=== PATIENT | female | born 1955 | race Caucasian/White ===

== ENCOUNTER 2023-07-08 09:12 | Emergency (ER) | payer OTHER, SELFPAY ==
[2023-07-08] VITALS (9 sets, daily range): BP systolic 134–143; BP diastolic 63–78; PULSE 75–129; RESP 12–21; TEMP 36.8; O2SAT 99; BMI 19.9
[2023-07-08 09:48] LABS: Absolute Lymphocyte Count 0.23 X10^3/uL (0.83-4.51); Absolute Neutrophil Count 2.4 X10^3/uL (2.0-7.7); Basophil# 0.02 X10^3/uL; Basophil% 0.6 % (0-1); Eosinophil# 0.06 X10^3/uL; Eosinophils% 1.9 % (0-5); Hematocrit 37.5 % (37-47); Hemoglobin 12.4 g/dL (12.0-15.0); Lymphocyte # 0.23 X10^3/ul (0.83-4.51); Lymphocyte % 7.3 % (19-41); Mean Corp Hgb Conc 33.1 g/dL (32-36); Mean Corpuscular Hgb 27.3 pg (27.0-32.0); Mean Corpuscular Volume 82.6 fL (81-99); Mean Platelet Vol. 9.2 fl (6.2-12.0); Monocyte# 0.49 X10^3/uL; Monocyte% 15.5 % (0-10); NRBC Flagged by Analyzer 0 % (0-5); Neutrophil # 2.35 X10^3/uL (2.7-7.7); Neutrophil % 74.4 % (47-70); POSITIVE DIFFERENTIAL YES; Platelet Count 306 K/mm3 (150-450); RBC Distribution Width SD 47.7 fl (35.1-43.9); Red Blood Count 4.54 M/mm3 (4.2-5.4); White Blood Count 3.2 K/mm3 (4.4-11.0)
[2023-07-08] MEDS: 0.9% Normal Saline (1000mL) 1,000 ML 1000 ML IV (09:48)
[2023-07-08 09:54] LABS: Differential Indicated SCAN CRITERIA MET
--- NOTE | 2023-07-08 09:54 | ED.VIS.GI ---
HPI HPI - GI History of Present Illness Chief Complaint: Diarrhea Informant: patient and spouse/S.O. Narrative Narrative: Increasing watery diarrhea since yesterday at least 12 episodes. Patient diagnosed reported rectal adenocarcinoma this past March followed by Dr. Orellana. She is on oral chemotherapy. She is getting radiation treatment due to tumor size, last treatment was yesterday. She has had a total of 17 treatments. Occasional blood in the stools. No anticoagulants. Occasional abdominal cramping. Denies fever states she felt little cold overnight. Reported felt weak. Blood pressure this morning at home systolic 87. They talked with oncology who referred him to the ED. Denies urinary symptoms or any cough. Prior similar symptoms: No PFSH [facility] Medical History CINV (chemotherapy-induced nausea and vomiting) Hx of sigmoidoscopy Rectal cancer Home Medications capecitabine 500 mg tablet 1,000 mg (2 x 500 mg) PO BID #100 tabs 06/02/23 [Rx Last Taken Unknown] calcium carbonate 600 mg calcium (1,500 mg) tablet (Calcium) 600 mg PO DAILY PRN 06/05/23 [History Last Taken Unknown] diclofenac sodium 1 % topical gel 2 g topical BID #100 grams 06/05/23 [Rx Last Taken Unknown] flaxseed oil 1,000 mg capsule 1,000 mg PO DAILY 06/05/23 [History Last Taken Unknown] denia (Zingiber officinalis) 250 mg capsule 250 mg PO DAILY PRN 06/05/23 [History Last Taken Unknown] magnesium 200 mg tablet 200 mg PO DAILY PRN 06/05/23 [History Last Taken Unknown] ondansetron 8 mg disintegrating tablet 8 mg PO Q8H PRN nausea and vomiting #30 tabs 06/05/23 [Rx Last Taken Unknown] potassium gluconate 595 mg (99 mg) tablet 595 mg PO DAILY PRN 06/05/23 [History Last Taken Unknown] loperamide 2 mg capsule (Imodium A-D) 2 mg PO Q6H PRN 06/25/23 [History Last Taken Unknown] sodium chloride 1,000 mg soluble tablet 1,000 mg PO QD-QID PRN electrolyte replenishment 30 days #60 tabs 07/02/23 [Rx Last Taken Unknown] diphenoxylate-atropine 2.5 mg-0.025 mg tablet (Lomotil) 1 tab PO BID PRN diarrhea #20 tabs 07/08/23 [Rx Last Taken Unknown] metoclopramide HCl 5 mg tablet (Reglan) 5 mg PO Q6H PRN nausea and vomiting #14 tabs 07/08/23 [Rx Last Taken Unknown] potassium chloride 20 mEq tablet,extended release 20 meq PO DAILY #7 tabs 07/08/23 [Rx Last Taken Unknown] Allergy/AdvReac Type Severity Reaction Status Date / Time No Known Allergies Allergy Verified 07/08/23 09:13 Surgical History History of mandibular surgery Hx of cataract removal with insertion of prosthetic lens Social History Smoking Status: Never smoker alcohol intake: never ROS ROS ED Constitutional Constitutional ED: Denies chills, fever(s) or sweats Eyes Eyes: Denies change in vision ENT ENT ED: Denies dysphagia or sore throat Cardiovascular Cardiovascular: Denies chest pain, leg edema, palpitations or racing heartbeat Respiratory/Chest Respiratory/Chest: Denies cough, dyspnea or dyspnea on exertion Gastrointestinal Gastrointestinal: Reports diarrhea; Denies abdominal pain, nausea or vomiting Genitourinary Genitourinary ED: Denies dysuria, hematuria or urinary frequency Musculoskeletal Musculoskeletal: Denies back pain, extremity pain or neck pain Integumentary Denies rash or wounds Neurologic Neurologic: Denies headache(s), paresthesias or weakness EXAM Physical Exam Const Vital Signs: 07/08/23 09:13 07/08/23 09:39 07/08/23 13:22 Temperature 98.3 F 98.3 F Temperature Source Temporal Temporal Pulse Rate 75 75 91 Respiratory Rate 14 14 12 Blood Pressure 140/78 H 140/78 H Blood Pressure Mean 98 98 Pulse Ox 99 99 Oxygen Delivery Method Room Air Room Air 07/08/23 14:06 07/08/23 14:10 07/08/23 14:15 Temperature Temperature Source Pulse Rate 97 95 88 Respiratory Rate 16 20 H 19 H Blood Pressure 136/66 H 134/63 H Blood Pressure Mean 83 83 Pulse Ox Oxygen Delivery Method 07/08/23 14:20 07/08/23 14:30 07/08/23 14:40 Temperature Temperature Source Pulse Rate 94 100 129 H Respiratory Rate 20 H 21 H 16 Blood Pressure 143/63 H Blood Pressure Mean 84 Pulse Ox Oxygen Delivery Method Positive well nourished and well developed General Appearance ED: well developed and NAD HEENT HEENT Narrative: Mild dry oral mucosal membranes. normocephalic and atraumatic Eyes PERRL, EOMs intact bilaterally and conjunctivae normal General Eye ED: Yes normal appearance of both eyes Neck no lymphadenopathy and supple General: Negative for tenderness Chest Wall Chest: Negative for tenderness Resp normal respiratory effort and normal air movement Effort and Inspection: symmetric chest movement; Negative for respiratory distress Cardio regular rate, regular rhythm and no murmurs Peripheral Pulses: pulses 2+ throughout GI normal to inspection, nondistended, normoactive bowel sounds and non-tender GI Narrative: No guarding or rebound. Palpation: Negative for guarding or rebound tenderness present Back/Spine no CVA tenderness and no thoracic nor lumbar tenderness Extremity normal to inspection General Extremety ED: Negative for edema or tenderness General Extremity: Negative for edema Neuro oriented x3 and no sensory deficits noted Sensorium / Orientation: awake and alert Skin no rashes or lesions noted and no wounds MDM MDM MDM Narrative Medical decision making narrative: Interventions / MDM: Differential diagnosis: Diarrhea, electrolyte abnormalities, dehydration Diagnosis considered but do not suspect: C. difficile/bacterial infection however stool studies negative. No clinical diverticulitis. No fevers for concerns for neutropenic fever. My EKG interpretation: N/A Imaging independently reviewed and interpreted by myself: N/A External documents reviewed: N/A Test considered but not ordered:N/A ED course: Patient afebrile denies fevers. Mild dry mucosal membranes with diarrhea. Will check labs, IV fluids will be given. 1215: Labs white count 3.2 hemoglobin 12.4. C. difficile negative. Stool studies pending. Creatinine 0.66. Potassium 2.6. Magnesium added. Clinically feeling better however still slight nausea. Was ordered for IV Reglan. Will plan for oral replacement of potassium. She was also hungry therefore diet will be ordered. Will wait stool studies results. C. difficile and stool panel negative. Tolerating oral intake on reevaluation. Abdomen soft she has multiple ambulation to restroom due to her loose stools. She is not weak with the potassium. She is given additional oral potassium 40 mill equivalents for total PD in the ED. I did discuss with her oncologist Dr. Orellana, she had oral lesions that she was concerned that small, states due to having symptoms with her chemotherapy that she can hold her chemotherapy medications. This discussed with the patient. She will follow-up outpatient for recheck labs. She was started on Lomotil with negative bacterial findings. Short prescription additional for Reglan sent to her pharmacy. Prior to discharge she was content by her radiology oncology team and seen in the ED, she is discharged for her radiation treatment from the ED. Re-evaluation: stable Disposition discussed with patient/family/significant other: Patient Case discussed with consulting clinician: Oncology This note was generated with [employer] dictation software. It may contain incorrect words, spelling, and punctuation that were not noted in checking the note before signing. Lab Data Attestation: I reviewed the patient's lab results. Labs: Laboratory Results - last 24 hr 07/08/23 09:35 WBC 3.2 L RBC 4.54 Hgb 12.4 Hct 37.5 MCV 82.6 MCH 27.3 MCHC 33.1 RDW Std Deviation 47.7 H RDW Coeff of John 19.0 H Plt Count 306 MPV 9.2 Immature Gran % (Auto) 0.300 Neut % (Auto) 74.4 H Lymph % (Auto) 7.3 L Walker % (Auto) 15.5 H Eos % (Auto) 1.9 Baso % (Auto) 0.6 Absolute Neuts (auto) 2.4 Absolute Lymphs (auto) 0.23 L Nucleated RBC % 0 Differential Comment SCANNED Diff Path Review May foll Sodium 130 L Potassium 2.6 L* Chloride 96 L Carbon Dioxide 29.0 Anion Gap 5 BUN 7 Creatinine 0.66 Estim Creat Clear Calc 36.94 Est GFR (MDRD) Af Amer 113 Est GFR (MDRD) Non-Af 94 BUN/Creatinine Ratio 10.6 Glucose 133 H Calcium 8.8 Magnesium 1.8 Total Bilirubin 0.40 AST 14 L ALT 14 Alkaline Phosphatase 77 Total Protein 7.1 Albumin 2.8 L Globulin 4.3 H Albumin/Globulin Ratio 0.7 L Discharge Plan Triage Chief Complaint: Diarrhea ED Provider: Jadon Vazquez Dx/Rx/DC Orders Clinical Impression: Diarrhea, Rectal cancer, Hypokalemia Instructions: Hypokalemia Dc, ED Diarrhea, Viral (Adult) Prescriptions: New diphenoxylate-atropine [Lomotil] 2.5-0.025 mg tablet 1 tab PO BID PRN (Reason: diarrhea) Qty: 20 0RF potassium chloride 20 mEq tablet extended release 20 meq PO DAILY Qty: 7 0RF metoclopramide HCl [Reglan] 5 mg tablet 5 mg PO Q6H PRN (Reason: nausea and vomiting) Qty: 14 0RF No Action capecitabine 500 mg tablet 1,000 mg PO BID Qty: 100 0RF Rx Instructions: Friday to Friday during Radiation. calcium carbonate [Calcium 600] 600 mg calcium (1,500 mg) tablet 600 mg PO DAILY PRN flaxseed oil 1,000 mg capsule 1,000 mg PO DAILY Rx Instructions: administer with a meal denia (Zingiber officinalis) 250 mg capsule 250 mg PO DAILY PRN magnesium 200 mg tablet 200 mg PO DAILY PRN potassium gluconate 595 mg (99 mg) tablet 595 mg PO DAILY PRN ondansetron 8 mg tablet,disintegrating 8 mg PO Q8H PRN (Reason: nausea and vomiting) Qty: 30 2RF diclofenac sodium 1 % gel 2 g topical BID Qty: 100 2RF Rx Instructions: apply to palms and soles of feet twice daily sodium chloride 1,000 mg tablet,soluble 1,000 mg PO QD-QID PRN (Reason: electrolyte replenishment) 30 Days Qty: 60 1RF loperamide [Imodium A-D] 2 mg capsule 2 mg PO Q6H PRN Primary Care Provider: Mike Salvador Referrals: Nate Orellana MD [Med Staff - Active Staff] - 3-5 Days Mike Salvador MD [Primary Care Provider] - Activity Restrictions/Additional Instructions: Stool studies with C. difficile and stool panel all negative. Creatinine normal 0.66. You were given a total of 80 mEq of potassium in the ED over couple hours. Continue potassium replacement as prescribed daily. Continue oral fluids for hydration. Per Dr. Orellana, you may hold your chemotherapy oral medications until follow-up with him. Continue with your radiation therapy. Disposition Disposition: Home, Self Care Discharge Date/Time: 07/08/23 15:22
[2023-07-08] MEDS: Ondansetron 4 MG/2 ML Vial IV (09:55)
[2023-07-08 10:06] LABS: Differential Comment SCANNED
[2023-07-08 10:50] LABS: ALB/GLOB Ratio 0.7 RATIO (0.9-2.4); AST(SGOT) 14 U/L (15-37); Alanine Aminotransfer ALT/SGPT 14 U/L (13-56); Albumin, Serum 2.8 g/dL (3.2-5.0); Alkaline Phosphatase 77 U/L (45-117); Anion Gap 5 (5-15); BUN 7 mg/dL (7-18); BUN/Creat Ratio 10.6 RATIO (10-20); Calcium,Total 8.8 mg/dL (8.5-10.1); Chloride 96 mmol/L (98-107); Creatinine, Serum 0.66 mg/dL (0.55-1.02); EST Glomerular Filtration Rate 94 mL/min (>60); Est Glom Filt Rate - Afr Amer 113 mL/min (>60); Estimated Creatinine Clearance 36.94 ml/min; Globulin 4.3 g/dL (2.2-4.2); Glucose 133 mg/dL (74-106); Potassium 2.6 mmol/L (3.5-5.1); Protein, Total 7.1 g/dL (6.4-8.2); Sodium Level 130 mmol/L (136-145)
--- OUTSIDE RECORDS SUMMARY | 2023-07-08 11:35 | XMS RPT_ITS | CCD ---
Author Name Unknown Address [address] [place] [address] Organization [facility] Care Team Providers Care Mink Farmer Name Role Phone Unavailable Primary Care Provider Unavailabl e [facility], Other Primary Care Provider BLOSSOM HARRIS Consulting Unavailable RIOS, MARIA D Admitting Unavailable RIOS, MARIA D Primary Care Unavailable RIOS, MARIA D Attending Unavailable PROVIDER, UNKNOWN Consulting Unavailable PROVIDER, UNKNOWN Consulting Unavailable PROVIDER, UNKNOWN Consulting Unavailable AARON HARRISRY T Consulting Unavailable RIOS, MARIA D Admitting Unavailable RIOS, MARIA D Primary Care Unavailable RIOS, MARIA D Attending Unavailable PROVIDER, UNKNOWN Consulting Unavailable PROVIDER, UNKNOWN Consulting Unavailable PROVIDER, UNKNOWN Consulting Unavailable STEVEN BLOSSOM T Consulting Unavailable RIOS, MARIA D Admitting Unavailable RIOS, MARIA D Primary Care Unavailable RIOS, MARIA D Attending Unavailable PROVIDER, UNKNOWN Consulting Unavailable PROVIDER, UNKNOWN Consulting Unavailable PROVIDER, UNKNOWN Consulting Unavailable STEVEN BLOSSOM T Consulting Unavailable RIOS, MARIA D Admitting Unavailable RIOS, MARIA D Primary Care Unavailable RIOS, MARIA D Attending Unavailable PROVIDER, UNKNOWN Consulting Unavailable PROVIDER, UNKNOWN Consulting Unavailable PROVIDER, UNKNOWN Consulting Unavailable DAPHNEY SHANNAN E Referring Unavailable ASHOK MINOR Attending Unavailabl e ASHOK MINOR Admitting Unavailabl ASHOK Ortega Attending Unavailabl e [employer] [facility], OTHER Primary Care Unavailable HICKEY, SHANNAN E Referring Unavailable [employer] [facility], OTHER Primary Care Unavailable [facility] OFF[facility]CP, [facility] Referring Unavailable EPIFANIO MARIN Attending Unavailable [employer] [facility], OTHER Primary Care Unavailable HICKEY, SHANNAN E Attending Unavailable HICKEY, SHANNAN E Referring Unavailable [employer] [facility], OTHER Primary Care Unavailable ASHOK MINOR Attending Unavailabl e ASHOK MINOR Referring Unavailabl e ASHOK MINOR Attending Unavailabl e BLANCA, MARIA D Referring Unavailable KAYLEY ALVARADO-CTRACY Unavailable [phone] KARINEASIF TRIBE Unavailable Unavailable MARIA D RIOS MD Unavailable BLOSSOM HARRIS MD Unavailable [phone] Luis AntonioYolanda malave Unavailable Unavailable Andrey MARTINEZ MD Unavailable Haley Glass Unavailable Unavailable Alexa Rios Unavailable Unavailable Rafat RIOS MD Unavailable [place] MARYNestorn Unavailable Unavailable RAYMUNDO TABOR Unavailable Unavailable KIMBERLY CHRISTINE MD Unavailable Lora Colon Unavailable Unavailable Unavailable Unavailable Medications Completed/Discontinued Medications Medication Drug Class(es) Dates Sig (Normalized) Sig (Original) ALPRAZolam 0.5 mg oral tablet (1 source) Benzodiazepine Start: 10-12-2014 End: 07-28-2017 take 1 tablet by mouth once daily as needed Xanax 0.5 MG Oral Tablet ; 1 (one) Tablet one time daily as needed for 30 days Quantity: 30 {Tablet} Refills: 2 Ordered: 28-Jul-2017 Start: 12-Oct-2014 End: 28-Jul-2017 Status: Inactive Comments: Medication taken as needed. Problems Active Problems Problem Classification Problem Date Documented Da te Episodic/Chronic Administrative/social admission (1 source) Repeated prescription; Translations: [Encounter for issue of repeat prescription] 03-15-2013 Episodic Cancer of rectum and anus (5 sources) Malignant tumor of rectum; Translations: [Malignant neoplasm of rectum] Onset: 05-07-2023 05-07-2023 Chronic Past or Other Problems Problem Classification Problem Date Documented Da te Episodic/Chronic Cataract (1 source) Cataract 06-29-2021 Mood disorders (2 sources) Mood disorders 05-12-2012 Unclassified (1 source) Flatulence - Symptoms include belching, bloating (just feels gassy) and excessive rectal gas. Onset was 3 month(s) ago. Associated symptoms include diarrhea, cramping (some) and change in bowel habits, while associated symptoms do not include constipation, blood in stool, fever, nausea or vomiting. Note for Flatulence : Patinet feels good but just feels gassy. After eating this happens. Patient has tried probiotics at times. and enzymes 03-24-2023 Unclassified (1 source) ![facility] The test(s) that you had done were/was blood work. The results of your testing were normal . You should call our office if you have any questions. 01-08-2018 Unclassified (1 source) !Patient notification of lab results - [facility]. The test(s) that you had done were/was blood work (You had labs in June 2017 that indicated a high globulin (blood protein). This is actually a test which combines the amount of a number of individual protein levels to give the total level which we tested. Sometimes the total is elevated because several individual proteins are in the high normal range. In other cases, it is because a single protein is elevated and thus driving up the total. There is an additional blood test called a serum protein electrophoresis that must be run at this time which helps identify these individual protein levels.You have not had this additional test performed yet and it is important that you do so. Pleaes call our office to schedule the lab test.). You should call our office if you have any questions. 12-18-2017 Unclassified (1 source) !Patient notification of lab results - [facility]. The test(s) that you had done were/was blood work (The protein level on your blood test was elevated. This is actually a test which combines the amount of a number of individual protein levels to give the total level which we tested. Sometimes the total is elevated because several individual proteins are in the high normal range. In other cases, it is because a single protein is elevated and thus driving up the total. There is an additional blood test called a serum protein electrophoresis that must be run at this time which helps identify these individual protein levels.). You should call our office to schedule an appointment for additional testing and if you have any questions. 11-12-2017 Unclassified (1 source) !Patient notification of lab results - [facility]. The test(s) that you had done were/was blood work (The neutrophil count was slightly low. These are cells that help fight bacterial infections. They were not so low that I am concerned that you will have a problem with infection, but the count should be repeated in 6 months to be certain that the count is stable). You should call our office to schedule an appointment for additional testing and if you have any questions. 10-08-2017 Unclassified (1 source) !Patient notification of lab results - [facility]. The test(s) that you had done were/was blood work (The white blood cell count was slightly low. These are cells that help fight infections. The count should be repeated in 1 week to be certain that it is returning to normal. Sometimes it is low during an infection. Your iron count was slightly low (34 with normal being 37 or above). Please start a multivitamin with iron daily and have the lab repeated in 3 months.Several of your liver function tests were slightly elevated. This can result from any number of causes such as fatty deposits in the liver or irritation due to a medication. I don't feel that these are elevated to the point of being a critical concern, but I would recommend that we repeat them in 3 months to verify that they are stable). You should call our office if you have any questions. Please follow up as scheduled. 07-31-2017 Unclassified (1 source) cough - Note for cough : Productive cough. C/O fatigue. Passed out last night - felt dizzy. Chills since Friday. Here for exam.* Late entry due to [employer] virus outage. 07-30-2017 Unclassified (1 source) Anxiety - Note for Anxiety : Pt is feeling well on the sertraline. She does keep some pills on hand for emergencies. 10-12-2014 Unclassified (1 source) [ADDITIONAL REASON] Insomnia - Note for Insomnia : Pt is sleeping well. 10-12-2014 Unclassified (1 source) Depression - Note for Depression : Patient is here for depression/anxiety. She has difficulty sleeping and occasional anxiety. She did have 3 different medications on hand to take when she felt she needed and she would like to refill those prescriptions again to have them on hand when she needs them. She did have a concern about her stomach while taking these prescriptions. 03-09-2014 Unclassified (1 source) Insomnia - Note for Insomnia : wants ambien refilled. 03-16-2013 Unclassified (1 source) Routine Check - Patient is here to review the medical problem(s) of other: ____ (anxiety/depression). Note for Routine Check : States is feeling better. Has to work through things. 02-11-2012 Unclassified (1 source) Routine Check - Patient is here to review the medical problem(s) of other: ____ (anxiety/depression). Note for Routine Check : States is feeling better. Quit taking the sertraline for a while but is taking again after family strongly encouraged to keep taking . Sometimes is taking the ambien 12.5 instead of the restoril 15mg which she is supposed to be taking (chaned to this at last visit.) 01-07-2012 Unclassified (1 source) !Patient notification of lab results 1 - Dr. Christine. The test(s) that you had done were/was a serum protein electrophoresis to look for abnormal proteins. The results of your testing were normal . Please continue your current medication/therapy and follow up as scheduled. 12-11-2011 Unclassified (1 source) !Patient notification of lab results 1 - Dr. Christine. The test(s) that you had done were/was a CBC (checks for anemia and infection), a CMP (kidneys, liver, nutrition, sugar), a lipid panel (cholesterol and triglycerides) and a TSH (thyroid). The results of your testing were normal for age (except a slightly high globulin level which we will recheck at your next visit to verify) . Please note that we have included copies of your results, continue your current medication/therapy and follow up as scheduled. 11-20-2011 Unclassified (1 source) Insomnia - Symptoms include difficulty staying asleep. The symptoms occur nightly. Note for Insomnia : Saw Dr Rios a few weeks ago and given RX medication but is still not sleeping. Says she thinks she has anxiety and depression and mind won't let me sleep . 11-19-2011 Unclassified (1 source) Sleep Disorders - Onset was 6 week(s) ago. Note for Sleep Disorders : Increase in stress recently; sleeps approx 2-3 hours per night. 10-30-2011 Results Test Name Value Interpretation Reference Range Facil ity Vital Signs Date Time Vital Sign Value Performing Clinician Buffy workman 05-14-2023 13:30-0500 Diastolic blood pressure 74 mm[Hg] Ashok Minor MD Work Phone: [facility] 05-14-2023 13:30-0500 Heart rate 71 /min Ashok Minor MD Work Phone: [facility] 05-14-2023 13:30-0500 Respiratory rate 16 /min Ashok Minor MD Work Phone: [facility] 05-14-2023 13:30-0500 SaO2% (BldA) [Mass fraction] 100 % Ashok Minor MD Work Phone: [phone] [address] 05-14-2023 13:30-0500 Systolic blood pressure 142 mm[Hg] Ashok Minor MD Work Phone: [phone] [address] 05-14-2023 13:10-0500 Body temperature 98.01 [degF] Ashok Minor MD Work Phone: 4([phone] [address] 05-14-2023 12:28-0500 Body height 147.3 cm Ashok Minor MD Work Phone: [phone])[phone] [address] 05-14-2023 12:28-0500 Body mass index (BMI) [Ratio] 21.28 kg/m2 Ashok Minor MD Work Phone: [phone])[phone] [address] 05-14-2023 12:28-0500 Body weight 46.18 kg Ashok Minor MD Work Phone: [facility] 05-07-2023 12:22-0500 Diastolic blood pressure 83 mm[Hg] Ashok Minor MD Work Phone: [facility] 05-07-2023 12:22-0500 Heart rate 123 /min Ashok Minor MD Work Phone: [facility] 05-07-2023 12:22-0500 Systolic blood pressure 170 mm[Hg] Ashok Minor MD Work Phone: [phone] [address] 05-06-2023 09:53-0500 Body height 147.3 cm Ashok Minor MD Work Phone: [facility] 05-06-2023 09:53-0500 Body mass index (BMI) [Ratio] 22.36 kg/m2 Ashok Minor MD Work Phone: [facility] 05-06-2023 09:53-0500 Body weight 48.53 kg Ashok Minor MD Work Phone: [facility] 05-06-2023 09:53-0500 Diastolic blood pressure 90 mm[Hg] Ashok Minor MD Work Phone: [facility] 05-06-2023 09:53-0500 Heart rate 102 /min Ashok Minor MD Work Phone: [facility] 05-06-2023 09:53-0500 Systolic blood pressure 167 mm[Hg] Ashok Minor MD Work Phone: [facility] 03-24-2023 13:02-0400 Body height 147.32 cm Brianna Overholt [facility], [facility]. 03-24-2023 13:02-0400 Body mass index (BMI) [Ratio] 24.03 kg/m2 Brianna Overholt [facility], [facility]. 03-24-2023 13:02-0400 Body surface area Derived from formula 1.44 m2 Brianna Overholt [facility], [facility]. 03-24-2023 13:02-0400 Body weight 52.16 kg Brianna Overholt [facility], [facility]. 03-24-2023 13:02-0400 Diastolic blood pressure 85 mm[Hg] Brianna Overholt [facility] Encounters Encounter Date Encounter Type Care Provider Facility Start: 06-06-2023 End: 06-06-2023 Historical Summary TRACY ALVARADO-Imani [facility]: [facility] Start: 06-05-2023 End: 06-05-2023 Subsequent hospital visit by physician Shannan Nascimento [employer] Work Phone: [facility] [place] Procedures Date Procedure Procedure Detail Performing Clinician Start: 05-14-2023 Glucose measurement, blood Ashok Minor MD Work Phone: Start: 05-07-2023 Mri pelvis w/o & w/contrast material Ashok Minor MD Work Phone: Start: 03-24-2023 End: 03-24-2023 Dischrg meds reconciled w/current med list TRACY MARSHALLP-C Work Phone: Start: 06-29-2021 End: 06-29-2021 Dischrg meds reconciled w/current med list BLOSSOM HARRIS MD Work Phone: Start: 05-12-2012 End: 05-12-2012 Microscopic examination of cervical Papanicolaou smear Brianna Christopherolrose marie [facility] Plan of Treatment Date Care Activity Detail Author Start: 06-05-2023 End: 06-05-2023 Patient encounter procedure 06/05/2023 9:30 AM EST Appointment [facility] [place] [address] Shannan Nascimento, SUPER[employer]OR [employer] [address] [facility] [address] [place] [address] [facility] [place] Start: 06-05-2023 Subsequent hospital visit by physician 06/05/2023 9:30 AM EST Hospital Encounter [facility] [place] [address] Shannan Nascimento, SUPERVISOR [employer] [address] [place] [address] [facility] [place] Start: 06-03-2023 End: 06-03-2023 Patient encounter procedure 06/03/2023 3:15 PM EST Office Visit [facility] [address] [place] [phone] Ashok Minor MD [address] [place] [address] [facility] Start: 05-14-2023 End: 05-14-2023 Admission to same day surgery center 05/14/2023 12:30 PM EST - 05/14/2023 1:50 PM EST Surgery [facility] [address] [place] [phone] Ashok Minor MD [address] [place] [address] EXAM UNDER ANESTHESIA ANORECTAL PERIOP Immunizations Immunization Date Immunization Notes Care Provider [facility] 05-12-2012 influenza virus vaccine, unspecified formulation TRACY BILL Work Phone: [facility], [employer], [facility] Payers Date Payer Category Payer Unknown [id number] 1955 Unknown [id number] [id number] 1955 Unknown [id number] 2.16.8 [id number] 1955 Unknown [id number] 2.16.8 [id number] 1955 Unknown [id number] 2.16.8 [id number] 1955 Unknown [id number] [id number]. [id number] 1955 Unknown [id number] [id number]. [id number] Unknown 194 Unknown Social History Date Type Detail Facility Start: 05-06-2023 Tobacco smoking stat [facility] Never smoked tobacco [facility] Start: 05-06-2023 Tobacco use and exposure Smokeless tobacco non-user [facility] Start: 05-06-2023 End: 05-19-2023 Alcohol intake Lifetime non-drinker (finding) [facility] Start: 05-06-2023 End: 05-19-2023 History of Social function [facility] Start: 05-06-2023 End: 05-19-2023 Tobacco use panel [facility] Start: 1955 Sex Assigned At Not on file [facility] Alcohol Use: Alcohol Use: ; N ever used alcohol. [facility]; [facility] Highest Education [employer] Attained: Highest Education Level Attained: ; Less than high school. [facility] [employer] [facility] Center[facility].; [facility] Marital status: Marital status: ; . [facility].; [facility] Tobacco use: Tobacco use: ; N ever smoker. [facility].; [facility] Female [facility].; [facility] Work Phone: Less than high school [facility] [employer] [facility] Center[facility].; [facility] Work Phone: [facility].; [facility] Work Phone: Clinical Notes 05-06-2023 to 05-14-2023 Op Note - Ashok Minor MD - 05/14/2023 2:01 PM ESTBrief Op Note - Ashok Minor MD - 05/14/2023 2:01 PM ESTBrief Op Note - Tracy Phillips MD - 05/14/2023 1:06 PM ESTAttachments Note Date & Type Note Facility 05-14-2023 Miscellaneous Notes OPERATIVE NOTE DATE OF PROCEDURE: 05/14/2023 PREOPERATIVE DIAGNOSIS: rectal tumor POSTOPERATIVE DIAGNOSIS: same PROCEDURE: 1) flexible sigmoidoscopy SURGEON: Ashok Minor MD CONCRETE PLANT LABORER(S): Dr. Phillips ANESTHESIA: MAC COMPLICATIONS: none SPECIMEN(S): none EBL: 0 mL DRAIN(S): none INDICATIONS: 68-year-old female referred for rectal tumor. At the time of office consultation as well as today's procedure, we do not have a colonoscopy report. His best as I can ascertain from her pathology report, she has a partially obstructing rectal tumor. She has a CEA of 50. A CT of her chest abdomen and pelvis suggests a luminal sigmoid mass partial obstruction. MRI of her pelvis is consistent with a T4 N0 rectal tumor straddling the peritoneal reflexion. She presents for flexible sigmoidoscopy. FINDINGS: 1. Fungating tumor at 12 cm from the anal verge, in close approximation to the 3rd rectal valve. The distal extent of the lesion was palpable by digital examination suggesting the lesions is at the peritoneal reflection. PROCEDURE IN DETAIL: Prior to induction, the patient's identity was confirmed and sequential compression devices were placed by OR nursing. Anesthesia was administered via MAC without difficulty. The patient was positioned for the operative procedure in the lateral decubitus position with all pressure points padded. The patient was then prepped and draped in the standard sterile fashion. Digital examination revealed good sphincter tone. A firm lesion was palpable at 8 cm anteriorly. I inserted a flexible colonoscope transanally advanced it to proximally 12 cm. I could identify a fungating tumor unable to be traversed by adult colonoscope. The colonoscope was withdrawn. The patient tolerated the procedure well with no immediate surgical complications. All instrument and sponge counts were correct at the conclusion of the case. The patient was taken from the operating room to the recovery room in stable condition. I was present and scrubbed for the entire procedure. Julián Minor MD Clinical color paste mixing supervisor Division of Colon and Rectal Surgery Ximena Chow ([id number]) PRE OPERATIVE DIAGNOSIS Adenocarcinoma [C80.1] POST OPERATIVE DIAGNOSIS Post-Op Diagnosis Codes: * Adenocarcinoma [C80.1] PROCEDURE PERFORMED Procedure(s) (LRB): SIGMOIDOSCOPY DIAGNOSTIC (N/A) PRIMARY CLOSURE Yes INTRAOPERATIVE FINDINGS Fungating tumor at 12cm from anal verge (at 3rd rectal valve) SURGEON Surgeon(s) and Role: * Ashok Minor MD - Primary ANESTHESIOLOGIST Anesthesiologist: Rosalie Posey MD Criminal Profiler: CÉSAR Henderson SURGICAL STAFF Broacher: Lora Bartlett RN Relief Broacher: Ivis Tarango RN Relief Scrub: Priscila Phan Scrub Person: Raquel Hernandez RN; Adeola Giraldo Resident Assisting: Tracy Phillips MD COMPLICATIONS None ESTIMATED BLOOD LOSS None SPECIMENS No specimen sent * No specimens in log * Ashok iMnor MD May 14, 2023 2:18 PM Ximena Chow ([id number]) PRE OPERATIVE DIAGNOSIS Adenocarcinoma [C80.1] POST OPERATIVE DIAGNOSIS Post-Op Diagnosis Codes: * Adenocarcinoma [C80.1] PROCEDURE PERFORMED Procedure(s) (LRB): EXAM UNDER ANESTHESIA ANORECTAL (N/A) PRIMARY CLOSURE N/A INTRAOPERATIVE FINDINGS Fungating mass appreciated at about 10-12 cm from anal verge on flex sig. No additional lesions appreciated. SURGEON Surgeon(s) and Role: * Ashok Minor MD - Primary ANESTHESIOLOGIST Anesthesiologist: Rosalie Posey MD Criminal Profiler: CÉSAR Henderson SURGICAL STAFF Broacher: Lora Bartlett RN Relief Broacher: Ivis Tarango RN Relief Scrub: Priscila Phan Scrub Person: Raquel Hernandez RN; Adeola Giraldo Resident Assisting: Tracy Phillips MD COMPLICATIONS None ESTIMATED BLOOD LOSS Minimal SPECIMENS No specimen sent * No specimens in log * Tracy Phillips MD PhD Department of Surgery PGY3 #[id number] May 14, 2023 1:06 PM documented in this encounter [facility] 05-14-2023 Surgery Postoperative evaluation and management note OPERATIVE NOTE DATE OF PROCEDURE: 05/14/2023 PREOPERATIVE DIAGNOSIS: rectal tumor POSTOPERATIVE DIAGNOSIS: same PROCEDURE: 1) flexible sigmoidoscopy SURGEON: Ashok Minor MD [employer]CR[employer] LABORER(S): Dr. Phillips ANESTHESIA: MAC COMPLICATIONS: none SPECIMEN(S): none EBL: 0 mL DRAIN(S): none INDICATIONS: 68-year-old female referred for rectal tumor. At the time of office consultation as well as today's procedure, we do not have a colonoscopy report. His best as I can ascertain from her pathology report, she has a partially obstructing rectal tumor. She has a CEA of 50. A CT of her chest abdomen and pelvis suggests a luminal sigmoid mass partial obstruction. MRI of her pelvis is consistent with a T4 N0 rectal tumor straddling the peritoneal reflexion. She presents for flexible sigmoidoscopy. FINDINGS: 1. Fungating tumor at 12 cm from the anal verge, in close approximation to the 3rd rectal valve. The distal extent of the lesion was palpable by digital examination suggesting the lesions is at the peritoneal reflection. PROCEDURE IN DETAIL: Prior to induction, the patient's identity was confirmed and sequential compression devices were placed by OR nursing. Anesthesia was administered via MAC without difficulty. The patient was positioned for the operative procedure in the lateral decubitus position with all pressure points padded. The patient was then prepped and draped in the standard sterile fashion. Digital examination revealed good sphincter tone. A firm lesion was palpable at 8 cm anteriorly. I inserted a flexible colonoscope transanally advanced it to proximally 12 cm. I could identify a fungating tumor unable to be traversed by adult colonoscope. The colonoscope was withdrawn. The patient tolerated the procedure well with no immediate surgical complications. All instrument and sponge counts were correct at the conclusion of the case. The patient was taken from the operating room to the recovery room in stable condition. I was present and scrubbed for the entire procedure. Julián Minor MD Clinical color paste mixing supervisor Division of Colon and Rectal Surgery [facility] 05-14-2023 Surgery Postoperative evaluation and management note Ximena Chow ([id number]) PRE OPERATIVE DIAGNOSIS Adenocarcinoma [C80.1] POST OPERATIVE DIAGNOSIS Post-Op Diagnosis Codes: * Adenocarcinoma [C80.1] PROCEDURE PERFORMED Procedure(s) (LRB): SIGMOIDOSCOPY DIAGNOSTIC (N/A) PRIMARY CLOSURE Yes INTRAOPERATIVE FINDINGS Fungating tumor at 12cm from anal verge (at 3rd rectal valve) SURGEON Surgeon(s) and Role: * Ashok Minor MD - Primary ANESTHESIOLOGIST Anesthesiologist: Rosalie Posey MD Criminal Profiler: CÉSAR Henderson SURGICAL STAFF Broacher: Lora Bartlett RN Relief Broacher: Ivis Tarango RN Relief Scrub: Priscila Phan Scrub Person: Raquel Hernandez RN; Adeola Giraldo Resident Assisting: Tracy Phillips MD COMPLICATIONS None ESTIMATED BLOOD LOSS None SPECIMENS No specimen sent * No specimens in log * Ashok Minor MD May 14, 2023 2:18 PM [facility] 05-14-2023 Nurse Surgical operation note Discharge instructions given to pt. Pt verbalized understanding. 1358 pt taken to lobby in wheelchair [facility] 05-14-2023 Nurse Note Discharge instructions given to pt. Pt verbalized understanding. 1358 pt taken to lobby in wheelchair Called PACU report. documented in this encounter [facility] 05-14-2023 Hospital Discharg e instructions Tracy Phillips MD - 05/14/2023 1:25 PM EST Clinic Office Main Number: [phone] For Concerns During Weekend or Evening Hours: -If you have questions or concerns call and ask the owner operator tanker truck driver to have the general surgery chief resident paged. Reminder: [employer] messaging goes unmonitored during evenings and weekends. Any concerns or questions during this time, please call using instructions above. NOTIFY PHYSICIAN: SYMPTOMS WOUND INFECTION - Increase in pain in or around wound - Change in the amount of drainage - Change in the color of drainage - Change in the odor of drainage - Warmth in the tissues around the wound - Red streaks on the skin near the wound - Fever (temperature greater than 101 degrees F) - Incision separates or opens up UNRELIEVED PAIN + - Increased or unrelieved pain NAUSEA/VOMITING + - Nausea and vomiting that continues for more than 24 hours - Not able to keep medicine down - Not able to keep fluids down SYMPTOMS OF DVT + DVT = Deep Vein Thrombus, or Blood Clot -Any Tender, Swollen, or Reddened Areas from Your Groin to Your Heels -Numbness or Tingling In Groin or Calf -The Skin on Your Leg Looks Pale or Blue or It Feels Cold To Touch -Numbness or Tingling In Groin or Calf -Any Shortness of Breath -Chest Pain -Fever or Chills SYMPTOMS OF GI BLEED + Call your doctor or nurse if you have signs of slow blood loss such as: -Black tarry bowel movements -Cold hands and feet -Weakness -Dizzyness Call 911 if you suddenly have signs of blood loss such as: -Vomiting blood -Fast heart rate -Feeling faint or blacking out -Passing bright red blood from your rectum The following attachments cannot be sent through Care Everywhere.Colonoscopy: Post-op ([place]orese)documented in this encounter [facility] 05-14-2023 Surgery Postoperative evaluation and management note Ximena Chow ([id number]) PRE OPERATIVE DIAGNOSIS Adenocarcinoma [C80.1] POST OPERATIVE DIAGNOSIS Post-Op Diagnosis Codes: * Adenocarcinoma [C80.1] PROCEDURE PERFORMED Procedure(s) (LRB): EXAM UNDER ANESTHESIA ANORECTAL (N/A) PRIMARY CLOSURE N/A INTRAOPERATIVE FINDINGS Fungating mass appreciated at about 10-12 cm from anal verge on flex sig. No additional lesions appreciated. SURGEON Surgeon(s) and Role: * Ashok Minor MD - Primary ANESTHESIOLOGIST Anesthesiologist: Rosalie Posey MD Criminal Profiler: CÉSAR Henderson SURGICAL STAFF Broacher: Lora Bartlett RN Relief Broacher: Ivis Tarango RN Relief Scrub: Priscila Phan Scrub Person: Raquel Hernandez RN; Adeola Giraldo Resident Assisting: Tracy Phillips MD COMPLICATIONS None ESTIMATED BLOOD LOSS Minimal SPECIMENS No specimen sent * No specimens in log * Tracy Phillips MD PhD Department of Surgery PGY3 #[id number] May 14, 2023 1:06 PM [facility] 05-14-2023 Nurse Surgical operation note Called PACU report. [facility] 05-14-2023 History and physical note Images from the original note were not included. Colorectal Surgery History and Physical Day of Surgery REASON FOR ADMISSION: Flex Sig with Ashok Minor MD for evaluation of upper rectal mass. HISTORY OF PRESENT ILLNESS: Ximena Chow is a 68 y.o. female with hx of irregular heartbeat here for evaluation w/ eua/flex sig for rectal tumor. No changes to medications. No anti-coagulation/anti-platelet at home. No new allergies. No recent hospitalizations or ED visits. No new medical diagnoses. No hx abdominal surgeries. Last meal was yesterday evening. Enema prep at home. Questions regarding procedure answered to satisfaction. Accompanied today by her son. Histories below confirmed to be updated. ALOC entered, Surgical consents complete, any pre-op labs evaluated and satisfactory. PROBLEM LIST: There is no problem list on file for this patient. MEDICAL HISTORY: No past medical history on file. SURGICAL HISTORY: Past Surgical History: Procedure Laterality Date OTHER SURGICAL 2021 Jaw surgery REMOVAL CATARACT (PEM) FAMILY MEDICAL HISTORY: her family history is not on file. SOCIAL HISTORY: she reports that she has never smoked. She has never used smokeless tobacco. She reports that she does not drink alcohol and does not use drugs. ALLERGIES: Not on File HOME MEDS: No medications prior to admission. REVIEW OF SYSTEMS: See hpi OBJECTIVE FINDINGS: Blood pressure (!) 190/91, pulse 105, temperature 98.3 F (36.8 C), temperature source Infrared, resp. rate 18, height 1.473 m (4' 10 ), weight 46.2 kg (101 lb 12.8 oz), SpO2 100 %. Physical Exam: GEN: alert, in no acute distress. HEENT: PERRL NEURO: alert, follows commands CV: regular rate and rhythm, pulses intact PULM: breath sounds clear to anterior auscultation, respirations easy and regular ABD: soft, nontender, nondistended MSK: no gross abnormalities, moves all extremities appropriately SKIN: no rashes EXT: warm and well perfused PSYCH: appropriate for situation Labs: Bun/Creat/Cl/CO2/Glucose: --/--/--/--/108 (05/14 1225) Imaging: MRI reviewed. Tracy Phillips MD PhD Department of Surgery PGY3 #[id number] [facility] Work Phone: 05-14-2023 History and physical note Images from the original note were not included. Colorectal Surgery History and Physical Day of Surgery REASON FOR ADMISSION: Flex Sig with Ashok Minor MD for evaluation of upper rectal mass. HISTORY OF PRESENT ILLNESS: Ximena Chow is a 68 y.o. female with hx of irregular heartbeat here for evaluation w/ eua/flex sig for rectal tumor. No changes to medications. No anti-coagulation/anti-platelet at home. No new allergies. No recent hospitalizations or ED visits. No new medical diagnoses. No hx abdominal surgeries. Last meal was yesterday evening. Enema prep at home. Questions regarding procedure answered to satisfaction. Accompanied today by her son. Histories below confirmed to be updated. ALOC entered, Surgical consents complete, any pre-op labs evaluated and satisfactory. PROBLEM LIST: There is no problem list on file for this patient. MEDICAL HISTORY: No past medical history on file. SURGICAL HISTORY: Past Surgical History: Procedure Laterality Date OTHER SURGICAL 2021 Jaw surgery REMOVAL CATARACT (PEM) FAMILY MEDICAL HISTORY: her family history is not on file. SOCIAL HISTORY: she reports that she has never smoked. She has never used smokeless tobacco. She reports that she does not drink alcohol and does not use drugs. ALLERGIES: Not on File HOME MEDS: No medications prior to admission. REVIEW OF SYSTEMS: See hpi OBJECTIVE FINDINGS: Blood pressure (!) 190/91, pulse 105, temperature 98.3 F (36.8 C), temperature source Infrared, resp. rate 18, height 1.473 m (4' 10 ), weight 46.2 kg (101 lb 12.8 oz), SpO2 100 %. Physical Exam: GEN: alert, in no acute distress. HEENT: PERRL NEURO: alert, follows commands CV: regular rate and rhythm, pulses intact PULM: breath sounds clear to anterior auscultation, respirations easy and regular ABD: soft, nontender, nondistended MSK: no gross abnormalities, moves all extremities appropriately SKIN: no rashes EXT: warm and well perfused PSYCH: appropriate for situation Labs: Bun/Creat/Cl/CO2/Glucose: --/--/--/--/108 (05/14 1225) Imaging: MRI reviewed. Tracy Phillips MD PhD Department of Surgery PGY3 #[id number] documented in this encounter [facility] 05-06-2023 History of Presen t illness Narrative Images from the original note were not included. Colorectal Surgery H&P HPI: Ms. Chow is a 68 y.o. year old female with a pmh of irregular heartbeat, referred by Dr. Maria D Rios for adenocarcinoma. Presents today with and 2 children. She experienced a change in bowel habits, increased gas, abdominal cramping and rectal bleeding, went to her provider who recommended colonoscopy for evaluation. Patient was told that she had an obstructing mass and was unable to evaluate the entire colon. Imaging was completed with findings of an additional mass, and a referral to [facility] was made. Bowel habits are inconsistent, having 1-2 bowel movements or 4-6 BMs a day, having small caliber stools with rectal urgency. No straining, some bleeding on toilet paper and in the bowl. Sometimes feels she has to have a BM and evacuates mucus and blood. At times she doesn't feel empty and takes an herbal supplement (turkey rhubarb) 1-2 times a week. Having intermittent FI that occurs 1-2 times a month. Has lost 8 lbs since onset of symptoms, although she has changed her diet. Eating breads, chicken, fish, and vegetables, avoiding sweets, potatoes and red meats. Reports good appetite and good PO intake. Denies changes in activity or fatigue, continues to keep up with house work, cleaning, and cooking. No past medical history on file. Past Surgical History: Procedure Laterality Date OTHER SURGICAL 2021 Jaw surgery REMOVAL CATARACT (PEM) No outpatient medications prior to visit. No facility-administered medications prior to visit. Taking OTC Vitamins: flaxseed oil, omega q, denia pill Not on File Social History Socioeconomic History Marital status: Spouse name: Not on file Number of children: Not on file Years of education: Not on file Highest education level: Not on file Occupational History Not on file Tobacco Use Smoking status: Never Smokeless tobacco: Never Vaping Use Vaping Use: Never used Substance and Sexual Activity Alcohol use: Never Drug use: Never Sexual activity: Not on file Other Topics Concern Not on file Social History Narrative Not on file Social Determinants of Health Financial Resource Strain: Not on file Food Insecurity: Not on file Transportation Needs: Not on file Physical Activity: Not on file Stress: Not on file Social Connections: Not on file Intimate Partner Violence: Not on file Housing Stability: Not on file History reviewed. No pertinent family history. Review of Systems: Constitutional: No fevers, chills, or night sweats. +8lb weight loss since first at doctor Eyes: No changes in vision. ENT: No changes in hearing. Cardiac: No chest pain, chest pressure, palpitations, or dyspnea on exertion. +irregular heartbeat--worsens with anxiety Pulmonary: No cough or shortness of breath. Gastrointestinal: +lower abdominal pain and cramping. +intermittent . No nausea/vomiting. No melena +hematochezia. No hematemesis. No heartburn or reflux. +rectal urgency +fecal incontinence 2 x month Genitourinary: No urinary hesitancy, urgency, or frequency. No urinary incontinence. Skin: No rashes or sores. Musculoskeletal: No muscle weakness. +joint pain to bilateral knees Neurologic: No weakness, numbness, or paresthesias. No recent falls. No memory loss. Psychiatric: No changes in mood. No depression or anxiety. Hematologic: No easy bruising or bleeding. Endocrine: No heat or cold intolerance. Physical Exam: Vitals: 05/06/23 0953 BP: 167/90 Pulse: 102 Weight: 48.5 kg (107 lb) Height: 1.473 m (4' 10 ) Body mass index is 22.36 kg/m . General: No acute distress. Alert and oriented x 3. Cardiac: Regular rate and rhythm. Pulmonary: Equal chest rise, unlabored breathing. Abdomen: Soft, nontender, nondistended. Anorectal: Perianal skin tag. Digital rectal exam reveals no masses or tenderness, and no gross blood. Extremities: No edema. Warm and well-perfused. Normal gait. Neurologic: No focal deficits. This exam was performed in the presence of a medical master deputy sheriff court security Mary Joe RN Results/Imaging Reviewed: CEA: 50.9 04/13/23 CT A/P report: sigmoid mass with narrow lumen *Colonoscopy documentation requested Pathology results from colonoscopy: A/P: Ms. Ximena Chow is s/p screening colonoscopy with findings of rectal mass, CT A/P findings of sigmoid mass, elevated CEA. -MRI pelvis tomorrow 05/07 -EUA/Flex sig with 2 fleet enemas prior 05/14 -Tumor Board 05/14 -CT Colonography 06/05 -Will continue to obtain colonoscopy records from Dr. Maria D Rios at [facility] in [place]. Shannan Nascimento APRN-[facility] Department of Surgery Division of Colorectal Surgery ATTENDING ATTESTATION I saw and examined the patient. I agree with the history, examination, and medical decision making as previously outlined in the electronic medical record with the following modifications: Ximena Chow 68F - colon CA - 04/09 path: @15cm mod. diff. adenoCA, @ 5cm TVA w/ HGD - 04/16 CT CAP: mass @ sigmoid colon w/ luminal narrowing - CEA 50.9 68F present with limited records at time of consultation despite multiple requests from referring provider. Per patient history, she says she had a incomplete colonoscopy and although only described as 1 mass at hte time, she was later told about 2 masses. I attempted to perform a rigid sig in the office but patient was not prepped and stool burden was significant. The procedure was non diagnostic. I will schedule patient for a flex sig with enema prep to delineate if rectal or colonic tumor. I would like to have her images reviewed by Radiology as her CEA was 50 and she was told after her CT scan about another mass . MRI rectum ordered for tomorrow as patient has a biopsy result from 5cm but without endoscopy report, I need to ensure this is not a rectal tumor. Lastly, I have ordered a CT colonography to evaluate proximal colon as she reportedly had an incomplete colonoscopy. Once I have more information, I can assess whether she would be a candidate for upfront surgery or neoadjuvant therapy but I cannot make a proper conclusion today with the information I currently have available. Julián Minor MD, FACS, FASCRS color paste mixing supervisor Division of Colon & Rectal Surgery Outpatient NEW level 5 - 60-74 mins I spent a total of 70 minutes on the day of the encounter which included review of the medical record prior to seeing patient, obtaining and/or reviewing history, performing a medically appropriate examination and/or evaluation, independently interpreting results, counseling and educating the patient/family/caregiver, ordering medications, tests, or procedures, referring and communicating with other health manager managed care, and documenting clinical information in the electronic or other health record. Halima Joe RN acted as medical master deputy sheriff court security for the procedure/exam/test. documented in this encounter [facility] 05-06-2023 Instructions Shani Duggan - 05/06/2023 10:00 AM EST Please call [facility]Billing at [phone] to discuss financial concerns BEFORE SURGERY: PRE-PROCEDURE PREPARATION (COMPAC) Date: 05/07/23 Call Time: 2:00pm Patients who are scheduled for a surgical or other procedure at [facility] may be required to complete a pre-operative phone/video call. A nurse will collect information about your health, fitness, previous operations, allergies and more. This helps prepare the surgeon, the anesthesiologist and you by identifying any potential anesthetic, surgical or post-operative complications. If applicable, you may be referred to undergo an electrocardiogram (ECG), blood or urine tests or other tests. You will also receive pre- and post-surgery instructions to help ensure you are completely informed about what to expect. DAY OF SURGERY: IMPORTANT: If you develop cold/flu like symptoms prior to surgery, please contact our office at [phone] Please note that this schedule is subject to change, you may be contacted up to 24 hours in advance of surgery for any necessary adjustments. This may include an arrival time as early as 5:00 AM. Please plan accordingly. [x] SURGERY SCHEDULE YOUR SURGERY DATE: 05/14/23 ARRIVAL TIME: 10:30am LOCATION: [place] [address] [facility] in [address], Patient Admissions (1st room on the right) Office #: [phone] Fax #: [phone] CURRENT COVID VISITOR POLICY: These visitor policy changes for hospital inpatients only are effective 08/23: Hospital inpatients, including COVID-19 positive and suspected patients, can have two named visitors of the patient s choice per day as identified in the patient s electronic medical record. Visitors are required to wear a wristband or visitor badge with the date and visitor s name. Visitation is permitted between 8 a.m. to 7 p.m., seven days a week. Visitors must have no COVID-19 symptoms or recently known exposures. Visitors must have no COVID-19 symptoms or recent known exposures and adhere to these protocols: Show a government-issued photo ID upon arrival. Wear a hospital-provided mask over nose AND mouth at all times in all health care settings, including the patient's room, regardless of vaccination status. Practice good hand hygiene. Existing visitor exceptions remain in place for: Emergency departments Surgery/Procedures End of life/Goals of care Outpatient obstetrics Maternity NOTHING TO EAT OR DRINK AFTER MIDNIGHT. PLEASE HAVE YOUR TRANSPORTATION AVAILABLE AT ANY TIME. Arrange to have an adult to drive you to the hospital and be there to take you home after the surgery. If you are taking a cab, bus or medical transportation service home, an adult, other than the trailer tank truck driver, needs to ride with you for your safety. This person will also be responsible for communicating post-operative instructions to you. If you would like to sign up for text messages for [facility] appointment reminders text [facility] TO [phone]. You will receive a response within a few minutes after sending to verify. Please call our office at if you have any questions, problems or if you develop any illnesses such as a cold, sore throat, cough, or fever prior to your surgery. If you are a patient who will require disability paperwork to be completed, please bring your paperwork with you to an office visit. Please allow 7-10 business days for these to be completed. The clinic staff will be completing these forms and you can call the office if you have questions. Medicines to prevent blood clots If you are taking aspirin to prevent blood clots because you have a stent, or you have had a heart attack or stroke, continue to take your aspirin up to, and even on the day of a surgery . If you have a stent, read the Protect Your Stent handout to learn more. The medicines listed below thin the blood to prevent blood clots. Taking them decreases the chance of heart attack, stroke and blood clots. However, taking them before a surgery can also increase the chance of bleeding. Apixiban (Eliquis) Clopidogrel (Plavix) Dabigatran (Pradaxa) Dalteparin (Fragmin) Enoxaparin (Lovenox) Fondaparinux (Arixtra) Prasugrel (Effient) Rivaroxaban (Xarelto) Ticagrelor (Brilinta) Ticlopidine (Ticlid) Warfarin (Coumadin) As soon as you know about a planned surgery: Tell your surgeon about the medicine you take to prevent blood clots. Also, talk with the doctor who prescribes your medicine to prevent clots. He or she can tell you how to adjust your medicine around the time of your surgery. If your surgery date is changed and you stopped taking your medicine to prevent clots, call your doctor. You may need to restart the medicine while you are waiting for your surgery to be rescheduled. What to do about your medicines before surgery Please call your doctor s office if you have any questions about your regular medicines. Some medicines need to be stopped for a time before your surgery to prevent problems. Use this list as a guide. If you are not sure which medicines you should stop before your surgery, ask your doctor to be sure. Follow the directions of your doctor. All herbal medicines should be stopped 14 days before surgery. Monamine oxidase inhibitors should be stopped 7 to 14 days before surgery. These include drugs such as Nardil (Phenelzine Sulfate), Parnate (Tranylcypromine Sulfate), Eldepryl (Seleqiline Hydrochloride). Glucophage (Metformin) should be stopped 48 hours before surgery. Do not take these kinds of medicines the morning of surgery: Metformin should be stopped 48 hours prior to surgery Insulin or oral diabetes medicines - Please check your blood sugar the morning of surgery if you have diabetes. Diuretics (water pills) JUANA Inhibitors for blood pressure Digoxin unless used for irregular heartbeat, such as atrial fibrillation Take these medicines the morning of surgery with a sip of water: All heart medicines All blood pressure medicine, except diuretics (water pills) and JUANA inhibitors All breathing medicines, including inhalers All anti-seizure medicine All heartburn or gastric reflux medicine, except antacids such as Maalox or Mylanta Pain medicine, prescribed to you by a doctor, if in severe pain Steroid medicine Antidepressant medicines, except monamine oxidase inhibitors such as Nardil (Phenelzine Sulfate), Parnate (Tranylcypromine Sulfate), and Eldepryl (Seleqiline Hydrochloride) Preparing for Surgery Do not eat or drink anything (including water, coffee, candy, gum or mints) after midnight before your surgery. Only take the medicine your surgeon or anesthesiologist told you to take by mouth the morning of your surgery. You may brush your teeth, but do not swallow the water. It is important to have an empty stomach before your surgery. Do not smoke/use any sort of tobacco after 6 p.m. the night before your surgery. Wear casual, loose-fitting clothing to the hospital. Do not wear makeup, nail lithuanian or hair pins to the hospital. Please remove any body piercing's. Please leave jewelry and other valuables at home. Bring a storage case for contact lenses or glasses. They cannot be worn during surgery. If you take medicines on a routine basis, please bring an updated list of medications with you. Limit the number of people bringing you to the hospital. Adult patients should be escorted by one adult. Arrive at the hospital two hours before your surgery, or as directed by your surgeon s office, to allow time to get you ready for surgery. If you have a living will or durable power of on air director, please bring a copy of the documents with you. IF YOU USE CPAP BRING YOUR MACHINE WITH YOU TO THE HOSPITAL ALONG WITH THE PRESCRIPTION FOR CPAP PRESSURE LEVELS Getting Your Skin Ready for Surgery You are scheduled to have a surgery that involves cutting through the skin. Because germs live on everyone's skin, there is a greater chance of getting an infection. To lessen your chance of getting an infection, you need to take special care of your skin before the surgery. Follow These Instructions: You may be given or you will need to buy a special soap called 4% chlorhexidine gluconate or CHG. Common brand names for this soap are Hex-A-Clens or Hibiclens. You will need 2 of the 4-ounce bottles or Hibiclens Foam wash. There may be a store brand that is less costly. Ask your pharmacist where to find it in the drug store. It is often with first aid supplies. You may want to call ahead to check that they have the CHG soap in the store. Do not shave near the site where your doctor will be making the cut for your surgery for at least 48 hours before surgery. You need to shower with the CHG soap two times before your surgery within 48 hours Cleaning Your Skin with CHG * 1. Start by washing your hair as usual with your normal shampoo and wash your body with regular soap. Rinse your hair and body very well to remove any shampoo or soap that might be on your skin. 2. Wet a clean washcloth and turn off the shower. 3. Put the CHG soap on the wet clean washcloth. 4. Apply the CHG soap to your whole body from the neck down only. Do not use CHG soap on your face and be careful not to get the CHG in your eyes or ears. CHG soap does not lather well. Put more CHG on the cloth as you cover more of your body. You should use about 4 ounces or 1/2 cup of CHG with each shower. Note: If you are using the Hibiclens (chlorhexidine) Foam wash, then apply 3 pumps of wash directly onto your skin and lather your body from the neck down. 5. Wash your body gently for 5 minutes, paying special attention to the part on your body where the surgery will be done. Be sure to wash the back of your neck, under your arms, your belly button, private parts and your legs down to your toes. Do not scrub too hard. 6. Turn the shower back on and rinse well to get the CHG soap off your body. 7. Pat yourself dry with a clean, dry towel. 8. Do not use any lotions, moisturizer, make-up or other products on the skin near the part of your body that will be cut for surgery. 9. Put on clean clothes. *Special Notes If you do not have a shower or you are not able to get into the shower, do a sponge bath each time. Do not wash your hair unless you are to have a cut into your scalp. First, bathe with a washcloth and regular soap. Rinse with clean water. Then get a clean washcloth and use the CHG to wash your body. Rinse with another clean washcloth and plain water. Dry with a clean towel. If you have any questions about cleaning your skin, call your doctor s office. Driving Directions to [facility] From the North ([place], [place] and [place]) Take any major [address] to the [place] exit Turn left onto [address] (Emergency [address] turns into [address]) Take [address] to [employer] [address] Turn left onto [employer] Turn left onto [address] Turn right onto [facility] [address] See Parking Directions - Continued From the South ([facility] and [place]) Take any major highway to [address] to [address] exit Turn right onto [address] Turn right onto [address] Turn left to stay on [address] Turn left onto [address] Turn left onto [address] Turn right onto [address] See Parking Directions - Continued From the East ([place], [place] and [place]) Take any major highway to [address] to the [address] exit Turn right onto [address] Turn right onto [address] Turn left to stay on [address] Turn left onto [address] Turn left onto [address] Turn right onto [address] See Parking Directions - Continued From the West ([place], [place] and [place]) Take any major highway to [address] to [address] to the the [address] exit Turn right onto [address] Turn right onto [address] Turn left to stay on [address] Turn left onto [address] Turn left onto [address] Turn right onto [address] See Parking Directions - Continued Parking Directions - Continued 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 Continue straight to the front of [facility] ([facility]). Pull into Patient Senior Product Development Engineer on your right. [employer] [facility] [address] [facility] [place] [address] Continued: From [address], turn left onto [facility]. The [employer] is located on the left and is connected to the medical center by a walkway bridge on the second fl oor. [address] [place] [address] Continued: Take [address] to [address]. Turn right onto [address]. Turn left onto [address]. Turn left onto [address]. The [address] is located on the right and is connected to the medical center by a walkway bridge on the third floor. NOTE: Discounted Garage Parking is available. Please bring your garage ticket to any information desk in the [facility] to receive your discount ticket. Financial Obligation: Your insurance many require an authorization prior to the procedure. Our pre-cert office will be contacting your insurance to see if authorization is required. If you have questions about how much your insurance will pay, please contact your insurance directly. Please be prepared to pay your co-pay, co-insurance, or deductible on the day of your surgery. We request patients with insurance that is less than 100% coverage to pay a deposit prior to the procedure being performed. A field sales representative from the [facility] will contact you to pre-register you for your services. If you have not received a call by two days prior to your procedure date, please call our Pre-Registration Department at [phone] or [phone]. By calling us in advance, your wait time will be reduced. Our trained representatives can assist you in discussing both your physician and hospital obligations. Are you a [employer] user? If yes, you can log on and complete a pre-registration questionnaire. Central Supply Clerk: You are not eligible for Financial Assistance if you are entering the [facility] solely to seek medical treatment. We want to make sure all patients have access to quality healthcare services at [facility], and we are committed to working with you and your family to obtain appropriate financial assistance. We are here to help. Please let us know if you do not have health insurance or cannot pay your bill in full. We encourage you to contact our Office of Financial Counseling, where staff members are trained to assist you in determining whether you might qualify for an assistance program. Our financial counselors can help you complete applications for government-sponsored programs, describe other financial assistance programs that can help offset costs, or structure workable payment plans for your required medical treatment if you meet certain financial criteria. They can also assist you in explaining your options related to the Affordable Care Act. These options include helping you apply for: [place] Medicaid (if your income meets guidelines) The Affordable Care Act Insurance Exchange Program. Other federal/state assistance programs Or establish a payment plan Other Assistance: [facility] offers an additional sliding scale financial assistance based on Federal Poverty Guidelines. To help determine the appropriate assistance programs for you, you will need to provide details about your job, income, resources, insurance coverage, family size and other information. We realize some of these details may be of a sensitive nature, but it is necessary that you provide them to enable us to help you. We are committed to respecting you and your privacy during this process. If you are uninsured but do not qualify for Medicaid or other assistance programs, our Financial Counselors will be happy to discuss the Affordable Care Act Insurance Exchange programs. If you are interested in learning more about these programs, please contact the Financial Counseling Department at [phone] between 8 a.m. and 5 p.m. weekdays. A financial counselor can assist you with the application process. You will be screened for all potential programs. If you appear to be eligible for Medicaid, you will be assisted through the application process. As a Medicaid recipient, your physician fees and facility fees could be covered. Services not covered by [facility] financial assistance program: Physician Fees Transportation fees Dental Services Medically unnecessary services Prescriptions Durable Medical Equipment We Are 100% Tobacco-Free At [facility], we care about the health of our patients, visitors and staff. That s why all of our locations - inside and outside - are 100% tobacco-free. We understand that nicotine is addictive, and we regret the inconvenience to tobacco users. However, as an academic medical snow shoe with leading cancer and heart hospitals, creating a healthy environment for everyone who attends, works and visits our [facility] is important. Computerized Tomography (CT) Scan Date: 06/05/23 Arrival Time: 900am Location: [facility] [place] - [address], [address], [place] [address]. If you have questions or need to reschedule, please call us at [phone] Outpatient Visitor Policies Visitors to all hospital locations must have a hospital-provided visitor sticker visible at all times while in the building Wear a hospital-provided mask over nose AND mouth at all times, if you're experiencing any upper respiratory symptoms (ex. cough, sore throat, fever, etc.) Practice good hand hygiene Visitors are allowed for patients with suspected or confirmed COVID-19 Questions or concerns about visitation policies If you have questions or concerns, you can contact our Patient Experience team at: [facility], [facility], [facility]: [phone] [facility]: [phone] [facility]: [phone] [facility]: [phone] An abdomen (or Pelvis) CT (computed tomography) scan is an x-ray scan using a special x-ray machine and computer. This scan creates pictures of thin slices or segments of the abdomen. Sometimes this is done together with pictures of your pelvis. Your doctor has ordered this scan to help diagnose a problem that you may be having. For most abdomen CT scans you will need to drink a contrast medicine over 60 minutes to coat your stomach and intestines before your scan. In some cases a different medicine called contrast, will be injected through a small needle or an intravenous (IV) line. This medicine allows certain structures to show up on the CT scan, such as veins and arteries. Questions about radiation? At [facility] we work hard to make sure you receive the lowest dose of radiation possible for your exam. All of our radiation doses for our exams are lower than the national averages and some of the lowest in the area. Your technologist can give you more information about your radiation dose on the day of your exam. Preparing for an Abdomen CT 1. If you are not on any fluid restrictions from your doctor, you will need to increase the amount of water you drink the evening before your test. You should drink at least 5 (8 ounce) glasses of water or until your urine looks clear. This will help flush the contrast medicine from your body when the exam is finished. 2. You should continue to drink water the day of your scan also so that your urine continues to appear clear. 3. You may take your normal medicines with water before the scan. 4. If you are diabetic, ask your physician about any medicines you take and your CT scan. The Day of Your Appointment Arrive 1 hour early. Please bring a list of your medicines to your appointment. Include prescriptions, over the counter, herbal and vitamin supplements. Be sure to bring your photo ID and insurance card with you. After you arrive at the CT area, you will be asked to complete a health history questionnaire. A registered technologist will then review this information with you. We may check your kidney function and your status before your scan. Tell the doctor or nanotechnologist if you are or think you may be . Tell the doctor or nanotechnologist if you have an allergy to contrast medicines. About the Scan You may be given a liquid contrast medicine to drink 1 hour before having your scan. It is very important to drink all of this solution. It will help show your stomach and intestines on the CT scan. A technologist will help you onto the CT table and position you as comfortable as possible for the scan. The actual scan itself only takes about 10 minutes. The majority of your time with us will be spent drinking the contrast before you get on the CT table. You will be asked to hold your breath while pictures are taken. In most cases a medicine called contrast will be injected through a small needle or an intravenous (IV) line. You may get a warm feeling when the contrast material is injected. This is normal. Please tell the technologist if you have any other unusual sensations or feelings. If you have a subcutaneous port that is power injectable, be sure to bring documentation with you that states your port is power injectable and tell your technologist. Be prepared to be in the Radiology Department for a total of 1 hour and 30 minutes. After the Test If you have no other tests scheduled, you will be able to resume your normal diet and activities. If you had contrast medicine, drink 8 (8 ounce) cups of liquid such as, water, apple juice, or Sprite to flush the contrast medicine out of your body. Limit the amount of caffeine you drink. The radiologist, a doctor who specializes in radiology, will study your images and send a final report to your doctor. If you have any problems or questions after your scan, call your doctor. documented in this encounter [facility] documented in this encounter [facility]* Diagnosis Rectal cancer Malignant neoplasm of rectum Adenocarcinoma Other malignant neoplasm without specification of site documented [facility] (narrative)* Consultation (Routine) - Pending Review Specialty Diagnoses / Procedures Referred By Sahara trotter Referred To Contact Multispecialty Diagnoses Adenocarcinoma Shannan Nascimento, JOURDAN [address] [facility] [address] [place] [address] Referral ID Status Reason Start Date Expiration Date V isits Requested Visits Authorized [id number] Pending Review 05/06/2023 05/30/2024 1 1 * MRI/CAT Scan (Emergency) - Pending Review Specialty Diagnoses / Procedures Referred By Contac t Referred To Contact Diagnoses Adenocarcinoma Procedures CT COLONOGRAPHY WITH CONTRAST CHG CT COLONOGRAPHY INC IMAGE PROCESS, DIAGNOSTIC, W/ CONTRAST Shannan Nascimento APRN-CNP [address] [place] [address] Referral ID Status Reason Start Date Expiration Date V isits Requested Visits Authorized [id number] Pending Review 05/06/2023 05/30/2024 1 1 [facility] Reason for Referral Specialty Diagnoses / Procedures Referred By Contac t Referred To Contact Diagnoses Rectal cancer Procedures MRI PELVIS WITH AND WITHOUT CONTRAST SD MRI, PELVIS, Ashok Thurston MD [address] [place] [address] Referral ID Status Reason Start Date Expiration Date V isits Requested Visits Authorized [id number] Pending Review 05/05/2023 05/29/2024 1 1 Summary Purpose Family History Brother (s) Status:Active Comments:2. In g ood health. Daughter (s) Status:Active Comments:4. In g ood health. Father Status:Active Comments: d. age 89 prostrate cancer Mother Status:Active Comments: d. age 84 [place] Sister (s) Status:Active Comments:In good health. 3 Son (s) Status:Active Comments:1. Advance Directives No Advanced Directives Records FoundNo Advanced Directives Records Found Additional Source Comments Reason for Visit (unrecogniz ed section and content) Specialty Diagnoses / Procedures Referred By Contac t Referred To Contact [facility] [address] [place] [address] Referral ID Status Reason Start Date Expiration Date Visits Re quested Visits Authorized [id number] 1 1 Specialty Diagnoses / Procedures Referred By Contac t Referred To Contact Diagnoses Rectal cancer Procedures MRI PELVIS WITH AND WITHOUT CONTRAST SD MRI, PELVIS, Ashok Thurston MD [address] [place] [address] Referral ID Status Reason Start Date Expiration Date V isits Requested Visits Authorized [id number] Pending Review 05/05/2023 05/29/2024 1 1 Specialty Diagnoses / Procedures Referred By Contac t Referred To Contact Diagnoses Adenocarcinoma Adenocarcinoma [C80.1] Procedures SD SURG DIAGNOSTIC EXAM, ANORECTAL EXAM UNDER ANESTHESIA ANORECTAL Ashok Minor MD [address] [place] [address] [facility] [address] [place] [address] Referral ID Status Reason Start Date Expiration Date Visits Re quested Visits Authorized [id number] 1 1 Specialty Diagnoses / Procedures Referred By Contac t Referred To Contact Diagnoses Adenocarcinoma Procedures CT COLONOGRAPHY WITH CONTRAST CHG CT COLONOGRAPHY INC IMAGE PROCESS, DIAGNOSTIC, W/ CONTRAST Shannan Nascimento, SUPERVISOR [employer] CASE MAKER [address] [facility] [address] [facility] [address] [place] [address] Referral ID Status Reason Start Date Expiration Date V isits Requested Visits Authorized [id number] Pending Review 05/06/2023 05/30/2024 1 1 Care Teams (unrecognized sec tion and content) Mink Farmer Relationship Specialty Start Date End Date [facility], Other [address] [place] [address] PCP - [facility] 05/07/23 Mink Farmer Relationship Specialty Start Date End Date [facility], Other [address] [place] [address] PCP - [facility] 05/07/23 PRN Active and Recently Administ ered Medications (unrecognized section and content) INFORMATION SOURCE (unrecogn ized section and content) DATE CREATED AUTHOR AUTHOR'S ADENIKEIZ ATION 06/14/2023 [facility] FOR RECORDS PERTAINING TO PATIENTS WHO ARE OR HAVE BEEN ENROLLED IN A CHEMICAL DEPENDENCY/SUBSTANCEABUSE PROGRAM, SOME INFORMATION MAY BE OMITTED. This clinical summary was aggregated from multiple sources. Caution should be exercised in using it in the provision of clinical care. This summary normalizes information from multiple sources, and as a consequence, information in this document may materially change the coding, format and clinical context of patient data. In addition, data may be omitted in some cases. CLINICAL DECISIONS SHOULD BE BASED ON THE PRIMARY CLINICAL RECORDS. [employer] [facility]. provides no warranty or guarantee of the accuracy or completeness of information in this document.
[2023-07-08] MEDS: Potassium Chloride Oral Tablet 20 MEQ 40 MEQ PO ×2 (12:17→14:37)
[2023-07-08 12:27] LABS: Magnesium 1.8 mg/dL (1.6-2.6)
[2023-07-08] MEDS: Metoclopramide 10 MG/2 ML Vial 5 MG IV (12:28)
[2023-07-08] MEDS: Diphenoxylate/Atrop 1 Tablet PO (14:37)
[2023-07-09 14:24] LABS: Pathologist Review Reviewed
== END 2023-07-08 15:22 | disposition home or self-care (01) ==
PROVIDERS: Emergency Provider Emergency Medicine; PCP Family Medicine; Visit Provider Emergency Medicine
DX: R19.7 Diarrhea, unspecified (principal); C20 Malignant neoplasm of rectum; E87.6 Hypokalemia
CPT/HCPCS: 80053; 83735; 85025; 87493; 87506; 96361; 96374; 96375; 99284; J7030; A4216; J2405

== ENCOUNTER 2023-07-11 10:06 | Inpatient (IN) | payer OTHER, SELFPAY ==
[2023-07-11 10:07] VITALS: BP 126/83; PULSE 86; RESP 14; TEMP 36.2; O2SAT 98; BMI 19.2
--- NOTE | 2023-07-11 11:04 | EKG12_ITS ---
Test Reason : Blood Pressure : / mmHG Vent. Rate : 087 BPM Atrial Rate : 087 BPM P-R Int : 132 ms QRS Dur : 112 ms QT Int : 360 ms P-R-T Axes : 053 034 069 degrees QTc Int : 433 ms Sinus rhythm with Premature supraventricular complexes and with frequent Premature ventricular comple xes Minimal voltage criteria for LVH, may be normal variant ( Sokolow-Reyes ) Nonspecific ST and T wave abnormality Abnormal ECG Confirmed by EMMANUEL ROWE, JENNIFER ([id number]), video tape editor AWILDA GRIFFIN ([id number]) on 07/14/2023 6:38:35 AM Referred By: Confirmed By:JENNIFER BENITEZ MD
--- OUTSIDE RECORDS SUMMARY | 2023-07-11 11:17 | XMS RPT_ITS | CCD ---
Author Name Unknown Address [address] [place] [address] Organization [facility] Care Team Providers Care Air Control/Anti Air Warfare Officer Name Role Phone Unavailable Primary Care Provider Unavailabl e Stance [facility], Other Primary Care Provider BLOSSOM HARRIS Consulting Unavailable RIOS, MARIA D Admitting Unavailable RIOS, MARIA D Primary Care Unavailable RIOS, MARIA D Attending Unavailable PROVIDER, UNKNOWN Consulting Unavailable PROVIDER, UNKNOWN Consulting Unavailable PROVIDER, UNKNOWN Consulting Unavailable AARON HARRISRY T Consulting Unavailable RIOS, MAIRA D Admitting Unavailable RIOS, MARIA D Primary [...] Admitting Unavailabl ASHOK Ortega Attending Unavailabl e Work For Pie [facility], OTHER Primary Care Unavailable HICKEY, SHANNAN E Referring Unavailable Work For Pie [facility], OTHER Primary Care Unavailable [facility] OFFICE PCP, [facility] Referring Unavailable EPIFANIO MARIN Attending Unavailable Work For Pie [facility], OTHER Primary Care Unavailable HICKEY, SHANNAN E Attending Unavailable HICKEY, SHANNAN E Referring Unavailable Work For Pie [facility], OTHER Primary Care Unavailable ASHOK MINOR Attending Unavailabl e ASHOK MINOR Referring Unavailabl e ASHOK MINOR Attending Unavailabl e BLANCA, MARIA D Referring Unavailable KAYLEY ALVARADO-CTRACY Unavailable KARINEASIF LEVELOCK Unavailable Unavailable MARIA D RIOS MD Unavailable BLOSSOM HARRIS MD Unavailable [phone] Luis AntonioYolanda malave Unavailable Unavailable Andrey MARTINEZ MD Unavailable Haley Glass Unavailable Unavailable Alexa Rios Unavailable Unavailable Rafat RIOS MD Unavailable [place] MARYBrianna Unavailable Unavailable RAYMUNDO TABOR Unavailable Unavailable KIMBERLY CHRISTINE MD Unavailable [phone] Lora Colon Unavailable Unavailable Unavailable Unavailable Medications Completed/Discontinued Medications Medication Drug Class(es) Dates Sig (Normalized) Sig (Original) ALPRAZolam 0.5 mg oral tablet (3 sources) Benzodiazepine Start: 10-12-2014 End: 07-28-2017 take 1 tablet by mouth once daily as needed Xanax 0.5 MG Oral Tablet ; 1 (one) Tablet one time daily as needed for 30 days Quantity: 30 {Tablet} Refills: 2 Ordered: 28-Jul-2017 Start: 12-Oct-2014 End: 28-Jul-2017 Status: Inactive Comments: Medication taken as needed. Problems Active Problems Problem Classification Problem Date Documented Da te Episodic/Chronic Administrative/social admission (3 sources) Repeated prescription; Translations: [Encounter for issue of repeat prescription] 03-15-2013 Episodic Cancer of rectum and anus (9 sources) Malignant tumor of rectum; Translations: [Malignant neoplasm of rectum] Onset: 05-07-2023 05-07-2023 Chronic Past or Other Problems Problem Classification Problem Date Documented Da te Episodic/Chronic Cataract (3 sources) Cataract 06-29-2021 Mood disorders (6 sources) Mood disorders 05-12-2012 Unclassified (3 sources) Flatulence - Symptoms include belching, bloating (just [...] probiotics at times. and enzymes 03-24-2023 Unclassified (3 sources) !Patient notification of lab results - [facility]. The test(s) that you had done were/was blood work. The results of your testing were normal . You should call our office if you have any questions. 01-08-2018 Unclassified (3 sources) !Patient notification of lab results - [facility]. [...] if you have any questions. 12-18-2017 Unclassified (3 sources) !Patient notification of lab results - [facility]. [...] if you have any questions. 11-12-2017 Unclassified (3 sources) !Patient notification of lab results - [facility]. [...] if you have any questions. 10-08-2017 Unclassified (3 sources) !Patient notification of lab results - [place]. [...] Please follow up as scheduled. 07-31-2017 Unclassified (3 sources) cough - Note for cough : Productive cough. C/O fatigue. Passed out last night - felt dizzy. Chills since Friday. Here for exam.* Late entry due to [employer] virus outage. 07-30-2017 Unclassified (3 sources) Anxiety - Note for Anxiety : Pt is feeling well on the sertraline. She does keep some pills on hand for emergencies. 10-12-2014 Unclassified (3 sources) [ADDITIONAL REASON] Insomnia - Note for Insomnia : Pt is sleeping well. 10-12-2014 Unclassified (3 sources) Depression - Note for Depression : Patient [...] stomach while taking these prescriptions. 03-09-2014 Unclassified (3 sources) Insomnia - Note for Insomnia : wants ambien refilled. 03-16-2013 Unclassified (3 sources) Routine Check - Patient is here to review the medical problem(s) of other: ____ (anxiety/depression). Note for Routine Check : States is feeling better. Has to work through things. 02-11-2012 Unclassified (3 sources) Routine Check - Patient is here to [...] to this at last visit.) 01-07-2012 Unclassified (3 sources) !Patient notification of lab results 1 - Dr. Christine. The test(s) that you had done were/was a serum protein electrophoresis to look for abnormal proteins. The results of your testing were normal . Please continue your current medication/therapy and follow up as scheduled. 12-11-2011 Unclassified (3 sources) !Patient notification of lab results 1 - [...] and follow up as scheduled. 11-20-2011 Unclassified (3 sources) Insomnia - Symptoms include difficulty staying asleep. The symptoms occur nightly. Note for Insomnia : Saw Dr Rios a few weeks ago and given RX medication but is still not sleeping. Says she thinks she has anxiety and depression and mind won't let me sleep . 11-19-2011 Unclassified (3 sources) Sleep Disorders - Onset was 6 week(s) ago. Note for Sleep Disorders : Increase in stress recently; sleeps approx 2-3 hours per night. 10-30-2011 Results Test Name Value Interpretation Reference Range Facil ity Vital Signs Date Time Vital Sign Value Performing Clinician Buffy workman 05-14-2023 13:30-0500 Diastolic blood pressure 74 mm[Hg] Ashok Minor MD Work Phone: [facility] 05-14-2023 13:30-0500 Heart rate 71 /min Ashok Minor MD Work Phone: [facility] 05-14-2023 13:30-0500 Respiratory rate 16 /min Ashok Minor MD Work Phone: [facility] 05-14-2023 13:30-0500 SaO2% (BldA) [Mass fraction] 100 % Ashok Minor MD Work Phone: [phone] [address] 05-14-2023 13:30-0500 Systolic blood pressure 142 mm[Hg] Ashok Minor MD Work Phone: [phone] [address] 05-14-2023 13:10-0500 Body temperature 98.01 [degF] Ashok Minor MD Work Phone: 8([phone] [address] 05-14-2023 12:28-0500 Body height 147.3 cm Ashok Minor MD Work Phone: [phone] [address] 05-14-2023 12:28-0500 Body mass index (BMI) [Ratio] 21.28 kg/m2 Ashok Minor MD Work Phone: [phone](108)[phone] [address] 05-14-2023 12:28-0500 Body weight 46.18 kg Ashok Minor MD Work Phone: [facility] 05-07-2023 12:22-0500 Diastolic blood pressure 83 mm[Hg] Ashok Minor MD Work Phone: [facility] 05-07-2023 12:22-0500 Heart rate 123 /min Ashok Minor MD Work Phone: [facility] 05-07-2023 12:22-0500 Systolic blood pressure 170 mm[Hg] Ashok Minor MD Work Phone: [phone] [address] 05-06-2023 09:53-0500 Body height 147.3 cm Ashok Minor MD Work Phone: [facility] 05-06-2023 09:53-0500 Body mass index (BMI) [Ratio] 22.36 kg/m2 Ashok Minor MD Work Phone: [facility] 05-06-2023 09:53-0500 Body weight 48.53 kg Ashok Minor MD Work Phone: [facility] 05-06-2023 09:53-0500 Diastolic blood pressure 90 mm[Hg] Ashok Minor MD Work Phone: [facility] 05-06-2023 09:53-0500 Heart rate 102 /min Ashok Minor MD Work Phone: [facility] 05-06-2023 09:53-0500 Systolic blood pressure 167 mm[Hg] Ashok Minor MD Work Phone: [facility] 03-24-2023 13:02-0400 Body height 147.32 cm Brianna Overholt [facility], [facility]. 03-24-2023 13:02-0400 Body mass index (BMI) [Ratio] 24.03 kg/m2 Brianna Overholt [facility], [facility]. 03-24-2023 13:02-0400 Body surface area Derived from formula 1.44 m2 Brianna Overholt [facility], [facility]. 03-24-2023 13:02-0400 Body weight 52.16 kg Brianna Overholt [facility], [facility]. 03-24-2023 13:02-0400 Diastolic blood pressure 85 mm[Hg] Brianna Overholt [facility] Encounters Encounter Date Encounter Type Care Provider Facility Start: 06-06-2023 End: 06-06-2023 Historical Summary TRACY ALVARADO-Imani [facility] Start: 06-05-2023 End: 06-05-2023 Subsequent hospital visit by physician Shannan Nascimento HOT BLAST WORKER-MACHINE PACKAGER Work Phone: [facility] [place] Procedures Date Procedure Procedure Detail Performing Clinician [...] of cervical Papanicolaou smear Brianna Christopherolrose marie [facility] Plan of Treatment Date Care Activity Detail Author Start: 06-05-2023 End: 06-05-2023 Patient encounter procedure 06/05/2023 9:30 AM EST Appointment [facility] [place] [address] Shannan Nascimento, HOT BLAST WORKER-MACHINE PACKAGER [address] [facility] [address] [place] [address] [facility] [place] Start: 06-05-2023 Subsequent hospital visit by physician 06/05/2023 9:30 AM EST Hospital Encounter [facility] [place] [address] Shannan Nascimento, HOT BLAST WORKER-MACHINE PACKAGER [address] [place] [address] [facility] [place] Start: 06-03-2023 End: 06-03-2023 Patient encounter procedure 06/03/2023 3:15 PM EST Office Visit [facility] [place] [address] [place] [id number] Ashok Minor MD [address] [place] [address] [facility] [place] Start: 05-14-2023 End: 05-14-2023 Admission to same day surgery center 05/14/2023 12:30 PM EST - 05/14/2023 1:50 PM EST Surgery [facility] [address] [place] [phone] Ashok Minor MD [address] [place] [address] EXAM UNDER ANESTHESIA ANORECTAL PERIOP Immunizations Immunization Date Immunization Notes Care Provider Fa [facility] 05-12-2012 influenza virus vaccine, unspecified formulation TRACY BILL Work Phone: [facility], [employer] [facility], [facility] Payers Date Payer Category Payer Unknown [id number] 1955 Unknown [id number] [id number] [id number] 1955 Unknown [id number] 2.16.8 [id number] 1955 Unknown [id number] 2.16.8 [id number] 1955 Unknown [id number] 2.16.8 [id number] 1955 Unknown [id number] 2.16. [id number] 1955 Unknown [id number] 2.16. [id number] Unknown 194 Unknown Social History Date Type Detail Facility Start: 05-06-2023 Tobacco smoking stat [facility] Never smoked tobacco [facility] Start: 05-06-2023 Tobacco use and exposure Smokeless tobacco non-user [facility] Start: 05-06-2023 End: 05-19-2023 Alcohol intake Lifetime non-drinker (finding) [facility] Start: 05-06-2023 End: 05-19-2023 History of Social function [facility] Start: 05-06-2023 End: 05-19-2023 Tobacco use panel [facility] Start: 1955 Sex Assigned At Not on file [facility] Alcohol Use: Alcohol Use: ; N ever used alcohol. [facility]; [facility] Highest Education Le manuel Attained: Highest Education Level Attained: ; Less than high school. [facility] Marital status: Marital status: ; . [facility] Tobacco use: Tobacco use: ; N ever smoker. [facility] Female [facility] Work Phone: Less than high school [facility] Work Phone: [facility] Work Phone: Clinical Notes 05-06-2023 to 05-14-2023 [...] 1) flexible sigmoidoscopy SURGEON: Ashok Minor MD PHYSICIAN(S): Dr. Phillips ANESTHESIA: MAC COMPLICATIONS: none SPECIMEN(S): [...] the entire procedure. Julián Minor MD Clinical entry level staff accountant Division of Colon and Rectal Surgery Ximena Chow ([id number]) PRE OPERATIVE DIAGNOSIS Adenocarcinoma [C80.1] POST OPERATIVE DIAGNOSIS Post-Op Diagnosis Codes: * Adenocarcinoma [C80.1] PROCEDURE PERFORMED Procedure(s) (LRB): SIGMOIDOSCOPY DIAGNOSTIC (N/A) PRIMARY CLOSURE Yes INTRAOPERATIVE FINDINGS Fungating tumor at 12cm from anal verge (at 3rd rectal valve) SURGEON Surgeon(s) and Role: * Ashok Minor MD - Primary ANESTHESIOLOGIST Anesthesiologist: Rosalie Posey MD Property Handler: CÉSAR Henderson SURGICAL STAFF Division Leader: Lora Bartlett RN Relief Division Leader: Ivis Tarango RN Relief Scrub: Priscila Phan Scrub Person: Raquel Hernandez RN; Adeola Giraldo Resident Assisting: Tracy Phillips MD COMPLICATIONS None ESTIMATED BLOOD LOSS None SPECIMENS No specimen sent * No specimens in log * Ashok Minor MD May 14, 2023 2:18 PM Ximena Chow ([id number]) PRE OPERATIVE DIAGNOSIS Adenocarcinoma [C80.1] POST OPERATIVE DIAGNOSIS Post-Op Diagnosis Codes: * Adenocarcinoma [C80.1] PROCEDURE PERFORMED Procedure(s) (LRB): EXAM UNDER ANESTHESIA ANORECTAL (N/A) PRIMARY CLOSURE N/A INTRAOPERATIVE FINDINGS Fungating mass appreciated at about 10-12 cm from anal verge on flex sig. No additional lesions appreciated. SURGEON Surgeon(s) and Role: * Ashok Minor MD - Primary ANESTHESIOLOGIST Anesthesiologist: Roaslie Posey MD Property Handler: CÉSAR Henderson SURGICAL STAFF Division Leader: Lora Bartlett RN Relief Division Leader: Ivis Tarango RN Relief Scrub: Priscila Phan Scrub Person: Raquel Hernandez RN; Adeola Giraldo Resident Assisting: Tracy Phillips MD COMPLICATIONS None ESTIMATED BLOOD LOSS Minimal SPECIMENS No specimen sent * No specimens in log * Tracy Phillips MD PhD Department of Surgery PGY3 #[id number] May 14, 2023 1:06 PM documented in this encounter [facility] 05-14-2023 Surgery Postoperative evaluation and management note OPERATIVE NOTE DATE OF PROCEDURE: 05/14/2023 PREOPERATIVE DIAGNOSIS: rectal tumor POSTOPERATIVE DIAGNOSIS: same PROCEDURE: 1) flexible sigmoidoscopy SURGEON: Ashok Minor MD PHYSICIAN(S): Dr. Phillips ANESTHESIA: MAC COMPLICATIONS: none SPECIMEN(S): [...] the entire procedure. Julián Minor MD Clinical entry level staff accountant Division of Colon and Rectal Surgery [facility] 05-14-2023 Surgery Postoperative evaluation and management note Ximena Chow ([id number]) PRE OPERATIVE DIAGNOSIS Adenocarcinoma [C80.1] POST OPERATIVE DIAGNOSIS Post-Op Diagnosis Codes: * Adenocarcinoma [C80.1] PROCEDURE PERFORMED Procedure(s) (LRB): SIGMOIDOSCOPY DIAGNOSTIC (N/A) PRIMARY CLOSURE Yes INTRAOPERATIVE FINDINGS Fungating tumor at 12cm from anal verge (at 3rd rectal valve) SURGEON Surgeon(s) and Role: * Ashko Minor MD - Primary ANESTHESIOLOGIST Anesthesiologist: Rosalie Posey MD Property Handler: CÉSAR Henderson SURGICAL STAFF Division Leader: Lora Bartlett RN Relief Division Leader: Ivis Tarango RN Relief Scrub: Priscila Phan Scrub Person: Raquel Hernandez RN; Adeola Giraldo Resident Assisting: Tracy Phillips MD COMPLICATIONS None ESTIMATED BLOOD LOSS None SPECIMENS No specimen sent * No specimens in log * Ashok Minor MD May 14, 2023 2:18 PM [facility] 05-14-2023 Nurse Surgical operation note Discharge instructions given to pt. Pt verbalized understanding. 1358 pt taken to lobby in wheelchair [facility] 05-14-2023 Nurse Note Discharge instructions given to pt. Pt verbalized understanding. 1358 pt taken to lobby in wheelchair Called PACU report. documented in this encounter [facility] 05-14-2023 Hospital Discharg e instructions Tracy Phillips MD - 05/14/2023 1:25 PM EST Clinic Office Main Number: [phone] For Concerns During Weekend or Evening Hours: -If you have questions or concerns call and ask the band sawing machine operator to have the general surgery chief resident paged. Reminder: [employer] messaging goes unmonitored during evenings and weekends. [...] cannot be sent through Care Everywhere.Colonoscopy: Post-op (Yi)documented in this encounter [facility] 05-14-2023 Surgery Postoperative evaluation and management note Ximena Chow ([id number]) PRE OPERATIVE DIAGNOSIS Adenocarcinoma [C80.1] POST OPERATIVE DIAGNOSIS Post-Op Diagnosis Codes: * Adenocarcinoma [C80.1] PROCEDURE PERFORMED Procedure(s) (LRB): EXAM UNDER ANESTHESIA ANORECTAL (N/A) PRIMARY CLOSURE N/A INTRAOPERATIVE FINDINGS Fungating mass appreciated at about 10-12 cm from anal verge on flex sig. No additional lesions appreciated. SURGEON Surgeon(s) and Role: * Ashok Minor MD - Primary ANESTHESIOLOGIST Anesthesiologist: Rosalie Posey MD Property Handler: CÉSAR Henderson SURGICAL STAFF Division Leader: Lora Bartlett RN Relief Division Leader: Ivis Tarango RN Relief Scrub: Priscila Phan Scrub Person: Raquel Hernandez RN; Adeola Giraldo Resident Assisting: Tracy Phillips MD COMPLICATIONS None ESTIMATED BLOOD LOSS Minimal SPECIMENS No specimen sent * No specimens in log * Tracy Phillips MD PhD Department of Surgery PGY3 #[id number] May 14, 2023 1:06 PM [facility] 05-14-2023 Nurse Surgical operation note Called PACU report. [facility] 05-14-2023 History and physical note Images from [...] Phillips MD PhD Department of Surgery PGY3 #[id number] [facility] Work Phone: 05-14-2023 History and physical note [...] Phillips MD PhD Department of Surgery PGY3 #[id number] documented in this encounter [facility] 05-06-2023 History of Presen t illness Narrative [...] performed in the presence of a medical general partner Mary Joe RN Results/Imaging Reviewed: CEA: 50.9 [...] records from Dr. Maria D Rios at [facility] in [place]. Shannan Nascimento APRN-[facility] Department of Surgery Division of Colorectal [...] have available. Julián Minor MD, FACS, FASCRS entry level staff accountant Division of Colon & Rectal Surgery Outpatient [...] procedures, referring and communicating with other health clinical care leader, and documenting clinical information in the electronic or other health record. Halima Joe RN acted as medical general partner for the procedure/exam/test. documented in this encounter [facility] 05-06-2023 Instructions Shani Duggan - 05/06/2023 10:00 AM EST Please call [facility]Billing at [phone] to discuss financial concerns BEFORE SURGERY: PRE-PROCEDURE PREPARATION (COMPAC) Date: 05/07/23 Call Time: 2:00pm Patients who are scheduled for a surgical or other procedure at [facility] may be required to complete a [...] to surgery, please contact our office at [phone] Please note that this schedule is subject to change, you may be contacted up to 24 hours in advance of surgery for any necessary adjustments. This may include an arrival time as early as 5:00 AM. Please plan accordingly. [x] SURGERY SCHEDULE YOUR SURGERY DATE: 05/14/23 ARRIVAL TIME: 10:30am LOCATION: [place] [address] [place] in [address], Patient Admissions (1st room on the right) Office #: [phone] Fax #: [phone] CURRENT COVID VISITOR POLICY: These visitor policy [...] service home, an adult, other than the canal driver, needs to ride with you for your safety. This person will also be responsible for communicating post-operative instructions to you. If you would like to sign up for text messages for [facility] appointment reminders text [facility] TO [phone]. You will receive a response within a [...] the hospital. Do not wear makeup, nail maltese or hair pins to the hospital. Please [...] a living will or durable power of prosecuting attorney, please bring a copy of the documents [...] your doctor s office. Driving Directions to [facility] From the North ([place], [place] and [place]) Take [address] major [address] to the [place]/[address] exit Turn left onto [address] ([email or web address] turns into [address]) Take [address] to [address] Turn left onto [address] Turn left onto [address] Turn right onto [facility] Drive See Parking Directions - Continued From the South ([facility] and [place]) Take any major highway to [address] to [address] exit Turn right onto [address] Turn right onto [address] [place] Turn left to stay on [address] Turn left onto [address] Turn left onto [address] Turn right onto [address] See Parking Directions - Continued From the East ([place], [place] and [place]) Take any major highway to [address] to the [address] exit Turn right onto [address] Turn right onto [address] Turn left to stay on [address] Turn left onto [address] Turn left onto [address] Turn right onto [address] See Parking Directions - Continued From the West ([place], [place] and [place]) Take any major highway to [address] to [address] to the the [address] exit Turn right onto [address] Turn right onto [address] [place] Turn left to stay on [address] Turn left onto [address] Turn left onto [address] Turn right onto [address] See Parking Directions - Continued Parking Directions - Continued Patient Financial Representative Continued: Take [address] past the intersection of [address] and [address]. Continue straight to the front of [facility] ([facility]). Pull into Patient Financial Representative on your right. [employer] [address] [facility] [place] [address] Continued: From [address], turn left onto [facility]. The [employer] is located on the left and is connected to the medical center by a walkway bridge on the second fl oor. [address] [place] [address] Continued: Take [address] to [address] [...] ticket to any information desk in the [facility] to receive your discount ticket. Financial Obligation: [...] prior to the procedure being performed. A accounting representative from the [facility] will contact you to pre-register you for your services. If you have not received a call by two days prior to your procedure date, please call our Pre-Registration Department at [phone] or [phone]. By calling us in advance, your wait time will be reduced. Our trained representatives can assist you in discussing both your physician and hospital obligations. Are you a [employer] user? If yes, you can log on and complete a pre-registration questionnaire. Wire Rope Sales Representative: You are not eligible for Financial Assistance if you are entering the [facility] solely to seek medical treatment. We want to make sure all patients have access to quality healthcare services at [facility], and we are committed to working [...] These options include helping you apply for: [place] Medicaid (if your income meets guidelines) The Affordable Care Act Insurance Exchange Program. Other federal/state assistance programs Or establish a payment plan Other Assistance: [facility] offers an additional sliding scale financial [...] please contact the Financial Counseling Department at [phone] between 8 a.m. and 5 p.m. weekdays. A financial counselor can assist you with the application process. You will be screened for all potential programs. If you appear to be eligible for Medicaid, you will be assisted through the application process. As a Medicaid recipient, your physician fees and facility fees could be covered. Services not covered by [facility] financial assistance program: Physician Fees Transportation fees Dental Services Medically unnecessary services Prescriptions Durable Medical Equipment We Are 100% Tobacco-Free At The [facility], we care about the health of our patients, visitors and staff. That s why all of our locations - inside and outside - are 100% tobacco-free. We understand that nicotine is addictive, and we regret the inconvenience to tobacco users. However, as an academic medical [place] [facility] leading [facility] and [facility], creating a healthy environment for everyone who attends, works and visits our [facility] is important. Computerized Tomography (CT) Scan Date: 06/05/23 Arrival Time: 900am Location: [facility] [place] - [address], [address], [place] [address]. If you have questions or need to reschedule, please call us at [phone] Outpatient Visitor Policies Visitors to all hospital [...] can contact our Patient Experience team at: [facility], [facility], [facility]: [phone] [facility]: [phone] [facility]: [phone] [facility]: [phone] An abdomen (or Pelvis) CT (computed tomography) [...] veins and arteries. Questions about radiation? At [facility] we work hard to make sure [...] before your scan. Tell the doctor or nuclear medicine technologist if you are or think you may be . Tell the doctor or nuclear medicine technologist if you have an allergy to contrast [...] call your doctor. documented in this encounter [facility] documented in this encounter [facility]* Diagnosis Rectal cancer Malignant neoplasm of rectum Adenocarcinoma Other malignant neoplasm without specification of site [facility] this [facility] (narrative)* Consultation (Routine) - Pending Review Specialty Diagnoses / Procedures Referred By Sahara trotter Referred To Contact Multispecialty Diagnoses Adenocarcinoma Shannan Nascimento, JOURDAN [address] [address] [place] [address] Referral ID Status Reason Start Date Expiration Date V isits Requested Visits Authorized [id number] Pending Review 05/06/2023 05/30/2024 1 1 * MRI/CAT Scan (Emergency) - Pending Review Specialty Diagnoses / Procedures Referred By Sahara trotter Referred To Contact Diagnoses Adenocarcinoma Procedures CT COLONOGRAPHY WITH CONTRAST CHG CT COLONOGRAPHY INC IMAGE PROCESS, DIAGNOSTIC, W/ CONTRAST Shannan Nascimento APRN-CNP [address] [place] [address] Referral ID Status Reason Start Date Expiration Date V isits Requested Visits Authorized [id number] Pending Review 05/06/2023 05/30/2024 1 1 [facility] Reason for Referral Specialty Diagnoses / Procedures Referred By Sahara trotter Referred To Contact Diagnoses Rectal cancer Procedures MRI PELVIS WITH AND WITHOUT CONTRAST MI MRI, PELVIS, Ashok Thurston MD [address] [place] [address] Referral ID Status Reason Start Date Expiration Date V isits Requested Visits Authorized [id number] Pending Review 05/05/2023 05/29/2024 1 1 Summary Purpose Family History Brother (s) Status:Active Comments:2. In g ood health. Daughter (s) Status:Active Comments:4. In g ood health. Father Status:Active Comments: d. age 89 prostrate cancer Mother Status:Active Comments: d. age 84 [place] Sister (s) Status:Active Comments:In good health. 3 Son (s) Status:Active Comments:1. Brother (s) Status:Active Comments:2. In g ood health. Daughter (s) Status:Active Comments:4. In g ood health. Father Status:Active Comments: d. age 89 prostrate cancer Mother Status:Active Comments: d. age 84 [place] Sister (s) Status:Active Comments:In good health. 3 Son (s) Status:Active Comments:1. Brother (s) Status:Active Comments:2. In g ood health. Daughter (s) Status:Active Comments:4. In g ood health. Father Status:Active Comments: d. age 89 prostrate cancer Mother Status:Active Comments: d. age 84 [place] Sister (s) Status:Active Comments:In good health. 3 Son (s) Status:Active Comments:1. Advance Directives No Advanced Directives Records FoundNo Advanced Directives Records Found Additional Source Comments Reason for Visit (unrecogniz ed section and content) Specialty Diagnoses / Procedures Referred By Contac t Referred To Contact [facility] [address] [place] [address] Referral ID Status Reason Start Date Expiration Date Visits Re quested Visits Authorized [id number] 1 1 Specialty Diagnoses / Procedures Referred By Contac t Referred To Contact Diagnoses Rectal cancer Procedures MRI PELVIS WITH AND WITHOUT CONTRAST MI MRI, PELVIS, COMBO Ashok Minor MD [address] [place] [id number] Referral ID Status Reason Start Date Expiration Date V isits Requested Visits Authorized [id number] Pending Review 05/05/2023 05/29/2024 1 1 Specialty Diagnoses / Procedures Referred By Contac t Referred To Contact Diagnoses Adenocarcinoma Adenocarcinoma [C80.1] Procedures MI SURG DIAGNOSTIC EXAM, ANORECTAL EXAM UNDER ANESTHESIA ANORECTAL Ashok Minor MD [address] [place] [id number] [facility] [address] [place] [address] Referral ID Status Reason Start Date Expiration Date Visits Re quested Visits Authorized [id number] 1 1 Specialty Diagnoses / Procedures Referred By Contac t Referred To Contact Diagnoses Adenocarcinoma Procedures CT COLONOGRAPHY WITH CONTRAST CHG CT COLONOGRAPHY INC IMAGE PROCESS, DIAGNOSTIC, W/ CONTRAST Shannan Nascimento, HOT BLAST WORKER-CARLTON [address] [place] [address] Referral ID Status Reason Start Date Expiration Date V isits Requested Visits Authorized [id number] Pending Review 05/06/2023 05/30/2024 1 1 Care Teams (unrecognized sec tion and content) Air Control/Anti Air Warfare Officer Relationship Specialty Start Date End Date [facility], Other [address] [place] [address] PCP - General [facility] 05/07/23 Air Control/Anti Air Warfare Officer Relationship Specialty Start Date End Date Anatoliy Godwin [facility], Other [address] [place] [address] PCP - General Independent Clinic 05/07/23 PRN Active and Recently Administ ered Medications (unrecognized section and content) INFORMATION SOURCE (unrecogn ized section and content) DATE CREATED AUTHOR AUTHOR'S ORGANIZ ATION 06/14/2023 [facility] FOR RECORDS PERTAINING TO PATIENTS WHO ARE [...] BE BASED ON THE PRIMARY CLINICAL RECORDS. [employer] provides no warranty or guarantee of the accuracy or completeness of information in this document.
--- NOTE | 2023-07-11 11:21 | ED.RN ---
pharmacy clarified potassium and this RN verified with Dr Moreau
[2023-07-11] MEDS: Loperamide 2 MG Capsule 4 MG PO (11:27)
--- NOTE | 2023-07-11 11:32 | EX.ED.DYSGE1 ---
HPI History of Present Illness Chief Complaint: Abn Labs Narrative Narrative: 68-year-old woman who was found to have a napkin ring lesion: That revealed moderately differentiated adenocarcinoma. She began chemotherapy and radiation therapy June 11. She presents because of low potassium. She has had diarrhea since Friday. She is having 10+ loose watery bowel movements per day. Patient denies fever, chills night sweats. She does endorse thirst, dry mouth and lightheadedness. She denies blood or mucus in her stool. She denies black or maroon-colored stool. She denies headache, visual, ocular auditory symptoms. She denies chest pain, orthopnea or PND. She denies dyspnea or dyspnea on exertion. She complains of feeling bloated and mild abdominal discomfort. She denies any urologic symptoms. Patient had blood work on the which revealed a white count of 3.2 thousand. H&H is 10.9 and 32.7. Electrolyte panel performed today prior to presentation revealed a sodium of 129 and a potassium of 2.2. Magnesium was not obtained. Last chemo dose was 1 week ago. She is still undergoing radiation. Her last radiation dose was Friday. Prior similar symptoms: Yes Recent Illness/Hospitalization: No PFSH PFS Medical History CINV (chemotherapy-induced nausea and vomiting) Hx of sigmoidoscopy Rectal cancer Home Medications capecitabine 500 mg tablet 1,000 mg (2 x 500 mg) PO BID #100 tabs 06/02/23 [Rx Last Taken Unknown] diclofenac sodium 1 % topical gel 2 g topical BID #100 grams 06/05/23 [Rx Last Taken Unknown] ondansetron 8 mg disintegrating tablet 8 mg PO Q8H PRN nausea and vomiting #30 tabs 06/05/23 [Rx Last Taken Unknown] loperamide 2 mg capsule (Imodium A-D) 2 mg PO Q6H PRN loose stool 06/25/23 [History Last Taken Unknown] sodium chloride 1,000 mg soluble tablet 1,000 mg PO QD-QID PRN electrolyte replenishment 30 days #60 tabs 07/02/23 [Rx Last Taken Unknown] diphenoxylate-atropine 2.5 mg-0.025 mg tablet (Lomotil) 1 tab PO BID PRN diarrhea #20 tabs 07/08/23 [Rx Last Taken Unknown] metoclopramide HCl 5 mg tablet (Reglan) 5 mg PO Q6H PRN nausea and vomiting #14 tabs 07/08/23 [Rx Last Taken Unknown] potassium chloride 20 mEq tablet,extended release 20 meq PO BID 07/11/23 [History Last Taken Unknown] Allergy/AdvReac Type Severity Reaction Status Date / Time No Known Allergies Allergy Verified 07/11/23 10:09 Surgical History History of mandibular surgery Hx of cataract removal with insertion of prosthetic lens Social History Smoking Status: Never smoker alcohol intake: never ROS ROS ED Constitutional Constitutional ED: Reports sweats and weight loss; Denies chills, fever(s) or subjective Eyes Eyes: Denies blurry vision, change in vision or diplopia ENT ENT ED: Denies ear pain, rhinorrhea or sore throat Cardiovascular Cardiovascular: Denies chest pain, orthopnea, palpitations or racing heartbeat Respiratory/Chest Respiratory/Chest: Denies cough, dyspnea, dyspnea on exertion or orthopnea Gastrointestinal Gastrointestinal: Reports abdominal pain and diarrhea; Denies constipation, melena, nausea or vomiting Genitourinary Genitourinary ED: Reports other Details: Patient endorses decreased urine output. ; Denies dysuria, hematuria or urinary frequency Musculoskeletal Musculoskeletal: Denies arthralgias or myalgias Integumentary Denies rash Neurologic Neurologic: Reports weakness; Denies headache(s) or paresthesias Psychiatric Psychiatric: Denies anxiety or depression Endocrine Endocrinology: Denies cold intolerance or heat intolerance EXAM Physical Exam Const Vital Signs: 07/11/23 10:07 07/11/23 10:26 07/11/23 13:30 Temperature 97.1 F L Temperature Source Temporal Pulse Rate 86 100 Respiratory Rate 14 20 H Respiratory Pattern Normal Blood Pressure 126/83 H Blood Pressure Mean 97 Pulse Ox 98 95 Oxygen Delivery Method Room Air Room Air 07/11/23 13:44 Temperature 100.3 F H Temperature Source Oral Pulse Rate 103 H Respiratory Rate 20 H Respiratory Pattern Blood Pressure 152/84 H Blood Pressure Mean 106 Pulse Ox 95 Oxygen Delivery Method Room Air Positive well developed Constitutional Narrative: Patient appears thin. She appears ill. She is not hemodynamically unstable. General Appearance ED: well developed and pallor HEENT Reports dry mucous membranes HEENT Narrative: Is atraumatic and normocephalic. Ears are normal. Nares are patent. Posterior is normal. Mouth ED: Yes dry mucous membranes Mouth: dry mucous membranes Eyes PERRL and EOMs intact bilaterally General Eye ED: Yes pale conjunctiva; Negative for scleral icterus Neck no lymphadenopathy, supple and no JVD Chest Wall inspection of chest normal and palpation of chest normal Resp normal respiratory effort and clear to auscultation bilaterally Cardio regular rate, regular rhythm, S1 normal heart sound, S2 normal heart sound and no murmurs GI normal to inspection, nondistended, normoactive bowel sounds, non-tender, non-distended and no masses; Negative for hepatosplenomegaly Back/Spine no CVA tenderness Extremity normal to inspection General Extremety ED: Negative for edema or tenderness General Extremity: Negative for edema Neuro oriented x3, CN's II-XII intact bilaterally and no sensory deficits noted Sensorium / Orientation: alert Psych mental status grossly normal Skin no rashes or lesions noted, no wounds and No skin turgor normal General Skin Exam: pallor; Negative for jaundice MDM MDM MDM Narrative Medical decision making narrative: Had blood work several hours ago this was not repeated. Since the magnesium was not obtained we will obtain magnesium since her potassium is low at 2.2. This and all likely is due to the fact that she is having 10 loose watery stools per day since Friday. Since she is not vomiting she was ordered 40 mEq of potassium chloride solution to our for a total of 4 doses. This will probably rise her potassium to 2 9. If patient has hypomagnesemia we will treat with IV magnesium. Also received a 500 cc bolus which is greater than 10 cc/kg since clinically she appears dehydrated. Of note her BUN and creatinine were normal with a BUN to creatinine ratio of approximately 16-1. History & Record Review Discussion w/independent historian: Patient and Family Additional record(s) reviewed:: Prior outpatient record and Prior labs Lab Data Attestation: I reviewed the patient's lab results. Lab results narrative: It is neutropenic with an absolute neutrophil count of approximately 800. This is lower than baseline. Urine is not suggestive of infection It was sent we will treat using oral for fever with neutropenia. The source of her infection is unknown. Labs: Laboratory Results - last 24 hr 07/11/23 07/11/23 07/11/23 08:47 15:10 15:24 WBC 1.4 L* RBC 4.12 L Hgb 11.4 L Hct 34.2 L MCV 83.0 MCH 27.7 MCHC 33.3 RDW Std Deviation 55.3 H RDW Coeff of John 19.5 H Plt Count Immature Gran % (Auto) 0.700 Neut % (Auto) 63.8 Lymph % (Auto) 8.7 L [place] % (Auto) 26.8 H Eos % (Auto) 0.0 Baso % (Auto) 0.0 Absolute Neuts (auto) 0.9 L Absolute Lymphs (auto) 0.12 L Nucleated RBC % 0 Differential Comment SCANNED Diff Path Review May foll Platelet Estimate MOD DEC Lactic Acid Cancelled Magnesium 1.7 Urine Color Yellow Urine Clarity Clear Urine pH 5.0 Ur Specific [place] 1.015 Urine Protein 15 H Urine Glucose (UA) 50 H Urine Ketones Negative Urine Occult Blood 25 H Urine Nitrite Negative Urine Bilirubin Negative Urine Urobilinogen Normal Ur Leukocyte Esterase Negative Urine RBC 0 SEEN Urine WBC 0-5 SEEN Ur Squamous Epith Cells 0 SEEN Urine Bacteria 0 SEEN Urine Mucus 0 SEEN Radiography Chest X-Ray - ED: 2 View and Read by ED Physician (Dependently reviewed interpreted by me as negative for any acute process. There is mild hyperaeration. Cardiac silhouette size normal. Perihilar normal. There is minimal chronic changes of the lung parenchyma. Osseous structures are unremarkable. This was independent reviewed interpreted by me) Diagnostic Testing: Clinical Impression(s) from Imaging Studies Chest X-Ray 07/11/23 14:50 IMPRESSION: Hyperinflation. The lungs are clear. Electronically Signed: Norm David MD at 15:13 EST , Discharge Plan Dx/Rx/DC Orders Clinical Impression: Neutropenia with fever, Diarrhea, Rectal cancer, Acute hypokalemia, Acute dehydration, Sinus tachycardia seen on python architect Disposition Disposition: [facility]
--- NOTE | 2023-07-11 11:48 | ED.RN ---
NO OLD EKG
[2023-07-11] MEDS: 0.9% Normal Saline (500mL Bag) 500 ML 1000 ML IV (11:51)
[2023-07-11] MEDS: Potassium Chloride Oral Soln 20 MEQ/15 ML UDC 40 MEQ PO ×5 (11:51→22:09)
[2023-07-11 12:03] LABS: Magnesium 1.7 mg/dL (1.6-2.6)
[2023-07-11 13:30] VITALS: PULSE 100; RESP 20; O2SAT 95
[2023-07-11 13:44] VITALS: BP 152/84; PULSE 103; RESP 20; TEMP 37.9; O2SAT 95
--- NOTE | 2023-07-11 14:50 | RAD_ITS ---
STUDY: X-RAY CHEST REASON FOR EXAM: Female, 68 years old. Fever TECHNIQUE: PA and lateral views of the chest. COMPARISON: None. FINDINGS: EKG electrodes are seen. Hyperinflation. Lungs are clear. There is no demonstrated pleural abnormality. Normal size heart. Calcified bilateral hilar. Normal visualized pulmonary arteries. There is atherosclerotic calcification of the aortic arch with tortuosity. There is demineralization of the osseous structures. Increased kyphosis. Normal visualized ribs, clavicles, and shoulders. There is no demonstrated abnormality of the visualized soft tissue structures of the upper abdomen. RAD/Chest PA and Lateral IMPRESSION: Hyperinflation. The lungs are clear. Electronically Signed: Norm David MD at 15:13 EST ,
[2023-07-11 15:31] LABS: Bacteria 0 SEEN /hpf (None Seen); Mucous, Urine 0 SEEN /hpf (<or=2+); Red Blood Cells-Urine 0 SEEN /hpf (0-5); Squamous Epithelial Cells - UA 0 SEEN /hpf (5-10)
[2023-07-11 15:31] LABS: Absolute Lymphocyte Count 0.12 X10^3/uL (0.83-4.51); Absolute Neutrophil Count 0.9 X10^3/uL (2.0-7.7); Hematocrit 34.2 % (37-47); Hemoglobin 11.4 g/dL (12.0-15.0); Lymphocyte # 0.12 X10^3/ul (0.83-4.51); Lymphocyte % 8.7 % (19-41); Mean Corp Hgb Conc 33.3 g/dL (32-36); Mean Corpuscular Hgb 27.7 pg (27.0-32.0); Monocyte# 0.37 X10^3/uL; Monocyte% 26.8 % (0-10); NRBC Flagged by Analyzer 0 % (0-5); Neutrophil # 0.88 X10^3/uL (2.7-7.7); Neutrophil % 63.8 % (47-70); POSITIVE COUNT YES; POSITIVE DIFFERENTIAL YES; POSITIVE MORPHOLOGY YES; RBC Distribution Width CV 19.5 % (11.6-14.6); RBC Distribution Width SD 55.3 fl (35.1-43.9); Red Blood Count 4.12 M/mm3 (4.2-5.4)
[2023-07-11 15:41] LABS: Color, Urine Yellow (Yellow); Glucose, Dipstick 50 mg/dl (Normal); Ketone-Dipstick Negative (Negative); Leukocyte Esterase-Dipstick Negative /ul (Negative); Nitrite-Dipstick Negative (Negative); Occult Blood-Urine 25 /ul (Negative); Protein-Dipstick 15 mg/dl (Negative); Specific Gravity, Urine 1.015 (1.002-1.030); Urine Bilirubin Dipstick Negative (Negative); Urine Clarity Clear (Clear); Urine Urobilinogen Normal (Normal)
[2023-07-11 15:47] LABS: Differential Indicated SCAN CRITERIA MET; White Blood Count 1.4 K/mm3 (4.4-11.0)
[2023-07-11 15:48] LABS: Differential Comment SCANNED; Platelet Estimate MOD DEC (ADEQ)
[2023-07-11 15:57] LABS: White Blood Cells 0-5 SEEN /hpf (0-5)
--- NOTE | 2023-07-11 16:08 | EDS_ITS ---
HPI History of Present Illness Chief Complaint: Abn Labs [facility] Medical History CINV (chemotherapy-induced nausea and vomiting) Hx of sigmoidoscopy Rectal cancer Home Medications capecitabine 500 mg tablet 1,000 mg (2 x 500 mg) PO BID #100 tabs 06/02/23 [Rx Last Taken Unknown] diclofenac sodium 1 % topical gel 2 g topical BID #100 grams 06/05/23 [Rx Last Taken Unknown] ondansetron 8 mg disintegrating tablet 8 mg PO Q8H PRN nausea and vomiting #30 tabs 06/05/23 [Rx Last Taken Unknown] loperamide 2 mg capsule (Imodium A-D) 2 mg PO Q6H PRN loose stool 06/25/23 [History Last Taken Unknown] sodium chloride 1,000 mg soluble tablet 1,000 mg PO QD-QID PRN electrolyte replenishment 30 days #60 tabs 07/02/23 [Rx Last Taken Unknown] diphenoxylate-atropine 2.5 mg-0.025 mg tablet (Lomotil) 1 tab PO BID PRN diarrhea #20 tabs 07/08/23 [Rx Last Taken Unknown] metoclopramide HCl 5 mg tablet (Reglan) 5 mg PO Q6H PRN nausea and vomiting #14 tabs 07/08/23 [Rx Last Taken Unknown] potassium chloride 20 mEq tablet,extended release 20 meq PO BID 07/11/23 [History Last Taken Unknown] Allergy/AdvReac Type Severity Reaction Status Date / Time No Known Allergies Allergy Verified 07/11/23 10:09 Surgical History History of mandibular surgery Hx of cataract removal with insertion of prosthetic lens Social History Smoking Status: Never smoker alcohol intake: never EXAM Physical Exam Const Vital Signs: 07/11/23 10:07 07/11/23 10:26 07/11/23 13:30 Temperature 97.1 F L Temperature Source Temporal Pulse Rate 86 100 Respiratory Rate 14 20 H Respiratory Pattern Normal Blood Pressure 126/83 H Blood Pressure Mean 97 Pulse Ox 98 95 Oxygen Delivery Method Room Air Room Air 07/11/23 13:44 Temperature 100.3 F H Temperature Source Oral Pulse Rate 103 H Respiratory Rate 20 H Respiratory Pattern Blood Pressure 152/84 H Blood Pressure Mean 106 Pulse Ox 95 Oxygen Delivery Method Room Air [facility] Lab Data Labs: Laboratory Results - last 24 hr 07/11/23 07/11/23 07/11/23 08:47 15:10 15:24 WBC 1.4 L* RBC 4.12 L Hgb 11.4 L Hct 34.2 L MCV 83.0 MCH 27.7 MCHC 33.3 RDW Std Deviation 55.3 H RDW Coeff of John 19.5 H Plt Count Immature Gran % (Auto) 0.700 Neut % (Auto) 63.8 Lymph % (Auto) 8.7 L [place] % (Auto) 26.8 H Eos % (Auto) 0.0 Baso % (Auto) 0.0 Absolute Neuts (auto) 0.9 L Absolute Lymphs (auto) 0.12 L Nucleated RBC % 0 Differential Comment SCANNED Diff Path Review May foll Platelet Estimate MOD DEC Lactic Acid Cancelled Magnesium 1.7 Urine Color Yellow Urine Clarity Clear Urine pH 5.0 Ur Specific [place] 1.015 Urine Protein 15 H Urine Glucose (UA) 50 H Urine Ketones Negative Urine Occult Blood 25 H Urine Nitrite Negative Urine Bilirubin Negative Urine Urobilinogen Normal Ur Leukocyte Esterase Negative Urine RBC 0 SEEN Urine WBC 0-5 SEEN Ur Squamous Epith Cells 0 SEEN Urine Bacteria 0 SEEN Urine Mucus 0 SEEN Radiography Diagnostic Testing: Clinical Impression(s) from Imaging Studies Chest X-Ray 07/11/23 14:50 IMPRESSION: Hyperinflation. The lungs are clear. Electronically Signed: Norm David MD at 15:13 EST , EKG Initial EKG: Attestation: I personally reviewed and interpreted this EKG as follows: Interpretation: Sinus Rhythm (Sepsis rhythm rate of 87 with premature ventricular complexes with ventricular complexes as well. There is evidence of LVH. MO interval is 132 ms. Cures duration 112 ms. QT duration 360 ms. [place] is normal.) Discharge Plan Dx/Rx/DC Orders Clinical Impression: Neutropenia with fever, Diarrhea, Rectal cancer, Acute hypokalemia, Acute dehydration, Sinus tachycardia seen on monitoring analyst Disposition Disposition: Acute Care Hospital [facility]
--- NOTE | 2023-07-11 16:22 | PCM.HP.STD ---
HPI - General General Date of Admission: 07/11/23 Date of Service: 07/11/23 Chief Complaint: Diarrhea, fever, fatigue and malaise, recent chemotherapy and radiation. HPI Narrative The patients is a 68 y/o [place] F w/ PMHx: Moderately differentiated adenocarcinoma, rectal cancer following with Dr. Orellana undergoing both chemotherapy and radiation with last dose of chemotherapy approximately 1 week prior and her last radiation Friday on week of presentation with no other marked history medically who presents to the [facility] ED on 07/11/23 with history of persistent ongoing diarrhea with at least 10-12 loose stools per day with increasing fatigue and malaise with mild abdominal bloating and discomfort with abnormal labs outpatient prompting referral to the ED for evaluation given significant neutropenia and now onset of fever as well. She denies any recent upper respiratory symptoms including cough, congestion or dyspnea however in the ED upon evaluation she does have mild hypoxia with good waveform at 88%. She denies any recent issues with urination. Workup in the ED included T1 100.3, heart rate 103, BP 152/84, respiratory rate 20, 95% on room air, CBC with WBC 1.4, hemoglobin 0.4, MCV 83, platelet not reported secondary to clumping with ANC 0.9 and lymphopenia, magnesium 1.7, urinalysis with no overt evidence of UTI, blood culture x 2 pending upon requested evaluation of patient, urine culture pending, chest x-ray with hyperinflation with no acute cardiopulmonary findings, EKG was sinus rhythm with no acute evidence of ischemia. In the ED patient administered Loperamide 4 mg p.o. x 1 and Maxipime 2 g IV x 1. CMP not obtained likely secondary recent outpatient labs however to be cautious repeat CMP requested per hospital physician. [facility] Medical History (Updated 07/11/23 @ 17:[address] Georgette Blandon MD) CINV (chemotherapy-induced nausea and vomiting) Pancytopenia Rectal cancer Home Medications capecitabine 500 mg tablet 1,000 mg (2 x 500 mg) PO BID #100 tabs 06/02/23 [Rx Last Taken Unknown] diclofenac sodium 1 % topical gel 2 g topical BID #100 grams 06/05/23 [Rx Last Taken Unknown] ondansetron 8 mg disintegrating tablet 8 mg PO Q8H PRN nausea and vomiting #30 tabs 06/05/23 [Rx Last Taken Unknown] loperamide 2 mg capsule (Imodium A-D) 2 mg PO Q6H PRN loose stool 06/25/23 [History Last Taken Unknown] sodium chloride 1,000 mg soluble tablet 1,000 mg PO QD-QID PRN electrolyte replenishment 30 days #60 tabs 07/02/23 [Rx Last Taken Unknown] diphenoxylate-atropine 2.5 mg-0.025 mg tablet (Lomotil) 1 tab PO BID PRN diarrhea #20 tabs 07/08/23 [Rx Last Taken Unknown] metoclopramide HCl 5 mg tablet (Reglan) 5 mg PO Q6H PRN nausea and vomiting #14 tabs 07/08/23 [Rx Last Taken Unknown] potassium chloride 20 mEq tablet,extended release 20 meq PO BID 07/11/23 [History Last Taken Unknown] Allergy/AdvReac Type Severity Reaction Status Date / Time No Known Allergies Allergy Verified 07/11/23 10:09 Family History (Updated 07/11/23 @ 17:[address] Georgette Blandon MD) Mother CAD (coronary artery disease) Myocardial infarction Hypertension Heart disease Father Family hx of prostate cancer Surgical History (Updated 07/11/23 @ 17:[address] Georgette Blandon MD) History of mandibular surgery Hx of cataract removal with insertion of prosthetic lens Social History (Updated 07/11/23 @ 17:[address] Georgette Blandon MD) household members: spouse Smoking Status: Never smoker alcohol intake: never substance use type: does not use ROS ROS Narrative Admission Review of Systems: CONSTITUTIONAL: No weight loss, + fever, chills, weakness or fatigue. HEENT: Eyes: No visual loss, blurred vision, double vision or yellow sclerae. Ears, Nose, Throat: No hearing loss, sneezing, congestion, runny nose or sore throat. SKIN: No rash or itching, lesions, wounds. CARDIOVASCULAR: No chest pain, chest pressure or chest discomfort, palpitations, edema, orthopnea, syncopal events. RESPIRATORY: No shortness of breath, cough or sputum, wheezing, hemoptysis. GASTROINTESTINAL: + anorexia, abdominal cramping diffusely, diarrhea. No vomiting, melena, BRBPR. GENITOURINARY: No dysuria, frequency, urgency or retention. NEUROLOGICAL: No headache, dizziness, syncope, paralysis, ataxia, numbness or tingling in the extremities, focal weakness, change in bowel or bladder control, seizure. MUSCULOSKELETAL: + muscle, back pain, joint pain or stiffness. HEMATOLOGIC: + Anemia, easy bleeding/bruising. LYMPHATICS: No enlarged nodes. No history of splenectomy. PSYCHIATRIC: No history of depression or anxiety. ENDOCRINOLOGIC: + reports of sweating, cold or heat intolerance. No polyuria or polydipsia. ALLERGIES: No history of asthma, hives, eczema or rhinitis. Vital Signs Vital Signs Vital Signs: 07/11/23 10:07 07/11/23 10:26 07/11/23 13:30 Temperature 97.1 F L Temperature Source Temporal Pulse Rate 86 100 Respiratory Rate 14 20 H Respiratory Pattern Normal Blood Pressure 126/83 H Blood Pressure Mean 97 Pulse Ox 98 95 Oxygen Delivery Method Room Air Room Air 07/11/23 13:44 Temperature 100.3 F H Temperature Source Oral Pulse Rate 103 H Respiratory Rate 20 H Respiratory Pattern Blood Pressure 152/84 H Blood Pressure Mean 106 Pulse Ox 95 Oxygen Delivery Method Room Air Weight Weight: 95 lb 5 oz Body Mass Index (BMI) 19.2 Physical Exam Narrative Physical Examination: General: Awake, alert, oriented x 3 and cooperative, seated upright in the ED bed, fatigued, ill-appearing. Skin: Normal color, normal turgor, no icterus, no cyanosis except for occasional staged ecchymoses. HEENT: AT/NC, EOMI, PERRLA, dry MM, no carotid bruits or JVD noted. Lungs: Diminished, greater bases, mild increased respiratory rate but no distress, decent waveform on monitor with 88% oxygenation noted which was reported to staff to start supplementation, no appreciated rales, ronchi or wheezing. Heart: Tachycardic with regular rhythm; no gallop, rub audible. Abdomen: Soft, NTTP despite history of abdominal generalized discomfort, mildly distended, tympanitic, hyperactive BS, no appreciated HSM. Extremities: No cyanosis, clubbing, or edema. Neurological: Patient awake, alert, oriented as noted, cognitive function intact; pupils equally reactive to light and accommodation, cranial nerves II-XII grossly normal, moving all 4 extremities, no focal deficits, strength moderately to severely global decrease secondary to acute presentation. Psychiatric: Affect appears fatigued, ill-appearing, no acute evidence of depressive or anxiety feelings. Results Lab / Micro Data 07/11/23 15:10 07/11/23 17:00 Labs: Laboratory Results - last 24 hr 07/11/23 08:47: Magnesium 1.7 07/11/23 15:10: WBC 1.4 L*, RBC 4.12 L, Hgb 11.4 L, Hct 34.2 L, MCV 83.0, MCH 27.7, MCHC 33.3, RDW Std Deviation 55.3 H, RDW Coeff of John 19.5 H, Plt Count , Immature Gran % (Auto) 0.700, Neut % (Auto) 63.8, Lymph % (Auto) 8.7 L, Arthur % (Auto) 26.8 H, Eos % (Auto) 0.0, Baso % (Auto) 0.0, Absolute Neuts (auto) 0.9 L, Absolute Lymphs (auto) 0.12 L, Nucleated RBC % 0, Differential Comment SCANNED, Diff Path Review October, Platelet Estimate MOD DEC, Lactic Acid Cancelled 07/11/23 15:24: Urine Color Yellow, Urine Clarity Clear, Urine pH 5.0, Ur Specific [place] 1.015, Urine Protein 15 H, Urine Glucose (UA) 50 H, Urine Ketones Negative, Urine Occult Blood 25 H, Urine Nitrite Negative, Urine Bilirubin Negative, Urine Urobilinogen Normal, Ur Leukocyte Esterase Negative, Urine RBC 0 SEEN, Urine WBC 0-5 SEEN, Ur Squamous Epith Cells 0 SEEN, Urine Bacteria 0 SEEN, Urine Mucus 0 SEEN Imagaing Radiology Impression Chest X-Ray 07/11/23 14:50 IMPRESSION: Hyperinflation. The lungs are clear. Electronically Signed: Norm David MD at 15:13 EST , Assessment & Plan Assessment/Plan (1) Neutropenia with fever: PLAN: Plan The patients is a 68 y/o [place] F w/ PMHx: Moderately differentiated adenocarcinoma, rectal cancer following with Dr. Orellana undergoing both chemotherapy and radiation with last dose of chemotherapy approximately 1 week prior and her last radiation Friday on week of presentation with no other marked history medically who presents to the [facility] ED on 1/12/24 with history of persistent ongoing diarrhea with at least 10-12 loose stools per day with increasing fatigue and malaise with mild abdominal bloating and discomfort with abnormal labs outpatient prompting referral to the ED for evaluation given significant neutropenia and now onset of fever as well. #1. Neutropenic fever, unclear etiology with persistent diarrhea, mild hypoxia of unclear etiology: Suspect persistent diarrhea primarily secondary to ongoing chemotherapy since this has been a chronic issue however to be cautious plan to certainly continue to evaluate, will admit to [facility], maintain on Neutropenic precautions, magnesium as noted 1.7 and phos level requested given recent chemotherapy treatments, maintain I&Os, treat with IV cefepime pending cultures. Full respiratory viral panel as well as rapid SARS COVID/influenza/RSV PCR requested. C. difficile, enteric as well as ova and parasite given [place] lifestyle with potentially heightened exposure requested. Will hydrate and plan also repeat chest x-ray in the a.m. to assure no developing pneumonia as etiology. Procalcitonin also requested PRN tylenol, anti-emetics, pain regimen. #2. Moderately differentiated adenocarcinoma, rectal cancer with pancytopenia (neutropenia, normocytic anemia, thrombocytopenia) with neutropenic fever presentation as noted #1: Patient with 04/09/2023 evaluation with noted napkin ring lesion 12 to 15 cm from the anal verge with biopsy demonstrating moderately differentiated adenocarcinoma at 15 cm, CT scan chest/abdomen/pelvis 04/16/2023 with a mass at the sigmoid colon with luminal narrowing, CEA 50.9 with treatment then at [facility]. MRI of the pelvis 05/07/2023 with a rectal mass 12 cm from the anal verge with no pelvic lymphadenopathy DM T4a N0. Patient started neoadjuvant therapy with combined chemotherapy-Xeloda and radiation therapy on 06/11/2023. Patient following with Dr. Orellana with last visit 07/09/23 now week 5 with report of ongoing issues with diarrhea and need for IV fluids and electrolyte supplementations. ED magnesium 1.7, phosphorus level will be requested. CBC upon presentation with WBC 1.4, hemoglobin 11.4, MCV 83, platelet unfortunately unable to be obtained secondary to clumping, repeat CBC in AM. May certainly involve oncology if necessary. #3. Hypokalemia: Admission K+ 3.2, magnesium level as noted 1.7, supplementation given, repeat level in AM. #4. Hyponatremia, suspected hypovolemic given GI losses: Admission CMP obtained per hospitalist with noted sodium 131, chloride 104, will continue hydration and repeat CMP in AM. #5. Hyperglycemia without diabetic history: Admission glucose 159, likely stress response however to be cautious we will obtain hemoglobin A1c. #6. DVT prophylaxis: Heparin. #7. CODE status: Patient RICHARD is her spouse who is present. They do not believe living will is in place but are uncertain. Discussed CODE status at length including difference between FULL code, DNR-CCA and DNR-CC status. Following discussions about the differences in these status, requested Full Code status. Advanced Care Planning Face to Face Time: 16 minutes. Charges/Coding Visit Charges Inpatient E&M: 14568 Init Hosp L3 Procedures Hospitalists Procedures: 12461 Advncd Care Plan 30 Min
--- NOTE | 2023-07-11 16:26 | ED.RN ---
called lab inquire about drawing lactic acid
[2023-07-11] MEDS: Cefepime HCl 2 GM in 0.9% Normal Saline (100mL MB+) 100 ML IV (17:28)
[2023-07-11 17:32] LABS: ALB/GLOB Ratio 0.5 RATIO (0.9-2.4); AST(SGOT) 15 U/L (15-37); Alanine Aminotransfer ALT/SGPT 18 U/L (13-56); Alkaline Phosphatase 63 U/L (45-117); Anion Gap 9 (5-15); BUN 4 mg/dL (7-18); BUN/Creat Ratio 6.9 RATIO (10-20); Calcium,Total 7.9 mg/dL (8.5-10.1); Chloride 104 mmol/L (98-107); Creatinine, Serum 0.58 mg/dL (0.55-1.02); EST Glomerular Filtration Rate 109 mL/min (>60); Est Glom Filt Rate - Afr Amer 132 mL/min (>60); Estimated Creatinine Clearance 44.66 ml/min; Globulin 3.7 g/dL (2.2-4.2); Glucose 159 mg/dL (74-106); Phosphorus 1.3 mg/dL (2.5-4.9); Potassium 3.2 mmol/L (3.5-5.1); Protein, Total 5.7 g/dL (6.4-8.2); Sodium Level 131 mmol/L (136-145)
[2023-07-11 17:45] LABS: Lactic Acid 1.3 mmol/L (0.4-1.9)
[2023-07-11 17:46] VITALS: BP 149/82; PULSE 124; RESP 14; O2SAT 98
--- OUTSIDE RECORDS SUMMARY | 2023-07-11 17:58 | XMS RPT_ITS | CCD ---
Author Name Unknown Address [address] [place] [address] Organization [facility] Care Team Providers Care Controls Engineer Name Role Phone Unavailable Primary Care Provider Unavailabl e [facility], Other Primary Care Provider BLOSSOM [...] Admitting Unavailabl ASHOK Ortega Attending Unavailabl e [employer] [facility], OTHER Primary Care Unavailable HICKEY, SHANNAN E Referring Unavailable [employer] [facility], OTHER Primary Care Unavailable [facility] OFFICE PCP, [facility] Referring Unavailable EPIFANIO MARIN Attending Unavailable [employer] [facility], OTHER Primary Care Unavailable HICKEY, SHANNAN E Attending Unavailable HICKEY, SHANNAN E Referring Unavailable [employer] [facility], OTHER Primary Care Unavailable ASHOK MINOR Attending Unavailabl e ASHOK MINOR Referring Unavailabl e ASHOK MINOR Attending Unavailabl e BLANCA, MARIA D Referring Unavailable KAYLEY ALVARADO-CTRACY Unavailable KARINEASIF ALEISHA Unavailable Unavailable MARIA D RIOS MD Unavailable BLOSSOM HARRIS MD Unavailable Luis AntonioYolanda malave Unavailable Unavailable Andrey MARTINEZ MD Unavailable Haley Glass Unavailable Unavailable Alexa Rios Unavailable Unavailable Rafat RIOS MD Unavailable [place] MARYBrianna Unavailable Unavailable RAYMUNDO TABOR Unavailable Unavailable KIMBERLY CHRISTINE MD Unavailable Lora Colon Unavailable Unavailable Unavailable Unavailable Medications Completed/Discontinued Medications Medication Drug Class(es) Dates Sig (Normalized) Sig (Original) ALPRAZolam 0.5 mg oral tablet (4 sources) Benzodiazepine Start: 10-12-2014 End: 07-28-2017 take 1 tablet by mouth once daily as needed Xanax 0.5 MG Oral Tablet ; 1 (one) Tablet one time daily as needed for 30 days Quantity: 30 {Tablet} Refills: 2 Ordered: 28-Jul-2017 Start: 12-Oct-2014 End: 28-Jul-2017 Status: Inactive Comments: Medication taken as needed. Problems Active Problems Problem Classification Problem Date Documented Da te Episodic/Chronic Administrative/social admission (4 sources) Repeated prescription; Translations: [Encounter for issue of repeat prescription] 03-15-2013 Episodic Cancer of rectum and anus (11 sources) Malignant tumor of rectum; Translations: [Malignant neoplasm of rectum] Onset: 05-07-2023 05-07-2023 Chronic Past or Other Problems Problem Classification Problem Date Documented Da te Episodic/Chronic Cataract (4 sources) Cataract 06-29-2021 Mood disorders (8 sources) Mood disorders 05-12-2012 Unclassified (4 sources) Flatulence - Symptoms include belching, bloating [...] probiotics at times. and enzymes 03-24-2023 Unclassified (4 sources) !Patient notification of lab results - [facility]. The test(s) that you had done were/was blood work. The results of your testing were normal . You should call our office if you have any questions. 01-08-2018 Unclassified (4 sources) !Patient notification of lab results - [...] if you have any questions. 12-18-2017 Unclassified (4 sources) !Patient notification of lab results - [...] if you have any questions. 11-12-2017 Unclassified (4 sources) !Patient notification of lab results - [...] if you have any questions. 10-08-2017 Unclassified (4 sources) !Patient notification of lab results - [...] Please follow up as scheduled. 07-31-2017 Unclassified (4 sources) cough - Note for cough : [...] : Pt is sleeping well. 10-12-2014 Unclassified (4 sources) Depression - Note for Depression : [...] stomach while taking these prescriptions. 03-09-2014 Unclassified (4 sources) Insomnia - Note for Insomnia : wants ambien refilled. 03-16-2013 Unclassified (4 sources) Routine Check - Patient is here to review the medical problem(s) of other: ____ (anxiety/depression). Note for Routine Check : States is feeling better. Has to work through things. 02-11-2012 Unclassified (4 sources) Routine Check - Patient is here [...] to this at last visit.) 01-07-2012 Unclassified (4 sources) !Patient notification of lab results 1 - Dr. Christine. The test(s) that you had done were/was a serum protein electrophoresis to look for abnormal proteins. The results of your testing were normal . Please continue your current medication/therapy and follow up as scheduled. 12-11-2011 Unclassified (4 sources) !Patient notification of lab results 1 [...] and follow up as scheduled. 11-20-2011 Unclassified (4 sources) Insomnia - Symptoms include difficulty staying asleep. The symptoms occur nightly. Note for Insomnia : Saw Dr Rios a few weeks ago and given RX medication but is still not sleeping. Says she thinks she has anxiety and depression and mind won't let me sleep . 11-19-2011 Unclassified (4 sources) Sleep Disorders - Onset was 6 week(s) ago. Note for Sleep Disorders : Increase in stress recently; sleeps approx 2-3 hours per night. 10-30-2011 Unclassified (1 source) Insomnia - Note for Insomnia : Pt is sleeping well. 10-12-2014 Unclassified (1 source) [ADDITIONAL REASON] Anxiety - Note for Anxiety : Pt is feeling well on the sertraline. She does keep some pills on hand for emergencies. 10-12-2014 Results Test Name Value Interpretation Reference Range Facil ity Vital Signs Date Time Vital Sign Value Performing Clinician Faci lity 05-14-2023 13:30-0500 Diastolic blood pressure 74 mm[Hg] Ashok Minor MD Work Phone: [facility] 05-14-2023 13:30-0500 Heart rate 71 /min Ashok Minor MD Work Phone: [facility] 05-14-2023 13:30-0500 Respiratory rate 16 /min Ashok Minor MD Work Phone: [facility] 05-14-2023 13:30-0500 SaO2% (BldA) [Mass fraction] 100 % Ashok Minor MD Work Phone: [facility] 05-14-2023 13:30-0500 Systolic blood pressure 142 mm[Hg] Ashok Minor MD Work Phone: [facility] 05-14-2023 13:10-0500 Body temperature 98.01 [degF] Ashok Minor MD Work Phone: [facility] 05-14-2023 12:28-0500 Body height 147.3 cm Ashok Minor MD Work Phone: [facility] 05-14-2023 12:28-0500 Body mass index (BMI) [Ratio] 21.28 kg/m2 Ashok Minor MD Work Phone: [facility] 05-14-2023 12:28-0500 Body weight 46.18 kg Ashok Minor MD Work Phone: [facility] 05-07-2023 12:22-0500 Diastolic blood pressure 83 mm[Hg] Ashok Minor MD Work Phone: [facility] 05-07-2023 12:22-0500 Heart rate 123 /min Ashok Minor MD Work Phone: [facility] 05-07-2023 12:22-0500 Systolic blood pressure 170 mm[Hg] Ashok Minor MD Work Phone: [facility] 05-06-2023 09:53-0500 Body height 147.3 cm Ashok Minor MD Work Phone: [facility] 05-06-2023 09:53-0500 Body mass index (BMI) [Ratio] 22.36 kg/m2 Ashok Minor MD Work Phone: [facility] 05-06-2023 09:53-0500 Body weight 48.53 kg Ashok Minor MD Work Phone: [facility] 05-06-2023 09:53-0500 Diastolic blood pressure 90 mm[Hg] Ashok Minor MD Work Phone: [facility] 05-06-2023 09:53-0500 Heart rate 102 /min Ashok Minor MD Work Phone: [facility] 05-06-2023 09:53-0500 Systolic blood pressure 167 mm[Hg] Ashok Minor MD Work Phone: [facility] 03-24-2023 13:02-0400 Body height 147.32 cm Brianna Overholt [facility], [facility].; [facility]. 03-24-2023 13:02-0400 Body mass index (BMI) [Ratio] 24.03 kg/m2 [facility]anna [facility]olt [facility].; [facility], [facility]. 03-24-2023 13:02-0400 Body surface area Derived from formula 1.44 m2 Brianna Overholt [facility], [facility].; [facility]. 03-24-2023 13:02-0400 Body weight 52.16 kg Brianna Overholt [facility].; [facility]. 03-24-2023 13:02-0400 Diastolic blood pressure 85 mm[Hg] Brianna Denney [facility].; [facility]. Encounters Encounter Date Encounter Type Care Provider Facility Start: 06-06-2023 End: 06-06-2023 Historical Summary TRACY MARSHALLP-C Work Phone: [facility], [facility]. Start: 06-05-2023 End: 06-05-2023 Subsequent hospital visit by physician Shannan Nascimento RN LPN LVN-THEATRE MANAGER Work Phone: [facility] [place] Procedures Date Procedure Procedure Detail Performing Clinician Start: 05-14-2023 Glucose measurement, blood Ashok Minor MD Work Phone: Start: 05-07-2023 Mri pelvis w/o & w/contrast material Ashok Minor MD Work Phone: Start: 03-24-2023 End: 03-24-2023 Dischrg meds reconciled w/current med list TRACY ZALDIVAR ROTARY DRIER FEEDER-C Work Phone: Start: 06-29-2021 End: 06-29-2021 Dischrg meds reconciled w/current med list BLOSSOM HARRIS MD Work Phone: Start: 05-12-2012 End: 05-12-2012 Microscopic examination of cervical Papanicolaou smear Brianna Denney [facility] Plan of Treatment Date Care Activity Detail Author Start: 06-05-2023 End: 06-05-2023 Patient encounter procedure 06/05/2023 9:30 AM EST Appointment [facility] [place] [address] [place] [address] Shannan Nascimento, RN LPN LVN-THEATRE MANAGER [address] [place] [address] [facility] [place] Start: 06-05-2023 Subsequent hospital visit by physician 06/05/2023 9:30 AM EST Hospital Encounter [facility] [place] [address] [place] [address] Shannan Nascimento, RN LPN LVN-THEATRE MANAGER [address] [place] [phone] [facility] [place] Start: 06-03-2023 End: 06-03-2023 Patient encounter procedure 06/03/2023 3:15 PM EST Office Visit [facility] [place] [address] [place] [phone] Ashok Minor MD [address] [place] [address] [facility] [place] Start: 05-14-2023 End: 05-14-2023 Admission to same day surgery center 05/14/2023 12:30 PM EST - 05/14/2023 1:50 PM EST Surgery [facility] [address] [place] [phone] Ashok Minor MD [address] [place] [address] EXAM UNDER ANESTHESIA ANORECTAL [facility] Immunizations Immunization Date Immunization Notes Care Provider Fa cili 05-12-2012 influenza virus vaccine, unspecified formulation TRACY BILL Work Phone: [facility], [employer] [facility], [facility] Payers Date Payer Category Payer Unknown [id number] 1955 Unknown [id number] [id number] 1955 Unknown [id number] [id number] 1955 Unknown [id number] [id number] [id number] 1955 Unknown [id number] 2.16.8 [id number] 1955 Unknown [id number] [id number]. [id number] 1955 Unknown [id number] [id number]. [id number] Unknown 194 Unknown Social History Date Type Detail Facility Start: 05-06-2023 Tobacco smoking stat [facility] Never smoked tobacco [facility] Start: 05-06-2023 Tobacco use and exposure Smokeless tobacco non-user [facility] Start: 05-06-2023 End: 05-19-2023 Alcohol intake Lifetime non-drinker (finding) [facility] Start: 05-06-2023 End: 05-19-2023 History of Social function [facility] Start: 05-06-2023 End: 05-19-2023 Tobacco use panel [facility] Start: 1955 Sex Assigned At Not on file [facility] Alcohol Use: Alcohol Use: ; N ever used alcohol. [facility]; [facility] Highest Education Le manuel Attained: Highest Education Level Attained: ; Less than high school. [facility].; [facility] Marital status: Marital status: ; . [facility]; [facility] Tobacco use: Tobacco use: ; N ever smoker. [facility] [employer] [facility].; [facility] Work Phone: Less than [facility], [facility] Work Phone: [facility] YELENA MORAES - [facility], [facility] Work Phone: Clinical Notes 05-06-2023 to [...] 1) flexible sigmoidoscopy SURGEON: Ashok Minor MD RAIL TRACTOR OPERATOR(S): Dr. Phillips ANESTHESIA: MAC COMPLICATIONS: none SPECIMEN(S): [...] the entire procedure. Julián Minor MD Clinical fringe knotter Division of Colon and Rectal Surgery Ximena Chow ([id number]) PRE OPERATIVE DIAGNOSIS Adenocarcinoma [C80.1] POST OPERATIVE DIAGNOSIS Post-Op Diagnosis Codes: * Adenocarcinoma [C80.1] PROCEDURE PERFORMED Procedure(s) (LRB): SIGMOIDOSCOPY DIAGNOSTIC (N/A) PRIMARY CLOSURE Yes INTRAOPERATIVE FINDINGS Fungating tumor at 12cm from anal verge (at 3rd rectal valve) SURGEON Surgeon(s) and Role: * Ashok Minor MD - Primary ANESTHESIOLOGIST Anesthesiologist: Rosalie Posey MD Cylindrical Mixer: CÉSAR Henderson SURGICAL STAFF Geoduck Diver: Lora Bartlett RN Relief Geoduck Diver: Ivis Tarango RN Relief Scrub: Priscila Phan Scrub Person: Raquel Hernandze RN; Adeola Giraldo Resident Assisting: Tracy Phillips MD COMPLICATIONS None ESTIMATED BLOOD LOSS None SPECIMENS No specimen sent * No specimens in log * Ashok Minor MD May 14, 2023 2:18 PM Ximena Chow ([id number]) PRE OPERATIVE DIAGNOSIS Adenocarcinoma [C80.1] POST OPERATIVE DIAGNOSIS Post-Op Diagnosis Codes: * Adenocarcinoma [C80.1] PROCEDURE PERFORMED Procedure(s) (LRB): EXAM UNDER ANESTHESIA ANORECTAL (N/A) PRIMARY CLOSURE N/A INTRAOPERATIVE FINDINGS Fungating mass appreciated at about 10-12 cm from anal verge on flex sig. No additional lesions appreciated. SURGEON Surgeon(s) and Role: * Ashok Minor MD - Primary ANESTHESIOLOGIST Anesthesiologist: Rosalie Posey MD Cylindrical Mixer: CÉSAR Henderson SURGICAL STAFF Geoduck Diver: Lora Bartlett RN Relief [place]oduck Diver: Ivis Tarango RN Relief Scrub: Priscila Phan Scrub Person: Raquel Hernandez RN; Adeola Giraldo Resident Assisting: Tracy Phillips MD COMPLICATIONS None ESTIMATED BLOOD LOSS Minimal SPECIMENS No specimen sent * No specimens in log * Tracy Phillips MD PhD Department of Surgery PGY3 #[id number] May 14, 2023 1:06 PM documented in this encounter [facility] 05-14-2023 Surgery Postoperative evaluation and management note OPERATIVE NOTE DATE OF PROCEDURE: 05/14/2023 PREOPERATIVE DIAGNOSIS: rectal tumor POSTOPERATIVE DIAGNOSIS: same PROCEDURE: 1) flexible sigmoidoscopy SURGEON: Ashok Minor MD RAIL TRACTOR OPERATOR(S): Dr. Phillips ANESTHESIA: MAC COMPLICATIONS: none SPECIMEN(S): [...] the entire procedure. Julián Minor MD Clinical fringe knotter Division of Colon and Rectal Surgery [facility] 05-14-2023 Surgery Postoperative evaluation and management note Ximena Chow ([id number]) PRE OPERATIVE DIAGNOSIS Adenocarcinoma [C80.1] POST OPERATIVE DIAGNOSIS Post-Op Diagnosis Codes: * Adenocarcinoma [C80.1] PROCEDURE PERFORMED Procedure(s) (LRB): SIGMOIDOSCOPY DIAGNOSTIC (N/A) PRIMARY CLOSURE Yes INTRAOPERATIVE FINDINGS Fungating tumor at 12cm from anal verge (at 3rd rectal valve) SURGEON Surgeon(s) and Role: * Ashok Minor MD - Primary ANESTHESIOLOGIST Anesthesiologist: Rosalie Posey MD Cylindrical Mixer: CÉSAR Henderson SURGICAL STAFF Geoduck Diver: Lora Bartlett RN Relief [place]uck Diver: Ivis Tarango RN Relief Scrub: Priscila Phan Scrub Person: Raquel Hernandez RN; Adeola Giraldo Resident Assisting: Tracy Phillips MD COMPLICATIONS None ESTIMATED BLOOD LOSS None SPECIMENS No specimen sent * No specimens in log * Ashok Minor MD May 14, 2023 2:18 PM [facility] 05-14-2023 Nurse Surgical operation note Discharge instructions given to pt. Pt verbalized understanding. 1358 pt taken to lobby in wheelchair [facility] 05-14-2023 Nurse Note Discharge instructions given to pt. Pt verbalized understanding. 1358 pt taken to lobby in wheelchair Called PACU report. documented in this encounter [facility] 05-14-2023 Hospital Discharg e instructions Tracy Phillips MD - 05/14/2023 1:25 PM EST Clinic Office Main Number: [phone] For Concerns During Weekend or Evening Hours: -If you have questions or concerns call and ask the twister operator to have the general surgery chief resident paged. Reminder: [employer] messaging goes unmonitored during evenings and [...] cannot be sent through Care Everywhere.Colonoscopy: Post-op (Albanian)documented in this encounter [facility] 05-14-2023 Surgery Postoperative evaluation and management note Ximena Chow ([id number]) PRE OPERATIVE DIAGNOSIS Adenocarcinoma [C80.1] POST OPERATIVE DIAGNOSIS Post-Op Diagnosis Codes: * Adenocarcinoma [C80.1] PROCEDURE PERFORMED Procedure(s) (LRB): EXAM UNDER ANESTHESIA ANORECTAL (N/A) PRIMARY CLOSURE N/A INTRAOPERATIVE FINDINGS Fungating mass appreciated at about 10-12 cm from anal verge on flex sig. No additional lesions appreciated. SURGEON Surgeon(s) and Role: * Ashok Minor MD - Primary ANESTHESIOLOGIST Anesthesiologist: Rosalie Posey MD Cylindrical Mixer: CÉSAR Henderson SURGICAL STAFF Geoduck Diver: Lora Bartlett RN Relief [place]oduck Diver: Ivis Tarango RN Relief Scrub: Priscila Phan Scrub Person: Raquel Hernandez RN; Adeola Giraldo Resident Assisting: Tracy Phillips MD COMPLICATIONS None ESTIMATED BLOOD LOSS Minimal SPECIMENS No specimen sent * No specimens in log * Tracy Phillips MD PhD Department of Surgery PGY3 #[id number] May 14, 2023 1:06 PM [facility] 05-14-2023 Nurse Surgical operation note Called PACU report. [facility] 05-14-2023 History and physical note Images [...] Phillips MD PhD Department of Surgery PGY3 #[id number] [facility] Work Phone: 05-14-2023 History and physical [...] Phillips MD PhD Department of Surgery PGY3 #[id number] documented in this encounter [facility] 05-06-2023 History of Presen t illness Narrative [...] performed in the presence of a medical senior systems engineer Mary Joe RN Results/Imaging Reviewed: CEA: 50.9 [...] records from Dr. Maria D Rios at [facility] in [place]. Shannan Nascimento APRN-[facility] Department of Surgery Division of Colorectal Surgery [...] have available. Julián Minor MD, FACS, FASCRS fringe knotter Division of Colon & Rectal Surgery Outpatient [...] procedures, referring and communicating with other health day care assistant, and documenting clinical information in the electronic or other health record. Halima Joe RN acted as medical senior systems engineer for the procedure/exam/test. documented in this encounter [facility] 05-06-2023 Instructions Shani Duggan - 05/06/2023 10:00 AM EST Please call [facility] Financial[facility]Billing at [phone] to discuss financial concerns BEFORE SURGERY: PRE-PROCEDURE PREPARATION (COMPAC) Date: 05/07/23 Call Time: 2:00pm Patients who are scheduled for a surgical or other procedure at [facility] may be required to complete a pre-operative [...] to surgery, please contact our office at [phone] Please note that this schedule is subject to change, you may be contacted up to 24 hours in advance of surgery for any necessary adjustments. This may include an arrival time as early as 5:00 AM. Please plan accordingly. [x] SURGERY SCHEDULE YOUR SURGERY DATE: 05/14/23 ARRIVAL TIME: 10:30am LOCATION: [place] [address] [place] in [address] Patient Admissions (1st room on the right) Office #: [phone] Fax #: [phone] CURRENT COVID VISITOR POLICY: These visitor policy [...] service home, an adult, other than the team cdl driver, needs to ride with you for your safety. This person will also be responsible for communicating post-operative instructions to you. If you would like to sign up for text messages for [facility] appointment reminders text [facility] TO [phone]. You will receive a response within a [...] the hospital. Do not wear makeup, nail kiswahili or hair pins to the hospital. Please [...] a living will or durable power of employment attorney, please bring a copy of the [...] your doctor s office. Driving Directions to [facility] From the North ([place], [place] and [place]) Take any major [address] to [address] Take [facility] route [address] south to the [place] exit Turn left onto [address] ([place] turns into [place]) Take [place] [place] to [address] Turn left onto [address] Turn left onto [address] Turn right onto [address] See Parking Directions - Continued From the South ([place], [place] and [place]) Take any major highway to [address] to [address] to the [address] exit Turn right onto [address] Turn right onto [address] Turn left to stay on [address] Turn left onto [address] Turn left onto [address] Turn right onto [address] See Parking Directions - Continued From the East ([place], [place] and [place]) Take any major highway to [address] to [address] to the [address] exit Turn right onto [address] Turn right onto [address] Turn left to stay on [address] Turn left onto [address] Turn left onto [address] Turn right onto [address] See Parking Directions - Continued From the West ([place], [place] and [place]) Take any major highway to [address] to [address] to the the [address] exit Turn right onto [address] Turn right onto [address] Turn left to stay on [address] Turn left onto [address] Turn left onto [address] Turn right onto [address] See Parking Directions - Continued Parking Directions - Continued [facility] Continued: Take [address] past the intersection of [address]. Continue straight to the front of [facility] ([facility]). Pull into [facility] on your right. [employer] [address] [facility] [place] [address] Continued: From [address], turn left onto [facility]. The [employer] is located on the left and is connected to the medical center by a walkway bridge on the second fl oor. [address] [place] [address] Continued: Take [address] to [address] [...] ticket to any information desk in the Medical Center to receive your discount ticket. Financial Obligation: [...] prior to the procedure being performed. A human resources representative from the [facility] will contact you to pre-register you for your services. If you have not received a call by two days prior to your procedure date, please call our Pre-Registration Department at [phone] or [phone]. By calling us in advance, your wait time will be reduced. Our trained representatives can assist you in discussing both your physician and hospital obligations. Are you a [employer] user? If yes, you can log on and complete a pre-registration questionnaire. Bulk Mail Technician: You are not eligible for Financial Assistance if you are entering the [facility] solely to seek medical treatment. We want to make sure all patients have access to quality healthcare services at [facility], and we are committed to working with [...] These options include helping you apply for: [place] Medicaid (if your income meets guidelines) The Affordable Care Act Insurance Exchange Program. Other federal/state assistance programs Or establish a payment plan Other Assistance: [facility] offers an additional sliding scale financial assistance [...] please contact the Financial Counseling Department at [phone] between 8 a.m. and 5 p.m. . A financial counselor can assist you with the application process. You will be screened for all potential programs. If you appear to be eligible for Medicaid, you will be assisted through the application process. As a Medicaid recipient, your physician fees and facility fees could be covered. Services not covered by [facility] financial assistance program: Physician Fees Transportation fees Dental Services Medically unnecessary services Prescriptions Durable Medical Equipment We Are 100% Tobacco-Free At [facility], we care about the health of our patients, visitors and staff. That s why all of our locations - inside and outside - are 100% tobacco-free. We understand that nicotine is addictive, and we regret the inconvenience to tobacco users. However, as an academic [facility] [place] [facility] leading [facility] and [facility], creating a healthy environment for everyone who attends, works and visits our Medical Center is important. Computerized Tomography (CT) Scan Date: 06/05/23 Arrival Time: 900am Location: Outpatient [facility] [place] - [address], [address], [place] [address]. If you have questions or need to reschedule, please call us at [phone] Outpatient Visitor Policies Visitors to all hospital [...] can contact our Patient Experience team at: [facility], [facility], General Acute Hospital: [phone] [facility]: [phone] [facility]: [phone] [facility]: [phone] An abdomen (or Pelvis) CT (computed tomography) [...] veins and arteries. Questions about radiation? At [facility] we work hard to make sure you [...] before your scan. Tell the doctor or ambulatory technologist if you are or think you may be . Tell the doctor or ambulatory technologist if you have an allergy to [...] call your doctor. documented in this encounter [facility] Diagnosis Rectal cancer Malignant neoplasm of rectum Adenocarcinoma Other malignant neoplasm without specification of site [facility] this [facility] Consultation (Routine) - Pending Review Specialty Diagnoses / Procedures Referred By Sahara trotter Referred To Contact Multispecialty Diagnoses Adenocarcinoma Shannan Nascimento, RN LPN LVN-THEATRE MANAGER [address] [place] [address] Referral ID Status Reason Start Date Expiration Date V isits Requested Visits Authorized [id number] Pending Review 05/06/2023 05/30/2024 1 1 * MRI/CAT Scan (Emergency) - Pending Review Specialty Diagnoses / Procedures Referred By Contac t Referred To Contact Diagnoses Adenocarcinoma Procedures CT COLONOGRAPHY WITH CONTRAST CHG CT COLONOGRAPHY INC IMAGE PROCESS, DIAGNOSTIC, W/ CONTRAST Shannan Nascimento APRN-CNP [address] [place] [address] Referral ID Status Reason Start Date Expiration Date V isits Requested Visits Authorized [id number] Pending Review 05/06/2023 05/30/2024 1 1 [facility] Reason for Referral Specialty Diagnoses / Procedures Referred By Contac t Referred To Contact Diagnoses Rectal cancer Procedures MRI PELVIS WITH AND WITHOUT CONTRAST NM MRI, PELVIS, COMBO Ashok Minor MD [address] [place] [address] Referral ID Status Reason Start Date Expiration Date V isits Requested Visits Authorized [id number] Pending Review 05/05/2023 05/29/2024 1 1 Summary Purpose Family History Brother (s) Status:Active Comments:2. In g ood health. Daughter (s) Status:Active Comments:4. In g ood health. Father Status:Active Comments: d. age 89 prostrate cancer Mother Status:Active Comments: d. age 84 [place] Sister (s) Status:Active Comments:In good health. 3 Son (s) Status:Active Comments:1. Brother (s) Status:Active Comments:2. In g ood health. Daughter (s) Status:Active Comments:4. In g ood health. Father Status:Active Comments: d. age 89 prostrate cancer Mother Status:Active Comments: d. age 84 [place] Sister (s) Status:Active Comments:In good health. 3 Son (s) Status:Active Comments:1. Brother (s) Status:Active Comments:2. In g ood health. Daughter (s) Status:Active Comments:4. In g ood health. Father Status:Active Comments: d. age 89 prostrate cancer Mother Status:Active Comments: d. age 84 [place] Sister (s) Status:Active Comments:In good health. 3 Son (s) Status:Active Comments:1. Brother (s) Status:Active Comments:2. In g ood health. Daughter (s) Status:Active Comments:4. In g ood health. Father Status:Active Comments: d. age 89 prostrate cancer Mother Status:Active Comments: d. age 84 [place] Sister (s) Status:Active Comments:In good health. 3 Son (s) Status:Active Comments:1. Advance Directives No Advanced Directives Records FoundNo Advanced Directives Records Found Additional Source Comments Reason for Visit (unrecogniz ed section and content) Specialty Diagnoses / Procedures Referred By Contac t Referred To Contact [facility] [address] [place] [address] Referral ID Status Reason Start Date Expiration Date Visits Re quested Visits Authorized [id number] 1 1 Specialty Diagnoses / Procedures Referred By Contac t Referred To Contact Diagnoses Rectal cancer Procedures MRI PELVIS WITH AND WITHOUT CONTRAST NM MRI, PELVIS, COMBO Ashok Minor MD [address] [place] [address] Referral ID Status Reason Start Date Expiration Date V isits Requested Visits Authorized [id number] Pending Review 05/05/2023 05/29/2024 1 1 Specialty Diagnoses / Procedures Referred By Contac t Referred To Contact Diagnoses Adenocarcinoma Adenocarcinoma [C80.1] Procedures NM SURG DIAGNOSTIC EXAM, ANORECTAL EXAM UNDER ANESTHESIA ANORECTAL Ashok Minor MD [address] [place] [address] [facility] [address] [place] [address] Referral ID Status Reason Start Date Expiration Date Visits Re quested Visits Authorized [id number] 1 1 Specialty Diagnoses / Procedures Referred By Contac t Referred To Contact Diagnoses Adenocarcinoma Procedures CT COLONOGRAPHY WITH CONTRAST CHG CT COLONOGRAPHY INC IMAGE PROCESS, DIAGNOSTIC, W/ CONTRAST Shannan Nascimento, RN LPN LVN-THEATRE MANAGER [address] [place] [address] Referral ID Status Reason Start Date Expiration Date V isits Requested Visits Authorized [id number] Pending Review 05/06/2023 05/30/2024 1 1 Care Teams (unrecognized sec tion and content) Controls Engineer Relationship Specialty Start Date End Date [facility], Other [address] [place] [address] PCP - [facility] 05/07/23 Controls Engineer Relationship Specialty Start Date End Date [facility] [employer] [facility], Other [address] [place] [address] PCP - General [facility] 05/07/23 PRN Active and Recently Administ ered Medications (unrecognized section and content) INFORMATION SOURCE (unrecogn ized section and content) DATE CREATED AUTHOR AUTHOR'S ORGANIZ ATION 06/14/2023 [facility] FOR RECORDS PERTAINING TO PATIENTS WHO [...] BE BASED ON THE PRIMARY CLINICAL RECORDS. [employer] provides no warranty or guarantee of the accuracy or completeness of information in this document.
[2023-07-11 19:05] LABS: Procalcitonin 0.42 ng/mL (0.00-0.09)
[2023-07-11 19:21] VITALS: BMI 18.3
[2023-07-11 19:50] VITALS: O2SAT 99
[2023-07-11] MEDS: 0.9% Saline Lock 10 ML Syringe IV ×2 (21:03→22:32)
[2023-07-11] MEDS: 0.9% Normal Saline (1000mL) 1,000 ML 100 ML IV (21:03)
[2023-07-11 21:07] VITALS: BP 121/79; PULSE 107; RESP 22; TEMP 38.2; O2SAT 99
[2023-07-11] MEDS: Potassium Phosphate 21 MM in 0.9% Normal Saline (250mL Bag) 250 ML 84 MM IV (21:40)
[2023-07-11] MEDS: Heparin Injection (Vial) 5,000 UNIT/ML VIAL 5000 UNIT SC (22:11)
[2023-07-11] MEDS: 0.9% Normal Saline (500mL Bag) 500 ML 999 ML IV (22:24)
[2023-07-12] VITALS (7 sets, daily range): BP systolic 98–122; BP diastolic 60–66; PULSE 73–105; RESP 18–26; TEMP 36.7–38.2; O2SAT 94–99; BMI 18.4
[2023-07-12] MEDS: Ondansetron 4 MG/2 ML Vial IV ×3 (01:03→20:27)
[2023-07-12] MEDS: MELATONIN 3 MG TABLET PO ×2 (01:05→21:52)
--- NOTE | 2023-07-12 05:55 | RAD_ITS ---
EXAM: XR CHEST, 1 VIEW CLINICAL INDICATION: Neutropenic fever TECHNIQUE: Frontal view of the chest. COMPARISON: XR Chest dated 07/11/2023 FINDINGS: LUNGS AND PLEURAL SPACES: Normal. No consolidation or edema. No pneumothorax. No effusion. HEART: Normal heart size. MEDIASTINUM: No mediastinal or hilar mass. BONES/JOINTS: No acute abnormality. UPPER ABDOMEN: Improving large bowel distention. RAD/Chest 1 View (Portable) IMPRESSION: No acute cardiopulmonary abnormality. Electronically Signed: Jefferson Quiroz MD at 9:28 EST ,
[2023-07-12] MEDS: Acetaminophen 325 MG Tablet 650 MG PO ×2 (06:01→20:27)
[2023-07-12] MEDS: 0.9% Saline Lock 10 ML Syringe IV ×2 (06:01→20:27)
[2023-07-12 06:57] LABS: Basophil# 0.01 X10^3/uL; Eosinophil# 0.01 X10^3/uL; Hematocrit 29.3 % (37-47); Mean Corp Hgb Conc 34.1 g/dL (32-36); Mean Corpuscular Hgb 27.8 pg (27.0-32.0); Mean Corpuscular Volume 81.4 fL (81-99); Monocyte# 0.46 X10^3/uL; NRBC Flagged by Analyzer 0 % (0-5); POSITIVE DIFFERENTIAL YES; POSITIVE MORPHOLOGY YES; Platelet Count 232 K/mm3 (150-450); RBC Distribution Width CV 19.8 % (11.6-14.6); RBC Distribution Width SD 53.9 fl (35.1-43.9); White Blood Count 2.1 K/mm3 (4.4-11.0)
[2023-07-12 07:08] LABS: Differential Indicated SCAN CRITERIA MET
[2023-07-12 08:14] LABS: Lymphocyte 20 % (19-41); Monocyte 4 % (0-10); Neutrophil-Band 14 % (0-5); Neutrophil-Segmented 62 % (47-70); Platelet Estimate ADEQUATE (ADEQ); Red Cell Morphology NORM C+C NORMAL (NORM C&C); Total Cells Counted 100 (MANUAL DIFF)
[2023-07-12 08:15] LABS: Scan Smear per Review Criteria MANUAL DIFF
[2023-07-12 08:16] LABS: Absolute Lymphocyte Count 0.42 X10^3/uL (0.83-4.51); Absolute Neutrophil Count 1.6 X10^3/uL (2.0-7.7); Lymphocyte # 0.42 X10^3/ul (0.83-4.51); Neutrophil # 1.61 X10^3/uL (2.7-7.7)
--- NOTE | 2023-07-12 08:16 | PN.HOSP_ITS ---
Reason for Visit Reason for Visit: Diagnoses Neutropenia, unspecified (07/11/23) Fever presenting with conditions classified elsewhere (07/11/23) Objective Data Objective Data Vital Signs: Vital Signs Temp Pulse Resp BP Pulse Ox O2 Del Method O2 Flow Rate 100.8 F H 94 24 H 103/60 94 Room Air 2 07/12/23 05:33 07/12/23 05:33 07/12/23 05:33 07/12/23 05:33 07/12/23 07:54 07/12/23 07:54 07/12/23 00:39 Oxygen Flow Rate (L/min) 2 Oxygen Delivery Method Room Air Weight: 93 lb 14.671 oz Body Mass Index (BMI) 18.4 Intake & Output: Intake and Output for Last 24 Hours 07/10/23 07/11/23 07/12/23 23:59 23:59 23:59 Intake Total 600 / 600 2158.67 / 2158.67 Output Total 200 / 200 Balance 600 / 400 1958.67 / 1958.67 Lab / Micro Data 07/12/23 06:25 07/12/23 06:25 Labs: Laboratory Results - last 24 hr 07/11/23 08:47: Magnesium 1.7 07/11/23 15:10: WBC 1.4 L*, RBC 4.12 L, Hgb 11.4 L, Hct 34.2 L, MCV 83.0, MCH 27.7, MCHC 33.3, RDW Std Deviation 55.3 H, RDW Coeff of John 19.5 H, Plt Count , Immature Gran % (Auto) 0.700, Neut % (Auto) 63.8, Lymph % (Auto) 8.7 L, [place] % (Auto) 26.8 H, Eos % (Auto) 0.0, Baso % (Auto) 0.0, Absolute Neuts (auto) 0.9 L, Absolute Lymphs (auto) 0.12 L, Nucleated RBC % 0, Differential Comment SCANNED, Diff Path Review October sanaz, Platelet Estimate MOD DEC, Lactic Acid Cancelled 07/11/23 15:24: Urine Color Yellow, Urine Clarity Clear, Urine pH 5.0, Ur Specific [place] 1.015, Urine Protein 15 H, Urine Glucose (UA) 50 H, Urine Ketones Negative, Urine Occult Blood 25 H, Urine Nitrite Negative, Urine Bilirubin Negative, Urine Urobilinogen Normal, Ur Leukocyte Esterase Negative, Urine RBC 0 SEEN, Urine WBC 0-5 SEEN, Ur Squamous Epith Cells 0 SEEN, Urine Bacteria 0 SEEN, Urine Mucus 0 SEEN 07/11/23 17:00: Sodium 131 L, Potassium 3.2 L, Chloride 104, Carbon Dioxide 18.0 L, Anion Gap 9, BUN 4 L, Creatinine 0.58, Estim Creat Clear Calc 44.66, Est GFR (MDRD) Af Amer 132, Est GFR (MDRD) Non-Af 109, BUN/Creatinine Ratio 6.9 L, Glucose 159 H, Lactic Acid 1.3, Calcium 7.9 L, Phosphorus 1.3 L, Total Bilirubin 0.40, AST 15, ALT 18, Alkaline Phosphatase 63, Total Protein 5.7 L, Albumin 2.0 L, Globulin 3.7, Albumin/Globulin Ratio 0.5 L, Procalcitonin 0.42 H 07/12/23 06:25: WBC 2.1 L, RBC 3.60 L, Hgb 10.0 L, Hct 29.3 L, MCV 81.4, MCH 27 .8, MCHC 34.1, RDW Std Deviation 53.9 H, RDW Coeff of John 19.8 H, Plt Count 232, MPV 9.0, Immature Gran % (Auto) 1.400 H, Neut % (Auto) 69.9, Lymph % (Auto) 6.1 L, [place] % (Auto) 21.6 H, Eos % (Auto) 0.5, Baso % (Auto) 0.5, Absolute Neuts (auto) 1.5 L, Absolute Lymphs (auto) 0.13 L, Total Counted 100, Neutrophils % (Manual) 62, Band Neutrophils % 14 H, Lymphocytes % (Manual) 20, Monocytes % (Manual) 4, Nucleated RBC % 0, Platelet Estimate ADEQUATE, RBC Morphology NORM C+C Micro: Microbiology 07/11/23 20:00 Stool Clostridioides difficile (PCR) - Final 07/11/23 19:50 Mucosa - Nasopharyngeal Respiratory Panel (PCR) - Final 07/11/23 17:00 Mucosa - Nose SARS-CoV-2, Influenza & RSV (PCR) - Final Radiography Diagnostic Testing: Radiology Impression Chest X-Ray 07/11/23 14:50 IMPRESSION: Hyperinflation. The lungs are clear. Electronically Signed: Norm David MD at 15:13 EST , Physical Exam Narrative Seen and examined. Patient admitted with neutropenic fever and diarrhea. Nice pleasant lady history of rectal cancer on chemoradiation. She was having like more than 10 liquid diarrhea. Feeling better. Physical exam General: Alert, Oriented x3, Cooperative, BMI 18.3 kg/m? thin looking. HEENT: Atraumatic, PERRLA, EOMI, Normocephalic Oral: Oral mucosa dry. No Gingival or Mucosal Lesions/ Ulcerations Neck: Supple, No JVD, Negative Carotid Bruits Lungs: Air entry equal in bilateral lung bases. No crepitation/rhonchi Cardiovascular: Regular rate, Regular Rhythm, Normal S1, Normal S2, murmur seems diastolic on right second ICS Abdomen: Bowel Sounds Present, Soft, Non-Distended. Mild tenderness over hyp ogastrium and RLQ. No palpable mass. : No renal angle tenderness. No suprapubic tenderness. Extremities: No edema, Capillary Refill Less than 3 Seconds Skin: No rashes, No breakdown Musculoskeletal: No Tenderness to Palpation of Joints or Extremities. Mild decrease in muscle bulk of lower extremities and upper extremities. Loss of skin is fat. Neurological: Cranial nerves II-XII grossly intact, DTR 2+/4. No acute focal neurological deficit. Psych/Mental Status: Flat affect. Assessment & Plan Assessment/Plan (1) Neutropenia with fever: PLAN: Plan The patients is a 68 y/o Mu-Ism F Was admitted through ER for persistent more than 10 loose watery bowel movement per day since past 07/06/2023 she denied black or maroon-colored stool but have thirsty dry mouth and lightheadedness. Mild abdominal discomfort and bloating. She started chemotherapy and radiation therapy on June 11 for moderately differentiated rectal adenocarcinoma. Last hemotherapy was 1 week ago. Last radiotherapy on Friday. #1. Neutropenic fever, unclear etiology with persistent diarrhea, mild hypoxia of unclear etiology: Patient is being admitted to [facility] floor. Tmax 100.8 Fahrenheit. Vigorous IV fluid rehydration. Stool for enteric bacteriology panel, C. difficile negative. Respiratory panel, SARS-CoV-2 influenza and RSV PCR negative. Seems chemotherapeutic adverse effect/possible mucositis. Procalcitonin 0.42. Clinical picture does not suggest sepsis. Sepsis ruled out. Chest x-ray new lesion does not show acute infiltrate. Blood cultures x 2 and urine culture pending. UA WBC negative RBC negative, LE and nitrite negative. Patient on IV cefepime 2 g every 12 hourly. I think with patient being immunosuppressed with possibility of mucositis there is high possibility of getting C. difficile therefore IV antibiotic discontinued. Probiotic started. Supportive management. #2. Moderately differentiated adenocarcinoma, rectal cancer with pancytopenia (neutropenia, normocytic anemia, thrombocytopenia) with neutropenic fever : Patient with 04/09/2023 evaluation with noted napkin ring lesion 12 to 15 cm from the anal verge with biopsy demonstrating moderately differentiated adenocarcinoma at 15 cm, CT scan chest/abdomen/pelvis 04/16/2023 with a mass at the sigmoid colon with luminal narrowing, CEA 50.9 with treatment then at [facility]. MRI of the pelvis 05/07/2023 with a rectal mass 12 cm from the anal verge with no pelvic lymphadenopathy DM T4a N0. Patient started neoadjuvant therapy with combined chemotherapy-Xeloda and radiation therapy on 06/11/2023. Patient following with Dr. Orellana with last visit 07/09/23 now week 5 with report of ongoing issues with diarrhea and need for IV fluids and electrolyte supplementations. ED magnesium 1.7, phosphorus level will be requested. CBC upon presentation with WBC 1.4, hemoglobin 11.4, MCV 83, platelet unfortunately unable to be obtained secondary to clumping, repeat CBC in AM. May certainly involve oncology if necessary. 07/12: Bands 14%. ANC 1.6 thousand. ALC 0.42 thousand. Total leukocyte improving. Platelet count normal. Hemoglobin around 10 g%. #3. Hypokalemia: Admission K+ 3.2, magnesium level as noted 1.7, supplementation given 07/12: Patient has hypophosphatemia and magnesium on lower side. IV potassium phosphate ordered and given. IV magnesium sulfate ordered. #4. Hyponatremia, suspected hypovolemic given GI losses: Admission CMP obtained per hospitalist with noted sodium 131, chloride 104, will continue hydration and repeat CMP in AM. #5. Hyperglycemia without diabetic history: Admission glucose 159, likely stress response however to be cautious we will obtain hemoglobin A1c. #6. DVT prophylaxis: Heparin. #7. CODE status: Patient RICHARD is her spouse who is present. They do not believe living will is in place but are uncertain. Discussed CODE status at length including difference between FULL code, DNR-CCA and DNR-CC status. Following discussions about the differences in these status, requested Full Code status. Advanced Care Planning Face to Face Time: 16 minutes. Clinical Impression(s) from Imaging Studies Chest X-Ray 07/11/23 14:50 IMPRESSION: Hyperinflation. The lungs are clear. Chest X-Ray 07/12/23 05:55 IMPRESSION: No acute cardiopulmonary abnormality. Microbiology Past 72 Hours 07/11/23 20:00 Stool Enteric Bacteriology - Final 07/11/23 20:00 Stool Clostridioides difficile (PCR) - Final 07/11/23 19:50 Mucosa - Nasopharyngeal Respiratory Panel (PCR) - Final 07/11/23 17:00 Mucosa - Nose SARS-CoV-2, Influenza & RSV (PCR) - Final Laboratory Results 07/11/23 15:10: Lactic Acid Cancelled 07/11/23 15:24: Urine RBC 0 SEEN, Urine WBC 0-5 SEEN, Ur Squamous Epith Cells 0 SEEN, Urine Bacteria 0 SEEN, Urine Mucus 0 SEEN 07/11/23 17:00: Sodium 131 L, Potassium 3.2 L, Chloride 104, Carbon Dioxide 18.0 L, Anion Gap 9, BUN 4 L, Creatinine 0.58, Estim Creat Clear Calc 44.66, Est GFR (MDRD) Af Amer 132, Est GFR (MDRD) Non-Af 109, BUN/Creatinine Ratio 6.9 L, Glucose 159 H, Lactic Acid 1.3, Calcium 7.9 L, Phosphorus 1.3 L, Total Bilirubin 0.40, AST 15, ALT 18, Alkaline Phosphatase 63, Total Protein 5.7 L, Albumin 2.0 L, Globulin 3.7, Albumin/Globulin Ratio 0.5 L, Procalcitonin 0.42 H 07/12/23 06:25: WBC 2.1 L, RBC 3.60 L, Hgb 10.0 L, Hct 29.3 L, MCV 81.4, MCH 27.8, MCHC 34.1, RDW Std Deviation 53.9 H, RDW Coeff of John 19.8 H, Plt Count 232, MPV 9.0, Immature Gran % (Auto) EMPLOYEE TRAINING SPECIALIST, Neut % (Auto) EMPLOYEE TRAINING SPECIALIST, Lymph % (Auto) EMPLOYEE TRAINING SPECIALIST, [place] % (Auto) EMPLOYEE TRAINING SPECIALIST, Eos % (Auto) EMPLOYEE TRAINING SPECIALIST, Baso % (Auto) EMPLOYEE TRAINING SPECIALIST, Absolute Neuts (auto) 1.6 L , Absolute Lymphs (auto) 0.42 L, Total Counted 100, Neutrophils % (Manual) 62, Band Neutrophils % 14 H, Lymphocytes % (Manual) 20, Monocytes % (Manual) 4, Nucleated RBC % 0, Platelet Estimate ADEQUATE, RBC Morphology NORM C+C, Sodium 131 L, Potassium 2.7 L*, Chloride 104, Carbon Dioxide 16.0 L, Anion Gap 11, BUN 5 L, Creatinine 0.45 L, Estim Creat Clear Calc 44.01, Est GFR (MDRD) Af Amer 175, Est GFR (MDRD) Non-Af 145, BUN/Creatinine Ratio 11.0, Glucose 112 H, Hemoglobin A1c 5.6, Calcium 7.3 L, Total Bilirubin 0.60, AST 15, ALT 15, Alkaline Phosphatase 51, Total Protein 4.8 L, Albumin 1.6 L, Globulin 3.2, Albumin/Globulin Ratio 0.5 L Charges/Coding Addendum Addendum: Total time of the visit including total time spent in counseling or coordination of care, (more than 50% of the total time, spent in obtaining medical information from nurses and other ancillary care providers,explaining to the patient about labs, imaging, diagnosis and management of active complex medical conditions), management of neutropenic fever, clinical course, natural history and diagnosis explanation to patient and her , review of labs and imaging is 40 minutes. Visit Charges Inpatient E&M: 14673 Subs Hosp L3
[2023-07-12 08:55] LABS: ALB/GLOB Ratio 0.5 RATIO (0.9-2.4); AST(SGOT) 15 U/L (15-37); Alanine Aminotransfer ALT/SGPT 15 U/L (13-56); Albumin, Serum 1.6 g/dL (3.2-5.0); Alkaline Phosphatase 51 U/L (45-117); Anion Gap 11 (5-15); BUN 5 mg/dL (7-18); Calcium,Total 7.3 mg/dL (8.5-10.1); Chloride 104 mmol/L (98-107); Creatinine, Serum 0.45 mg/dL (0.55-1.02); EST Glomerular Filtration Rate 145 mL/min (>60); Est Glom Filt Rate - Afr Amer 175 mL/min (>60); Estimated Creatinine Clearance 44.01 ml/min; Globulin 3.2 g/dL (2.2-4.2); Glucose 112 mg/dL (74-106); Potassium 2.7 mmol/L (3.5-5.1); Protein, Total 4.8 g/dL (6.4-8.2); Sodium Level 131 mmol/L (136-145)
[2023-07-12] MEDS: Cefepime HCl 2 GM in 0.9% Normal Saline (100mL MB+) 100 ML IV (10:15)
--- NOTE | 2023-07-12 10:20 | CASEMGMT ---
ANANYA HESS Assessment: Face to Face with pt for initial transition planning/care coordination assessment. RN JIMENA introduced self and role at [facility], pt voices understanding and consents to assessment. Pt is A&O x4 and answers all questions appropriately at this time. Pt sitting up in bed in no distress with nurse and at bedside. Care providers, pharmacy, and demographics verified/updated. Admitting Dx: neutropenic fever, diarrhea PCP:[place] Specialists:Reyna onc; denilson Flood onc Preferred Pharmacy: [facility] Insurance: [employer] Prescription Benefit: no LNOK: Сергей Chow, ; Sam Chow, son Living Arrangements: Pt lives in a single story home with 1-2 steps to enter. Pt reports she is I in ADL's and denies concerns at home. 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 DME:Denies HHC/SNF: Denies hx of Pt states no concerns with going home at time of dc. Pt states no further concerns/needs. CM to follow. Advised pt to ask CM if any further question/concerns/needs arise, voices understanding. Pt Goal: Home Plan: Home
[2023-07-12] MEDS: Potassium Chloride Oral Tablet 20 MEQ PO (10:22)
[2023-07-12] MEDS: Heparin Injection (Vial) 5,000 UNIT/ML VIAL 5000 UNIT SC ×2 (10:23→21:52)
[2023-07-12 11:03] LABS: Hemoglobin A1c 5.6 % (3.8-5.6)
[2023-07-12] MEDS: Metoclopramide 5 MG TABLET PO (14:26)
[2023-07-12] MEDS: Magnesium Sulfate 2 GM in Dextrose 5%-Water (100mL Bag) 100 ML IV (17:53)
[2023-07-12] MEDS: Lactated Ringers 1,000 ML 150 ML IV (17:53)
[2023-07-12] MEDS: TBO-FILGRASTIM 300 MCG/0.5 ML ML SC (17:54)
[2023-07-13 02:35] VITALS: BP 115/59; PULSE 74; RESP 18; TEMP 36.6; O2SAT 97
[2023-07-13] MEDS: Lactated Ringers 1,000 ML 150 ML IV (02:36)
[2023-07-13] MEDS: Metoclopramide 5 MG TABLET PO (02:40)
[2023-07-13 03:13] VITALS: BMI 18.4
[2023-07-13 07:03] LABS: Absolute Lymphocyte Count 0.17 X10^3/uL (0.83-4.51); Absolute Neutrophil Count 5.2 X10^3/uL (2.0-7.7); Eosinophil# 0.06 X10^3/uL; Eosinophils% 0.9 % (0-5); Hematocrit 29.7 % (37-47); Hemoglobin 10.5 g/dL (12.0-15.0); Lymphocyte # 0.17 X10^3/ul (0.83-4.51); Lymphocyte % 2.6 % (19-41); Mean Corp Hgb Conc 35.4 g/dL (32-36); Mean Corpuscular Hgb 28.3 pg (27.0-32.0); Mean Corpuscular Volume 80.1 fL (81-99); Monocyte# 0.97 X10^3/uL; NRBC Flagged by Analyzer 0 % (0-5); Neutrophil # 5.21 X10^3/uL (2.7-7.7); Neutrophil % 80.6 % (47-70); POSITIVE DIFFERENTIAL YES; POSITIVE MORPHOLOGY YES; Platelet Count 234 K/mm3 (150-450); RBC Distribution Width CV 19.5 % (11.6-14.6); RBC Distribution Width SD 52.6 fl (35.1-43.9); Red Blood Count 3.71 M/mm3 (4.2-5.4); White Blood Count 6.5 K/mm3 (4.4-11.0)
[2023-07-13 07:10] LABS: Differential Indicated SCAN CRITERIA MET
[2023-07-13 07:52] VITALS: O2SAT 96
[2023-07-13 07:55] VITALS: BP 115/54; PULSE 95; RESP 18; TEMP 38; O2SAT 95
[2023-07-13 07:59] LABS: Differential Comment S
[2023-07-13 08:35] VITALS: PULSE 81; RESP 18; TEMP 37.2; O2SAT 98
[2023-07-13] MEDS: Potassium Chloride Oral Tablet 20 MEQ PO (09:43)
[2023-07-13] MEDS: TBO-FILGRASTIM 300 MCG/0.5 ML ML SC (10:31)
[2023-07-13] MEDS: Heparin Injection (Vial) 5,000 UNIT/ML VIAL 5000 UNIT SC ×2 (10:32→21:47)
[2023-07-13 10:39] LABS: AST(SGOT) 13 U/L (15-37); Alanine Aminotransfer ALT/SGPT 12 U/L (13-56); Albumin, Serum 1.5 g/dL (3.2-5.0); Alkaline Phosphatase 56 U/L (45-117); Anion Gap 10 (5-15); BUN 4 mg/dL (7-18); BUN/Creat Ratio 10.3 RATIO (10-20); Bilirubin, Direct 0.17 mg/dL (0.00-0.30); Calcium,Total 7.5 mg/dL (8.5-10.1); Chloride 104 mmol/L (98-107); Creatinine, Serum 0.39 mg/dL (0.55-1.02); EST Glomerular Filtration Rate 173 mL/min (>60); Est Glom Filt Rate - Afr Amer 209 mL/min (>60); Estimated Creatinine Clearance 44.01 ml/min; Globulin 3.1 g/dL (2.2-4.2); Glucose 101 mg/dL (74-106); Magnesium 2.1 mg/dL (1.6-2.6); Phosphorus 2.1 mg/dL (2.5-4.9); Potassium 2.1 mmol/L (3.5-5.1); Protein, Total 4.6 g/dL (6.4-8.2); Sodium Level 134 mmol/L (136-145)
--- NOTE | 2023-07-13 11:39 | PN.HOSP_ITS ---
Reason for Visit Reason for Visit: Diagnoses Neutropenia, unspecified (07/11/23) Fever presenting with conditions classified elsewhere (07/11/23) Objective Data Objective Data Vital Signs: Vital Signs Temp Pulse Resp BP Pulse Ox O2 Del Method O2 Flow Rate 98.9 F 81 18 115/54 L 98 Room Air 2 07/13/23 08:35 07/13/23 08:35 07/13/23 08:35 07/13/23 07:55 07/13/23 08:35 07/13/23 08:35 07/12/23 00:39 Oxygen Flow Rate (L/min) 2 Oxygen Delivery Method Room Air Weight: 93 lb 14.671 oz Body Mass Index (BMI) 18.4 Intake & Output: Intake and Output for Last 24 Hours 07/11/23 07/12/23 07/13/23 23:59 23:59 23:59 Intake Total 600 / 600 3430.17 / 3430.17 2132.5 / 2132.5 Output Total 200 / 200 Balance 600 / 400 3230.17 / 3230.17 2132.5 / 2132.5 Medical Nutrition Assessment Dietitian: Malnutrition Criteria Met Start: 07/12/23 15:48 Freq: Status: Active Protocol: Document 07/12/23 15:48 RMA (Rec: 07/12/23 15:48 RMA [id number]) Nutrition Malnutrition Evidence of Malnutrition Exists Yes Malnutrition (severe): Chronic Evidenced By Suboptimal Energy Intake ( Severe),Weight Loss (Severe) Clinical Problem Chronic Disease or Condition Related Malnutrition Etiology Severe protein-calorie malnutrition in the context of chronic disease/cancer related to inadequate energy/ oral intake and altered GI function/diarrhea and nausea/ vomiting Signs/Symptoms as evidenced by ~7% unintentional weight loss x 1 month, BMI 18.3 and PO meeting less than 50% estimated nutrition needs x 1 month Status Active Problem Recommendation Dietitian Recommendations/Changes Will continue liberalized regular diet as tolerated. Will continue 120mL ensure plus HP 4 times per day w/ medpass as tolerated. Will add 240mL ensure clear TID w/ meals for tolerance. Lab / Micro Data 07/13/23 06:26 07/13/23 06:26 Labs: Laboratory Results - last 24 hr 07/12/23 06:25: Diff Path Review October07/13/23 06:26: WBC 6.5, RBC 3.71 L, Hgb 10.5 L, Hct 29.7 L, MCV 80.1 L, MCH 28.3, MCHC 35.4, RDW Std Deviation 52.6 H, RDW Coeff of John 19.5 H, Plt Count 234, MPV 9.0, Immature Gran % (Auto) 0.900, Neut % (Auto) 80.6 H, Lymph % (Auto) 2.6 L, [place] % (Auto) 15.0 H, Eos % (Auto) 0.9, Baso % (Auto) 0.0, Absolute Neuts (auto) 5.2, Absolute Lymphs (auto) 0.17 L, Nucleated RBC % 0, Differential Comment S, Sodium 134 L, Potassium 2.1 L*, Chloride 104, Carbon Dioxide 20.0 L, Anion Gap 10, BUN 4 L, Creatinine 0.39 L, Estim Creat Clear Calc 44.01, Est GFR (MDRD) Af Amer 209, Est GFR (MDRD) Non-Af 173, BUN/Creatinine Ratio 10.3, Glucose 101, Calcium 7.5 L, Phosphorus 2.1 L, Magnesium 2.1, Total Bilirubin 0.50, Direct Bilirubin 0.17, AST 13 L, ALT 12 L, Alkaline Phosphatase 56, Total Protein 4.6 L, Albumin 1.5 L, Globulin 3.1 Micro: Microbiology 07/11/23 15:24 Urine, Catheterized Urine Culture - Final Culture exhibits no growth. 07/11/23 20:00 Stool Enteric Bacteriology - Final 07/11/23 20:00 Stool Clostridioides difficile (PCR) - Final 07/11/23 19:50 Mucosa - Nasopharyngeal Respiratory Panel (PCR) - Final 07/11/23 17:00 Mucosa - Nose SARS-CoV-2, Influenza & RSV (PCR) - Final Physical Exam Narrative Seen and examined. Patient has low-grade temperature 100 Fahrenheit 100.4 Fahrenheit. No tachycardia. Blood pressure maintained. Low potassium and phosphorus. She had about 6 liquid bowel movement yesterday and 1 since morning. Patient admitted with neutropenic fever and diarrhea. Nice pleasant lady history of rectal cancer on chemoradiation. The patient was admitted with more than 10 liquid diarrhea. Physical exam General: Alert, Oriented x3, Cooperative, BMI 18.3 kg/m? thin looking. HEENT: Atraumatic, PERRLA, EOMI, Normocephalic Oral: Oral mucosa dry. No Gingival or Mucosal Lesions/ Ulcerations Neck: Supple, No JVD, Negative Carotid Bruits Lungs: Air entry equal in bilateral lung bases. No crepitation/rhonchi Cardiovascular: Regular rate, Regular Rhythm, Normal S1, Normal S2, murmur seems diastolic on right second ICS Abdomen: Bowel Sounds Present, Soft, Non-Distended. Mild tenderness over hypogastrium and RLQ. No palpable mass. : No renal angle tenderness. No suprapubic tenderness. Extremities: No edema, Capillary Refill Less than 3 Seconds Skin: No rashes, No breakdown Musculoskeletal: No Tenderness to Palpation of Joints or Extremities. Mild decrease in muscle bulk of lower extremities and upper extremities. Loss of skin is fat. Neurological: Cranial nerves II-XII grossly intact, DTR 2+/4. No acute focal neurological deficit. Psych/Mental Status: Flat affect. Assessment & Plan Assessment/Plan (1) Neutropenia with fever: PLAN: Plan The patients is a 68 y/o Religion F Was admitted through ER for persistent more than 10 loose watery bowel movement per day since past 07/06/2023 she denied black or maroon-colored stool but have thirsty dry mouth and lightheadedness. Mild abdominal discomfort and bloating. She started chemotherapy and radiation therapy on June 11 for moderately differentiated rectal adenocarcinoma. Last hemotherapy was 1 week ago. Last radiotherapy on Friday. #1. Neutropenic fever, unclear etiology with persistent diarrhea, mild hypoxia of unclear etiology: [facility] Tmax 100.8 F ahrenheit. Vigorous IV fluid rehydration. Stool for enteric bacteriology panel, C. difficile negative. Respiratory panel, SARS-CoV-2 influenza and RSV PCR negative. Seems chemotherapeutic adverse effect/possible mucositis. Procalcitonin 0.42. Clinical picture does not suggest sepsis. Sepsis ruled out. Chest x-ray new lesion does not show acute infiltrate. Blood cultures x 2 and urine culture pending. UA WBC negative RBC negative, LE and nitrite negative. Patient on IV cefepime 2 g every 12 hourly. I think with patient being immunosuppressed with possibility of mucositis there is high possibility of getting C. difficile therefore IV antibiotic discontinued. Probiotic started. Supportive management. 1/14: Patient having low-grade fever, Tmax 100.4 Fahrenheit, no tachycardia. WB C count is 6.5 thousand. ALC 0.17 thousand. ANC 5.2 thousand. 2 more day of Neupogen tomorrow AM. As patient is spiked fever even the low-grade and ANC 5.2 collagen but with mucositis the risk for bacterial translocation therefore discussed with the oncologist Dr. Orellana. Decided to restart 6 cefepime 1 g every 12 hourly for 2 more days. Blood cultures x 2 so far negative. #2. Moderately differentiated adenocarcinoma, rectal cancer with pancytopenia (neutropenia, normocytic anemia, thrombocytopenia) with neutropenic fever : Patient with 04/09/2023 evaluation with noted napkin ring lesion 12 to 15 cm from the anal verge with biopsy demonstrating moderately differentiated adenocarcinoma at 15 cm, CT scan chest/abdomen/pelvis 04/16/2023 with a mass at the sigmoid colon with luminal narrowing, CEA 50.9 with treatment then at [facility]. MRI of the pelvis 05/07/2023 with a rectal mass 12 cm from the anal verge with no pelvic lymphadenopathy DM T4a N0. Patient started neoadjuvant therapy with combined chemotherapy-Xeloda and radiation therapy on 06/11/2023. Patient following with Dr. Orellana with last visit 07/09/23 now week 5 with report of ongoing issues with diarrhea and need for IV fluids and electrolyte supplementations. ED magnesium 1.7, phosphorus level will be requested. CBC upon presentation with WBC 1.4, hemoglobin 11.4, MCV 83, platelet unfortunately unable to be obtained secondary to clumping, repeat CBC in AM. May certainly involve oncology if necessary. 07/12: Bands 14%. ANC 1.6 thousand. ALC 0.42 thousand. Total leukocyte improving. Platelet count normal. Hemoglobin around 10 g%. 07/13: As mentioned above. #3. Hypokalemia: Admission K+ 3.2, magnesium level as noted 1.7, supplementation given 07/12: Patient has hypophosphatemia and magnesium on lower side. IV potassium phosphate ordered and given. IV magnesium sulfate ordered. 07/13: Severe hypokalemia and hypophosphatemia. Electrolyte ordered. On IV fluid Ringer lactate. Encouraged oral supplementation. #4. Hyponatremia, suspected hypovolemic given GI losses: Admission CMP obtained per hospitalist with noted sodium 131, chloride 104, will continue hydration and repeat CMP in AM. 07/13 serum sodium 134 improving. #5. Hyperglycemia without diabetic history: Admission glucose 159, likely st ress response however to be cautious we will obtain hemoglobin A1c. #6. DVT prophylaxis: Heparin. #7. CODE status: Patient RICHARD is her spouse who is present. They do not believe living will is in place but are uncertain. Discussed CODE status at length including difference between FULL code, DNR-CCA and DNR-CC status. Following discussions about the differences in these status, requested Full Code status. Advanced Care Planning Face to Face Time: 16 minutes. Clinical Impression(s) from Imaging Studies Chest X-Ray 07/11/23 14:50 IMPRESSION: Hyperinflation. The lungs are clear. Chest X-Ray 07/12/23 05:55 IMPRESSION: No acute cardiopulmonary abnormality. Microbiology Past 72 Hours 07/11/23 15:24 Urine, Catheterized Urine Culture - Final Culture exhibits no growth. 07/11/23 20:00 Stool Enteric Bacteriology - Final 07/11/23 20:00 Stool Clostridioides difficile (PCR) - Final 07/11/23 19:50 Mucosa - Nasopharyngeal Respiratory Panel (PCR) - Final 07/11/23 17:00 Mucosa - Nose SARS-CoV-2, Influenza & RSV (PCR) - Final Laboratory Results 07/12/23 06:25: Diff Path Review October07/13/23 06:26: WBC 6.5, RBC 3.71 L, Hgb 10.5 L, Hct 29.7 L, MCV 80.1 L, MCH 28.3, MCHC 35.4, RDW Std Deviation 52.6 H, RDW Coeff of John 19.5 H, Plt Count 234, MPV 9.0, Immature Gran % (Auto) 0.900, Neut % (Auto) 80.6 H, Lymph % (Auto) 2.6 L, [place] % (Auto) 15.0 H, Eos % (Auto) 0.9, Baso % (Auto) 0.0, Absolute Neuts (auto) 5.2, Absolute Lymphs (auto) 0.17 L, Nucleated RBC % 0, Differential Comment S, Sodium 134 L, Potassium 2.1 L*, Chloride 104, Carbon Dioxide 20.0 L, Anion Gap 10, BUN 4 L, Creatinine 0.39 L, Estim Creat Clear Calc 44.01, Est GFR (MDRD) Af Amer 209, Est GFR (MDRD) Non-Af 173, BUN/Creatinine Ratio 10.3, Glucose 101, Calcium 7.5 L, Phosphorus 2.1 L, Magnesium 2.1, Total Bilirubin 0.50, Direct Bilirubin 0.17, AST 13 L, ALT 12 L, Alkaline Phosphatase 56, Total Protein 4.6 L, Albumin 1.5 L, Globulin 3.1 Charges/Coding Addendum Addendum: Total time of the visit including total time spent in counseling or coordination of care, (more than 50% of the total time, spent in obtaining medical information from nurses and other ancillary care providers,explaining to the patient about labs, imaging, diagnosis and management of active complex medical conditions), discussion with patient's oncologist Dr. Orellana, nursing staff overall management of neutropenic fever, review of labs and imaging is 40 minutes. Visit Charges Inpatient E&M: 79462 Subs Hosp L3
[2023-07-13] MEDS: Lactated Ringers 1,000 ML 100 ML IV (13:17)
[2023-07-13] MEDS: NORMAL SALINE 0.9% IV (13:18)
[2023-07-13] MEDS: Potassium Phosphate 21 MM in 0.9% Normal Saline (250mL Bag) 250 ML 84 MM IV (13:18)
[2023-07-13] MEDS: CEFEPIME HCL IV (13:18)
--- NOTE | 2023-07-13 14:32 | NURSING ---
med not here K+
[2023-07-13 15:00] VITALS: BP 132/70; PULSE 96; RESP 16; TEMP 36.9; O2SAT 96
[2023-07-13] MEDS: Potassium Chloride Oral Tablet 10 MEQ 20 MEQ PO ×2 (18:44→21:33)
[2023-07-13] MEDS: Loperamide 2 MG Capsule PO (20:22)
[2023-07-13] MEDS: Ondansetron 4 MG/2 ML Vial IV (21:09)
[2023-07-13] MEDS: 0.9% Saline Lock 10 ML Syringe IV (21:09)
[2023-07-13 21:27] VITALS: BP 117/75; PULSE 105; RESP 18; TEMP 36.8; O2SAT 99
[2023-07-13] MEDS: MELATONIN 3 MG TABLET PO (21:33)
[2023-07-13] MEDS: NYSTATIN 500,000 UNIT/5 ML UDC 500000 UNIT PO (21:36)
[2023-07-13] MEDS: Cefepime HCl 1 GM in 0.9% Normal Saline (50mL MB+) 50 ML IV (21:57)
[2023-07-14 02:03] VITALS: BP 121/66; PULSE 82; RESP 16; TEMP 37.2; O2SAT 98
[2023-07-14] MEDS: Metoclopramide 5 MG TABLET PO ×2 (02:07→12:36)
[2023-07-14] MEDS: Lactated Ringers 1,000 ML 100 ML IV (02:09)
[2023-07-14 06:42] LABS: Absolute Lymphocyte Count 0.22 X10^3/uL (0.83-4.51); Absolute Neutrophil Count 7.4 X10^3/uL (2.0-7.7); Eosinophil# 0.08 X10^3/uL; Eosinophils% 0.9 % (0-5); Hematocrit 30.6 % (37-47); Hemoglobin 10.4 g/dL (12.0-15.0); Lymphocyte # 0.22 X10^3/ul (0.83-4.51); Lymphocyte % 2.6 % (19-41); Mean Corpuscular Hgb 27.3 pg (27.0-32.0); Mean Corpuscular Volume 80.3 fL (81-99); Mean Platelet Vol. 9.1 fl (6.2-12.0); Monocyte# 0.77 X10^3/uL; Monocyte% 8.9 % (0-10); NRBC Flagged by Analyzer 0 % (0-5); Neutrophil # 7.44 X10^3/uL (2.7-7.7); Neutrophil % 86.3 % (47-70); POSITIVE DIFFERENTIAL YES; POSITIVE MORPHOLOGY YES; Platelet Count 221 K/mm3 (150-450); RBC Distribution Width CV 19.9 % (11.6-14.6); Red Blood Count 3.81 M/mm3 (4.2-5.4); White Blood Count 8.6 K/mm3 (4.4-11.0)
[2023-07-14 06:46] LABS: Differential Indicated SCAN CRITERIA MET
[2023-07-14 07:12] LABS: Phosphorus 2.1 mg/dL (2.5-4.9)
[2023-07-14 07:17] LABS: AST(SGOT) 10 U/L (15-37); Alanine Aminotransfer ALT/SGPT 12 U/L (13-56); Albumin, Serum 1.5 g/dL (3.2-5.0); Alkaline Phosphatase 64 U/L (45-117); Anion Gap 7 (5-15); BUN 4 mg/dL (7-18); BUN/Creat Ratio 8.9 RATIO (10-20); Bilirubin, Direct 0.14 mg/dL (0.00-0.30); Calcium,Total 7.7 mg/dL (8.5-10.1); Chloride 106 mmol/L (98-107); Creatinine, Serum 0.45 mg/dL (0.55-1.02); EST Glomerular Filtration Rate 146 mL/min (>60); Est Glom Filt Rate - Afr Amer 177 mL/min (>60); Estimated Creatinine Clearance 44.01 ml/min; Globulin 3.2 g/dL (2.2-4.2); Glucose 115 mg/dL (74-106); Magnesium 1.9 mg/dL (1.6-2.6); Potassium 2.2 mmol/L (3.5-5.1); Protein, Total 4.7 g/dL (6.4-8.2); Sodium Level 137 mmol/L (136-145)
[2023-07-14 07:21] LABS: Differential Comment SCANNED; Toxic Granulation 1+
[2023-07-14 10:11] LABS: Pathologist Review Reviewed
[2023-07-14] MEDS: Potassium Chloride Oral Tablet 20 MEQ 60 MEQ PO ×2 (10:19→17:13)
[2023-07-14] MEDS: Potassium Chloride Oral Tablet 10 MEQ 20 MEQ PO ×3 (10:19→17:14)
[2023-07-14] MEDS: NYSTATIN 500,000 UNIT/5 ML UDC 500000 UNIT PO ×4 (10:21→23:26)
[2023-07-14] MEDS: Cefepime HCl 1 GM in 0.9% Normal Saline (50mL MB+) 50 ML IV ×2 (10:30→23:22)
[2023-07-14] MEDS: Heparin Injection (Vial) 5,000 UNIT/ML VIAL 5000 UNIT SC ×2 (10:31→23:26)
[2023-07-14] MEDS: Loperamide 2 MG Capsule PO (10:31)
[2023-07-14] MEDS: TBO-FILGRASTIM 300 MCG/0.5 ML ML SC (10:31)
[2023-07-14] MEDS: Magnesium Sulfate 4gm/100mL 4 GM/100 ML IV.SOLN. IV (10:50)
[2023-07-14 10:58] VITALS: BP 131/84; PULSE 87; RESP 16; TEMP 36.8; O2SAT 100
[2023-07-14] MEDS: Potassium Phosphate 40 MM in 0.9% Normal Saline (500mL Bag) 500 ML 62.5 MM IV (11:20)
--- NOTE | 2023-07-14 14:31 | CON.PCM.GI_ITS ---
HPI Consult Data Date of Consult: 07/14/23 HPI Narrative Reason for Consultation: Diarrhea & colon cancer HPI Narrative: VAN REYNOSO, is a 68 F who presented to the [facility] ED on 07/11/23 with history of persistent ongoing diarrhea with at least 10-12 loose stools per day with increasing fatigue and malaise with mild abdominal bloating and discomfort with abnormal labs outpatient prompting referral to the ED for evaluation given signi ficant neutropenia and now onset of fever as well. She originally presented with abdominal discomfort, flatulence and rectal bleed. She had colonoscopy on 04/09/[address] Ramírez. She was found to have a napkin ring lesion 12 to 15 cm from the anal verge. The biopsy showed a moderately differentiated adenocarcinoma at [address] scan of chest, abdomen and pelvis on 04/16/2023 showed a mass at sigmoid colon with luminal narrowing. CEA was 50.9. She was referred to [facility]. MRI of the pelvis on 05/07/2023 showed rectal mass 12 cm from the anal verge, no pelvic lymphadenopathy T4a N0. She was referred for total neoadjuvant therapy. Started Combined chemotherapy- Xeloda and Radiation therapy on 06/11/2023. She started having diarrhea recently and was sent to the ER, given fluids and Potassium. Still had diarrhea at home, 4 episodes since last night, also has nausea. I was consulted because her diarrhea is not getting any better for further management of her diarrhea. [facility] Medical History CINV (chemotherapy-induced nausea and vomiting) Pancytopenia Rectal cancer Home Medications capecitabine 500 mg tablet 1,000 mg (2 x 500 mg) PO BID #100 tabs 06/02/23 [Rx Last Taken Unknown] diclofenac sodium 1 % topical gel 2 g topical BID #100 grams 06/05/23 [Rx Last Taken Unknown] ondansetron 8 mg disintegrating tablet 8 mg PO Q8H PRN nausea and vomiting #30 tabs 06/05/23 [Rx Last Taken Unknown] loperamide 2 mg capsule (Imodium A-D) 2 mg PO Q6H PRN loose stool 06/25/23 [History Last Taken Unknown] sodium chloride 1,000 mg soluble tablet 1,000 mg PO QD-QID PRN electrolyte replenishment 30 days #60 tabs 07/02/23 [Rx Last Taken Unknown] diphenoxylate-atropine 2.5 mg-0.025 mg tablet (Lomotil) 1 tab PO BID PRN diarrhea #20 tabs 07/08/23 [Rx Last Taken Unknown] metoclopramide HCl 5 mg tablet (Reglan) 5 mg PO Q6H PRN nausea and vomiting #14 tabs 07/08/23 [Rx Last Taken Unknown] potassium chloride 20 mEq tablet,extended release 20 meq PO BID supplement 07/11/23 [History Last Taken Unknown] Allergy/AdvReac Type Severity Reaction Status Date / Time No Known Allergies Allergy Verified 07/11/23 10:09 Family History (Updated 07/11/23 @ 17:[address] Georgette Blandon MD) Mother CAD (coronary artery disease) Myocardial infarction Hypertension Heart disease Father Family hx of prostate cancer Surgical History History of mandibular surgery Hx of cataract removal with insertion of prosthetic lens Social History (Updated 07/11/23 @ 17:[address] Georgette Blandon MD) household members: spouse Smoking Status: Never smoker alcohol intake: never substance use type: does not use ROS ROS Narrative Admission Review of Systems: CONSTITUTIONAL: No weight loss, + fever, chills, weakness or fatigue. HEENT: Eyes: No visual loss, blurred vision, double vision or yellow sclerae. Ears, Nose, Throat: No hearing loss, sneezing, congestion, runny nose or sore throat. SKIN: No rash or itching, lesions, wounds. CARDIOVASCULAR: No chest pain, chest pressure or chest discomfort, palpitations, edema, orthopnea, syncopal events. RESPIRATORY: No shortness of breath, cough or sputum, wheezing, hemoptysis. GASTROINTESTINAL: + anorexia, abdominal cramping diffusely, diarrhea. No vomiting, melena, BRBPR. GENITOURINARY: No dysuria, frequency, urgency or retention. NEUROLOGICAL: No headache, dizziness, syncope, paralysis, ataxia, numbness or tingling in the extremities, focal weakness, change in bowel or bladder control, seizure. MUSCULOSKELETAL: + muscle, back pain, joint pain or stiffness. HEMATOLOGIC: + Anemia, easy bleeding/bruising. LYMPHATICS: No enlarged nodes. No history of splenectomy. PSYCHIATRIC: No history of depression or anxiety. ENDOCRINOLOGIC: + reports of sweating, cold or heat intolerance. No polyuria or polydipsia. ALLERGIES: No history of asthma, hives, eczema or rhinitis. Physical Exam Narrative General: Alert, oriented, no apparent distress HEENT: Atraumatic, normocephalic Eyes: Anicteric, normal conjunctiva, extraocular movements grossly intact Neck: Supple Respiratory: Clear to auscultation bilaterally, normal respiratory effort Cardiovascular: Regular rate and rhythm GI: Soft, improved tenderness without rebound, guarding, rigidity, no distention Extremities: No edema Musculoskeletal: Moving all extremities Neuro: No overt focal neurological deficits Skin: No rashes appreciated Psych: Cooperative Medical Records Data Medical Nutrition Assessment Dietitian: Malnutrition Criteria Met Start: 07/12/23 15:48 Freq: Status: Active Protocol: Document 07/14/23 15:23 RMA (Rec: 07/14/23 15:23 RMA [id number]) Nutrition Malnutrition Evidence of Malnutrition Exists Yes Malnutrition (severe): Chronic Evidenced By Suboptimal Energy Intake ( Severe),Weight Loss (Severe) Clinical Problem Chronic Disease or Condition Related Malnutrition Etiology Severe protein-calorie malnutrition in the context of chronic disease/cancer related to inadequate energy/ oral intake and altered GI function/diarrhea and nausea/ vomiting Signs/Symptoms as evidenced by ~7% unintentional weight loss x 1 month, BMI 18.3 and PO meeting less than 50% estimated nutrition needs x 1 month Status Active Problem Recommendation Dietitian Recommendations/Changes Will continue liberalized regular diet as tolerated. Will continue 120mL ensure plus HP 4 times per day w/ medpass as tolerated. Will continue 240mL ensure clear TID w/ meals for tolerance. Current weight as able. Lab / Micro Data 07/15/23 07:45 07/15/23 07:45 Labs: Laboratory Results - last 24 hr 07/11/23 15:10: Diff Path Review Reviewed 07/14/23 02:47: Sodium Cancelled, Potassium Cancelled, Chloride Cancelled, Carbon Dioxide Cancelled, Anion Gap Cancelled, BUN Cancelled, Creatinine Cancelled, Estim Creat Clear Calc Cancelled, Est GFR (MDRD) Af Amer Cancelled, Est GFR (MDRD) Non-Af Cancelled, BUN/Creatinine Ratio Cancelled, Glucose Cancelled, Calcium Cancelled 07/14/23 14:08: Sodium 136, Potassium 2.2 L*, Chloride 104, Carbon Dioxide 23.0, Anion Gap 9, BUN 4 L, Creatinine 0.55, Estim Creat Clear Calc 44.01, Est GFR (MDRD) Af Amer 140, Est GFR (MDRD) Non-Af 116, BUN/Creatinine Ratio 7.3 L, Glucose 140 H, Calcium 7.8 L, Phosphorus 2.6 07/15/23 02:47: Sodium 136, Potassium 2.8 L, Chloride 106, Carbon Dioxide 19.0 L , Anion Gap 11, BUN 3 L, Creatinine 0.62, Estim Creat Clear Calc 44.01, Est GFR (MDRD) Af Amer 122, Est GFR (MDRD) Non-Af 101, BUN/Creatinine Ratio 4.9 L, Glucose 166 H, Calcium 8.2 L 07/15/23 07:45: WBC 10.7, RBC 4.16 L, Hgb 11.5 L, Hct 34.0 L, MCV 81.7, MCH 27.6, MCHC 33.8, RDW Std Deviation 57.7 H, RDW Coeff of John 21.1 H, Plt Count 216, MPV 9.5, Immature Gran % (Auto) 1.300 H, Neut % (Auto) 90.2 H, Lymph % (Auto) 2.4 L, [place] % (Auto) 5.8, Eos % (Auto) 0.3, Baso % (Auto) 0.0, Absolute Neuts (auto) 9.7 H, Absolute Lymphs (auto) 0.26 L, Nucleated RBC % 0, Differential Comment SCANNED, APTT 30.5, Sodium 136, Potassium 3.2 L, Chloride 109 H, Carbon Dioxide 21.0, Anion Gap 6, BUN 4 L, Creatinine 0.40 L, Estim Creat Clear Calc 44.63, Est GFR (MDRD) Af Amer 200, Est GFR (MDRD) Non-Af 165, BUN/Creatinine Ratio 9.9 L, Glucose 123 H, Calcium 8.3 L, Phosphorus 2.6, Magnesium 2.6, Total Bilirubin 0.40, AST 19, ALT 21, Alkaline Phosphatase 91, Total Protein 5.4 L, Albumin 1.8 L, Globulin 3.6, Albumin/Globulin Ratio 0.5 L Assessment & Plan Assessment/Plan (1) Neutropenia with fever: PLAN: Plan The patients is a 68 y/o Andrei F w/ PMHx: Moderately differentiated adenocarcinoma, rectal cancer T4N0 following with Dr. Orellana undergoing both chemotherapy and radiation with last dose of chemotherapy approximately 1 week prior and her last radiation Friday. She presents to the [facility] ED on 07/11/23 with history of persistent ongoing diarrhea with at least 10-12 loose stools per day with increasing fatigue and malaise with mild abdominal bloating and discomfort with abnormal labs outpatient prompting referral to the ED for evaluation given significant neutropenia and now onset of fever as well. Her neutropenic fever, is unclear etiology with persistent diarrhea, mild hypoxia of unclear etiology: SARS COVID/influenza/RSV PCR is negative. C. difficile, enteric as well as ova and parasite given are also negative. She will undergo upper and lower endoscopy to evaluate upper lower GI tract. She was explained alternatives, risk, benefits include not withstanding bleeding, infection, sepsis, perforation, need for emergent urgent . She have an ASA of 3. Moderately differentiated adenocarcinoma, rectal cancer with pancytopenia with neutropenic fever presentation as noted #1: Patient with 04/09/2023 evaluation with noted napkin ring lesion 12 to 15 cm from the anal verge with biopsy demonstrating moderately differentiated adenocarcinoma at [address] scan chest/abdomen/pelvis 04/16/2023 with a mass at the sigmoid colon with l uminal narrowing, CEA 50.9 with treatment then at [facility]. MRI of the pelvis 05/07/2023 with a rectal mass 12 cm from the anal verge with no pelvic lymphadenopathy DM T4a N0. Patient started neoadjuvant therapy with combined chemotherapy-Xeloda and radiation therapy on 06/11/2023. Patient following with Dr. Orellana with last visit 07/09/23 now week 5 with report of ongoing issues with diarrhea and need for IV fluids and electrolyte supplementations. ED magnesium 1.7, phosphorus level will be requested. CBC upon presentation with WBC 1.4, hemoglobin 11.4, MCV 83, platelet I will also order repeat CT scan of the abdomen pelvis with oral and IV contrast. Capacity Legal Prn Occupational Therapist Reflex Medical hold order details:: IF a medical hold is selected below, a suggested order for a MEDICAL HOLD will reflex upon signing the document. Next of kin: [place] law dictates a PRIORITY LIST for identifying legal decision-maker/legal next of kin in the following order (LNOK): 1st: The patient?s legal guardian, if any 2nd: The patient's spouse (if status is questionable, consult Risk Management) 3rd: The patient?s adult child(shelbi) (majority, if multiple children) 4th: The patient?s parents 5th: The patient?s adult siblings (majority, if multiple children siblings) Charges/Coding Visit Charges Inpatient E&M: 08448 Init Hosp L3
[2023-07-14 15:11] LABS: Anion Gap 9 (5-15); BUN 4 mg/dL (7-18); BUN/Creat Ratio 7.3 RATIO (10-20); Calcium,Total 7.8 mg/dL (8.5-10.1); Chloride 104 mmol/L (98-107); Creatinine, Serum 0.55 mg/dL (0.55-1.02); EST Glomerular Filtration Rate 116 mL/min (>60); Est Glom Filt Rate - Afr Amer 140 mL/min (>60); Estimated Creatinine Clearance 44.01 ml/min; Glucose 140 mg/dL (74-106); Phosphorus 2.6 mg/dL (2.5-4.9); Potassium 2.2 mmol/L (3.5-5.1); Sodium Level 136 mmol/L (136-145)
[2023-07-14 16:00] VITALS: BP 132/70; PULSE 88; RESP 16; TEMP 36.9; O2SAT 100
--- NOTE | 2023-07-14 16:49 | PCM.PN.HOSP ---
Reason for Visit Reason for Visit: Diagnoses Neutropenia, unspecified (07/11/23) Fever presenting with conditions classified elsewhere (07/11/23) Subjective Subjective Pt continues to have multiple loose bowel movements, had 5 overnight and 3 this a.m., Abdominal cramping has been slightly better, still feels sometimes sick to her stomach and has not been having very good p.o. intake, still feels weak albeit somewhat less than previous and was up walking around room. Objective Data Objective Data Vital Signs: Vital Signs Temp Pulse Resp BP Pulse Ox O2 Del Method O2 Flow Rate 98.2 F 87 16 131/84 H 100 Room Air 2 07/14/23 10:58 07/14/23 10:58 07/14/23 10:58 07/14/23 10:58 07/14/23 10:58 07/14/23 16:35 07/12/23 00:39 Oxygen Flow Rate (L/min) 2 Oxygen Delivery Method Room Air Weight: 42.6 kg Body Mass Index (BMI) 18.4 Intake & Output: Intake and Output for Last 24 Hours 07/12/23 07/13/23 07/14/23 23:59 23:59 23:59 Intake Total 3430.17 / 3430.17 4808.17 / 4808.17 1608.33 / 1608.33 Output Total 200 / 200 Balance 3230.17 / 3230.17 4808.17 / 4808.17 1608.33 / 1608.33 Medical Nutrition Assessment Dietitian: Malnutrition Criteria Met Start: 07/12/23 15:48 Freq: Status: Active Protocol: Document 07/14/23 15:23 RMA (Rec: 07/14/23 15:23 RMA [id number]) Nutrition Malnutrition Evidence of Malnutrition Exists Yes Malnutrition (severe): Chronic Evidenced By Suboptimal Energy Intake ( Severe),Weight Loss (Severe) Clinical Problem Chronic Disease or Condition Related Malnutrition Etiology Severe protein-calorie malnutrition in the context of chronic disease/cancer related to inadequate energy/ oral intake and altered GI function/diarrhea and nausea/ vomiting Signs/Symptoms as evidenced by ~7% unintentional weight loss x 1 month, BMI 18.3 and PO meeting less than 50% estimated nutrition needs x 1 month Status Active Problem Recommendation Dietitian Recommendations/Changes Will continue liberalized regular diet as tolerated. Will continue 120mL ensure plus HP 4 times per day w/ medpass as tolerated. Will continue 240mL ensure clear TID w/ meals for tolerance. Current weight as able. Lab / Micro Data 07/14/23 06:04 07/14/23 14:08 Labs: Laboratory Results - last 24 hr 07/12/23 06:25: Diff Path Review Reviewed 07/14/23 06:04: WBC 8.6, RBC 3.81 L, Hgb 10.4 L, Hct 30.6 L, MCV 80.3 L, MCH 27.3, MCHC 34.0, RDW Std Deviation 54.0 H, RDW Coeff of John 19.9 H, Plt Count 221, MPV 9.1, Immature Gran % (Auto) 1.300 H, Neut % (Auto) 86.3 H, Lymph % (Auto) 2.6 L, [place] % (Auto) 8.9, Eos % (Auto) 0.9, Baso % (Auto) 0.0, Absolute Neuts (auto) 7.4, Absolute Lymphs (auto) 0.22 L, Nucleated RBC % 0, Differential Comment SCANNED, Toxic Granulation 1+, Sodium 137, Potassium 2.2 L*, Chloride 106, Carbon Dioxide 24.0, Anion Gap 7, BUN 4 L, Creatinine 0.45 L, Estim Creat Clear Calc 44.01, Est GFR (MDRD) Af Amer 177, Est GFR (MDRD) Non-Af 146, BUN/Creatinine Ratio 8.9 L, Glucose 115 H, Calcium 7.7 L, Phosphorus 2.1 L, Magnesium 1.9, Total Bilirubin 0.40, Direct Bilirubin 0.14, AST 10 L, ALT 12 L, Alkaline Phosphatase 64, Total Protein 4.7 L, Albumin 1.5 L, Globulin 3.2 07/14/23 14:08: Sodium 136, Potassium 2.2 L*, Chloride 104, Carbon Dioxide 23.0, Anion Gap 9, BUN 4 L, Creatinine 0.55, Estim Creat Clear Calc 44.01, Est GFR (MDRD) Af Amer 140, Est GFR (MDRD) Non-Af 116, BUN/Creatinine Ratio 7.3 L, Glucose 140 H, Calcium 7.8 L, Phosphorus 2.6 Micro: Microbiology 07/11/23 15:00 Blood Culture (Wb) - Left Forearm Blood Culture - Preliminary No growth in 48 hours. 07/11/23 15:15 Blood Culture (Wb) - Left Forearm Blood Culture - Preliminary No growth in 48 hours. 07/11/23 15:24 Urine, Catheterized Urine Culture - Final Culture exhibits no growth. 07/11/23 20:00 Stool Enteric Bacteriology - Final 07/11/23 20:00 Stool Clostridioides difficile (PCR) - Final 07/11/23 19:50 Mucosa - Nasopharyngeal Respiratory Panel (PCR) - Final 07/11/23 17:00 Mucosa - Nose SARS-CoV-2, Influenza & RSV (PCR) - Final Physical Exam Narrative General: Alert, oriented, no apparent distress HEENT: Atraumatic, normocephalic Eyes: Anicteric, normal conjunctiva, extraocular movements grossly intact Neck: Supple Respiratory: Clear to auscultation bilaterally, normal respiratory effort Cardiovascular: Regular rate and rhythm GI: Soft, improved tenderness without rebound, guarding, rigidity, no distention Extremities: No edema Musculoskeletal: Moving all extremities Neuro: No overt focal neurological deficits Skin: No rashes appreciated Psych: Cooperative Assessment & Plan Assessment/Plan (1) Neutropenia with fever: PLAN: Plan The patients is a 68 y/o Andrei F Was admitted through ER for persistent more than 10 loose watery bowel movement per day since past 07/06/2023 she denied black or maroon-colored stool but have thirsty dry mouth and lightheadedness. Mild abdominal discomfort and bloating. She started chemotherapy and radiation therapy on June 11 for moderately differentiated rectal adenocarcinoma. Last chemotherapy was 1 week ago. Last radiotherapy on Friday. #Intractable diarrhea, Neutropenic fever, unclear etiology, mild hypoxia of unclear etiology: Patient is being admitted to [facility] floor. Tmax 100.8 Fahrenheit. Vigorous IV fluid rehydration. Stool for enteric bacteriology panel, C. difficile negative. Respiratory panel, SARS-CoV-2 influenza and RSV PCR negative. Seems chemotherapeutic adverse effect/possible mucositis. Procalcitonin 0.42. Clinical picture does not suggest sepsis. Sepsis ruled out. Chest x-ray new lesion does not show acute infiltrate. Blood cultures x 2 and urine culture pending. UA WBC negative RBC negative, LE and nitrite negative. Patient on IV cefepime 2 g every 12 hourly. I think with patient being immunosuppressed with possibility of mucositis there is high possibility of getting C. difficile therefore IV antibiotic discontinued. Probiotic started. Supportive management. 07/13: Patient having low-grade fever, Tmax 100.4 Fahrenheit, no tachycardia. WBC count is 6.5 thousand. ALC 0.17 thousand. ANC 5.2 thousand. 2 more day of Neupogen tomorrow AM. As patient is spiked fever even the low-grade and ANC 5.2 collagen but with mucositis the risk for bacterial translocation therefore discussed with the oncologist Dr. Orellana. Decided to restart 6 cefepime 1 g every 12 hourly for 2 more days. Blood cultures x 2 so far negative. -07/14: Patient still having 8-12 loose watery bowel movements a day with inability to maintain electrolytes, nutrition, hydration without external support. GI consulted for assistance with managing intractable diarrhea given patient admitted 3 days ago and not improving and multiple electrolyte derangements, will resume fluids with LR. Last elevated temperature was morning of 07/13 with a temp of 100.4. Patient is still on cefepime #Moderately differentiated adenocarcinoma, rectal cancer with pancytopenia (neutropenia, normocytic anemia, thrombocytopenia) with neutropenic fever : Patient with 04/09/2023 evaluation with noted napkin ring lesion 12 to 15 cm from the anal verge with biopsy demonstrating moderately differentiated adenocarcinoma at 15 cm, CT scan chest/abdomen/pelvis 04/16/2023 with a mass at the sigmoid colon with luminal narrowing, CEA 50.9 with treatment then at [facility]. MRI of the pelvis 05/07/2023 with a rectal mass 12 cm from the anal verge with no pelvic lymphadenopathy DM T4a N0. Patient started neoadjuvant therapy with combined chemotherapy-Xeloda and radiation therapy on 06/11/2023. Patient following with Dr. Orellana with last visit 07/09/23 now week 5 with report of ongoing issues with diarrhea and need for IV fluids and electrolyte supplementations. ED magnesium 1.7, phosphorus level will be requested. CBC upon presentation with WBC 1.4, hemoglobin 11.4, MCV 83, platelet unfortunately unable to be obtained secondary to clumping, repeat CBC in AM. May certainly involve oncology if necessary. 07/12: Bands 14%. ANC 1.6 thousand. ALC 0.42 thousand. Total leukocyte improving. Platelet count normal. Hemoglobin around 10 g%. 07/13: As mentioned above. -07/14: Hemoglobin remained stable at 10.4, no thrombocytopenia, white blood cell count improving #Hypokalemia: Admission K+ 3.2, magnesium level as noted 1.7, supplementation given 07/12: Patient has hypophosphatemia and magnesium on lower side. IV potassium phosphate ordered and given. IV magnesium sulfate ordered. 07/13: Severe hypokalemia and hypophosphatemia. Electrolyte ordered. On IV fluid Ringer lactate. Encouraged oral supplementation. -07/14: Continue to aggressively replace, will start LR and continue potassium 20 3 times daily in addition to additional oral and IV #Hyponatremia, suspected hypovolemic given GI losses: Admission CMP obtained per hospitalist with noted sodium 131, chloride 104, will continue hydration and repeat CMP in AM. 07/13 serum sodium 134 improving. -07/14: Resolved #Hyperglycemia without diabetic history: Admission glucose 159, likely stress response however to be cautious we will obtain hemoglobin A1c. -07/14: A1c 5.6 # DVT prophylaxis: Heparin. Time spent in the patient's overall evaluation,decision-making process, review of diagnostic data, adjustment of management, discussion with other providers, nursing nursing and ancillary staff involved in patient's care documentation, 35 minutes Capacity Legal [employer]oe Lay Out Planner Reflex Medical hold order details:: IF a medical hold is selected below, a suggested order for a MEDICAL HOLD will reflex upon signing the document. Next of kin: [place] law dictates a PRIORITY LIST for identifying legal decision-maker/legal next of kin in the following order (LNOK): 1st: The patient?s legal guardian, if any 2nd: The patient's spouse (if status is questionable, consult Risk Management) 3rd: The patient?s adult child(shelbi) (majority, if multiple children) 4th: The patient?s parents 5th: The patient?s adult siblings (majority, if multiple children siblings) Charges/Coding Visit Charges Inpatient E&M: 18448 Init Hosp L2
[2023-07-14] MEDS: Calcium Gluconate IV 2 GM in 0.9% Normal Saline (100mL Bag) 100 ML IV (18:17)
[2023-07-14] MEDS: Lactated Ringers 1,000 ML 75 ML IV (18:24)
[2023-07-14] MEDS: 0.9% Normal Saline (250mL Bag) 250 ML 15 ML IV (21:06)
[2023-07-14] MEDS: Potassium Chloride 10mEq/100mL 10 MEQ/100 ML IV.SOLN. 100 MEQ IV BOLUS ×3 (21:07→23:23)
[2023-07-14] MEDS: Bisacodyl 5 MG Tablet 20 MG PO (21:16)
[2023-07-14] MEDS: Polyethylene Glycol 3350 BOWEL PREP 1 BOTTLE PO (21:53)
[2023-07-14 23:05] VITALS: BP 127/76; PULSE 88; RESP 18; TEMP 36.9; O2SAT 99
[2023-07-14] MEDS: 0.9% Saline Lock 10 ML Syringe IV (23:20)
[2023-07-15] VITALS (9 sets, daily range): BP systolic 91–144; BP diastolic 49–87; PULSE 71–90; RESP 12–18; TEMP 36.4–37.3; O2SAT 97–100; BMI 18.6
[2023-07-15] MEDS: Potassium Chloride 10mEq/100mL 10 MEQ/100 ML IV.SOLN. 100 MEQ IV BOLUS ×5 (00:29→16:18)
[2023-07-15 03:26] LABS: BUN 3 mg/dL (7-18); Calcium,Total 8.2 mg/dL (8.5-10.1); Chloride 106 mmol/L (98-107); Creatinine, Serum 0.62 mg/dL (0.55-1.02); EST Glomerular Filtration Rate 101 mL/min (>60); Est Glom Filt Rate - Afr Amer 122 mL/min (>60); Estimated Creatinine Clearance 44.01 ml/min; Glucose 166 mg/dL (74-106); Potassium 2.8 mmol/L (3.5-5.1); Sodium Level 136 mmol/L (136-145)
[2023-07-15 03:27] LABS: BUN/Creat Ratio 4.9 RATIO (10-20)
[2023-07-15 03:28] LABS: Anion Gap 11 (5-15)
[2023-07-15] MEDS: Potassium Chloride Oral Tablet 20 MEQ 60 MEQ PO ×3 (03:54→09:17)
[2023-07-15] MEDS: Ondansetron 4 MG/2 ML Vial IV (05:52)
[2023-07-15] MEDS: 0.9% Saline Lock 10 ML Syringe IV ×3 (05:52→16:15)
[2023-07-15] MEDS: Lactated Ringers 1,000 ML 75 ML IV (06:29)
--- NOTE | 2023-07-15 07:59 | PN.HOSP_ITS ---
Reason for Visit Reason for Visit: Diagnoses Neutropenia, unspecified (07/11/23) Fever presenting with conditions classified elsewhere (07/11/23) Subjective Subjective Patient underwent bowel prep for colonoscopy last night, reports feeling slight ly better this morning with bowel prep being over, about to go down for colonoscopy. Objective Data Objective Data Vital Signs: Vital Signs Temp Pulse Resp BP Pulse Ox O2 Del Method O2 Flow Rate 98 F 90 18 119/74 100 Room Air 2 07/15/23 05:51 07/15/23 05:51 07/15/23 05:51 07/15/23 05:51 07/15/23 05:51 07/15/23 05:51 07/12/23 00:39 Oxygen Flow Rate (L/min) 2 Oxygen Delivery Method Room Air Weight: 43.2 kg Body Mass Index (BMI) 18.6 Intake & Output: Intake and Output for Last 24 Hours 07/13/23 07/14/23 07/15/23 23:59 23:59 23:59 Intake Total 4808.17 / 4808.17 3732.4133 / 3732.4133 1306.25 / 1306.25 Balance 4808.17 / 4808.17 3732.4133 / 3732.4133 1306.25 / 1306.25 Medical Nutrition Assessment Dietitian: Malnutrition Criteria Met Start: 07/12/23 15:48 Freq: Status: Active Protocol: Document 07/14/23 15:23 RMA (Rec: 07/14/23 15:23 RMA [id number]) Nutrition Malnutrition Evidence of Malnutrition Exists Yes Malnutrition (severe): Chronic Evidenced By Suboptimal Energy Intake ( Severe),Weight Loss (Severe) Clinical Problem Chronic Disease or Condition Related Malnutrition Etiology Severe protein-calorie malnutrition in the context of chronic disease/cancer related to inadequate energy/ oral intake and altered GI function/diarrhea and nausea/ vomiting Signs/Symptoms as evidenced by ~7% unintentional weight loss x 1 month, BMI 18.3 and PO meeting less than 50% estimated nutrition needs x 1 month Status Active Problem Recommendation Dietitian Recommendations/Changes Will continue liberalized regular diet as tolerated. Will continue 120mL ensure plus HP 4 times per day w/ medpass as tolerated. Will continue 240mL ensure clear TID w/ meals for tolerance. Current weight as able. Lab / Micro Data 07/15/23 07:45 07/15/23 07:45 Labs: Laboratory Results - last 24 hr 07/12/23 06:25: Diff Path Review Reviewed 07/14/23 02:47: Sodium Cancelled, Potassium Cancelled, Chloride Cancelled, Carbon Dioxide Cancelled, Anion Gap Cancelled, BUN Cancelled, Creatinine Cancelled, Estim Creat Clear Calc Cancelled, Est GFR (MDRD) Af Amer Cancelled, Est GFR (MDRD) Non-Af Cancelled, BUN/Creatinine Ratio Cancelled, Glucose Cancelled, Calcium Cancelled 07/14/23 14:08: Sodium 136, Potassium 2.2 L*, Chloride 104, Carbon Dioxide 23.0, Anion Gap 9, BUN 4 L, Creatinine 0.55, Estim Creat Clear Calc 44.01, Est GFR (MDRD) Af Amer 140, Est GFR (MDRD) Non-Af 116, BUN/Creatinine Ratio 7.3 L, Glucose 140 H, Calcium 7.8 L, Phosphorus 2.6 07/15/23 02:47: Sodium 136, Potassium 2.8 L, Chloride 106, Carbon Dioxide 19.0 L , Anion Gap 11, BUN 3 L, Creatinine 0.62, Estim Creat Clear Calc 44.01, Est GFR (MDRD) Af Amer 122, Est GFR (MDRD) Non-Af 101, BUN/Creatinine Ratio 4.9 L, Glucose 166 H, Calcium 8.2 L Micro: Microbiology 07/11/23 15:00 Blood Culture (Wb) - Left Forearm Blood Culture - Preliminary No growth in 48 hours. 07/11/23 15:15 Blood Culture (Wb) - Left Forearm Blood Culture - Preliminary No growth in 48 hours. 07/11/23 15:24 Urine, Catheterized Urine Culture - Final Culture exhibits no growth. 07/11/23 20:00 Stool Enteric Bacteriology - Final 07/11/23 20:00 Stool Clostridioides difficile (PCR) - Final 07/11/23 19:50 Mucosa - Nasopharyngeal Respiratory Panel (PCR) - Final 07/11/23 17:00 Mucosa - Nose SARS-CoV-2, Influenza & RSV (PCR) - Final Physical Exam Narrative General: Alert, oriented, no apparent distress HEENT: Atraumatic, normocephalic Eyes: Anicteric, normal conjunctiva, extraocular movements grossly intact Neck: Supple Respiratory: Clear to auscultation bilaterally, normal respiratory effort Cardiovascular: Regular rate and rhythm GI: Soft, improved tenderness without rebound, guarding, rigidity, no distention Extremities: No edema Musculoskeletal: Moving all extremities Neuro: No overt focal neurological deficits Skin: No rashes appreciated Psych: Cooperative Assessment & Plan Assessment/Plan (1) Neutropenia with fever: PLAN: Plan The patients is a 68 y/o [employer] F Was admitted through ER for persistent more than 10 loose watery bowel movement per day since past 07/06/2023 she denied black or maroon-colored stool but have thirsty dry mouth and lightheadedness. Mild abdominal discomfort and bloating. She started chemotherapy and radiation therapy on June 11 for moderately differentiated rectal adenocarcinoma. Last chemotherapy was 1 week ago. Last radiotherapy on Friday. #Intractable diarrhea, Neutropenic fever, unclear etiology, mild hypoxia of unclear etiology: Patient is being admitted to [facility] floor. Tmax 100.8 Fahrenheit. Vigorous IV fluid rehydration. Stool for enteric bacteriology panel, C. difficile negative. Respiratory panel, SARS-CoV-2 influenza and RSV PCR negative. Seems chemotherapeutic adverse effect/possible mucositis. Procalcitonin 0.42. Clinical picture does not suggest sepsis. Sepsis ruled out. Chest x-ray new lesion does not show acute infiltrate. Blood cultures x 2 and urine culture pending. UA WBC negative RBC negative, LE and nitrite negative. Patient on IV cefepime 2 g every 12 hourly. I think with patient being immunosuppressed with possibility of mucositis there is high possibility of getting C. difficile therefore IV antibiotic discontinued. Probiotic started. Supportive management. 07/13: Patient having low-grade fever, Tmax 100.4 Fahrenheit, no tachycardia. WBC count is 6.5 thousand. ALC 0.17 thousand. ANC 5.2 thousand. 2 more day of Neupogen tomorrow AM. As patient is spiked fever even the low-grade and ANC 5.2 collagen but with mucositis the risk for bacterial translocation therefore discussed with the oncologist Dr. Orellana. Decided to restart 6 cefepime 1 g every 12 hourly for 2 more days. Blood cultures x 2 so far negative. -07/14: Patient still having 8-12 loose watery bowel movements a day with inab ility to maintain electrolytes, nutrition, hydration without external support. GI consulted for assistance with managing intractable diarrhea given patient admitted 3 days ago and not improving and multiple electrolyte derangements, will resume fluids with LR. Last elevated temperature was morning of 07/13 with a temp of 100.4. Patient is still on cefepime -07/15: Patient to complete cefepime today, GI evaluated, patient for upper and lower endoscopy today and also repeat CT scan of abdomen. Octreotide 3 times daily recommended by oncology however patient now pending GI workup this will need to be determined pending studies. On LR #Moderately differentiated adenocarcinoma, rectal cancer with pancytopenia (neutropenia, normocytic anemia, thrombocytopenia) with neutropenic fever : Patient with 04/09/2023 evaluation with noted napkin ring lesion 12 to 15 cm from the anal verge with biopsy demonstrating moderately differentiated adenocarcinoma at 15 cm, CT scan chest/abdomen/pelvis 04/16/2023 with a mass at the sigmoid colon with luminal narrowing, CEA 50.9 with treatment then at [facility]. MRI of the pelvis 05/07/2023 with a rectal mass 12 cm from the anal verge with no pelvic lymphadenopathy DM T4a N0. Patient started neoadjuvant therapy with combined chemotherapy-Xeloda and radiation therapy on 06/11/2023. Patient following with Dr. Orellana with last visit 07/09/23 now week 5 with report of ongoing issues with diarrhea and need for IV fluids and electrolyte supplementations. ED magnesium 1.7, phosphorus level will be requested. CBC upon presentation with WBC 1.4, hemoglobin 11.4, MCV 83, platelet unfortunately unable to be obtained secondary to clumping, repeat CBC in AM. May certainly involve oncology if necessary. 07/12: Bands 14%. ANC 1.6 thousand. ALC 0.42 thousand. Total leukocyte improving. Platelet count normal. Hemoglobin around 10 g%. 07/13: As mentioned above. -07/14: Hemoglobin remained stable at 10.4, no thrombocytopenia, white blood cell count improving -07/15: Family indicated that patient's radiation oncologist evaluated this a.m., patient has also been discussed with her oncologist Dr. Orellana, additionally undergoing GI workup #Hypokalemia: Admission K+ 3.2, magnesium level as noted 1.7, supplementation given 07/12: Patient has hypophosphatemia and magnesium on lower side. IV potassium phosphate ordered and given. IV magnesium sulfate ordered. 07/13: Severe hypokalemia and hypophosphatemia. Electrolyte ordered. On IV fluid Ringer lactate. Encouraged oral supplementation. -07/14: Continue to aggressively replace, will start LR and continue potassium 20 3 times daily in addition to additional oral and IV -07/15: Slightly better today, continue aggressive replacement and managing underlying illness #Hyponatremia, suspected hypovolemic given GI losses: Admission CMP obtained per hospitalist with noted sodium 131, chloride 104, will continue hydration and repeat CMP in AM. 07/13 serum sodium 134 improving. -07/14: Resolved #Hyperglycemia without diabetic history: Admission glucose 159, likely stress response however to be cautious we will obtain hemoglobin A1c. -07/14: A1c 5.6 # DVT prophylaxis: Heparin. Time spent in the patient's overall evaluation,decision-making process, review of diagnostic data, adjustment of management, discussion with other providers, nursing nursing and ancillary staff involved in patient's care documentation, 51 minutes Capacity Legal Renewable Energy Consultant Reflex Medical hold order details:: IF a medical hold is selected below, a suggested order for a MEDICAL HOLD will reflex upon signing the document. Next of kin: [place] law dictates a PRIORITY LIST for identifying legal decision-maker/legal next of kin in the following order (LNOK): 1st: The patient?s legal guardian, if any 2nd: The patient's spouse (if status is questionable, consult Risk Management) 3rd: The patient?s adult child(shelbi) (majority, if multiple children) 4th: The patient?s parents 5th: The patient?s adult siblings (majority, if multiple children siblings) Charges/Coding Visit Charges Inpatient E&M: 43907 Subs Hosp L3
[2023-07-15 08:26] LABS: Absolute Lymphocyte Count 0.26 X10^3/uL (0.83-4.51); Absolute Neutrophil Count 9.7 X10^3/uL (2.0-7.7); Eosinophil# 0.03 X10^3/uL; Eosinophils% 0.3 % (0-5); Hemoglobin 11.5 g/dL (12.0-15.0); Lymphocyte # 0.26 X10^3/ul (0.83-4.51); Lymphocyte % 2.4 % (19-41); Mean Corp Hgb Conc 33.8 g/dL (32-36); Mean Corpuscular Hgb 27.6 pg (27.0-32.0); Mean Corpuscular Volume 81.7 fL (81-99); Mean Platelet Vol. 9.5 fl (6.2-12.0); Monocyte# 0.62 X10^3/uL; Monocyte% 5.8 % (0-10); NRBC Flagged by Analyzer 0 % (0-5); Neutrophil # 9.69 X10^3/uL (2.7-7.7); Neutrophil % 90.2 % (47-70); POSITIVE DIFFERENTIAL YES; POSITIVE MORPHOLOGY YES; Platelet Count 216 K/mm3 (150-450); RBC Distribution Width CV 21.1 % (11.6-14.6); RBC Distribution Width SD 57.7 fl (35.1-43.9); Red Blood Count 4.16 M/mm3 (4.2-5.4); White Blood Count 10.7 K/mm3 (4.4-11.0)
[2023-07-15 08:29] LABS: Differential Indicated SCAN CRITERIA MET
[2023-07-15 08:50] LABS: ALB/GLOB Ratio 0.5 RATIO (0.9-2.4); AST(SGOT) 19 U/L (15-37); Alanine Aminotransfer ALT/SGPT 21 U/L (13-56); Albumin, Serum 1.8 g/dL (3.2-5.0); Alkaline Phosphatase 91 U/L (45-117); Anion Gap 6 (5-15); BUN 4 mg/dL (7-18); BUN/Creat Ratio 9.9 RATIO (10-20); Calcium,Total 8.3 mg/dL (8.5-10.1); Chloride 109 mmol/L (98-107); EST Glomerular Filtration Rate 165 mL/min (>60); Est Glom Filt Rate - Afr Amer 200 mL/min (>60); Estimated Creatinine Clearance 44.63 ml/min; Globulin 3.6 g/dL (2.2-4.2); Glucose 123 mg/dL (74-106); Magnesium 2.6 mg/dL (1.6-2.6); Phosphorus 2.6 mg/dL (2.5-4.9); Potassium 3.2 mmol/L (3.5-5.1); Protein, Total 5.4 g/dL (6.4-8.2); Sodium Level 136 mmol/L (136-145)
[2023-07-15 08:51] LABS: Partial Thromboplast Time 30.5 Seconds (24.1-36.2)
[2023-07-15 09:03] LABS: Differential Comment SCANNED
--- NOTE | 2023-07-15 09:03 | CT_ITS ---
STUDY: CT ABDOMEN AND PELVIS WITH CONTRAST REASON FOR EXAM: Female, 68 years old. colorectal cancer RADIATION DOSAGE (If Supplied By Facility): CTDIvol = ( 11.02 ) mGy, DLP = ( 239.32 ) mGycm TECHNIQUE: Transaxial images were obtained from the dome of the diaphragm to the symphysis pubis without oral contrast. IV 75mL Isovue-370, GASTROGRAFIN was administered. Sagittal and coronal images were reconstructed. Individualized dose optimization techniques were used for this CT. COMPARISON: 04/16/2023. FINDINGS: Mild bilateral lower lobe atelectasis. Normal cardiac size. Low-attenuation structure at the inferior aspect of the right liver lobe measuring 2.9 x 2.9 cm with Hounsfield units consistent with a cyst and stable in the interval. Low attenuation structure at the anterior aspect of the left liver lobe measuring 4.5 mm, too small to a to characterize, stable in the interval and likely benign such as cyst. Remainder of the liver unremarkable. Normal gallbladder and extrahepatic biliary system. Normal spleen. Normal pancreas. Normal bilateral adrenal glands. Normal right kidney. Normal left kidney. Normal visualized stomach. Multiple loops of small bowel with thickening of the wall seen at the level of the pelvis consistent with enteritis. There is significant thickening of the wall through the distal sigmoid concerning for colitis, a mural lesion or inflammatory neoplasm given history of cancer not excluded. Remainder of the colon is unremarkable. There is non-visualization of the appendix. There is diffuse atherosclerotic calcification of the abdominal aorta, without a demonstrated aneurysm. Normal inferior vena cava. Normal retroperitoneum. Normal urinary bladder. There is mild diffuse fluid infiltration of the subcutaneous fat consistent with anasarca. There are diffuse degenerative changes of the visualized lumbar spine. CT/Abdomen/Pelvis WITH Contrast IMPRESSION: Findings consistent with enteritis more significant at the level of the pelvis. Distal sigmoid colitis and possible proctitis. Cannot exclude distal colonic inflammatory neoplasm given history of colorectal cancer, clinical correlation recommended. Mild anasarca. Stable cystic appearing lesions within the liver, if indicated, follow-up with right upper quadrant ultrasound recommended to confirm benign cyst. Remainder of abdominal viscera are unremarkable. Electronically Signed: Kamla Alex MD at 20:41 EST ,
[2023-07-15] MEDS: Cefepime HCl 1 GM in 0.9% Normal Saline (50mL MB+) 50 ML IV (09:14)
[2023-07-15] MEDS: Potassium Chloride Oral Tablet 10 MEQ 20 MEQ PO ×2 (09:17→16:16)
[2023-07-15] MEDS: TBO-FILGRASTIM 300 MCG/0.5 ML ML SC (09:21)
[2023-07-15] MEDS: NYSTATIN 500,000 UNIT/5 ML UDC 500000 UNIT PO ×3 (09:21→21:08)
[2023-07-15 09:33] LABS: Pathologist Review Reviewed
[2023-07-15] MEDS: Metoclopramide 5 MG TABLET PO (09:56)
[2023-07-15] MEDS: Lactated Ringers 1,000 ML 15 ML IV (13:30)
--- NOTE | 2023-07-15 14:00 | IMM_PTH ---
PATHOLOGY RESULTS PATIENT: VAN REYNOSO LOC: MS3 U#:[id number] AGE/SX: 68/F ROOM: [facility] RE07/11/[address]: Dr. Yumiko Frank MD : 1955 BED: 1 DIS: 07/20/2023 SPEC #: [id number] RECD: 07/16/23 14:06 STATUS: TOÑO REKatelynn #: [id number] PAOLA: 07/15/23 14:[address]: Oliver Gunderson DEPT: IMMUNOHISTOCHEMISTRY RECD BY: Sridevi Sandoval ENTERED: 07/16/23 14:06 SP TYPE: IMMUNO OTHR DR: MD Dr. Cholo Silva MD Dr. Paige Pierce, MD Dr. Zachary Boyd, MD Tissues: Stomach, NOS Colon, NOS Procedures: H Pylori (initial) SMA (add) MSH2 (add) MLH-1 (add) MSH6 (add) Anti-PMS2 (add) CK20 (add) CK7 (add) DESMIN (add) HER2 NAVIN (add) KI-67 (add) P53 (add) SMM (add) Pankeratin (initial) CDX2 (add) MOC-31 (add) PHYSICIAN & [place] [id number] SPECIMEN INFORMATION: Tissue Source: B - Gastric ulcer, D - Malignant stricture Clinical Info: Colon cancer, proctitis, malignant stricture, gastric/duodenal ulcers Specimen Number: [id number] B & D CPT code: 20468 x2, 16098 x14 METHODOLOGY: Deparaffinized sections of prefer/formalin-fixed tissue or PAP/DQ stained slides are incubated with monoclonal/polyclonal antibodies/oligonucleotide probes. Localization is made via biotin free immunoperoxidase method. Appropriate controls are performed and reacted as expected. Results on target cell population are indicated in the following table: RESULTS: ANTIBODY / CLONE RESULT Block B H Pylori (polyclonal) negative Block D Her-2neu (CB11) negative MOC-31 (4561) positive MLH-1 (M1) positive MSH2 (25D12) positive MSH6 (44) positive PMS2 (SYH4009) positive Ki-67 (30-9) positive, rare P53 (DO-7) positive, intermediate pattern Actin (1A4) positive, variable Myosin (simms1) positive, variable Desmin (CE-R-11) positive AE1-3 (AE1/AE3/PCK26) positive CK7 (OV-TL12/30) negative CK20 (KS20.8) positive CDX2 (LZN0494W) positive These tests were developed and their performance characteristics determined by [facility]. They may not have been cleared or approved by the U.S. Food and Drug Administration. The FDA has determined that such clearance or approval is not necessary. The above immunohistochemical/dualISH markers are ordered and reviewed by the Pathologist. INTERPRETATION: B. Gastric ulcer, biopsy: Negative for Helicobacter pylori organisms. D. Malignant stricture, biopsy: Invasive well differentiated adenocarcinoma. Result of Microsatellite Instability Study: Negative (no loss of mismatch protein; no microsatellite instability detected). AM:ayla 07/18/2023 Case has been reviewed in consultation with Dr. Elizondo who concurs with the above diagnosis. IDC:SJ
--- NOTE | 2023-07-15 14:00 | COLBX_PTH ---
PATHOLOGY RESULTS PATIENT: VAN REYNOSO LOC: MS3 U#:[id number] AGE/SX: 68/F ROOM: [facility] RE07/11/[address]: Dr. Yumiko Frank MD : 1955 BED: 1 DIS: 07/20/2023 SPEC #: [id number] RECD: 07/16/23 11:30 STATUS: TOÑO HAWKINS #: [id number] PAOLA: 07/15/23 14:[address]: Oliver Gunderson DEPT: SURGICAL PATHOLOGY RECD BY: Jami Sr ENTERED: 07/16/23 11:32 SP TYPE: COLON BX OTHR DR: MD Dr. Cholo Silva MD Dr. Paige Pierce, MD Dr. Rahsaan Friend, DO Dr. Zachary Boyd, MD Tissues: Duodenum, NOS Gastric mucous membrane Esophageal mucous membrane COLON BIOPSY Small intestine biopsy COLON BIOPSY Procedures: Special Stain Group I Surgery Specimen Level IV GMS Stain (control) Comments: @ Ordering doctor for SUIV edited from to @ by RGOOD at 07/16/23 1407 @ Submitting doctor edited from to @ by RGOOD at 07/16/23 1407 HEADER OPERATION: Colonoscopy with biopsies and dilatation and EGD with biopsy PRE-OP DIAGNOSIS: Colon cancer, proctitis, malignant stricture, gastric/duodenal ulcers TISSUE SUBMITTED: A - Duodenum ulcer biopsy, B - Gastric ulcer biopsy, C - Random esophagus biopsy, D - Malignant stricture biopsy, E - Small bowel biopsy, F - Random colon biopsy MICROSCOPIC DIAGNOSIS A. Duodenal ulcer, biopsy: Ulceration with associated acute and chronic inflammation and granulation. Fibrinopurulent material. Fungal organisms consistent with Norah. See comment. B. Gastric ulcer, biopsy: Chronic gastritis. See comment. C. Esophagus, random biopsy: Fragments of benign squamous mucosa. No evidence of inflammation. D. Malignant stricture, not otherwise specified, biopsy: Invasive well differentiated adenocarcinoma. See comment. E. Small bowel, biopsy: Ulceration with associated acute and chronic inflammation and granulation. F. Colon, random biopsy: Focal acute colitis. Mild melanosis coli. See comment. AM:ayla 07/17/2023 COMMENT A. GMS stain with matched control was used in the evaluation of this case. B. The results of immunohistochemistry for Helicobacter pylori will be reported separately ([id number]). D. Immunohistochemistry ([id number]) supports the above diagnosis. F. Rare cryptitis is identified. Case has been reviewed in consultation with Dr. Elizondo who concurs with the above diagnosis. IDC:KARRI MICROSCOPIC DESCRIPTION Slides are reviewed. GROSS DESCRIPTION A - Received in fixative is one container labeled with the patient's name and designated duodenal ulcer biopsy. The specimen consists of two irregular fragments of light keys soft tissue that in aggregate measure 0.6 x 0.3 x 0.1 cm. The specimen is totally submitted in one cassette. B - Received in fixative is one container labeled with the patient's name and designated gastric ulcer biopsy. The specimen consists of two irregular fragments of light keys soft tissue that in aggregate measure 0.8 x 0.3 x 0.1 cm. The specimen is totally submitted in one cassette. C - Received in fixative is one container labeled with the patient's name and designated random esophagus biopsy. The specimen consists of two irregular fragments of light keys soft tissue that in aggregate measure 1.0 x 0.5 x 0.1 cm. The specimen is totally submitted in one cassette. D - Received in fixative is one container labeled with the patient's name and designated malignant stricture biopsy. The specimen consists of multiple irregular fragments of light keys soft tissue that in aggregate measure 2.0 x 0.6 x 0.1 cm. The specimen is totally submitted in one cassette. E - Received in fixative is one container labeled with the patient's name and designated small bowel biopsy. The specimen consists of two irregular fragments of light keys soft tissue that in aggregate measure 0.6 x 0.3 x 0.1 cm. The specimen is totally submitted in one cassette. F - Received in fixative is one container labeled with the patient's name and designated random colon biopsy. The specimen consists of multiple irregular fragments of light keys soft tissue that in aggregate measure 2.0 x 0.5 x 0.1 cm. The specimen is totally submitted in one cassette. / KARRI:ayla 07/16/2023 TC:0 CPT: 94675 x6, 10657
--- NOTE | 2023-07-15 15:29 | OP.EGD_ITS ---
Patient Name: Ximena Chow Procedure Date: 07/15/2023 2:46 PM Date of : 1955 Age: 68 Procedure: Upper GI endoscopy Indications: Epigastric abdominal pain, Iron deficiency anemia, Functional Dyspepsia Providers: Oliver Gunderson DO Medicines: Monitored Anesthesia Care Patient Profile: This is a 68 year old female. Refer to note in patient chart for documentation of history and physical. Patient has symptoms of acute global abdominal pain and acute dyspepsia. Complications: No immediate complications. Procedure: Pre-Anesthesia Assessment: - Prior to the procedure, a History and Physical was performed, and patient medications and allergies were reviewed. The patient is competent. The risks and benefits of the procedure and the sedation options and risks were discussed with the patient. All questions were answered and informed consent was obtained. Patient identification and proposed procedure were verified by the physician in the pre-procedure area. Mental Status Examination: alert and oriented. Airway Examination: normal oropharyngeal airway and neck mobility. Respiratory Examination: clear to auscultation. CV Examination: normal. Prophylactic Antibiotics: The patient does not require prophylactic antibiotics. Prior Anticoagulants: The patient has taken no anticoagulant or antiplatelet agents. ASA Grade Assessment: III - A patient with severe systemic disease. After reviewing the risks and benefits, the patient was deemed in satisfactory condition to undergo the procedure. The anesthesia plan was to use monitored anesthesia care (MAC). Immediately prior to administration of medications, the patient was re-assessed for adequacy to receive sedatives. The heart rate, respiratory rate, oxygen saturations, blood pressure, adequacy of pulmonary ventilation, and response to care were monitored throughout the procedure. The physical status of the patient was re-assessed after the procedure. After obtaining informed consent, the endoscope was passed under direct vision. Throughout the procedure, the patient's blood pressure, pulse, and oxygen saturations were monitored continuously. The gastroscope was introduced through the mouth, and advanced to the second part of duodenum. The upper GI endoscopy was accomplished without difficulty. The patient tolerated the procedure well. Scope In: 2:47:43 PM Scope Out: 2:54:46 PM Total Procedure Duration Time 0 hours 7 minutes 3 seconds Findings: Diffuse glycogenic acanthosis was found in the entire esophagus. Biopsies were taken with a cold forceps for histology. Verification of patient identification for the specimen was done. Estimated blood loss was minimal. Many non-bleeding linear gastric ulcers with no stigmata of bleeding were found in the gastric body, on the anterior wall of the stomach, on the lesser curvature of the stomach and at the pylorus. The largest lesion was 3 mm in largest dimension. Biopsies were taken with a cold forceps for histology. Verification of patient identification for the specimen was done. Estimated blood loss was minimal. Biopsies were taken with a cold forceps for Helicobacter pylori testing. Verification of patient identification for the specimen was done. Estimated blood loss was minimal. Many oozing cratered duodenal ulcers with a visible vessel were found in the duodenal bulb, in the first portion of the duodenum and in the second portion of the duodenum. The largest lesion was 5 mm in largest dimension. Area was successfully injected with 5 mL of a 0.1 mg/mL solution of epinephrine for drug delivery. Coagulation for hemostasis using heater probe was successful. Estimated blood loss was minimal. Three non-bleeding cratered duodenal ulcers with no stigmata of bleeding were found in the duodenal bulb. The largest lesion was 8 mm in largest dimension. Biopsies were taken with a cold forceps for histology. Verification of patient identification for the specimen was done. Estimated blood loss was minimal. Impression: - Glycogenic acanthosis of the esophagus. Biopsied. - Non-bleeding gastric ulcers with no stigmata of bleeding. Biopsied. - Oozing duodenal ulcers with a visible vessel. Injected. Treated with a heater probe. - Non-bleeding duodenal ulcers with no stigmata of bleeding. Biopsied. Recommendation: - [facility]. - Advance diet as tolerated. - Give Protonix (pantoprazole): initiate therapy with 80 mg IV bolus, then 8 mg/hr IV by continuous infusion. - Continue present medications. Procedure Code(s): --- Professional --- 50896, 59, Esophagogastroduodenoscopy, flexible, transoral; with control of bleeding, any method 07866, Esophagogastroduodenoscopy, flexible, transoral; with biopsy, single or multiple 75060, 59, Esophagogastroduodenoscopy, flexible, transoral; with directed submucosal injection(s), any substance CPT copyright 2021 [employer]. All rights reserved. The codes documented in this report are preliminary and upon clerk television production review may be revised to meet current compliance requirements. Oliver Gunderson DO 07/15/2023 3:28:48 PM This report has been signed electronically. Number of Addenda: 0 Note Initiated On: 07/15/2023 2:46 PM
--- NOTE | 2023-07-15 15:29 | OP.CCLET_ITS ---
07/15/2023 Mike Salvador Md Re : Upper GI endoscopy procedure for Ximena Chow [place] This procedure was performed on Saturday, July 15, 2023. My impressions and recommendations are as follows: Impressions : - Glycogenic acanthosis of the esophagus. Biopsied. - Non-bleeding gastric ulcers with no stigmata of bleeding. Biopsied. - Oozing duodenal ulcers with a visible vessel. Injected. Treated with a heater probe. - Non-bleeding duodenal ulcers with no stigmata of bleeding. Biopsied. Recommendations : - [facility]. - Advance diet as tolerated. - Give Protonix (pantoprazole): initiate therapy with 80 mg IV bolus, then 8 mg/hr IV by continuous infusion. - Continue present medications. My findings are described in the full procedure note, which is enclosed. If I can be of further assistance, please feel free to contact me at . Sincerely, Oliver Gunderson, 07/15/2023 3:28:48 PM This report has been signed electronically.
--- NOTE | 2023-07-15 15:34 | OP.COLON_ITS ---
Patient Name: Ximena Chow Procedure Date: 07/15/2023 2:00 PM Date of : 1955 Age: 68 Procedure: Colonoscopy Indications: Colorectal cancer, Abnormal CT of the GI tract Providers: Oliver Gunderson DO Medicines: Monitored Anesthesia Care Patient Profile: This is a 68 year old female. Refer to note in patient chart for documentation of history and physical. Last Colonoscopy: within the past 3 months. Complications: No immediate complications. Procedure: Pre-Anesthesia Assessment: - Prior to the procedure, a History and Physical was performed, and patient medications and allergies were reviewed. The patient is competent. The risks and benefits of the procedure and the sedation options and risks were discussed with the patient. All questions were answered and informed consent was obtained. Patient identification and proposed procedure were verified by the physician in the pre-procedure area. Mental Status Examination: alert and oriented. Respiratory Examination: clear to auscultation. CV Examination: normal. Prophylactic Antibiotics: The patient does not require prophylactic antibiotics. Prior Anticoagulants: The patient has taken no anticoagulant or antiplatelet agents. ASA Grade Assessment: III - A patient with severe systemic disease. After reviewing the risks and benefits, the patient was deemed in satisfactory condition to undergo the procedure. The anesthesia plan was to use monitored anesthesia care (MAC). Immediately prior to administration of medications, the patient was re-assessed for adequacy to receive sedatives. The heart rate, respiratory rate, oxygen saturations, blood pressure, adequacy of pulmonary ventilation, and response to care were monitored throughout the procedure. The physical status of the patient was re-assessed after the procedure. After I obtained informed consent, the scope was passed under direct vision. Throughout the procedure, the patient's blood pressure, pulse, and oxygen saturations were monitored continuously. The adult colonoscope was introduced through the anus and advanced to the terminal ileum. The colonoscopy was performed without difficulty. The patient tolerated the procedure well. The quality of the bowel preparation was adequate. Scope In: 2:58:45 PM Scope Withdrawal Time 0 hours 5 minutes 11 seconds Scope Out: 3:19:41 PM Total Procedure Duration Time 0 hours 20 minutes 56 seconds Findings: Hemorrhoids were found on perianal exam. Non-bleeding external and internal hemorrhoids were found during retroflexion. The hemorrhoids were Grade II (internal hemorrhoids that prolapse but reduce spontaneously). A malignant-appearing, intrinsic severe stenosis measuring 6 cm (in length) x 2 mm (inner diameter) was found in the sigmoid colon and was traversed after dilation. Biopsies were taken with a cold forceps for histology. Verification of patient identification for the specimen was done. Estimated blood loss was minimal. A TTS dilator was passed through the scope. Dilation with a 15 mm colonic balloon dilator was performed. The dilation site was examined and showed moderate improvement in luminal narrowing. Estimated blood loss was minimal. An area of mildly congested mucosa was found in the sigmoid colon, in the descending colon and at the splenic flexure. Biopsies were taken with a cold forceps for histology. Verification of patient identification for the specimen was done. Estimated blood loss was minimal. Diffuse severe inflammation characterized by altered vascularity, erythema, friability, granularity and mucus was found in the distal ileum and in the terminal ileum. Biopsies were taken with a cold forceps for histology. Verification of patient identification for the specimen was done. Estimated blood loss was minimal. Impression: - Hemorrhoids found on perianal exam. - Non-bleeding external and internal hemorrhoids. - Stricture in the sigmoid colon. Biopsied. Dilated. - Congested mucosa in the sigmoid colon, in the descending colon and at the splenic flexure. Biopsied. - Severe inflammation was found in the ileum secondary to ileitis. Biopsied. Recommendation: - Return patient to [facility]. - Resume previous diet. - Continue present medications. - Await pathology results. - Repeat colonoscopy. Procedure Code(s): --- Professional --- 74339, Colonoscopy, flexible; with transendoscopic balloon dilation 34194, Colonoscopy, flexible; with biopsy, single or multiple CPT copyright 2021 [employer]. All rights reserved. The codes documented in this report are preliminary and upon brake specialist review may be revised to meet current compliance requirements. Oliver Gunderson DO 07/15/2023 3:33:34 PM This report has been signed electronically. Number of Addenda: 0 Note Initiated On: 07/15/2023 2:00 PM
--- NOTE | 2023-07-15 15:34 | OP.CCLET_ITS ---
07/15/2023 Mike Salvador Md Re : Colonoscopy procedure for Ximena Chow [place] This procedure was performed on Saturday, July 15, 2023. My impressions and recommendations are as follows: Impressions : - Hemorrhoids found on perianal exam. - Non-bleeding external and internal hemorrhoids. - Stricture in the sigmoid colon. Biopsied. Dilated. - Congested mucosa in the sigmoid colon, in the descending colon and at the splenic flexure. Biopsied. - Severe inflammation was found in the ileum secondary to ileitis. Biopsied. Recommendations : - [facility]. - Resume previous diet. - Continue present medications. - Await pathology results. - Repeat colonoscopy. My findings are described in the full procedure note, which is enclosed. If I can be of further assistance, please feel free to contact me at . Sincerely, Oliver Gunderson, 07/15/2023 3:33:34 PM This report has been signed electronically.
--- NOTE | 2023-07-15 17:18 | NURSING ---
1700-pt started ct contrast
--- NOTE | 2023-07-15 19:22 | NURSING ---
1855-off unit via bed for ct scan
[2023-07-15] MEDS: Heparin Injection (Vial) 5,000 UNIT/ML VIAL 5000 UNIT SC (20:09)
[2023-07-16 05:00] VITALS: BP 112/69; PULSE 79; RESP 16; TEMP 36.8; O2SAT 98
[2023-07-16 05:03] VITALS: BMI 18.5
[2023-07-16 06:18] LABS: Absolute Lymphocyte Count 0.34 X10^3/uL (0.83-4.51); Basophil# 0.01 X10^3/uL; Basophil% 0.1 % (0-1); Eosinophil# 0.16 X10^3/uL; Eosinophils% 1.2 % (0-5); Hematocrit 30.2 % (37-47); Hemoglobin 10.4 g/dL (12.0-15.0); Lymphocyte # 0.34 X10^3/ul (0.83-4.51); Lymphocyte % 2.5 % (19-41); Mean Corp Hgb Conc 34.4 g/dL (32-36); Mean Corpuscular Hgb 28.3 pg (27.0-32.0); Mean Corpuscular Volume 82.3 fL (81-99); Mean Platelet Vol. 9.1 fl (6.2-12.0); Monocyte# 0.67 X10^3/uL; NRBC Flagged by Analyzer 0 % (0-5); Neutrophil # 12.01 X10^3/uL (2.7-7.7); Neutrophil % 89.7 % (47-70); POSITIVE DIFFERENTIAL YES; POSITIVE MORPHOLOGY YES; Platelet Count 173 K/mm3 (150-450); RBC Distribution Width SD 57.2 fl (35.1-43.9); Red Blood Count 3.67 M/mm3 (4.2-5.4); White Blood Count 13.4 K/mm3 (4.4-11.0)
[2023-07-16 06:22] LABS: Differential Indicated SCAN CRITERIA MET
[2023-07-16 06:51] LABS: ALB/GLOB Ratio 0.5 RATIO (0.9-2.4); AST(SGOT) 32 U/L (15-37); Alanine Aminotransfer ALT/SGPT 30 U/L (13-56); Albumin, Serum 1.6 g/dL (3.2-5.0); Alkaline Phosphatase 116 U/L (45-117); Anion Gap 4 (5-15); BUN 4 mg/dL (7-18); BUN/Creat Ratio 9.9 RATIO (10-20); Calcium,Total 7.9 mg/dL (8.5-10.1); Chloride 105 mmol/L (98-107); EST Glomerular Filtration Rate 166 mL/min (>60); Est Glom Filt Rate - Afr Amer 201 mL/min (>60); Estimated Creatinine Clearance 44.52 ml/min; Globulin 3.1 g/dL (2.2-4.2); Glucose 99 mg/dL (74-106); Magnesium 2.2 mg/dL (1.6-2.6); Phosphorus 2.6 mg/dL (2.5-4.9); Potassium 3.1 mmol/L (3.5-5.1); Protein, Total 4.7 g/dL (6.4-8.2); Sodium Level 136 mmol/L (136-145)
--- NOTE | 2023-07-16 07:58 | PN.HOSP_ITS ---
Reason for Visit Reason for Visit: Diagnoses Neutropenia, unspecified (07/11/23) Fever presenting with conditions classified elsewhere (07/11/23) Subjective Subjective Still having diarrhea but is slowing down, feeling better than yesterday Objective Data Objective Data Vital Signs: Vital Signs Temp Pulse Resp BP Pulse Ox O2 Del Method O2 Flow Rate 98.2 F 79 16 112/69 98 Room Air 2 07/16/23 05:00 07/16/23 05:00 07/16/23 05:00 07/16/23 05:00 07/16/23 05:00 07/16/23 05:00 07/12/23 00:39 Oxygen Flow Rate (L/min) 2 Oxygen Delivery Method Room Air Weight: 43.1 kg Body Mass Index (BMI) 18.5 Intake & Output: Intake and Output for Last 24 Hours 07/14/23 07/15/23 07/16/23 23:59 23:59 23:59 Intake Total 3732.4133 / 3732.4133 2737.92 / 2737.92 Balance 3732.4133 / 3732.4133 2737.92 / 2737.92 Medical Nutrition Assessment Dietitian: Malnutrition Criteria Met Start: 07/12/23 15:48 Freq: Status: Active Protocol: Document 07/14/23 15:23 RMA (Rec: 07/14/23 15:23 RMA [id number]) Nutrition Malnutrition Evidence of Malnutrition Exists Yes Malnutrition (severe): Chronic Evidenced By Suboptimal Energy Intake ( Severe),Weight Loss (Severe) Clinical Problem Chronic Disease or Condition Related Malnutrition Etiology Severe protein-calorie malnutrition in the context of chronic disease/cancer related to inadequate energy/ oral intake and altered GI function/diarrhea and nausea/ vomiting Signs/Symptoms as evidenced by ~7% unintentional weight loss x 1 month, BMI 18.3 and PO meeting less than 50% estimated nutrition needs x 1 month Status Active Problem Recommendation Dietitian Recommendations/Changes Will continue liberalized regular diet as tolerated. Will continue 120mL ensure plus HP 4 times per day w/ medpass as tolerated. Will continue 240mL ensure clear TID w/ meals for tolerance. Current weight as able. Lab / Micro Data 07/16/23 05:50 07/16/23 05:50 Labs: Laboratory Results - last 24 hr 07/11/23 15:10: Diff Path Review Reviewed 07/15/23 07:45: WBC 10.7, RBC 4.16 L, Hgb 11.5 L, Hct 34.0 L, MCV 81.7, MCH 27.6, MCHC 33.8, RDW Std Deviation 57.7 H, RDW Coeff of John 21.1 H, Plt Count 216, MPV 9.5, Immature Gran % (Auto) 1.300 H, Neut % (Auto) 90.2 H, Lymph % (Auto) 2.4 L, [place] % (Auto) 5.8, Eos % (Auto) 0.3, Baso % (Auto) 0.0, Absolute Neuts (auto) 9.7 H, Absolute Lymphs (auto) 0.26 L, Nucleated RBC % 0, Differential Comment SCANNED, APTT 30.5, Sodium 136, Potassium 3.2 L, Chloride 109 H, Carbon Dioxide 21.0, Anion Gap 6, BUN 4 L, Creatinine 0.40 L, Estim Creat Clear Calc 44.63, Est GFR (MDRD) Af Amer 200, Est GFR (MDRD) Non-Af 165, BUN/Creatinine Ratio 9.9 L, Glucose 123 H, Calcium 8.3 L, Phosphorus 2.6, Magnesium 2.6, Total Bilirubin 0.40, AST 19, ALT 21, Alkaline Phosphatase 91, Total Protein 5.4 L, Albumin 1.8 L, Globulin 3.6, Albumin/Globulin Ratio 0.5 L 07/16/23 05:50: WBC 13.4 H, RBC 3.67 L, Hgb 10.4 L, Hct 30.2 L, MCV 82.3, MCH 28.3, MCHC 34.4, RDW Std Deviation 57.2 H, RDW Coeff of John 21.0 H, Plt Count 173, MPV 9.1, Immature Gran % (Auto) 1.500 H, Neut % (Auto) 89.7 H, Lymph % (Auto) 2.5 L, [place] % (Auto) 5.0, Eos % (Auto) 1.2, Baso % (Auto) 0.1, Absolute Neuts (auto) 12.0 H, Absolute Lymphs (auto) 0.34 L, Nucleated RBC % 0, Sodium 136, Potassium 3.1 L, Chloride 105, Carbon Dioxide 27.0, Anion Gap 4 L, BUN 4 L, Creatinine 0.40 L, Estim Creat Clear Calc 44.52, Est GFR (MDRD) Af Amer 201, Est GFR (MDRD) Non-Af 166, BUN/Creatinine Ratio 9.9 L, Glucose 99, Calcium 7.9 L, Phosphorus 2.6, Magnesium 2.2, Total Bilirubin 0.50, AST 32, ALT 30, Alkaline Phosphatase 116, Total Protein 4.7 L, Albumin 1.6 L, Globulin 3.1, Albumin/Globulin Ratio 0.5 L Micro: Microbiology 07/11/23 15:00 Blood Culture (Wb) - Left Forearm Blood Culture - Preliminary No growth in 48 hours. 07/11/23 15:15 Blood Culture (Wb) - Left Forearm Blood Culture - Preliminary No growth in 48 hours. 07/11/23 15:24 Urine, Catheterized Urine Culture - Final Culture exhibits no growth. 07/11/23 20:00 Stool Enteric Bacteriology - Final 07/11/23 20:00 Stool Clostridioides difficile (PCR) - Final 07/11/23 19:50 Mucosa - Nasopharyngeal Respiratory Panel (PCR) - Final 07/11/23 17:00 Mucosa - Nose SARS-CoV-2, Influenza & RSV (PCR) - Final Radiography Diagnostic Testing: Radiology Impression Abdomen/Pelvis CT 07/15/23 09:03 IMPRESSION: Findings consistent with enteritis more significant at the level of the pelvis. Distal sigmoid colitis and possible proctitis. Cannot exclude distal colonic inflammatory neoplasm given history of colorectal cancer, clinical correlation recommended. Mild anasarca. Stable cystic appearing lesions within the liver, if indicated, follow-up with right upper quadrant ultrasound recommended to confirm benign cyst. Remainder of abdominal viscera are unremarkable. Electronically Signed: Kamla Alex MD at 20:41 EST , Physical Exam Narrative General: Alert, oriented, no apparent distress HEENT: Atraumatic, normocephalic Eyes: Anicteric, normal conjunctiva, extraocular movements grossly intact Neck: Supple Respiratory: Clear to auscultation bilaterally, normal respiratory effort Cardiovascular: Regular rate and rhythm GI: Soft, improved tenderness without rebound, guarding, rigidity, no distention Extremities: No edema Musculoskeletal: Moving all extremities Neuro: No overt focal neurological deficits Skin: No rashes appreciated Psych: Cooperative Assessment & Plan Assessment/Plan (1) Neutropenia with fever: PLAN: Plan The patients is a 68 y/o Andrei F Was admitted through ER for persistent more than 10 loose watery bowel movement per day since past 07/06/2023 she denied black or maroon-colored stool but have thirsty dry mouth and lightheadedness. Mild abdominal discomfort and bloating. She started chemotherapy and radiation therapy on June 11 for moderately differentiated rectal adenocarcinoma. Last chemotherapy was 1 week ago. Last radiotherapy on Friday. #Intractable diarrhea, Neutropenic fever- found to have ileitis, sigmoid congestion and stricture, duodenal and gastric ulcers -Patient is being admitted to [facility] floor. Tmax 100.8 Fahrenheit. Vigorous IV fluid rehydration. Stool for enteric bacteriology panel, C. difficile negative. Respiratory panel, SARS-CoV-2 influenza and RSV PCR negative. Seems chemotherapeutic adverse effect/possible mucositis. Procalcitonin 0.42. Clinical picture does not suggest sepsis. Sepsis ruled out. Chest x-ray new lesion does not show acute infiltrate. Blood cultures x 2 and urine culture pending. UA WBC negative RBC negative, LE and nitrite negative. Patient on IV cefepime 2 g every 12 hourly. I think with patient being immunosuppressed with possibility of mucositis there is high possibility of getting C. difficile therefore IV antibiotic discontinued. Probiotic started. Supportive management. 07/13: Patient having low-grade fever, Tmax 100.4 Fahrenheit, no tachycardia. WBC count is 6.5 thousand. ALC 0.17 thousand. ANC 5.2 thousand. 2 more day of Neupogen tomorrow AM. As patient is spiked fever even the low-grade and ANC 5.2 collagen but with mucositis the risk for bacterial translocation therefore discussed with the oncologist Dr. Orellana. Decided to restart 6 cefepime 1 g every 12 hourly for 2 more days. Blood cultures x 2 so far negative. -07/14: Patient still having 8-12 loose watery bowel movements a day with inability to maintain electrolytes, nutrition, hydration without external support. GI consulted for assistance with managing intractable diarrhea given patient admitted 3 days ago and not improving and multiple electrolyte derangements, will resume fluids with LR. Last elevated temperature was morning of 07/13 with a temp of 100.4. Patient is still on cefepime -07/15: Patient to complete cefepime today, GI evaluated, patient for upper and lower endoscopy today and also repeat CT scan of abdomen. Octreotide 3 times daily recommended by oncology however patient now pending GI workup this will need to be determined pending studies. On LR -07/16: Upper endoscopy with oozing duodenal ulcers as well as nonbleeding gastric and duodenal ulcers and colonoscopy with congested sigmoid mucosa stricture which was biopsied as well as severe inflammation in the ileum secondary to ileitis, started on Protonix bolus and drip per GI recs, started on clear liquid diet, discussed with GI regarding oncology recommendations and octreotide has been started #Moderately differentiated adenocarcinoma, rectal cancer with pancytopenia (neutropenia, normocytic anemia, thrombocytopenia) with neutropenic fever : Patient with 04/09/2023 evaluation with noted napkin ring lesion 12 to 15 cm from the anal verge with biopsy demonstrating moderately differentiated adenocarcinoma at 15 cm, CT scan chest/abdomen/pelvis 04/16/2023 with a mass at the sigmoid colon with luminal narrowing, CEA 50.9 with treatment then at [facility]. MRI of the pelvis 05/07/2023 with a rectal mass 12 cm from the anal verge with no pelvic lymphadenopathy DM T4a N0. Patient started neoadjuvant therapy with combined chemotherapy-Xeloda and radiation therapy on 06/11/2023. Patient following with Dr. Orellana with last visit 07/09/23 now week 5 with report of ongoing issues with diarrhea and need for IV fluids and electrolyte supplementations. ED magnesium 1.7, phosphorus level will be requested. CBC upon presentation with WBC 1.4, hemoglobin 11.4, MCV 83, platelet unfortunately unable to be obtained secondary to clumping, repeat CBC in AM. May certainly involve oncology if necessary. 07/12: Bands 14%. ANC 1.6 thousand. ALC 0.42 thousand. Total leukocyte improving. Platelet count normal. Hemoglobin around 10 g%. 07/13: As mentioned above. -07/14: Hemoglobin remained stable at 10.4, no thrombocytopenia, white blood cell count improving -07/15: Family indicated that patient's radiation oncologist evaluated this a.m., patient has also been discussed with her oncologist Dr. Orellana, additionally undergoing GI workup -07/16: Repeat CT demonstrated enteritis most significant at the level of the pelvis #Hypokalemia: Admission K+ 3.2, magnesium level as noted 1.7, supplementation given 07/12: Patient has hypophosphatemia and magnesium on lower side. IV potassium phosphate ordered and given. IV magnesium sulfate ordered. 07/13: Severe hypokalemia and hypophosphatemia. Electrolyte ordered. On IV fluid Ringer lactate. Encouraged oral supplementation. -07/14: Continue to aggressively replace, will start LR and continue potassium 20 3 times daily in addition to additional oral and IV -07/15: Slightly better today, continue aggressive replacement and managing underlying illness -07/16: Potassium 3.1, replaced #Hyponatremia, suspected hypovolemic given GI losses: Admission CMP obtained per hospitalist with noted sodium 131, chloride 104, will continue hydration and repeat CMP in AM. 07/13 serum sodium 134 improving. -07/14: Resolved #Hyperglycemia without diabetic history: Admission glucose 159, likely stress response however to be cautious we will obtain hemoglobin A1c. -07/14: A1c 5.6 # DVT prophylaxis: Heparin. Time spent in the patient's overall evaluation,decision-making process, review of diagnostic data, adjustment of management, discussion with other providers, nursing nursing and ancillary staff involved in patient's care documentation, 35 minutes Capacity Legal Regional Education Coordinator Reflex Medical hold order details:: IF a medical hold is selected below, a suggested order for a MEDICAL HOLD will reflex upon signing the document. Next of kin: [place] law dictates a PRIORITY LIST for identifying legal decision-maker/legal next of kin in the following order (LNOK): 1st: The patient?s legal guardian, if any 2nd: The patient's spouse (if status is questionable, consult Risk Management) 3rd: The patient?s adult child(shelbi) (majority, if multiple children) 4th: The patient?s parents 5th: The patient?s adult siblings (majority, if multiple children siblings) Charges/Coding Visit Charges Inpatient E&M: 62179 Subs Hosp L2
[2023-07-16 08:27] VITALS: BP 114/63; PULSE 82; RESP 18; TEMP 36.8; O2SAT 100
[2023-07-16] MEDS: Potassium Chloride Oral Tablet 10 MEQ 20 MEQ PO ×3 (08:43→17:04)
[2023-07-16] MEDS: 0.9% Normal Saline (250mL Bag) 250 ML 15 ML IV ×2 (08:43→08:50)
[2023-07-16] MEDS: Potassium Chloride 10mEq/100mL 10 MEQ/100 ML IV.SOLN. 100 MEQ IV BOLUS (08:43)
[2023-07-16] MEDS: 0.9% Saline Lock 10 ML Syringe IV (08:54)
[2023-07-16] MEDS: Pantoprazole Sodium 80 MG in 0.9% Normal Saline (50mL Bag) 15 ML 420 MG IV BOLUS (09:20)
[2023-07-16] MEDS: Pantoprazole Sodium 80 MG in 0.9% Normal Saline (100mL Bag) 80 ML 10 MG CONT INF ×2 (09:48→22:35)
[2023-07-16 11:02] VITALS: BP 114/66; PULSE 72; RESP 14; TEMP 36.8; O2SAT 100
[2023-07-16] MEDS: Potassium Chloride 10mEq/100mL 10 MEQ/100 ML IV.SOLN. 50 MEQ IV BOLUS (11:19)
[2023-07-16] MEDS: NYSTATIN 500,000 UNIT/5 ML UDC 500000 UNIT PO ×4 (11:19→22:36)
[2023-07-16] MEDS: Heparin Injection (Vial) 5,000 UNIT/ML VIAL 5000 UNIT SC ×2 (11:23→22:37)
[2023-07-16 14:07] VITALS: BP 111/65; PULSE 85; RESP 16; TEMP 36.9; O2SAT 96
[2023-07-16] MEDS: Octreotide 0.1 MG/ML ML 0.100000000000000006 MG SC ×2 (14:10→22:46)
[2023-07-16 14:20] VITALS: BP 111/61; PULSE 86; RESP 18; TEMP 36.8; O2SAT 93
--- NOTE | 2023-07-16 15:10 | NURSING ---
reviewed student charting
--- NOTE | 2023-07-16 15:12 | NURSING ---
reviewed student charting
[2023-07-16] MEDS: Metoclopramide 5 MG TABLET PO (18:45)
[2023-07-16 22:35] VITALS: BP 124/75; PULSE 86; RESP 16; TEMP 36.9; O2SAT 99
[2023-07-17 05:00] VITALS: BP 109/74; PULSE 73; RESP 16; TEMP 36.8; O2SAT 98
[2023-07-17 05:02] VITALS: BMI 18.3
[2023-07-17] MEDS: Octreotide 0.1 MG/ML ML 0.100000000000000006 MG SC ×3 (05:19→21:16)
[2023-07-17 07:54] LABS: Absolute Lymphocyte Count 0.39 X10^3/uL (0.83-4.51); Absolute Neutrophil Count 4.4 X10^3/uL (2.0-7.7); Basophil# 0.02 X10^3/uL; Basophil% 0.4 % (0-1); Eosinophil# 0.12 X10^3/uL; Eosinophils% 2.2 % (0-5); Hematocrit 34.9 % (37-47); Hemoglobin 11.7 g/dL (12.0-15.0); Lymphocyte # 0.39 X10^3/ul (0.83-4.51); Mean Corp Hgb Conc 33.5 g/dL (32-36); Mean Corpuscular Volume 83.5 fL (81-99); Mean Platelet Vol. 9.8 fl (6.2-12.0); Monocyte# 0.43 X10^3/uL; Monocyte% 7.7 % (0-10); NRBC Flagged by Analyzer 0 % (0-5); Neutrophil # 4.41 X10^3/uL (2.7-7.7); Neutrophil % 79.3 % (47-70); POSITIVE DIFFERENTIAL YES; POSITIVE MORPHOLOGY YES; Platelet Count 180 K/mm3 (150-450); RBC Distribution Width CV 21.4 % (11.6-14.6); RBC Distribution Width SD 62.2 fl (35.1-43.9); Red Blood Count 4.18 M/mm3 (4.2-5.4); White Blood Count 5.6 K/mm3 (4.4-11.0)
[2023-07-17 08:07] LABS: Differential Indicated SCAN CRITERIA MET
[2023-07-17 08:16] VITALS: BP 113/73; PULSE 85; RESP 18; TEMP 36.8; O2SAT 97
[2023-07-17] MEDS: Pantoprazole Sodium 80 MG in 0.9% Normal Saline (100mL Bag) 80 ML 10 MG CONT INF ×2 (08:35→19:58)
[2023-07-17] MEDS: Potassium Chloride Oral Tablet 10 MEQ 20 MEQ PO ×3 (08:35→16:49)
[2023-07-17] MEDS: Heparin Injection (Vial) 5,000 UNIT/ML VIAL 5000 UNIT SC ×2 (08:36→21:16)
[2023-07-17] MEDS: NYSTATIN 500,000 UNIT/5 ML UDC 500000 UNIT PO ×4 (08:36→21:15)
[2023-07-17 08:51] LABS: ALB/GLOB Ratio 0.5 RATIO (0.9-2.4); AST(SGOT) 21 U/L (15-37); Alanine Aminotransfer ALT/SGPT 31 U/L (13-56); Albumin, Serum 1.9 g/dL (3.2-5.0); Alkaline Phosphatase 110 U/L (45-117); Anion Gap 5 (5-15); BUN 5 mg/dL (7-18); BUN/Creat Ratio 8.5 RATIO (10-20); Calcium,Total 8.5 mg/dL (8.5-10.1); Chloride 104 mmol/L (98-107); Creatinine, Serum 0.59 mg/dL (0.55-1.02); EST Glomerular Filtration Rate 108 mL/min (>60); Est Glom Filt Rate - Afr Amer 130 mL/min (>60); Estimated Creatinine Clearance 44.01 ml/min; Globulin 3.8 g/dL (2.2-4.2); Glucose 123 mg/dL (74-106); Magnesium 2.3 mg/dL (1.6-2.6); Phosphorus 2.5 mg/dL (2.5-4.9); Potassium 3.5 mmol/L (3.5-5.1); Protein, Total 5.7 g/dL (6.4-8.2); Sodium Level 134 mmol/L (136-145)
[2023-07-17 08:55] LABS: Differential Comment SCANNED
[2023-07-17 08:57] LABS: Anisocytosis 3+
[2023-07-17 13:21] VITALS: BP 112/66; PULSE 77; RESP 18; TEMP 36.8; O2SAT 95
--- NOTE | 2023-07-17 14:12 | PN.HOSP_ITS ---
Reason for Visit Reason for Visit: Diagnoses Neutropenia, unspecified (07/11/23) Fever presenting with conditions classified elsewhere (07/11/23) Subjective Subjective Progressively improving but does continue to still have diarrhea, willing to ad galvan diet and see how she does, potassium improving Objective Data Objective Data Vital Signs: Vital Signs Temp Pulse Resp BP Pulse Ox O2 Del Method O2 Flow Rate 98.2 F 77 18 112/66 95 Room Air 3 07/17/23 13:21 07/17/23 13:21 07/17/23 13:21 07/17/23 13:21 07/17/23 13:21 07/17/23 13:21 07/16/23 14:20 Oxygen Flow Rate (L/min) 3 Oxygen Delivery Method Room Air Weight: 42.6 kg Body Mass Index (BMI) 18.3 Intake & Output: Intake and Output for Last 24 Hours 07/15/23 07/16/23 07/17/23 23:59 23:59 23:59 Intake Total 2737.92 / 2737.92 1206.75 / 1206.75 100 / 100 Balance 2737.92 / 2737.92 1206.75 / 1206.75 100 / 100 Medical Nutrition Assessment Dietitian: Malnutrition Criteria Met Start: 07/12/23 15:48 Freq: Status: Active Protocol: Document 07/14/23 15:23 RMA (Rec: 07/14/23 15:23 RMA [id number]) Nutrition Malnutrition Evidence of Malnutrition Exists Yes Malnutrition (severe): Chronic Evidenced By Suboptimal Energy Intake ( Severe),Weight Loss (Severe) Clinical Problem Chronic Disease or Condition Related Malnutrition Etiology Severe protein-calorie malnutrition in the context of chronic disease/cancer related to inadequate energy/ oral intake and altered GI function/diarrhea and nausea/ vomiting Signs/Symptoms as evidenced by ~7% unintentional weight loss x 1 month, BMI 18.3 and PO meeting less than 50% estimated nutrition needs x 1 month Status Active Problem Recommendation Dietitian Recommendations/Changes Will continue liberalized regular diet as tolerated. Will continue 120mL ensure plus HP 4 times per day w/ medpass as tolerated. Will continue 240mL ensure clear TID w/ meals for tolerance. Current weight as able. Lab / Micro Data 07/17/23 07:38 07/17/23 07:38 Labs: Laboratory Results - last 24 hr 07/17/23 07:38: WBC 5.6, RBC 4.18 L, Hgb 11.7 L, Hct 34.9 L, MCV 83.5, MCH 28.0, MCHC 33.5, RDW Std Deviation 62.2 H, RDW Coeff of John 21.4 H, Plt Count 180, MPV 9.8, Immature Gran % (Auto) 3.400 H, Neut % (Auto) 79.3 H, Lymph % (Auto) 7.0 L, [place] % (Auto) 7.7, Eos % (Auto) 2.2, Baso % (Auto) 0.4, Absolute Neuts (auto) 4.4, Absolute Lymphs (auto) 0.39 L, Nucleated RBC % 0, Differential Comment SCANNED, Anisocytosis 3+, Sodium 134 L, Potassium 3.5, Chloride 104, Carbon Dioxide 25.0, Anion Gap 5, BUN 5 L, Creatinine 0.59, Estim Creat Clear Calc 44.01, Est GFR (MDRD) Af Amer 130, Est GFR (MDRD) Non-Af 108, BUN/Creatinine Ratio 8.5 L, Glucose 123 H, Calcium 8.5, Phosphorus 2.5, Magnesium 2.3, Total Bilirubin 0.50, AST 21, ALT 31, Alkaline Phosphatase 110, Total Protein 5.7 L, Albumin 1.9 L, Globulin 3.8, Albumin/Globulin Ratio 0.5 L Micro: Microbiology 07/11/23 15:00 Blood Culture (Wb) - Left Forearm Blood Culture - Final No growth in 5 days. 07/11/23 15:15 Blood Culture (Wb) - Left Forearm Blood Culture - Final No growth in 5 days. 07/11/23 15:24 Urine, Catheterized Urine Culture - Final Culture exhibits no growth. 07/11/23 20:00 Stool Enteric Bacteriology - Final 07/11/23 20:00 Stool Clostridioides difficile (PCR) - Final 07/11/23 19:50 Mucosa - Nasopharyngeal Respiratory Panel (PCR) - Final 07/11/23 17:00 Mucosa - Nose SARS-CoV-2, Influenza & RSV (PCR) - Final Physical Exam Narrative General: Alert, oriented, no apparent distress HEENT: Atraumatic, normocephalic Eyes: Anicteric, normal conjunctiva, extraocular movements grossly intact Neck: Supple Respiratory: Clear to auscultation bilaterally, normal respiratory effort Cardiovascular: Regular rate and rhythm GI: Soft, improved tenderness without rebound, guarding, rigidity, no distention Extremities: No edema Musculoskeletal: Moving all extremities Neuro: No overt focal neurological deficits Skin: No rashes appreciated Psych: Cooperative Assessment & Plan Assessment/Plan (1) Neutropenia with fever: PLAN: Plan The patients is a 68 y/o Andrei F Was admitted through ER for persistent more than 10 loose watery bowel movement per day since past 07/06/2023 she denied black or maroon-colored stool but have thirsty dry mouth and lightheadedness. Mild abdominal discomfort and bloating. She started chemotherapy and radiation therapy on June 11 for moderately differentiated rectal adenocarcinoma. Last chemotherapy was 1 week ago. Last radiotherapy on Friday. #Intractable diarrhea, Neutropenic fever- found to have ileitis, sigmoid congestion and stricture, duodenal and gastric ulcers -Patient is being admitted to [facility] floor. Tmax 100.8 Fahrenheit. Vigorous IV fluid rehydration. Stool for enteric bacteriology panel, C. difficile negative. Respiratory panel, SARS-CoV-2 influenza and RSV PCR negative. Seems chemotherapeutic adverse effect/possible mucositis. Procalcitonin 0.42. Clinical picture does not suggest sepsis. Sepsis ruled out. Chest x-ray new lesion does not show acute infiltrate. Blood cultures x 2 and urine culture pending. UA WBC negative RBC negative, LE and nitrite negative. Patient on IV cefepime 2 g every 12 hourly. I think with patient being immunosuppressed with possibility of mucositis there is high possibility of getting C. difficile therefore IV antibiotic discontinued. Probiotic started. Supportive management. 07/13: Patient having low-grade fever, Tmax 100.4 Fahrenheit, no tachycardia. WBC count is 6.5 thousand. ALC 0.17 thousand. ANC 5.2 thousand. 2 more day of Neupogen tomorrow AM. As patient is spiked fever even the low-grade and ANC 5.2 collagen but with mucositis the risk for bacterial translocation therefore discussed with the oncologist Dr. Orellana. Decided to restart 6 cefepime 1 g every 12 hourly for 2 more days. Blood cultures x 2 so far negative. -07/14: Patient still having 8-12 loose watery bowel movements a day with inability to maintain electrolytes, nutrition, hydration without external support. GI consulted for assistance with managing intractable diarrhea given patient admitted 3 days ago and not improving and multiple electrolyte derangements, will resume fluids with LR. Last elevated temperature was morning of 07/13 with a temp of 100.4. Patient is still on cefepime -07/15: Patient to complete cefepime today, GI evaluated, patient for upper and lower endoscopy today and also repeat CT scan of abdomen. Octreotide 3 times daily recommended by oncology however patient now pending GI workup this will need to be determined pending studies. On LR -07/16: Upper endoscopy with oozing duodenal ulcers as well as nonbleeding gastric and duodenal ulcers and colonoscopy with congested sigmoid mucosa stricture which was biopsied as well as severe inflammation in the ileum secondary to ileitis, started on Protonix bolus and drip per GI recs, started on clear liquid diet, discussed with GI regarding oncology recommendations and octreotide has been started -07/17: Will attempt to advance diet, remains on PPI and octreotide, potassium 3.5 today, continue oral placement, slowly improving #Moderately differentiated adenocarcinoma, rectal cancer with pancytopenia (neutropenia, normocytic anemia, thrombocytopenia) with neutropenic fever : Patient with 04/09/2023 evaluation with noted napkin ring lesion 12 to 15 cm from the anal verge with biopsy demonstrating moderately differentiated adenocarcinoma at 15 cm, CT scan chest/abdomen/pelvis 04/16/2023 with a mass at the sigmoid colon with luminal narrowing, CEA 50.9 with treatment then at [facility]. MRI of the pelvis 05/07/2023 with a rectal mass 12 cm from the anal verge with no pelvic lymphadenopathy DM T4a N0. Patient started neoadjuvant therapy with combined chemotherapy-Xeloda and radiation therapy on 06/11/2023. Patient following with Dr. Orellana with last visit 07/09/23 now week 5 with report of ongoing issues with diarrhea and need for IV fluids and electrolyte supplementations. ED magnesium 1.7, phosphorus level will be requested. CBC upon presentation with WBC 1.4, hemoglobin 11.4, MCV 83, platelet unfortunately unable to be obtained secondary to clumping, repeat CBC in AM. May certainly involve oncology if necessary. 07/12: Bands 14%. ANC 1.6 thousand. ALC 0.42 thousand. Total leukocyte improving. Platelet count normal. Hemoglobin around 10 g%. 07/13: As mentioned above. -07/14: Hemoglobin remained stable at 10.4, no thrombocytopenia, white blood cell count improving -07/15: Family indicated that patient's radiation oncologist evaluated this a.m., patient has also been discussed with her oncologist Dr. Orellana, additionally undergoing GI workup -07/16: Repeat CT demonstrated enteritis most significant at the level of the pelvis -07/17: Will need to follow-up with oncology on outpatient basis #Hypokalemia: Admission K+ 3.2, magnesium level as noted 1.7, supplementation given 07/12: Patient has hypophosphatemia and magnesium on lower side. IV potassium phosphate ordered and given. IV magnesium sulfate ordered. 07/13: Severe hypokalemia and hypophosphatemia. Electrolyte ordered. On IV f luid Ringer lactate. Encouraged oral supplementation. -07/14: Continue to aggressively replace, will start LR and continue potassium 20 3 times daily in addition to additional oral and IV -07/15: Slightly better today, continue aggressive replacement and managing underlying illness -07/16: Potassium 3.1, replaced -07/17: Improving with decreasing diarrhea #Hyponatremia, suspected hypovolemic given GI losses: Admission CMP obtained per hospitalist with noted sodium 131, chloride 104, will continue hydration and repeat CMP in AM. 07/13 serum sodium 134 improving. -07/14: Resolved #Hyperglycemia without diabetic history: Admission glucose 159, likely stress response however to be cautious we will obtain hemoglobin A1c. -07/14: A1c 5.6 # DVT prophylaxis: Heparin. Time spent in the patient's overall evaluation,decision-making process, review of diagnostic data, adjustment of management, discussion with other providers, nursing nursing and ancillary staff involved in patient's care documentation, 35 minutes Capacity Legal A Class Lineman Reflex Medical hold order details:: IF a medical hold is selected below, a suggested order for a MEDICAL HOLD will reflex upon signing the document. Next of kin: [place] law dictates a PRIORITY LIST for identifying legal decision-maker/legal next of kin in the following order (LNOK): 1st: The patient?s legal guardian, if any 2nd: The patient's spouse (if status is questionable, consult Risk Management) 3rd: The patient?s adult child(shelbi) (majority, if multiple children) 4th: The patient?s parents 5th: The patient?s adult siblings (majority, if multiple children siblings) Charges/Coding Visit Charges Inpatient E&M: 57005 Subs Hosp L2
[2023-07-17] MEDS: Metoclopramide 5 MG TABLET PO (16:48)
--- NOTE | 2023-07-17 17:19 | PN.GI_ITS ---
Subjective Subjective Patient underwent colonoscopy yesterday all way to the terminal ileum. She tolerated procedure 90 problems. She is not having bleeding today. She is not having any obstructive signs or symptoms. The malignant stricture in the sigmoid colon was dilated. There were no lesions beyond what was seen in the sigmoid colon. Objective Data Objective Data Vital Signs: Vital Signs Temp Pulse Resp BP Pulse Ox O2 Del Method O2 Flow Rate 98.2 F 77 18 112/66 95 Room Air 3 07/17/23 13:21 07/17/23 13:21 07/17/23 13:21 07/17/23 13:21 07/17/23 13:21 07/17/23 13:21 07/16/23 14:20 Oxygen Flow Rate (L/min) 3 Oxygen Delivery Method Room Air Weight: 93 lb 14.671 oz Body Mass Index (BMI) 18.3 Intake & Output: Intake and Output for Last 24 Hours 07/15/23 07/16/23 07/17/23 23:59 23:59 23:59 Intake Total 2737.92 / 2737.92 1206.75 / 1206.75 100 / 100 Balance 2737.92 / 2737.92 1206.75 / 1206.75 100 / 100 Medical Nutrition Assessment Dietitian: Malnutrition Criteria Met Start: 07/12/23 15:48 Freq: Status: Active Protocol: Document 07/14/23 15:23 RMA (Rec: 07/14/23 15:23 RMA [id number]) Nutrition Malnutrition Evidence of Malnutrition Exists Yes Malnutrition (severe): Chronic Evidenced By Suboptimal Energy Intake ( Severe),Weight Loss (Severe) Clinical Problem Chronic Disease or Condition Related Malnutrition Etiology Severe protein-calorie malnutrition in the context of chronic disease/cancer related to inadequate energy/ oral intake and altered GI function/diarrhea and nausea/ vomiting Signs/Symptoms as evidenced by ~7% unintentional weight loss x 1 month, BMI 18.3 and PO meeting less than 50% estimated nutrition needs x 1 month Status Active Problem Recommendation Dietitian Recommendations/Changes Will continue liberalized regular diet as tolerated. Will continue 120mL ensure plus HP 4 times per day w/ medpass as tolerated. Will continue 240mL ensure clear TID w/ meals for tolerance. Current weight as able. Lab / Micro Data 07/17/23 07:38 07/17/23 07:38 Labs: Laboratory Results - last 24 hr 07/17/23 07:38: WBC 5.6, RBC 4.18 L, Hgb 11.7 L, Hct 34.9 L, MCV 83.5, MCH 28.0, MCHC 33.5, RDW Std Deviation 62.2 H, RDW Coeff of John 21.4 H, Plt Count 180, MPV 9.8, Immature Gran % (Auto) 3.400 H, Neut % (Auto) 79.3 H, Lymph % (Auto) 7.0 L, [place] % (Auto) 7.7, Eos % (Auto) 2.2, Baso % (Auto) 0.4, Absolute Neuts (auto) 4.4, Absolute Lymphs (auto) 0.39 L, Nucleated RBC % 0, Differential Comment SCANNED, Anisocytosis 3+, Sodium 134 L, Potassium 3.5, Chloride 104, Carbon Dioxide 25.0, Anion Gap 5, BUN 5 L, Creatinine 0.59, Estim Creat Clear Calc 44.01, Est GFR (MDRD) Af Amer 130, Est GFR (MDRD) Non-Af 108, BUN/Creatinine Ratio 8.5 L, Glucose 123 H, Calcium 8.5, Phosphorus 2.5, Magnesium 2.3, Total Bilirubin 0.50, AST 21, ALT 31, Alkaline Phosphatase 110, Total Protein 5.7 L, Albumin 1.9 L, Globulin 3.8, Albumin/Globulin Ratio 0.5 L Micro: Microbiology 07/11/23 20:00 Stool Ova and Parasites - Final 07/11/23 15:00 Blood Culture (Wb) - Left Forearm Blood Culture - Final No growth in 5 days. 07/11/23 15:15 Blood Culture (Wb) - Left Forearm Blood Culture - Final No growth in 5 days. 07/11/23 15:24 Urine, Catheterized Urine Culture - Final Culture exhibits no growth. 07/11/23 20:00 Stool Enteric Bacteriology - Final 07/11/23 20:00 Stool Clostridioides difficile (PCR) - Final 07/11/23 19:50 Mucosa - Nasopharyngeal Respiratory Panel (PCR) - Final 07/11/23 17:00 Mucosa - Nose SARS-CoV-2, Influenza & RSV (PCR) - Final Physical Exam Narrative General: Alert, oriented, no apparent distress HEENT: Atraumatic, normocephalic Eyes: Anicteric, normal conjunctiva, extraocular movements grossly intact Neck: Supple Respiratory: Clear to auscultation bilaterally, normal respiratory effort Cardiovascular: Regular rate and rhythm GI: Soft, improved tenderness without rebound, guarding, rigidity, no distention Extremities: No edema Musculoskeletal: Moving all extremities Neuro: No overt focal neurological deficits Skin: No rashes appreciated Psych: Cooperative Assessment & Plan Assessment/Plan (1) Neutropenia with fever: PLAN: Plan The patients is a 68 y/o Andrei F w/ PMHx: Moderately differentiated adenocarcinoma, rectal cancer T4N0 following with Dr. Orellana undergoing both chemotherapy and radiation with last dose of chemotherapy approximately 1 week prior and her last radiation Friday. She presents to the [facility] ED on 07/11/23 with history of persistent ongoing diarrhea with at least 10-12 loose stools per day with increasing fatigue and malaise with mild abdominal bloating and discomfort with abnormal labs outpatient prompting referral to the ED for evaluation given significant neutropenia and now onset of fever as well. Her neutropenic fever, is unclear etiology with persistent diarrhea, mild hypoxia of unclear etiology: SARS COVID/influenza/RSV PCR is negative. C. difficile, enteric as well as ova and parasite given are also negative. She will undergo upper and lower endoscopy to evaluate upper lower GI tract. She was explained alternatives, risk, benefits include not withstanding bleeding, infection, sepsis, perforation, need for emergent urgent . She have an ASA of 3. Moderately differentiated adenocarcinoma, rectal cancer with pancytopenia with neutropenic fever presentation as noted #1: Patient with 04/09/2023 evaluation with noted napkin ring lesion 12 to 15 cm from the anal verge with biopsy demonstrating moderately differentiated adenocarcinoma at [address] scan chest/abdomen/pelvis 04/16/2023 with a mass at the sigmoid colon with luminal narrowing, CEA 50.9 with treatment then at [facility]. MRI of the pelvis 05/07/2023 with a rectal mass 12 cm from the anal verge with no pelvic lymphadenopathy DM T4a N0. Patient started neoadjuvant therapy with combined chemotherapy-Xeloda and radiation therapy on 06/11/2023. Patient following with Dr. Orellana with last visit 07/09/23 now week 5 with report of ongoing issues with diarrhea and need for IV fluids and electrolyte supplementations. ED magnesium 1.7, phosphorus level will be requested. CBC up on presentation with WBC 1.4, hemoglobin 11.4, MCV 83, platelet I will also order repeat CT scan of the abdomen pelvis with oral and IV contrast. 07/17-CT scan abdomen pelvis was follows: findings consistent with enteritis more significant at the level of the pelvis. Distal sigmoid colitis and possible proctitis. Cannot exclude distal colonic inflammatory neoplasm given history of colorectal cancer, clinical correlation recommended. Mild anasarca. Stable cystic appearing lesions within the liver, if indicated, follow-up with right upper quadrant ultrasound recommended to confirm benign cyst. Remainder of abdominal viscera are unremarkable. This mimics what was seen in the small bowel on direct endoscopy. She does have severe enteritis. I will put her on colestipol 2 g p.o. twice daily to hopefully help with her diarrhea. She remains on octreotide. I will also add Xifaxan to treat the bacterial overgrowth associated with her severe inflammation in the small bowel. Charges/Coding Visit Charges Inpatient E&M: 75584 Subs Hosp L3
[2023-07-17] MEDS: rifAXIMin 550 MG Tablet PO ×2 (18:50→21:18)
[2023-07-17 20:55] VITALS: BP 103/32; PULSE 75; RESP 16; TEMP 36.9; O2SAT 98
[2023-07-17 20:57] VITALS: PULSE 90
[2023-07-17] MEDS: Colestipol 1 GM TABLET 2 GM PO (23:09)
[2023-07-18 03:03] VITALS: BP 120/71; PULSE 75; RESP 18; TEMP 36.6; O2SAT 97
[2023-07-18] MEDS: Pantoprazole Sodium 80 MG in 0.9% Normal Saline (100mL Bag) 80 ML 10 MG CONT INF ×2 (05:49→17:12)
[2023-07-18] MEDS: rifAXIMin 550 MG Tablet PO ×3 (05:51→21:19)
[2023-07-18] MEDS: Octreotide 0.1 MG/ML ML 0.100000000000000006 MG SC ×3 (05:57→21:19)
[2023-07-18 06:00] VITALS: BMI 18.3
[2023-07-18 06:25] LABS: Absolute Lymphocyte Count 0.64 X10^3/uL (0.83-4.51); Absolute Neutrophil Count 2.9 X10^3/uL (2.0-7.7); Basophil# 0.03 X10^3/uL; Basophil% 0.7 % (0-1); Eosinophil# 0.07 X10^3/uL; Eosinophils% 1.7 % (0-5); Hematocrit 31.6 % (37-47); Hemoglobin 10.5 g/dL (12.0-15.0); Lymphocyte # 0.64 X10^3/ul (0.83-4.51); Lymphocyte % 15.5 % (19-41); Mean Corp Hgb Conc 33.2 g/dL (32-36); Mean Corpuscular Hgb 27.5 pg (27.0-32.0); Mean Corpuscular Volume 82.7 fL (81-99); Mean Platelet Vol. 9.6 fl (6.2-12.0); Monocyte# 0.43 X10^3/uL; Monocyte% 10.4 % (0-10); NRBC Flagged by Analyzer 0 % (0-5); Neutrophil # 2.88 X10^3/uL (2.7-7.7); Neutrophil % 69.5 % (47-70); POSITIVE MORPHOLOGY YES; Platelet Count 161 K/mm3 (150-450); RBC Distribution Width SD 59.5 fl (35.1-43.9); Red Blood Count 3.82 M/mm3 (4.2-5.4); White Blood Count 4.1 K/mm3 (4.4-11.0)
[2023-07-18 06:29] LABS: Differential Indicated SCAN CRITERIA MET
[2023-07-18 06:49] LABS: Anisocytosis 2+
[2023-07-18 06:52] LABS: ALB/GLOB Ratio 0.5 RATIO (0.9-2.4); AST(SGOT) 14 U/L (15-37); Alanine Aminotransfer ALT/SGPT 25 U/L (13-56); Albumin, Serum 1.7 g/dL (3.2-5.0); Alkaline Phosphatase 93 U/L (45-117); Anion Gap 5 (5-15); BUN 4 mg/dL (7-18); BUN/Creat Ratio 7.9 RATIO (10-20); Calcium,Total 8.1 mg/dL (8.5-10.1); Chloride 102 mmol/L (98-107); EST Glomerular Filtration Rate 128 mL/min (>60); Est Glom Filt Rate - Afr Amer 155 mL/min (>60); Globulin 3.6 g/dL (2.2-4.2); Glucose 115 mg/dL (74-106); Magnesium 2.1 mg/dL (1.6-2.6); Potassium 3.4 mmol/L (3.5-5.1); Protein, Total 5.3 g/dL (6.4-8.2); Sodium Level 134 mmol/L (136-145)
--- NOTE | 2023-07-18 07:59 | PCM.PN.HOSP ---
Reason for Visit Reason for Visit: Diagnoses Neutropenia, unspecified (07/11/23) Fever presenting with conditions classified elsewhere (07/11/23) Subjective Subjective Still having frequent bowel movements but amount is decreasing and control over this is improving, no abdominal pain, not nauseous, so far tolerating diet Objective Data Objective Data Vital Signs: Vital Signs Temp Pulse Resp BP Pulse Ox O2 Del Method O2 Flow Rate 97.8 F 75 18 120/71 97 Room Air 3 07/18/23 03:03 07/18/23 03:03 07/18/23 03:03 07/18/23 03:03 07/18/23 03:03 07/18/23 03:03 07/16/23 14:20 Oxygen Flow Rate (L/min) 3 Oxygen Delivery Method Room Air Weight: 42.5 kg Body Mass Index (BMI) 18.3 Intake & Output: Intake and Output for Last 24 Hours 07/16/23 07/17/23 07/18/23 23:59 23:59 23:59 Intake Total 1206.75 / 1206.75 200 / 200 98.5 / 98.5 Balance 1206.75 / 1206.75 200 / 200 98.5 / 98.5 Medical Nutrition Assessment Dietitian: Malnutrition Criteria Met Start: 07/12/23 15:48 Freq: Status: Active Protocol: Document 07/14/23 15:23 RMA (Rec: 07/14/23 15:23 RMA [id number]) Nutrition Malnutrition Evidence of Malnutrition Exists Yes Malnutrition (severe): Chronic Evidenced By Suboptimal Energy Intake ( Severe),Weight Loss (Severe) Clinical Problem Chronic Disease or Condition Related Malnutrition Etiology Severe protein-calorie malnutrition in the context of chronic disease/cancer related to inadequate energy/ oral intake and altered GI function/diarrhea and nausea/ vomiting Signs/Symptoms as evidenced by ~7% unintentional weight loss x 1 month, BMI 18.3 and PO meeting less than 50% estimated nutrition needs x 1 month Status Active Problem Recommendation Dietitian Recommendations/Changes Will continue liberalized regular diet as tolerated. Will continue 120mL ensure plus HP 4 times per day w/ medpass as tolerated. Will continue 240mL ensure clear TID w/ meals for tolerance. Current weight as able. Lab / Micro Data 07/18/23 06:14 07/18/23 06:14 Labs: Laboratory Results - last 24 hr 07/17/23 07:38: WBC 5.6, RBC 4.18 L, Hgb 11.7 L, Hct 34.9 L, MCV 83.5, MCH 28.0, MCHC 33.5, RDW Std Deviation 62.2 H, RDW Coeff of John 21.4 H, Plt Count 180, MPV 9.8, Immature Gran % (Auto) 3.400 H, Neut % (Auto) 79.3 H, Lymph % (Auto) 7.0 L, [place] % (Auto) 7.7, Eos % (Auto) 2.2, Baso % (Auto) 0.4, Absolute Neuts (auto) 4.4, Absolute Lymphs (auto) 0.39 L, Nucleated RBC % 0, Differential Comment SCANNED, Anisocytosis 3+, Sodium 134 L, Potassium 3.5, Chloride 104, Carbon Dioxide 25.0, Anion Gap 5, BUN 5 L, Creatinine 0.59, Estim Creat Clear Calc 44.01, Est GFR (MDRD) Af Amer 130, Est GFR (MDRD) Non-Af 108, BUN/Creatinine Ratio 8.5 L, Glucose 123 H, Calcium 8.5, Phosphorus 2.5, Magnesium 2.3, Total Bilirubin 0.50, AST 21, ALT 31, Alkaline Phosphatase 110, Total Protein 5.7 L, Albumin 1.9 L, Globulin 3.8, Albumin/Globulin Ratio 0.5 L 07/18/23 06:14: WBC 4.1 L, RBC 3.82 L, Hgb 10.5 L, Hct 31.6 L, MCV 82.7, MCH 27.5, MCHC 33.2, RDW Std Deviation 59.5 H, RDW Coeff of John 21.0 H, Plt Count 161, MPV 9.6, Immature Gran % (Auto) 2.200 H, Neut % (Auto) 69.5, Lymph % (Auto) 15.5 L, [place] % (Auto) 10.4 H, Eos % (Auto) 1.7, Baso % (Auto) 0.7, Absolute Neuts (auto) 2.9, Absolute Lymphs (auto) 0.64 L, Nucleated RBC % 0, Anisocytosis 2+, Sodium 134 L, Potassium 3.4 L, Chloride 102, Carbon Dioxide 27.0, Anion Gap 5, BUN 4 L, Creatinine 0.50 L, Estim Creat Clear Calc 43.90, Est GFR (MDRD) Af Amer 155, Est GFR (MDRD) Non-Af 128, BUN/Creatinine Ratio 7.9 L, Glucose 115 H, Calcium 8.1 L, Phosphorus 2.0 L, Magnesium 2.1, Total Bilirubin 0.50, AST 14 L, ALT 25, Alkaline Phosphatase 93, Total Protein 5.3 L, Albumin 1.7 L, Globulin 3.6, Albumin/Globulin Ratio 0.5 L Micro: Microbiology 07/11/23 20:00 Stool Ova and Parasites - Final 07/11/23 15:00 Blood Culture (Wb) - Left Forearm Blood Culture - Final No growth in 5 days. 07/11/23 15:15 Blood Culture (Wb) - Left Forearm Blood Culture - Final No growth in 5 days. 07/11/23 15:24 Urine, Catheterized Urine Culture - Final Culture exhibits no growth. 07/11/23 20:00 Stool Enteric Bacteriology - Final 07/11/23 20:00 Stool Clostridioides difficile (PCR) - Final 07/11/23 19:50 Mucosa - Nasopharyngeal Respiratory Panel (PCR) - Final 07/11/23 17:00 Mucosa - Nose SARS-CoV-2, Influenza & RSV (PCR) - Final Physical Exam Narrative General: Alert, oriented, no apparent distress HEENT: Atraumatic, normocephalic Eyes: Anicteric, normal conjunctiva, extraocular movements grossly intact Neck: Supple Respiratory: Clear to auscultation bilaterally, normal respiratory effort Cardiovascular: Regular rate and rhythm GI: Soft, nontender, no rebound, guarding, rigidity Extremities: No edema Musculoskeletal: Moving all extremities Neuro: No overt focal neurological deficits Skin: No rashes appreciated Psych: Cooperative Assessment & Plan Assessment/Plan (1) Neutropenia with fever: PLAN: Plan The patients is a 68 y/o Andrei F Was admitted through ER for persistent more than 10 loose watery bowel movement per day since past 07/06/2023 she denied black or maroon-colored stool but have thirsty dry mouth and lightheadedness. Mild abdominal discomfort and bloating. She started chemotherapy and radiation therapy on June 11 for moderately differentiated rectal adenocarcinoma. Last chemotherapy was 1 week ago. Last radiotherapy on Friday. #Intractable diarrhea, Neutropenic fever- found to have ileitis, sigmoid congestion and stricture, duodenal and gastric ulcers -Patient is being admitted to [facility] floor. Tmax 100.8 Fahrenheit. Vigorous IV fluid rehydration. Stool for enteric bacteriology panel, C. difficile negative. Respiratory panel, SARS-CoV-2 influenza and RSV PCR negative. Seems chemotherapeutic adverse effect/possible mucositis. Procalcitonin 0.42. Clinical picture does not suggest sepsis. Sepsis ruled out. Chest x-ray new lesion does not show acute infiltrate. Blood cultures x 2 and urine culture pending. UA WBC negative RBC negative, LE and nitrite negative. Patient on IV cefepime 2 g every 12 hourly. I think with patient being immunosuppressed with possibility of mucositis there is high possibility of getting C. difficile therefore IV antibiotic discontinued. Probiotic started. Supportive management. 07/13: Patient having low-grade fever, Tmax 100.4 Fahrenheit, no tachycardia. WBC count is 6.5 thousand. ALC 0.17 thousand. ANC 5.2 thousand. 2 more day of Neupogen tomorrow AM. As patient is spiked fever even the low-grade and ANC 5.2 collagen but with mucositis the risk for bacterial translocation therefore discussed with the oncologist Dr. Orellana. Decided to restart 6 cefepime 1 g every 12 hourly for 2 more days. Blood cultures x 2 so far negative. -07/14: Patient still having 8-12 loose watery bowel movements a day with inability to maintain electrolytes, nutrition, hydration without external support. GI consulted for assistance with managing intractable diarrhea given patient admitted 3 days ago and not improving and multiple electrolyte derangements, will resume fluids with LR. Last elevated temperature was morning of 07/13 with a temp of 100.4. Patient is still on cefepime -07/15: Patient to complete cefepime today, GI evaluated, patient for upper and lower endoscopy today and also repeat CT scan of abdomen. Octreotide 3 times daily recommended by oncology however patient now pending GI workup this will need to be determined pending studies. On LR -07/16: Upper endoscopy with oozing duodenal ulcers as well as nonbleeding gastric and duodenal ulcers and colonoscopy with congested sigmoid mucosa stricture which was biopsied as well as severe inflammation in the ileum secondary to ileitis, started on Protonix bolus and drip per GI recs, started on clear liquid diet, discussed with GI regarding oncology recommendations and octreotide has been started -07/17: Will attempt to advance diet, remains on PPI and octreotide, potassium 3.5 today, continue oral placement, slowly improving -07/18: Patient started on colestipol and rifaximin in addition to octreotide to help decrease diarrhea further #Moderately differentiated adenocarcinoma, rectal cancer with pancytopenia (neutropenia, normocytic anemia, thrombocytopenia) with neutropenic fever : Patient with 04/09/2023 evaluation with noted napkin ring lesion 12 to 15 cm from the anal verge with biopsy demonstrating moderately differentiated adenocarcinoma at 15 cm, CT scan chest/abdomen/pelvis 04/16/2023 with a mass at the sigmoid colon with luminal narrowing, CEA 50.9 with treatment then at [facility]. MRI of the pelvis 05/07/2023 with a rectal mass 12 cm from the anal verge with no pelvic lymphadenopathy DM T4a N0. Patient started neoadjuvant therapy with combined chemotherapy-Xeloda and radiation therapy on 06/11/2023. Patient following with Dr. Orellana with last visit 07/09/23 now week 5 with report of ongoing issues with diarrhea and need for IV fluids and electrolyte supplementations. ED magnesium 1.7, phosphorus level will be requested. CBC upon presentation with WBC 1.4, hemoglobin 11.4, MCV 83, platelet unfortunately unable to be obtained secondary to clumping, repeat CBC in AM. May certainly involve oncology if necessary. 07/12: Bands 14%. ANC 1.6 thousand. ALC 0.42 thousand. Total leukocyte improving. Platelet count normal. Hemoglobin around 10 g%. 07/13: As mentioned above. -07/14: Hemoglobin remained stable at 10.4, no thrombocytopenia, white blood cell count improving -07/15: Family indicated that patient's radiation oncologist evaluated this a.m., patient has also been discussed with her oncologist Dr. Orellana, additionally undergoing GI workup -07/16: Repeat CT demonstrated enteritis most significant at the level of the pelvis -07/17: Will need to follow-up with oncology on outpatient basis #Hypokalemia: Admission K+ 3.2, magnesium level as noted 1.7, supplementation given 07/12: Patient has hypophosphatemia and magnesium on lower side. IV potassium phosphate ordered and given. IV magnesium sulfate ordered. 07/13: Severe hypokalemia and hypophosphatemia. Electrolyte ordered. On IV fluid Ringer lactate. Encouraged oral supplementation. -07/14: Continue to aggressively replace, will start LR and continue potassium 20 3 times daily in addition to additional oral and IV -07/15: Slightly better today, continue aggressive replacement and managing underlying illness -07/16: Potassium 3.1, replaced -07/17: Improving with decreasing diarrhea -07/18: Did have replaced today, still maintaining better than it was previous, closer to being able to maintain electrolytes for discharge #Hyponatremia, suspected hypovolemic given GI losses: Admission CMP obtained per hospitalist with noted sodium 131, chloride 104, will continue hydration and repeat CMP in AM. 07/13 serum sodium 134 improving. -07/14: Resolved #Hyperglycemia without diabetic history: Admission glucose 159, likely stress response however to be cautious we will obtain hemoglobin A1c. -07/14: A1c 5.6 # DVT prophylaxis: Heparin. 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 Next of kin: [place] law dictates a PRIORITY LIST for identifying legal decision-maker/legal next of kin in the following order (LNOK): 1st: The patient?s legal guardian, if any 2nd: The patient's spouse (if status is questionable, consult Risk Management) 3rd: The patient?s adult child(shelbi) (majority, if multiple children) 4th: The patient?s parents 5th: The patient?s adult siblings (majority, if multiple children siblings) Charges/Coding Visit Charges Inpatient E&M: 59557 Subs Hosp L2
[2023-07-18] MEDS: Potassium Chloride Oral Tablet 10 MEQ 20 MEQ PO ×3 (08:45→17:46)
[2023-07-18] MEDS: 0.9% Normal Saline (250mL Bag) 250 ML 15 ML IV (10:19)
[2023-07-18] MEDS: Potassium Phosphate 40 MM in 0.9% Normal Saline (500mL Bag) 500 ML 62.5 MM IV (10:19)
[2023-07-18] MEDS: 0.9% Saline Lock 10 ML Syringe IV (10:25)
[2023-07-18] MEDS: Colestipol 1 GM TABLET 2 GM PO ×2 (10:25→21:18)
[2023-07-18] MEDS: Heparin Injection (Vial) 5,000 UNIT/ML VIAL 5000 UNIT SC ×2 (10:30→21:19)
[2023-07-18 10:36] VITALS: BP 105/61; PULSE 69; RESP 16; TEMP 36.7; O2SAT 98
[2023-07-18] MEDS: NYSTATIN 500,000 UNIT/5 ML UDC 500000 UNIT PO ×3 (12:44→21:19)
[2023-07-18] MEDS: Metoclopramide 5 MG TABLET PO (15:21)
--- NOTE | 2023-07-18 15:33 | EX.PCM.PN.GI ---
Subjective Subjective Patient denies any abdominal pain. She says that her stools are becoming thicker. We started Xifaxan for her severe enteritis along with colestipol 2 g twice a day for her diarrhea and instituted a PPI drip to decrease the amount of osmotic load that her small bowel sees. Objective Data Objective Data Vital Signs: Vital Signs Temp Pulse Resp BP Pulse Ox O2 Del Method O2 Flow Rate 98.1 F 69 16 105/61 98 Room Air 3 07/18/23 10:36 07/18/23 10:36 07/18/23 10:36 07/18/23 10:36 07/18/23 10:36 07/18/23 10:36 07/16/23 14:20 Oxygen Flow Rate (L/min) 3 Oxygen Delivery Method Room Air Weight: 93 lb 11.143 oz Body Mass Index (BMI) 18.3 Intake & Output: Intake and Output for Last 24 Hours 07/16/23 07/17/23 07/18/23 23:59 23:59 23:59 Intake Total 1206.75 / 1206.75 200 / 200 348.5 / 348.5 Balance 1206.75 / 1206.75 200 / 200 348.5 / 348.5 Medical Nutrition Assessment Dietitian: Malnutrition Criteria Met Start: 07/12/23 15:48 Freq: Status: Active Protocol: Document 07/14/23 15:23 RMA (Rec: 07/14/23 15:23 RMA [id number]) Nutrition Malnutrition Evidence of Malnutrition Exists Yes Malnutrition (severe): Chronic Evidenced By Suboptimal Energy Intake ( Severe),Weight Loss (Severe) Clinical Problem Chronic Disease or Condition Related Malnutrition Etiology Severe protein-calorie malnutrition in the context of chronic disease/cancer related to inadequate energy/ oral intake and altered GI function/diarrhea and nausea/ vomiting Signs/Symptoms as evidenced by ~7% unintentional weight loss x 1 month, BMI 18.3 and PO meeting less than 50% estimated nutrition needs x 1 month Status Active Problem Recommendation Dietitian Recommendations/Changes Will continue liberalized regular diet as tolerated. Will continue 120mL ensure plus HP 4 times per day w/ medpass as tolerated. Will continue 240mL ensure clear TID w/ meals for tolerance. Current weight as able. Lab / Micro Data 07/18/23 06:14 07/18/23 06:14 Labs: Laboratory Results - last 24 hr 07/18/23 06:14: WBC 4.1 L, RBC 3.82 L, Hgb 10.5 L, Hct 31.6 L, MCV 82.7, MCH 27.5, MCHC 33.2, RDW Std Deviation 59.5 H, RDW Coeff of John 21.0 H, Plt Count 161, MPV 9.6, Immature Gran % (Auto) 2.200 H, Neut % (Auto) 69.5, Lymph % (Auto) 15.5 L, [place] % (Auto) 10.4 H, Eos % (Auto) 1.7, Baso % (Auto) 0.7, Absolute Neuts (auto) 2.9, Absolute Lymphs (auto) 0.64 L, Nucleated RBC % 0, Anisocytosis 2+, Sodium 134 L, Potassium 3.4 L, Chloride 102, Carbon Dioxide 27.0, Anion Gap 5, BUN 4 L, Creatinine 0.50 L, Estim Creat Clear Calc 43.90, Est GFR (MDRD) Af Amer 155, Est GFR (MDRD) Non-Af 128, BUN/Creatinine Ratio 7.9 L, Glucose 115 H, Calcium 8.1 L, Phosphorus 2.0 L, Magnesium 2.1, Total Bilirubin 0.50, AST 14 L, ALT 25, Alkaline Phosphatase 93, Total Protein 5.3 L, Albumin 1.7 L, Globulin 3.6, Albumin/Globulin Ratio 0.5 L Micro: Microbiology 07/11/23 20:00 Stool Ova and Parasites - Final 07/11/23 15:00 Blood Culture (Wb) - Left Forearm Blood Culture - Final No growth in 5 days. 07/11/23 15:15 Blood Culture (Wb) - Left Forearm Blood Culture - Final No growth in 5 days. 07/11/23 15:24 Urine, Catheterized Urine Culture - Final Culture exhibits no growth. 07/11/23 20:00 Stool Enteric Bacteriology - Final 07/11/23 20:00 Stool Clostridioides difficile (PCR) - Final 07/11/23 19:50 Mucosa - Nasopharyngeal Respiratory Panel (PCR) - Final 07/11/23 17:00 Mucosa - Nose SARS-CoV-2, Influenza & RSV (PCR) - Final Physical Exam Narrative General: Alert, oriented, no apparent distress HEENT: Atraumatic, normocephalic Eyes: Anicteric, normal conjunctiva, extraocular movements grossly intact Neck: Supple Respiratory: Clear to auscultation bilaterally, normal respiratory effort Cardiovascular: Regular rate and rhythm GI: Soft, nontender, no rebound, guarding, rigidity Extremities: No edema Musculoskeletal: Moving all extremities Neuro: No overt focal neurological deficits Skin: No rashes appreciated Psych: Cooperative Assessment & Plan Assessment/Plan (1) Neutropenia with fever: PLAN: Plan The patients is a 68 y/o Andrei F w/ PMHx: Moderately differentiated adenocarcinoma, rectal cancer T4N0 following with Dr. Orellana undergoing both chemotherapy and radiation with last dose of chemotherapy approximately 1 week prior and her last radiation Friday. She presents to the [facility] ED on 07/11/23 with history of persistent ongoing diarrhea with at least 10-12 loose stools per day with increasing fatigue and malaise with mild abdominal bloating and discomfort with abnormal labs outpatient prompting referral to the ED for evaluation given significant neutropenia and now onset of fever as well. Her neutropenic fever, is unclear etiology with persistent diarrhea, mild hypoxia of unclear etiology: SARS COVID/influenza/RSV PCR is negative. C. difficile, enteric as well as ova and parasite given are also negative. She will undergo upper and lower endoscopy to evaluate upper lower GI tract. She was explained alternatives, risk, benefits include not withstanding bleeding, infection, sepsis, perforation, need for emergent urgent . She have an ASA of 3. Moderately differentiated adenocarcinoma, rectal cancer with pancytopenia with neutropenic fever presentation as noted #1: Patient with 04/09/2023 evaluation with noted napkin ring lesion 12 to 15 cm from the anal verge with biopsy demonstrating moderately differentiated adenocarcinoma at [address] scan chest/abdomen/pelvis 04/16/2023 with a mass at the sigmoid colon with luminal narrowing, CEA 50.9 with treatment then at [facility]. MRI of the pelvis 05/07/2023 with a rectal mass 12 cm from the anal verge with no pelvic lymphadenopathy DM T4a N0. Patient started neoadjuvant therapy with combined chemotherapy-Xeloda and radiation therapy on 06/11/2023. Patient following with Dr. Orellana with last visit 07/09/23 now week 5 with report of ongoing issues with diarrhea and need for IV fluids and electrolyte supplementations. ED magnesium 1.7, phosphorus level will be requested. CBC upon presentation with WBC 1.4, hemoglobin 11.4, MCV 83, platelet I will also order repeat CT scan of the abdomen pelvis with oral and IV contrast. 07/17-CT scan abdomen pelvis was follows: findings consistent with enteritis more significant at the level of the pelvis. Distal sigmoid colitis and possible proctitis. Cannot exclude distal colonic inflammatory neoplasm given history of colorectal cancer, clinical correlation recommended. Mild anasarca. Stable cystic appearing lesions within the liver, if indicated, follow-up with right upper quadrant ultrasound recommended to confirm benign cyst. Remainder of abdominal viscera are unremarkable. This mimics what was seen in the small bowel on direct endoscopy. She does have severe enteritis. I will put her on colestipol 2 g p.o. twice daily to hopefully help with her diarrhea. She remains on octreotide. I will also add Xifaxan to treat the bacterial overgrowth associated with her severe inflammation in the small bowel. 07/18-continue current medical therapy. Colestipol can be increased to 2 g p.o..3 times daily. However I would avoid her taking any other medicines within 2 hours of that medicine. Continue Xifaxan as previously ordered, proton pump inhibitor drip and encourage p.o. intake.
[2023-07-18 15:41] VITALS: BP 120/73; PULSE 75; RESP 16; TEMP 36.8; O2SAT 99
--- NOTE | 2023-07-18 16:11 | CASEMGMT ---
Pt and ambulating halls. Pt denies any homegoing needs, agrees.
[2023-07-18] MEDS: Loperamide 2 MG Capsule PO (17:52)
[2023-07-18 21:00] VITALS: BP 125/75; PULSE 80; RESP 16; TEMP 36.7; O2SAT 98
[2023-07-19] MEDS: Pantoprazole Sodium 80 MG in 0.9% Normal Saline (100mL Bag) 80 ML 10 MG CONT INF ×3 (02:14→21:45)
[2023-07-19] MEDS: Loperamide 2 MG Capsule PO ×2 (02:18→21:45)
[2023-07-19 02:19] VITALS: BP 150/84; PULSE 75; RESP 16; TEMP 36.6; O2SAT 100
[2023-07-19 05:55] VITALS: BMI 18.6
[2023-07-19 06:05] LABS: Absolute Lymphocyte Count 0.62 X10^3/uL (0.83-4.51); Absolute Neutrophil Count 2.9 X10^3/uL (2.0-7.7); Basophil# 0.02 X10^3/uL; Basophil% 0.5 % (0-1); Eosinophil# 0.06 X10^3/uL; Eosinophils% 1.6 % (0-5); Hematocrit 33.5 % (37-47); Lymphocyte # 0.62 X10^3/ul (0.83-4.51); Lymphocyte % 16.1 % (19-41); Mean Corp Hgb Conc 32.8 g/dL (32-36); Mean Corpuscular Hgb 27.6 pg (27.0-32.0); Mean Corpuscular Volume 84.2 fL (81-99); Mean Platelet Vol. 9.4 fl (6.2-12.0); Monocyte# 0.24 X10^3/uL; Monocyte% 6.2 % (0-10); NRBC Flagged by Analyzer 0 % (0-5); Neutrophil # 2.86 X10^3/uL (2.7-7.7); POSITIVE MORPHOLOGY YES; Platelet Count 165 K/mm3 (150-450); RBC Distribution Width CV 21.1 % (11.6-14.6); RBC Distribution Width SD 61.2 fl (35.1-43.9); Red Blood Count 3.98 M/mm3 (4.2-5.4); White Blood Count 3.9 K/mm3 (4.4-11.0)
[2023-07-19] MEDS: rifAXIMin 550 MG Tablet PO ×3 (06:06→21:33)
[2023-07-19] MEDS: Octreotide 0.1 MG/ML ML 0.100000000000000006 MG SC ×3 (06:06→21:33)
[2023-07-19 06:14] LABS: Differential Indicated SCAN CRITERIA MET
[2023-07-19 06:32] LABS: ALB/GLOB Ratio 0.5 RATIO (0.9-2.4); AST(SGOT) 17 U/L (15-37); Alanine Aminotransfer ALT/SGPT 25 U/L (13-56); Albumin, Serum 1.9 g/dL (3.2-5.0); Alkaline Phosphatase 102 U/L (45-117); Anion Gap 6 (5-15); BUN 4 mg/dL (7-18); BUN/Creat Ratio 8.6 RATIO (10-20); Calcium,Total 8.1 mg/dL (8.5-10.1); Chloride 103 mmol/L (98-107); Creatinine, Serum 0.46 mg/dL (0.55-1.02); EST Glomerular Filtration Rate 141 mL/min (>60); Est Glom Filt Rate - Afr Amer 171 mL/min (>60); Estimated Creatinine Clearance 44.63 ml/min; Globulin 3.8 g/dL (2.2-4.2); Glucose 110 mg/dL (74-106); Magnesium 1.8 mg/dL (1.6-2.6); Phosphorus 2.5 mg/dL (2.5-4.9); Potassium 3.6 mmol/L (3.5-5.1); Protein, Total 5.7 g/dL (6.4-8.2); Sodium Level 136 mmol/L (136-145)
[2023-07-19 06:35] LABS: Anisocytosis 2+; Differential Comment SCANNED; Macrocytosis 1+; Microcytosis 1+
[2023-07-19 09:06] VITALS: BP 126/66; PULSE 67; RESP 16; TEMP 36.2; O2SAT 99
[2023-07-19] MEDS: Colestipol 1 GM TABLET 2 GM PO ×3 (09:17→21:33)
[2023-07-19] MEDS: NYSTATIN 500,000 UNIT/5 ML UDC 500000 UNIT PO ×4 (09:18→21:33)
[2023-07-19] MEDS: Potassium Chloride Oral Tablet 10 MEQ 20 MEQ PO ×3 (09:18→17:49)
[2023-07-19] MEDS: Heparin Injection (Vial) 5,000 UNIT/ML VIAL 5000 UNIT SC ×2 (09:23→21:33)
[2023-07-19] MEDS: 0.9% Normal Saline (250mL Bag) 250 ML 15 ML IV (11:02)
--- NOTE | 2023-07-19 11:21 | PN.HOSP_ITS ---
Reason for Visit Reason for Visit: Diagnoses Neutropenia, unspecified (07/11/23) Fever presenting with conditions classified elsewhere (07/11/23) Subjective Subjective Patient had an episode of incontinence of stool last night reports she had some worsening of symptoms for unclear etiology, may be associated with lactose Objective Data Objective Data Vital Signs: Vital Signs Temp Pulse Resp BP Pulse Ox O2 Del Method O2 Flow Rate 97.2 F L 67 16 126/66 H 99 Room Air 3 07/19/23 09:06 07/19/23 09:06 07/19/23 09:06 07/19/23 09:06 07/19/23 09:06 07/19/23 09:06 07/16/23 14:20 Oxygen Flow Rate (L/min) 3 Oxygen Delivery Method Room Air Weight: 43.2 kg Body Mass Index (BMI) 18.6 Intake & Output: Intake and Output for Last 24 Hours 07/17/23 07/18/23 07/19/23 23:59 23:59 23:59 Intake Total 200 / 200 1411.8333 / 1411.8333 840.33 / 840.33 Output Total 500 / 500 Balance 200 / 200 1411.8333 / 1411.8333 340.33 / 340.33 Medical Nutrition Assessment Dietitian: Malnutrition Criteria Met Start: 07/12/23 15:48 Freq: Status: Active Protocol: Document 07/14/23 15:23 RMA (Rec: 07/14/23 15:23 RMA [id number]) Nutrition Malnutrition Evidence of Malnutrition Exists Yes Malnutrition (severe): Chronic Evidenced By Suboptimal Energy Intake ( Severe),Weight Loss (Severe) Clinical Problem Chronic Disease or Condition Related Malnutrition Etiology Severe protein-calorie malnutrition in the context of chronic disease/cancer related to inadequate energy/ oral intake and altered GI function/diarrhea and nausea/ vomiting Signs/Symptoms as evidenced by ~7% unintentional weight loss x 1 month, BMI 18.3 and PO meeting less than 50% estimated nutrition needs x 1 month Status Active Problem Recommendation Dietitian Recommendations/Changes Will continue liberalized regular diet as tolerated. Will continue 120mL ensure plus HP 4 times per day w/ medpass as tolerated. Will continue 240mL ensure clear TID w/ meals for tolerance. Current weight as able. Lab / Micro Data 07/19/23 05:53 07/19/23 05:53 Labs: Laboratory Results - last 24 hr 07/19/23 05:53: WBC 3.9 L, RBC 3.98 L, Hgb 11.0 L, Hct 33.5 L, MCV 84.2, MCH 27.6, MCHC 32.8, RDW Std Deviation 61.2 H, RDW Coeff of John 21.1 H, Plt Count 165, MPV 9.4, Immature Gran % (Auto) 1.600 H, Neut % (Auto) 74.0 H, Lymph % (Au to) 16.1 L, [place] % (Auto) 6.2, Eos % (Auto) 1.6, Baso % (Auto) 0.5, Absolute Neuts (auto) 2.9, Absolute Lymphs (auto) 0.62 L, Nucleated RBC % 0, Differential Comment SCANNED, Anisocytosis 2+, Microcytosis 1+, Macrocytosis 1+, Sodium 136, Potassium 3.6, Chloride 103, Carbon Dioxide 27.0, Anion Gap 6, BUN 4 L, Creatinine 0.46 L, Estim Creat Clear Calc 44.63, Est GFR (MDRD) Af Amer 171, Est GFR (MDRD) Non-Af 141, BUN/Creatinine Ratio 8.6 L, Glucose 110 H, Calcium 8.1 L, Phosphorus 2.5, Magnesium 1.8, Total Bilirubin 0.80, AST 17, ALT 25, Alkaline P hosphatase 102, Total Protein 5.7 L, Albumin 1.9 L, Globulin 3.8, Albumin/Globulin Ratio 0.5 L Micro: Microbiology 07/11/23 20:00 Stool Ova and Parasites - Final 07/11/23 15:00 Blood Culture (Wb) - Left Forearm Blood Culture - Final No growth in 5 days. 07/11/23 15:15 Blood Culture (Wb) - Left Forearm Blood Culture - Final No growth in 5 days. 07/11/23 15:24 Urine, Catheterized Urine Culture - Final Culture exhibits no growth. 07/11/23 20:00 Stool Enteric Bacteriology - Final 07/11/23 20:00 Stool Clostridioides difficile (PCR) - Final 07/11/23 19:50 Mucosa - Nasopharyngeal Respiratory Panel (PCR) - Final 07/11/23 17:00 Mucosa - Nose SARS-CoV-2, Influenza & RSV (PCR) - Final Physical Exam Narrative General: Alert, oriented, no apparent distress HEENT: Atraumatic, normocephalic Eyes: Anicteric, normal conjunctiva, extraocular movements grossly intact Neck: Supple Respiratory: Clear to auscultation bilaterally, normal respiratory effort Cardiovascular: Regular rate and rhythm GI: Soft, nontender, no rebound, guarding, rigidity Extremities: No edema Musculoskeletal: Moving all extremities Neuro: No overt focal neurological deficits Skin: No rashes appreciated Psych: Cooperative Assessment & Plan Assessment/Plan (1) Neutropenia with fever: PLAN: Plan The patients is a 68 y/o Andrei F Was admitted through ER for persistent more than 10 loose watery bowel movement per day since past 07/06/2023 she denied black or maroon-colored stool but have thirsty dry mouth and lightheadedness. Mild abdominal discomfort and bloating. She started chemotherapy and radiation therapy on June 11 for moderately differentiated rectal adenocarcinoma. Last chemotherapy was 1 week ago. Last radiotherapy on Friday. #Intractable diarrhea, Neutropenic fever- found to have ileitis, sigmoid congestion and stricture, duodenal and gastric ulcers -Patient is being admitted to [facility] floor. Tmax 100.8 Fahrenheit. Vigorous IV fluid rehydration. Stool for enteric bacteriology panel, C. difficile negative. Respiratory panel, SARS-CoV-2 influenza and RSV PCR negative. Seems chemotherapeutic adverse effect/possible mucositis. Procalcitonin 0.42. Clinical picture does not suggest sepsis. Sepsis ruled out. Chest x-ray new lesion does not show acute infiltrate. Blood cultures x 2 and urine culture pending. UA WBC negative RBC negative, LE and nitrite negative. Patient on IV cefepime 2 g every 12 hourly. I think with patient being immunosuppressed with possibility of mucositis there is high possibility of getting C. difficile therefore IV antibiotic discontinued. Probiotic started. Supportive management. 07/13: Patient having low-grade fever, Tmax 100.4 Fahrenheit, no tachycardia. WBC count is 6.5 thousand. ALC 0.17 thousand. ANC 5.2 thousand. 2 more day of Neupogen tomorrow AM. As patient is spiked fever even the low-grade and ANC 5.2 collagen but with mucositis the risk for bacterial translocation therefore discussed with the oncologist Dr. Orellana. Decided to restart 6 cefepime 1 g every 12 hourly for 2 more days. Blood cultures x 2 so far negative. -07/14: Patient still having 8-12 loose watery bowel movements a day with inab ility to maintain electrolytes, nutrition, hydration without external support. GI consulted for assistance with managing intractable diarrhea given patient admitted 3 days ago and not improving and multiple electrolyte derangements, will resume fluids with LR. Last elevated temperature was morning of 07/13 with a temp of 100.4. Patient is still on cefepime -07/15: Patient to complete cefepime today, GI evaluated, patient for upper and lower endoscopy today and also repeat CT scan of abdomen. Octreotide 3 times daily recommended by oncology however patient now pending GI workup this will need to be determined pending studies. On LR -07/16: Upper endoscopy with oozing duodenal ulcers as well as nonbleeding gastric and duodenal ulcers and colonoscopy with congested sigmoid mucosa stricture which was biopsied as well as severe inflammation in the ileum secondary to ileitis, started on Protonix bolus and drip per GI recs, started on clear liquid diet, discussed with GI regarding oncology recommendations and octreotide has been started -07/17: Will attempt to advance diet, remains on PPI and octreotide, potassium 3.5 today, continue oral placement, slowly improving -07/18: Patient started on colestipol and rifaximin in addition to octreotide to help decrease diarrhea further -07/19: Had been improving but transiently worsened overnight, may have to do with increased lactose consumption but unclear, will increase colestipol to 3 times daily and decrease lactose consumption, if controlled within reason tomorrow may be able to DC #Moderately differentiated adenocarcinoma, rectal cancer with pancytopenia (neutropenia, normocytic anemia, thrombocytopenia) with neutropenic fever : Asif matthews with 04/09/2023 evaluation with noted napkin ring lesion 12 to 15 cm from the anal verge with biopsy demonstrating moderately differentiated adenocarcinoma at 15 cm, CT scan chest/abdomen/pelvis 04/16/2023 with a mass at the sigmoid colon with luminal narrowing, CEA 50.9 with treatment then at [facility]. MRI of the pelvis 05/07/2023 with a rectal mass 12 cm from the anal verge with no pelvic lymphadenopathy DM T4a N0. Patient started neoadjuvant therapy with combined chemotherapy-Xeloda and radiation therapy on 06/11/2023. Patient following with Dr. Orellana with last visit 07/09/23 now week 5 with report of ongoing issues with diarrhea and need for IV fluids and electrolyte supplementations. ED magnesium 1.7, phosphorus level will be requested. CBC upon presentation with WBC 1.4, hemoglobin 11.4, MCV 83, platelet unfortunately unable to be obtained secondary to clumping, repeat CBC in AM. May certainly involve oncology if necessary. 07/12: Bands 14%. ANC 1.6 thousand. ALC 0.42 thousand. Total leukocyte improving. Platelet count normal. Hemoglobin around 10 g%. 07/13: As mentioned above. -07/14: Hemoglobin remained stable at 10.4, no thrombocytopenia, white blood cell count improving -07/15: Family indicated that patient's radiation oncologist evaluated this a.m., patient has also been discussed with her oncologist Dr. Orellana, additionally undergoing GI workup -07/16: Repeat CT demonstrated enteritis most significant at the level of the pelvis -07/17: Will need to follow-up with oncology on outpatient basis #Hypokalemia: Admission K+ 3.2, magnesium level as noted 1.7, supplementation given 07/12: Patient has hypophosphatemia and magnesium on lower side. IV potassium phosphate ordered and given. IV magnesium sulfate ordered. 07/13: Severe hypokalemia and hypophosphatemia. Electrolyte ordered. On IV fluid Ringer lactate. Encouraged oral supplementation. -07/14: Continue to aggressively replace, will start LR and continue potassium 20 3 times daily in addition to additional oral and IV -07/15: Slightly better today, continue aggressive replacement and managing underlying illness -07/16: Potassium 3.1, replaced -07/17: Improving with decreasing diarrhea -07/18: Did have replaced today, still maintaining better than it was previous, closer to being able to maintain electrolytes for discharge -07/19: Continue scheduled potassium #Hyponatremia, suspected hypovolemic given GI losses: Admission CMP obtained per hospitalist with noted sodium 131, chloride 104, will continue hydration and repeat CMP in AM. 07/13 serum sodium 134 improving. -07/14: Resolved #Hyperglycemia without diabetic history: Admission glucose 159, likely stress response however to be cautious we will obtain hemoglobin A1c. -07/14: A1c 5.6 # DVT prophylaxis: Heparin. Time spent in the patient's overall evaluation,decision-making process, review of diagnostic data, adjustment of management, discussion with other providers, nursing nursing and ancillary staff involved in patient's care documentation, 35 minutes Charges/Coding Visit Charges Inpatient E&M: 74962 Subs Hosp L2
[2023-07-19 11:28] VITALS: BP 136/81; PULSE 81; RESP 16; TEMP 36.7; O2SAT 97
[2023-07-19 14:54] VITALS: BP 116/71; PULSE 78; RESP 16; TEMP 37; O2SAT 100
[2023-07-19 21:24] VITALS: BP 116/80; PULSE 86; RESP 16; TEMP 36.6; O2SAT 98
[2023-07-20 04:13] VITALS: BP 120/68; PULSE 64; RESP 16; TEMP 36.5; O2SAT 100
[2023-07-20] MEDS: 0.9% Normal Saline (250mL Bag) 250 ML 15 ML IV (04:18)
[2023-07-20 06:00] VITALS: BMI 17.3
[2023-07-20 06:17] LABS: Absolute Lymphocyte Count 0.72 X10^3/uL (0.83-4.51); Absolute Neutrophil Count 2.3 X10^3/uL (2.0-7.7); Basophil# 0.04 X10^3/uL; Basophil% 1.1 % (0-1); Eosinophils% 2.8 % (0-5); Hematocrit 32.4 % (37-47); Hemoglobin 10.5 g/dL (12.0-15.0); Lymphocyte # 0.72 X10^3/ul (0.83-4.51); Lymphocyte % 20.1 % (19-41); Mean Corp Hgb Conc 32.4 g/dL (32-36); Mean Corpuscular Hgb 27.8 pg (27.0-32.0); Mean Corpuscular Volume 85.7 fL (81-99); Mean Platelet Vol. 10.3 fl (6.2-12.0); Monocyte# 0.32 X10^3/uL; Monocyte% 8.9 % (0-10); NRBC Flagged by Analyzer 0 % (0-5); Neutrophil # 2.33 X10^3/uL (2.7-7.7); Neutrophil % 64.9 % (47-70); POSITIVE MORPHOLOGY YES; Platelet Count 180 K/mm3 (150-450); RBC Distribution Width CV 20.9 % (11.6-14.6); RBC Distribution Width SD 61.9 fl (35.1-43.9); Red Blood Count 3.78 M/mm3 (4.2-5.4); White Blood Count 3.6 K/mm3 (4.4-11.0)
[2023-07-20] MEDS: Octreotide 0.1 MG/ML ML 0.100000000000000006 MG SC (06:20)
[2023-07-20] MEDS: rifAXIMin 550 MG Tablet PO ×2 (06:20→14:13)
[2023-07-20] MEDS: Colestipol 1 GM TABLET 2 GM PO ×2 (06:20→14:13)
[2023-07-20 06:24] LABS: Differential Indicated SCAN CRITERIA MET
[2023-07-20 06:46] LABS: ALB/GLOB Ratio 0.5 RATIO (0.9-2.4); AST(SGOT) 19 U/L (15-37); Alanine Aminotransfer ALT/SGPT 26 U/L (13-56); Albumin, Serum 1.8 g/dL (3.2-5.0); Alkaline Phosphatase 107 U/L (45-117); Anion Gap 3 (5-15); BUN 4 mg/dL (7-18); BUN/Creat Ratio 8.5 RATIO (10-20); Calcium,Total 8.1 mg/dL (8.5-10.1); Chloride 102 mmol/L (98-107); Creatinine, Serum 0.47 mg/dL (0.55-1.02); EST Glomerular Filtration Rate 138 mL/min (>60); Est Glom Filt Rate - Afr Amer 167 mL/min (>60); Estimated Creatinine Clearance 41.32 ml/min; Globulin 3.8 g/dL (2.2-4.2); Glucose 96 mg/dL (74-106); Potassium 4.2 mmol/L (3.5-5.1); Protein, Total 5.6 g/dL (6.4-8.2); Sodium Level 133 mmol/L (136-145)
[2023-07-20 07:06] LABS: Anisocytosis 2+; Differential Comment SCANNED; Macrocytosis 1+; Microcytosis 1+
[2023-07-20] MEDS: Pantoprazole Sodium 80 MG in 0.9% Normal Saline (100mL Bag) 80 ML 10 MG CONT INF (07:52)
[2023-07-20] MEDS: Potassium Chloride Oral Tablet 10 MEQ 20 MEQ PO ×2 (07:57→12:16)
[2023-07-20 08:22] VITALS: BP 121/77; PULSE 72; RESP 16; TEMP 36.6; O2SAT 99
[2023-07-20] MEDS: NYSTATIN 500,000 UNIT/5 ML UDC 500000 UNIT PO ×2 (09:52→14:13)
[2023-07-20] MEDS: Heparin Injection (Vial) 5,000 UNIT/ML VIAL 5000 UNIT SC (09:52)
[2023-07-20 12:28] VITALS: BP 117/69; PULSE 81; RESP 16; TEMP 37.3; O2SAT 99
[2023-07-20] MEDS: FLUCONAZOLE 150 MG TABLET PO (12:54)
--- NOTE | 2023-07-20 13:11 | DCINST_ITS ---
Discharge Instructions Diet Discharge Diet: Light diet - advance as tolerated (Low dairy/lactose) Activity Discharge Activity: - (Increase activity as tolerated) Follow Up Care Test Results: Test results from this visit will be discussed in further detail at your follow- up appointment, if applicable. Discharge Plan Admission Admit Date/Time: 07/11/23 16:22 Primary Reason for Your Visit: Intractable diarrhea Attending Provider: Yumiko Frank Primary Care Provider: Mike Salvador Consulting Providers: Georgette Blandon; Cholo Friend; Oliver Gunderson Instructions Patient Instructions: Cancer Care- Controlling Diarrhea, Cancer and Nutrition Foods to ... Additional Instructions / Restrictions: DISCHARGE INSTRUCTIONS PLEASE READ *Please take this with you to your next doctors appointment* -You will take Protonix 40 mg twice daily on discharge for ulcers -You will take colestipol 3 times daily on discharge for your diarrhea -A prescription has been sent to your pharmacy for rifaximin, if this is affordable it is advised that you take this 3 times daily for 1 month for your diarrhea -You will need to follow-up with Dr. Gunderson with GI in his office upon discharge. Please call his office to schedule your hospital follow-up appointment (ph. [phone]) -Would recommend lab work (CBC and BMP) to check your blood counts and potassium counts in 2 to 3 days through your primary care physician's office. Please call their office upon discharge to obtain order for lab work. -Please follow-up with your oncology doctor and radiation oncology doctor upon discharge -Please call your primary care provider's office upon discharge to schedule a hospital follow up within 1 week. -For any concerning signs or symptoms please call 911 or proceed to the nearest emergency department Discharge Orders/Prescriptions Prescriptions: New colestipol 1 gram Tablet 2 g PO TID 30 Days Qty: 180 0RF pantoprazole [Protonix] 40 mg tablet,delayed release (DR/EC) 40 mg PO BID 30 Days Qty: 60 0RF Xifaxan 550 mg Tablet 550 mg PO TID 30 Days Qty: 90 0RF Continued ondansetron 8 mg tablet,disintegrating 8 mg PO Q8H PRN (Reason: nausea and vomiting) Qty: 30 2RF diclofenac sodium 1 % gel 2 g topical BID Qty: 100 2RF Rx Instructions: apply to palms and soles of feet twice daily loperamide [Imodium A-D] 2 mg capsule 2 mg PO Q6H PRN (Reason: loose stool) metoclopramide HCl [Reglan] 5 mg tablet 5 mg PO Q6H PRN (Reason: nausea and vomiting) Qty: 14 0RF potassium chloride 20 mEq tablet extended release 20 meq PO TID 30 Days Qty: 90 0RF Held capecitabine 500 mg tablet 1,000 mg PO BID Qty: 100 0RF Hold Instructions: Resume on 07/30/23. Hold until otherwise instructed by your Oncologist Rx Instructions: Friday to Friday during Radiation. Discontinued sodium chloride 1,000 mg tablet,soluble 1,000 mg PO QD-QID PRN (Reason: electrolyte replenishment) 30 Days Qty: 60 1RF diphenoxylate-atropine [Lomotil] 2.5-0.025 mg tablet 1 tab PO BID PRN (Reason: diarrhea) Qty: 20 0RF Referrals / Follow Up: Oliver Gunderson DO [Med Staff - Active Staff] - Mike Salvador MD [Primary Care Provider] - Within 1 Week Disposition Disposition (needs filled in before D/C Order can be placed): Home, Self Care
--- NOTE | 2023-07-20 13:23 | DS.PCM_ITS ---
Providers Date of Admission: 07/11/23 Date of Discharge: 07/20/23 Primary Care Physician: Dr. Mike Salvador MD Consultations 07/14/23 17:08 Consult: Gastroenterology Routine Consulting Provider: Ra Jalynhsaan Reason for Consult: Intractable diarrhea w/ hypokalemia, unclear GI mucositis vs other etiology EMERGENT Consult: No MD Notified: Yes Date Notified: 07/14/23 Time Notified: 19:02 Method of Notification: Text Reason For Visit: NEUTROPENIC FEVER, DIARRHEA Diagnosis Discharge Diagnosis (1) Neutropenia with fever: Status: Acute Code(s): D70.9 - Neutropenia, unspecified; R50.81 - Fever presenting with conditions classified elsewhere (2) Acute dehydration: Status: Acute Code(s): E86.0 - Dehydration (3) Acute hypokalemia: Status: Acute Code(s): E87.6 - Hypokalemia (4) Diarrhea: Status: Acute Code(s): R19.7 - Diarrhea, unspecified (5) Hyponatremia: Status: Acute Code(s): E87.1 - Hypo-osmolality and hyponatremia (6) Rectal cancer: Status: Acute Code(s): C20 - Malignant neoplasm of rectum (7) Ileitis: Status: Acute Code(s): K52.9 - Noninfective gastroenteritis and colitis, unspecified (8) Duodenal ulcer: Status: Acute Code(s): K26.9 - Duodenal ulcer, unspecified as acute or chronic, without hemorrhage or perforation (9) Gastric ulcer: Status: Acute Code(s): K25.9 - Gastric ulcer, unspecified as acute or chronic, without hemorrhage or perforation Plan #Intractable diarrhea, Neutropenic fever- found to have ileitis, sigmoid congestion and stricture, duodenal and gastric ulcers #Moderately differentiated adenocarcinoma, rectal cancer with pancytopenia (ne utropenia, normocytic anemia, thrombocytopenia) with neutropenic fever #Hypokalemia- resolved Medications at Discharge Home Medications capecitabine 500 mg tablet 1,000 mg (2 x 500 mg) PO BID #100 tabs 06/02/23 diclofenac sodium 1 % topical gel 2 g topical BID #100 grams 06/05/23 ondansetron 8 mg disintegrating tablet 8 mg PO Q8H PRN nausea and vomiting #30 tabs 06/05/23 loperamide 2 mg capsule (Imodium A-D) 2 mg PO Q6H PRN loose stool 06/25/23 metoclopramide HCl 5 mg tablet (Reglan) 5 mg PO Q6H PRN nausea and vomiting #14 tabs 07/08/23 colestipol 1 gram tablet 2 g (2 x 1 gram) PO TID 30 days #180 tabs 07/20/23 pantoprazole 40 mg tablet,delayed release (Protonix) 40 mg PO BID 30 days #60 tabs 07/20/23 potassium chloride 20 mEq tablet,extended release 20 meq PO TID supplement 30 days #90 tabs 07/20/23 rifaximin 550 mg tablet (Xifaxan) 550 mg PO TID 30 days #90 tabs 07/20/23 Hospital Course Procedures Colonoscopy and EGD Summary of Care Provided Minutes Spent on Discharge: 45 Hospital Course: The patients is a 68 y/o [place] F Was admitted through ER 07/11 for persistent more than 10 loose watery bowel movement per day since past 07/06/2023 she denied black or maroon-colored stool but have thirsty dry mouth and lightheadedness. Mild abdominal discomfort and bloating. She started chemotherapy and radiation therapy on June 11 for moderately differentiated rectal adenocarcinoma. Last chemotherapy was 1 week prior to admission. Last radiotherapy on Friday prior to admission. Patient admitted for intractable diarrhea and neutropenic fever. C. difficile, respiratory panel, enteric panels negative and cultures were negative, was on cefepime for period of time however it was suspected that her diarrhea was possibly radiation induced. Patient continued to have significant diarrhea with difficulty maintaining potassium even with repeated replacement. Discussed with oncology and they recommended starting octreotide 3 times daily. Ultimately GI was consulted and patient underwent upper and lower endoscopies. Upper endoscopy with oozing duodenal ulce rs as well as nonbleeding gastric and duodenal ulcers and colonoscopy with congested sigmoid mucosa stricture which was biopsied as well as severe inflammation in the ileum secondary to ileitis, started on Protonix bolus and drip per GI recs. She was subsequently started on colestipol and rifaximin and improved. Did seem to have more bloating and diarrhea when eating dairy products so this was decreased/cut out and diarrhea further improved, discussed that she would likely not be diarrhea free on discharge but the goal was it was decreased to the point that she could maintain her hydration and potassium. On day of discharge patient with potassium in normal range, has had noticeable slowing and diarrhea is able to maintain her hydration and nutrition status. Did have some streaks of blood in her stool, discussed with GI and given her cancer and hemorrhoids it was felt this did not need further intervention or investigation given small amount and stable hemoglobin with known reason to have some scattered blood. Discussed octreotide with patient and patient unwilling to continue this on discharge if recommended as it is given subcutaneously and she does not want to do any kind of injections at home. Patient agreeable to other medications. On day of discharge patient much improved, discharge instructions as follows: -You will take Protonix 40 mg twice daily on discharge for ulcers -You will take colestipol 3 times daily on discharge for your diarrhea -A prescription has been sent to your pharmacy for rifaximin, if this is affordable it is advised that you take this 3 times daily for 1 month for your diarrhea -You will need to follow-up with Dr. Gunderson with GI in his office upon discharge. Please call his office to schedule your hospital follow-up appointment (ph. [phone]) -Would recommend lab work (CBC and BMP) to check your blood counts and potassium counts in 2 to 3 days through your primary care physician's office. Please call their office upon discharge to obtain order for lab work. -Please follow-up with your oncology doctor and radiation oncology doctor upon discharge -Please call your primary care provider's office upon discharge to schedule a hospital follow up within 1 week. -For any concerning signs or symptoms please call 911 or proceed to the nearest emergency department Physical Exam Narrative General: Alert, oriented, no apparent distress HEENT: Atraumatic, normocephalic Eyes: Anicteric, normal conjunctiva, extraocular movements grossly intact Neck: Supple Respiratory: Clear to auscultation bilaterally, normal respiratory effort Cardiovascular: Regular rate and rhythm GI: Soft, nontender, no rebound, guarding, rigidity Extremities: No edema Musculoskeletal: Moving all extremities Neuro: No overt focal neurological deficits Skin: No rashes appreciated Psych: Cooperative Medical Records Data Medical Nutrition Assessment Dietitian: Malnutrition Criteria Met Start: 07/12/23 15:48 Freq: Status: Active Protocol: Document 07/14/23 15:23 RMA (Rec: 07/14/23 15:23 RMA [id number]) Nutrition Malnutrition Evidence of Malnutrition Exists Yes Malnutrition (severe): Chronic Evidenced By Suboptimal Energy Intake ( Severe),Weight Loss (Severe) Clinical Problem Chronic Disease or Condition Related Malnutrition Etiology Severe protein-calorie malnutrition in the context of chronic disease/cancer related to inadequate energy/ oral intake and altered GI function/diarrhea and nausea/ vomiting Signs/Symptoms as evidenced by ~7% unintentional weight loss x 1 month, BMI 18.3 and PO meeting less than 50% estimated nutrition needs x 1 month Status Active Problem Recommendation Dietitian Recommendations/Changes Will continue liberalized regular diet as tolerated. Will continue 120mL ensure plus HP 4 times per day w/ medpass as tolerated. Will continue 240mL ensure clear TID w/ meals for tolerance. Current weight as able. Weight / BMI Weight Weight: 40 kg Body Mass Index (BMI) 17.3 ABG / Lab / Microbiology Data 07/20/23 05:30 07/20/23 05:30 Laboratory: Laboratory Results - last 24 hr 07/20/23 05:30: WBC 3.6 L, RBC 3.78 L, Hgb 10.5 L, Hct 32.4 L, MCV 85.7, MCH 27.8, MCHC 32.4, RDW Std Deviation 61.9 H, RDW Coeff of John 20.9 H, Plt Count 180, MPV 10.3, Immature Gran % (Auto) 2.200 H, Neut % (Auto) 64.9, Lymph % (Auto) 20.1, [place] % (Auto) 8.9, Eos % (Auto) 2.8, Baso % (Auto) 1.1 H, Absolute Neuts (auto) 2.3, Absolute Lymphs (auto) 0.72 L, Nucleated RBC % 0, Differential Comment SCANNED, Anisocytosis 2+, Microcytosis 1+, Macrocytosis 1+, Sodium 133 L , Potassium 4.2, Chloride 102, Carbon Dioxide 28.0, Anion Gap 3 L, BUN 4 L, Creatinine 0.47 L, Estim Creat Clear Calc 41.32, Est GFR (MDRD) Af Amer 167, Est GFR (MDRD) Non-Af 138, BUN/Creatinine Ratio 8.5 L, Glucose 96, Calcium 8.1 L, Total Bilirubin 0.60, AST 19, ALT 26, Alkaline Phosphatase 107, Total Protein 5.6 L, Albumin 1.8 L, Globulin 3.8, Albumin/Globulin Ratio 0.5 L Microbiology: Microbiology 07/11/23 20:00 Stool Ova and Parasites - Final 07/11/23 15:00 Blood Culture (Wb) - Left Forearm Blood Culture - Final No growth in 5 days. 07/11/23 15:15 Blood Culture (Wb) - Left Forearm Blood Culture - Final No growth in 5 days. 07/11/23 15:24 Urine, Catheterized Urine Culture - Final Culture exhibits no growth. 07/11/23 20:00 Stool Enteric Bacteriology - Final 07/11/23 20:00 Stool Clostridioides difficile (PCR) - Final 07/11/23 19:50 Mucosa - Nasopharyngeal Respiratory Panel (PCR) - Final 07/11/23 17:00 Mucosa - Nose SARS-CoV-2, Influenza & RSV (PCR) - Final D/C Instructions Discharge Diet: Light diet - advance as tolerated (Low dairy/lactose) Meaningful Use Info Meaningful Use Diagnoses (Choose all that apply): None applicable Discharge Plan Admission Admit Date/Time: 07/11/23 16:22 Primary Reason for Your Visit: Intractable diarrhea Attending Provider: Yumiko Frank Primary Care Provider: Mike Salvador Consulting Providers: Georgette Blandon; Cholo Friend; Oliver Gunderson Instructions Patient Instructions: Cancer Care- Controlling Diarrhea, Cancer and Nutrition Foods to ... Additional Instructions / Restrictions: DISCHARGE INSTRUCTIONS PLEASE READ *Please take this with you to your next doctors appointment* -You will take Protonix 40 mg twice daily on discharge for ulcers -You will take colestipol 3 times daily on discharge for your diarrhea -A prescription has been sent to your pharmacy for rifaximin, if this is affordable it is advised that you take this 3 times daily for 1 month for your diarrhea -You will need to follow-up with Dr. Gunderson with GI in his office upon discharge. Please call his office to schedule your hospital follow-up appointment (ph. [phone]) -Would recommend lab work (CBC and BMP) to check your blood counts and potassium counts in 2 to 3 days through your primary care physician's office. Please call their office upon discharge to obtain order for lab work. -Please follow-up with your oncology doctor and radiation oncology doctor upon discharge -Please call your primary care provider's office upon discharge to schedule a hospital follow up within 1 week. -For any concerning signs or symptoms please call 911 or proceed to the nearest emergency department Discharge Orders/Prescriptions Prescriptions: New colestipol 1 gram Tablet 2 g PO TID 30 Days Qty: 180 0RF pantoprazole [Protonix] 40 mg tablet,delayed release (DR/EC) 40 mg PO BID 30 Days Qty: 60 0RF Xifaxan 550 mg Tablet 550 mg PO TID 30 Days Qty: 90 0RF Continued ondansetron 8 mg tablet,disintegrating 8 mg PO Q8H PRN (Reason: nausea and vomiting) Qty: 30 2RF diclofenac sodium 1 % gel 2 g topical BID Qty: 100 2RF Rx Instructions: apply to palms and soles of feet twice daily loperamide [Imodium A-D] 2 mg capsule 2 mg PO Q6H PRN (Reason: loose stool) metoclopramide HCl [Reglan] 5 mg tablet 5 mg PO Q6H PRN (Reason: nausea and vomiting) Qty: 14 0RF potassium chloride 20 mEq tablet extended release 20 meq PO TID 30 Days Qty: 90 0RF Held capecitabine 500 mg tablet 1,000 mg PO BID Qty: 100 0RF Hold Instructions: Resume on 07/30/23. Hold until otherwise instructed by your Oncologist Rx Instructions: Friday to Friday during Radiation. Discontinued sodium chloride 1,000 mg tablet,soluble 1,000 mg PO QD-QID PRN (Reason: electrolyte replenishment) 30 Days Qty: 60 1RF diphenoxylate-atropine [Lomotil] 2.5-0.025 mg tablet 1 tab PO BID PRN (Reason: diarrhea) Qty: 20 0RF Referrals / Follow Up: Oliver Gunderson DO [Med Staff - Active Staff] - Mike Salvador MD [Primary Care Provider] - Within 1 Week Disposition Disposition (needs filled in before D/C Order can be placed): Home, Self Care Charges/Coding Visit Charges Inpatient E&M: 44610 Disch Hosp >30min
== END 2023-07-20 15:30 | disposition home or self-care (01) | DRG 808 ==
LOC: ED 16:03 → MS3 17:40
PROVIDERS: Anesthesiology; Internal Medicine; Internal Medicine Gastroenterology; Admitting Provider Family Medicine; Emergency Provider Emergency Medicine; PCP Family Medicine; Visit Provider Internal Medicine
PROC: 0DJD8ZZ Inspection of Lower Intestinal Tract, Via Natural or Artificial Opening Endoscopic (ICD-10-PCS; CPT 45378; principal; 2023-07-15 13:55)
DX: D70.3 Neutropenia due to infection (principal); K26.0 Acute duodenal ulcer with hemorrhage; E43 Unspecified severe protein-calorie malnutrition; E87.1 Hypo-osmolality and hyponatremia; C18.7 Malignant neoplasm of sigmoid colon; C20 Malignant neoplasm of rectum; Z68.1 Body mass index [BMI] 19.9 or less, adult; K25.3 Acute gastric ulcer without hemorrhage or perforation; K92.81 Gastrointestinal mucositis (ulcerative); E83.39 Other disorders of phosphorus metabolism; D50.9 Iron deficiency anemia, unspecified; E86.0 Dehydration; D61.818 Other pancytopenia; E87.6 Hypokalemia; K64.1 Second degree hemorrhoids; K29.50 Unspecified chronic gastritis without bleeding; K52.89 Other specified noninfective gastroenteritis and colitis; K22.89 Other specified disease of esophagus; E86.1 Hypovolemia; T45.1X5A Adverse effect of antineoplastic and immunosuppressive drugs, initial encounter; K63.89 Other specified diseases of intestine; R50.81 Fever presenting with conditions classified elsewhere; Z79.899 Other long term (current) drug therapy; Z86.16 Personal history of COVID-19
CPT/HCPCS: 36415; 71045; 71046; 74177; 80048; 80053; 80076; 81001; 81002; 83036; 83605; 83735; 84100; 84145; 85025; 85730; 87040; 87086; 87177; 87209; 87493; 87506; 87631; 87633; 88305; 88312; 88341; 88342; 93005; 94668; 97110; 97116; 97162; 97166; 97530; 97802; 97803; 99285; J7030; J7040; J7050; J7120; P9612; Q9967; A4216; J0612; J1447; J2354; J2405; J3490

== ENCOUNTER → 2024-08-23 | Outpatient (CLI) | payer SELFPAY, OTHER ==
--- NOTE | 2024-08-23 06:52 | CT_ITS ---
PROCEDURE: CT CHEST, ABD, PEL W/CONTRAST REASON FOR EXAM: History of colon cancer. Prior colectomy and colostomy with reversal. Prior radiation and chemotherapy. TECHNIQUE: Chest CTA with intravenous contrast and 3D reconstructions. Abdomen and pelvis CT using the same contrast dose. CONTRAST: 100 cc of Isovue-300. COMPARISON: Comparison is made with prior CT scan of the abdomen and pelvis dated July 15, 2023. FINDINGS: CHEST: Lines and tubes: None. There is a 6.3 mm hypodense nodule in the inferior pole of the right lobe of the thyroid. Mediastinum: No evidence of mediastinal hemorrhage. Heart: Normal heart size. No pericardial effusion. Coronary artery calcification. Thoracic Aorta: No thoracic aortic aneurysm or dissection. Atherosclerotic plaque formation of the aortic arch. Lungs and Airways: Hyperinflation and mild degree of emphysema. No mass lesion is seen. Pleura: No pleural effusion. No pneumothorax. Bones: No acute osseous abnormality identified. ABDOMEN AND PELVIS: Liver: 1.3 cm cyst in the inferior medial portion of the right lobe of the liver. This has decreased in size as compared to prior study. Stable 1 cm cyst in the medial aspect of the left lobe of the liver. Gallbladder: Unremarkable. Spleen: Unremarkable. Pancreas: Unremarkable. Adrenals: Unremarkable. Kidneys: Unremarkable. Retroaortic left renal vein. This is a normal variant. Bladder: Unremarkable. Reproductive Organs: Unremarkable. Bowel: Colonic diverticulosis without diverticulitis. Vasculature: Mild diffuse atherosclerotic calcifications are noted. Peritoneum / Retroperitoneum: No free fluid. No free air. Bones: Degenerative changes of the spine. CT/CT Chest, Abd, Pel w/Contrast IMPRESSION: Interval decrease in size of the small cyst in the inferior medial aspect of th e right lobe of the liver. The remainder of the examination is unchanged. One or more dose reduction techniques were used (e.g., Automated exposure contr ol, adjustment of the mA and/or kV according to patient size, use of iterative reconstruction technique). Reading Location: [id number]
== END | disposition home or self-care (01) ==
PROVIDERS: PCP Family Medicine; Referring Provider Nurse Practitioner Family; Visit Provider Nurse Practitioner Family
DX: C20 Malignant neoplasm of rectum (principal)
CPT/HCPCS: 71260; 74177; Q9967

== ENCOUNTER 2024-10-14 09:24 | Day surgery (SDC) | payer SELFPAY, OTHER ==
--- NOTE | 2024-10-07 15:59 | PAT.ANESEVAL ---
Pre-Assessment Diagnosis/Proposed Procedure Planned Operative Procedure(s): CSCOPE Anesthesia History Anesthesia History - inspector subassembly: Anesthesia History - inspector subassembly Hx Hospitalization Yes: REVERSAL OF COLOSTOMY 10/07/24 14:06 SURGERY 01/2024 Any Problems With Anesthesia No 10/07/24 14:06 Cholinesterase deficiency No 10/07/24 14:06 You/Your Family Experience No 10/07/24 14:06 fever (hyperthermia) with Relationship Recent Exposure to Contagious No 07/31/23 11:17 Disease Does patient have nerve No 10/07/24 14:06 stimulator Patient instructed to have device shut off --Does patient have Pacemaker or ICD? When Was Last Pacemaker Check QUESTION #4 FULL TEXT: You/Your Family Experience fever (hyperthermia) with Anesthesia Last Oral Intake Last Oral intake: Last Oral Intake NPO since Meds taken in AM with sips of water? Meds patient instructed to take am of surgery PONV PONV - inspector subassembly: PONV - inspector subassembly Female Yes 10/07/24 14:06 HX of Motion Sickness No 10/07/24 14:06 HX of N/V After Surgery No 10/07/24 14:06 Non-Smoker Yes 10/07/24 14:06 Duration of Surgery greater No 10/07/24 14:06 than 60 minutes Number of Risk Factors 2 10/07/24 14:06 PONV Score Moderate Risk 10/07/24 14:06 Height & Weight Height & Weight: Anesthesia: Height & Weight Height 5 ft 08/26/24 11:24 Respiratory Assessment Respiratory Assessment - inspector subassembly: Respiratory Tract Infection Hx - inspector subassembly Hx Respiratory Tract Infection Yes: CURRENT COLD 10/07/24 10/07/24 14:06 STOP Sleep Apnea STOP Sleep Apnea - inspector subassembly: STOP Sleep Apnea - inspector subassembly Hx Hypertension No 10/07/24 14:06 Hx Sleep Apnea No 10/07/24 14:06 CPAP BIPAP Do you snore loudly (louder No 10/07/24 14:06 than talking or can be heard Do you often feel tired/ No 10/07/24 14:06 fatigued/ sleepy during daytime? Has anyone observed you stop No 10/07/24 14:06 breathing during sleep? STOP Results Negative 10/07/24 14:06 QUESTION #5 FULL TEXT : Do you snore loudly (louder than talking or can be heard through closed doors)? Tobacco Use History Tobacco Use History - inspector subassembly: Tobacco Use History - inspector subassembly Tobacco Use Smoking Status Never smoker 10/07/24 14:06 Hx Tobacco Use No 10/07/24 14:06 Years Smoking Packs Smoked per Day Smoking Cessation Date was within the last 15 years Hx Smoking Cessation Date Hx Smoking Cessation Counseling Hematologic Medial History Hematologic Hx - inspector subassembly: Hematologic Medical Hx - pot runner Hx of Blood Transfusion No 10/07/24 14:06 Hx of Transfusion in last 3 No 10/07/24 14:06 Months Date of Last Transfusion (if within last 3 months) Ever experience any problems No 10/07/24 14:06 with transfusion(s)? Specify any problems Hx of Preganancy in last 3 N/A 10/07/24 14:06 Months Nurse Filling Out Transfusion NBUCHER 10/07/24 14:06 & Questions: Date: 10/07/24 10/07/24 14:06 Time: 14:10 10/07/24 14:06 Patient unable to answer at this time (ie. confused, unrespo /Reproduction History /Reproductive History - inspector subassembly: /Reproductive Hx- inspector subassembly Hx Now No 10/07/24 14:06 Gestational Age (in weeks): EDC: Hx Hx Para Hx Section SAB No 10/07/24 14:06 [facility] Medical History (Updated 10/07/24 @ 14:17 by Nelli Vilchis) Wears glasses Post-menopausal Cancer Syncope Leg cramps Non-smoker History of irregular heartbeat Thyroid nodule Pancytopenia Neutropenia with fever CINV (chemotherapy-induced nausea and vomiting) Rectal cancer Home Medications ?Medication ?Instructions ?Recorded ?Last Taken ?Type bilberry 100 mg capsule 100 mg PO DAILY 10/07/24 Unknown History bisoprolol fumarate 5 mg tablet 2.5 mg PO DAILY 10/07/24 Unknown History flaxseed oil 1,000 mg capsule 1,000 mg PO DAILY 10/07/24 Unknown History denia (Zingiber officinalis) 250 250 mg PO DAILY 10/07/24 Unknown History mg capsule Allergy/AdvReac Type Severity Reaction Status Date / Time No Known Allergies Allergy Verified 10/07/24 14:04 Family History Mother CAD (coronary artery disease) Myocardial infarction Hypertension Heart disease Father Family hx of prostate cancer Surgical History (Updated 10/07/24 @ 14:17 by Nelli Vilchis) History of colonoscopy History of colectomy (~08/2023) History of reversal of ileostomy (~01/2024) History of ileostomy (~08/2023) History of mandibular surgery Hx of cataract removal with insertion of prosthetic lens Social History household members: spouse Smoking Status: Never smoker alcohol intake: never substance use type: does not use Audit: Pertinent Findings Pertinent Findings EKG Perinent findings: July 11, 2023. Sinus rhythm with P SVC's and frequent PVCs. Minimal criteria for LVH. Nonspecific ST and T wave abnormalities. Recommendation Anesthesia Recommendation Anesthesia recommendation: F/U recommended (Previous EKG was performed when patient was severely dehydrated and hypokalemic from diarrhea. Will need to repeat EKG to establish baseline.)
--- NOTE | 2024-10-08 11:00 | PAT.ANE_ITS ---
Pre-Assessment Diagnosis/Proposed Procedure Planned Operative Procedure(s): CSCOPE Anesthesia History Anesthesia History - foil cutter: Anesthesia History - foil cutter Hx Hospitalization Yes: REVERSAL OF COLOSTOMY 10/07/24 14:06 SURGERY 01/2024 Any Problems With Anesthesia No 10/07/24 14:06 Cholinesterase deficiency No 10/07/24 14:06 You/Your Family Experience No 10/07/24 14:06 fever (hyperthermia) with Relationship Recent Exposure to Contagious No 07/31/23 11:17 Disease Does patient have nerve No 10/07/24 14:06 stimulator Patient instructed to have device shut off --Does patient have Pacemaker or ICD? When Was Last Pacemaker Check QUESTION #4 FULL TEXT: You/Your Family Experience fever (hyperthermia) with Anesthesia Last Oral Intake Last Oral intake: Last Oral Intake NPO since Meds taken in AM with sips of water? Meds patient instructed to take am of surgery PONV PONV - foil cutter: PONV - foil cutter Female Yes 10/07/24 14:06 HX of Motion Sickness No 10/07/24 14:06 HX of N/V After Surgery No 10/07/24 14:06 Non-Smoker Yes 10/07/24 14:06 Duration of Surgery greater No 10/07/24 14:06 than 60 minutes Number of Risk Factors 2 10/07/24 14:06 PONV Score Moderate Risk 10/07/24 14:06 Height & Weight Height & Weight: Anesthesia: Height & Weight Height 5 ft 08/26/24 11:24 Respiratory Assessment Respiratory Assessment - foil cutter: Respiratory Tract Infection Hx - foil cutter Hx Respiratory Tract Infection Yes: CURRENT COLD 10/07/24 10/07/24 14:06 STOP Sleep Apnea STOP Sleep Apnea - foil cutter: STOP Sleep Apnea - foil cutter Hx Hypertension No 10/07/24 14:06 Hx Sleep Apnea No 10/07/24 14:06 CPAP BIPAP Do you snore loudly (louder No 10/07/24 14:06 than talking or can be heard Do you often feel tired/ No 10/07/24 14:06 fatigued/ sleepy during daytime? Has anyone observed you stop No 10/07/24 14:06 breathing during sleep? STOP Results Negative 10/07/24 14:06 QUESTION #5 FULL TEXT : Do you snore loudly (louder than talking or can be heard through closed doors)? 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 Specify any problems Hx of Preganancy in last 3 N/A 10/07/24 14:06 Months Nurse Filling Out Transfusion NBUCHER 10/07/24 14:06 & Questions: Date: 10/07/24 10/07/24 14:06 Time: 14:10 10/07/24 14:06 Patient unable to answer at this time (ie. confused, unrespo /Reproduction History /Reproductive History - foil cutter: /Reproductive Hx- foil cutter Hx Now No 10/07/24 14:06 Gestational Age (in weeks): EDC: Hx Hx Para Hx Section SAB No 10/07/24 14:06 [facility], 1928–1983 Medical History (Updated 10/07/24 @ 14:17 by Nelli Vilchis) Wears glasses Post-menopausal Cancer Syncope Leg cramps Non-smoker History of irregular heartbeat Thyroid nodule Pancytopenia Neutropenia with fever CINV (chemotherapy-induced nausea and vomiting) Rectal cancer Home Medications ?Medication ?Instructions ?Recorded ?Last Taken ?Type bilberry 100 mg capsule 100 mg PO DAILY 10/07/24 Unk nown History bisoprolol fumarate 5 mg tablet 2.5 mg PO DAILY Unknown History flaxseed oil 1,000 mg capsule 1,000 mg PO DAILY Unknown History denia (Zingiber officinalis) 250 250 mg PO DAILY 09/28 Unknown History mg capsule Allergy/AdvReac Type Severity Reaction Status Date / Time No Known Allergies Allergy Verified 10/07/24 14:04 Family History Mother CAD (coronary artery disease) Myocardial infarction Hypertension Heart disease Father Family hx of prostate cancer Surgical History (Updated 10/07/24 @ 14:17 by Nelli Vilchis) History of colonoscopy History of colectomy (~08/2023) History of reversal of ileostomy (~01/2024) History of ileostomy (~08/2023) History of mandibular surgery Hx of cataract removal with insertion of prosthetic lens Social History household members: spouse Smoking Status: Never smoker alcohol intake: never substance use type: does not use Audit: Pertinent Findings HISTORY of Pertinent Findings History of Pertinent Findings: EKG Pertinent Findings EKG Perinent findings July 11, 2023. Sinus 10/07/24 16:01 rhythm with P SVC's and frequent PVCs. Minimal criteria for LVH. Nonspecific ST and T wave abnormalities. Pertinent Findings EKG Perinent findings: 09/29/2023. Sinus rhythm with premature atrial contractions. [address] abnormality. Recommendation Anesthesia Recommendation Anesthesia recommendation: OPTIMIZED for anesthesia
[2024-10-14] VITALS (8 sets, daily range): BP systolic 93–155; BP diastolic 63–83; PULSE 57–74; RESP 16; TEMP 36.1–36.7; O2SAT 97–100; BMI 18.1
--- NOTE | 2024-10-14 10:30 | COLBX_PTH ---
PATIENT: VAN REYNOSO LOC: EN U#:[id number] AGE/SX: 69/F ROOM: RE10/14/[address]: Dr. Oliver Gunderson DO : 1955 BED: DIS: 10/14/2024 SPEC #: [id number] RECD: 10/14/24 13:32 STATUS: TOÑO REKatelynn #: [id number] PAOLA: 10/14/24 10:[address]: Oliver Gunderson DEPT: SURGICAL PATHOLOGY RECD BY: Blake Varner ENTERED: 10/14/24 13:32 SP TYPE: COLON BX OT DR: Dr. Mike Salvador MD Tissues: A - COLON BIOPSY B - Cecum, NOS Procedures: Surgery Specimen Level IV HEADER OPERATION: Colonoscopy, biopsy, polypectomy PRE-OP DIAGNOSIS: Rectal cancer TISSUE SUBMITTED: A- Hepatic flexure polyp biopsy, B- Cecum polyp MICROSCOPIC DIAGNOSIS A. Colon, hepatic flexure, polyp, biopsy: * Tubular adenoma B. Colon, cecum, polyp, biopsy: * Tubular adenoma MICROSCOPIC DESCRIPTION Slides are reviewed. GROSS DESCRIPTION A. Received in formalin in a container labeled with the patient's name, date of , and hepatic flexure polyp biopsy is a 0.5 x 0.3 x 0.2 cm fragment of keys-pink mucosal tissue. Submitted in toto in A1. B. Received in formalin in a container labeled with the patient's name, date of , and cecum polyp are multiple keys-pink fragments of mucosal tissue measuring 0.7 x 0.6 x 0.3 cm in aggregate. Submitted in toto in B1. [facility] 10/15/2024 CPT:84091r2
--- NOTE | 2024-10-14 10:49 | PRE.ANES_ITS ---
ASA Classification* ASA Classification ASA Classification: 2 Assessment & Plan Anesthesia* Anesthesia Assessment Anesthesia Assessment: Discussed sedation and/or anesthesia options, risks, benefits, and alternatives with patient/parents/legal guardian/POA. Questions invited. The patient/parents/legal guardian/POA seems to understand and agrees to proceed with anesthesia plan. Reviewed the physical assessment, medical history, allergy history and patient home medications list prior to surgery/procedure/anesthetic and documented any changes. Performed airway and anesthesia risk assessments. Anesthesia Type Anesthesia Type: MAC History Source History Obtained from:: Patient and Chart Anesthesia Focused Assessment* Temperature: 97.0 F Pulse Rate: 60 Blood Pressure: 155/83 Respiratory Rate: 16 Pulse Ox: 99 Oxygen Delivery Method: Room Air Airway Assessment Mouth opens: >3 cm Mallampati Score: III Teeth Condition: Caps/Crowns (Patient has several crowns. They are all tight.) Neck Range of motion (ROM): Full ROM Focused Labs Anesthesia Preop lab: CBC WBC 5.6 K/mm3 (4.4-11.0) 08/05/24 10:38 08/05/24 RBC 4.13 M/mm3 (4.2-5.4) L 08/05/24 10:38 08/05/24 Hgb 12.7 g/dL (12.0-15.0) 08/05/24 10:38 08/05/24 Hct 38.7 % (37-47) 08/05/24 10:38 08/05/24 Plt Count 284 K/mm3 (150-450) 08/05/24 10:38 08/05/24 CHEMISTRY Potassium 4.3 mmol/L (3.5-5.1) 08/05/24 10:38 08/05/24 Sodium 136 mmol/L (136-145) 08/05/24 10:38 08/05/24 Magnesium 1.8 mg/dL (1.6-2.6) 07/19/23 05:53 07/19/23 Phosphorus 2.5 mg/dL (2.5-4.9) 07/19/23 05:53 07/19/23 BUN 14 mg/dL (7-18) 08/05/24 10:38 08/05/24 Creatinine 0.63 mg/dL (0.55-1.02) 08/05/24 10:38 08/05/24 Glucose 89 mg/dL (74-106) 08/05/24 10:38 08/05/24 COAG Pre-Assessment Diagnosis/Proposed Procedure Planned Operative Procedure(s): CSCOPE Anesthesia History 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 When Was Last Pacemaker Check QUESTION #4 FULL TEXT: You/Your Family Experience fever (hyperthermia) with Anesthesia Last Oral Intake Last Oral intake: Last Oral Intake NPO since 03:00 10/14/24 09:53 Meds taken in AM with sips of Yes 10/14/24 09:53 water? Meds patient instructed to busoprolol 10/14/24 09:53 take am of surgery Any additional information?: Yes NPO since: 06:30 (Patient finished her prep at 6:30 AM) Meds taken in AM with sips of water?: Yes PONV PONV - crop production advisor: PONV - crop production advisor Female Yes 10/07/24 14:06 HX of Motion Sickness No 10/07/24 14:06 HX of N/V After Surgery No 10/07/24 14:06 Non-Smoker Yes 10/07/24 14:06 Duration of Surgery greater No 10/07/24 14:06 than 60 minutes Number of Risk Factors 2 10/07/24 14:06 PONV Score Moderate Risk 10/07/24 14:06 Height & Weight Height & Weight: Anesthesia: Height & Weight Height 5 ft 10/14/24 09:53 Weight: 42 kg 10/14/24 09:53 Body Mass Index (BMI) 18.1 10/14/24 09:53 Respiratory Assessment Respiratory Assessment - crop production advisor: Respiratory Tract Infection Hx - crop production advisor Hx Respiratory Tract Infection Yes: CURRENT COLD 10/07/24 10/07/24 14:06 Any additional information?: Yes Hx Respiratory Tract Infection: Yes (Patient had a cold a week ago. It is resolved.) STOP Sleep Apnea STOP Sleep Apnea - crop production advisor: STOP Sleep Apnea - crop production advisor Hx Hypertension No 10/07/24 14:06 Hx Sleep Apnea No 10/07/24 14:06 CPAP BIPAP Do you snore loudly (louder No 10/07/24 14:06 than talking or can be heard Do you often feel tired/ No 10/07/24 14:06 fatigued/ sleepy during daytime? Has anyone observed you stop No 10/07/24 14:06 breathing during sleep? STOP Results Negative 10/07/24 14:06 QUESTION #5 FULL TEXT : Do you snore loudly (louder than talking or can be heard through closed doors)? 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 Specify any problems Hx of Preganancy in last 3 N/A 10/07/24 14:06 Months Nurse Filling Out Transfusion NBUCHER 10/07/24 14:06 & Questions: Date: 10/07/24 10/07/24 14:06 Time: 14:10 10/07/24 14:06 Patient unable to answer at this time (ie. confused, unrespo /Reproduction History /Reproductive History - crop production advisor: /Reproductive Hx- crop production advisor Hx Now No 10/07/24 14:06 Gestational Age (in weeks): EDC: Hx Hx Para Hx Section SAB No 10/07/24 14:06 [facility] Medical History Wears glasses Post-menopausal Cancer Syncope Leg cramps Non-smoker History of irregular heartbeat Thyroid nodule Pancytopenia Neutropenia with fever CINV (chemotherapy-induced nausea and vomiting) Rectal cancer Home Medications ?Medication ?Instructions ?Recorded ?Last Taken ?Type bilberry 100 mg capsule 100 mg PO DAILY 10/07/24 Unk nown History bisoprolol fumarate 5 mg tablet 2.5 mg PO DAILY 10/14/24 History flaxseed oil 1,000 mg capsule 1,000 mg PO DAILY Unknown History denia (Zingiber officinalis) 250 250 mg PO DAILY 09/28 Unknown History mg capsule complete bone and tissue 2 cap PO BID 10/08/24 Unknow n History formula 6 1 cap PO TID 10/08/24 Unknow n History optimal balance 1 cap PO DAILY 10/08/24 Unkn own History vision essential gold 2 cap PO DAILY 10/08/24 Unkn own History Allergy/AdvReac Type Severity Reaction Status Date / Time No Known Allergies Allergy Verified 10/07/24 14:04 Family History Mother CAD (coronary artery disease) Myocardial infarction Hypertension Heart disease Father Family hx of prostate cancer Surgical History History of colonoscopy History of colectomy (~08/2023) History of reversal of ileostomy (~01/2024) History of ileostomy (~08/2023) History of mandibular surgery Hx of cataract removal with insertion of prosthetic lens Social History household members: spouse Smoking Status: Never smoker alcohol intake: never substance use type: does not use Review of Systems (Anesthesia) ROS Narrative System reviewed and no additional complaints, except as documented.
--- NOTE | 2024-10-14 10:58 | PCM.HP.STD ---
[facility] - General General Date of Admission: 10/14/24 Date of Service: 10/14/24 Chief Complaint: colon cancer [facility] Narrative VAN REYNOSO, is a 69 F who presents for surveillance colonoscopy. She originally presented with abdominal discomfort, flatulence and rectal bleed. She had colonoscopy on 04/09/[address] Ramírez. Was found to have a napkin ring lesion 12 to 15 cm from the anal verge. Biopsy showed a moderately differentiated adenocarcinoma at [address] scan of chest, abdomen and pelvis on 04/16/2023 showed a mass at sigmoid colon with luminal narrowing. CEA was 50.9. She was referred to [facility]. MRI of the pelvis on 05/07/2023 showed rectal mass 12 cm from the anal verge, no pelvic lymphadenopathy T4a N0. She was referred for total neoadjuvant therapy. Started Combined chemotherapy-Xeloda and Radiation therapy on 06/11/2023. Week 5 Xeloda was discontinued because of diarrhea. She was admitted to [facility] with neutropenia and diarrhea on 07/11/2023. EGD and Colonoscopy on 07/15/2023 showed glycogenic acanthosis of the esophagus, nonbleeding gastric ulcers, oozing duodenal ulcers., Colonoscopy showed hemorrhoids, malignant appearing stenosis in the sigmoid colon congested mucosa of entire colon, severe inflammation in the ileum. Biopsy of sigmoid colon stricture showed adenocarcinoma. She was treated with octreotide and discharged on 07/20/2023 when diarrhea improved. DPD deficiency test is negative. CT C/A/P 08/27/23 showed no evidence of distant metastatic disease. MRI pelvis wwo 08/27/23 demonstrated residual tumor (T4 with involvement of peritoneal reflection). Went on to have a low anterior resection with diverting loop ileostomy on 09/24/23. Path from rectum showed residual grade 2 invasive adenocarcinoma with treatment effect, viable tumor <1 cm. 06/[address] negative, clear margins, invades through MP into pericolonic/perirectal tissue; [id number]. 02/13/2024 Completed ileostomy closure under the care of Dr. Noonan at [facility]. CT C/A/P with contrast demonstrated 6.3 mm hypodense nodule in the inferior pole of the right lobe of the thyroid, 1.3 cm cyst in the inferior medial portion of the right lobe of the liver (decreased in size), stable 1 cm cyst medial aspect of the left lobe of the liver, colonic diverticulosis without diverticulitis, retroaortic left renal vein (normal variant), and degenerative changes of the spine. [facility] Medical History Wears glasses Post-menopausal Cancer Syncope Leg cramps Non-smoker History of irregular heartbeat Thyroid nodule Pancytopenia Neutropenia with fever CINV (chemotherapy-induced nausea and vomiting) Rectal cancer Home Medications ?Medication ?Instructions ?Recorded ?Last Taken ?Type bilberry 100 mg capsule 100 mg PO DAILY 10/07/24 Unknown History bisoprolol fumarate 5 mg tablet 2.5 mg PO DAILY 10/07/24 10/14/24 History flaxseed oil 1,000 mg capsule 1,000 mg PO DAILY 10/07/24 Unknown History denia (Zingiber officinalis) 250 250 mg PO DAILY 10/07/24 Unknown History mg capsule complete bone and tissue 2 cap PO BID 10/08/24 Unknown History formula 6 1 cap PO TID 10/08/24 Unknown History optimal balance 1 cap PO DAILY 10/08/24 Unknown History vision essential gold 2 cap PO DAILY 10/08/24 Unknown History Allergy/AdvReac Type Severity Reaction Status Date / Time No Known Allergies Allergy Verified 10/07/24 14:04 Family History Mother CAD (coronary artery disease) Myocardial infarction Hypertension Heart disease Father Family hx of prostate cancer Surgical History History of colonoscopy History of colectomy (~08/2023) History of reversal of ileostomy (~01/2024) History of ileostomy (~08/2023) History of mandibular surgery Hx of cataract removal with insertion of prosthetic lens Social History household members: spouse Smoking Status: Never smoker alcohol intake: never substance use type: does not use ROS Constitutional Constitutional: Denies fatigue, fever(s), poor appetite, weight gain or weight loss Gastrointestinal Gastrointestinal: Denies belching, bloating, change in bowel habits, change in stool character, chewing difficulty, coffee ground emesis, constipation, cramping, diarrhea, dyspepsia, dysphagia, early satiety, excessive flatus, fecal incontinence, heartburn, hematemesis, hematochezia, hemorrhoids, loose stools, melena, nausea, odynophagia, rectal bleeding, tenesmus, vomiting or weight changes Vital Signs Vital Signs Vital Signs: 10/14/24 09:52 10/14/24 09:53 10/14/24 10:53 Temperature 97.0 F L 97.0 F L Temperature Source Temporal Pulse Rate 60 60 Respiratory Rate 16 16 Respiratory Pattern Normal Blood Pressure 155/83 H 155/83 H Blood Pressure Mean 107 Blood Pressure Source Monitor Blood Pressure Position Sitting Blood Pressure Location Left Arm Pulse Ox 99 99 Oxygen Delivery Method Room Air Weight Weight: 92 lb 9.506 oz Body Mass Index (BMI) 18.1 Physical Exam Narrative Elderly woman. Const alert, oriented x3 and no apparent distress HEENT normocephalic Psych mental status grossly normal Attitude: calm and engaged Assessment & Plan Assessment/Plan (1) Rectal cancer: PLAN: Assessment and Plan Assessment and Plan (1) Rectal cancer: Status: Acute Comment: Rectosigmoid cancer cT4a N0. S/P neoadjuvant Xeloda with Radiation. Did not get Week 5 Xeloda because of Diarrhea and enterocolitis. DPD deficiency test was negative. Biopsy of sigmoid colon stricture showed adenocarcinoma. Pt does not want to do any more chemotherapy. 09/24/23: LAR w DLI. Plan: CT chest abdomen pelvis obtained 08/23/2024 reviewed with patient. Shows thyroid nodule but otherwise no evidence of recurrence or metastatic disease at this time. Patient will be due for colonoscopy end of August 2024. Will repeat her colonoscopy today. (2) Thyroid nodule: Status: Acute Plan: Request ultrasound thyroid Orders: Orders CBC W/Diff, Automated 3 Months C20 - Malignant neoplasm of rectum Comprehensive Metabolic Profil 3 Months C20 - Malignant neoplasm of rectum Carcinoembryonic Antigen 3 Months C20 - Malignant neoplasm of rectum Thyroid Today E04.1 - Nontoxic single thyroid nodule
--- NOTE | 2024-10-14 11:52 | OP.COLON_ITS ---
Patient Name: Ximena Chow Procedure Date: 10/14/2024 11:21 AM Date of : 1955 Age: 69 Procedure: Colonoscopy Indications: High risk colon cancer surveillance: Personal history of colon cancer Providers: Oliver Gunderson DO Referring MD: Mike Salvador Md Medicines: Monitored Anesthesia Care Patient Profile: This is a 69 year old female. Refer to note in patient chart for documentation of history and physical. Last Colonoscopy: 1 year ago. Complications: No immediate complications. Procedure: Pre-Anesthesia Assessment: - Prior to the procedure, a History and Physical was performed, and patient medications and allergies were reviewed. The patient is competent. The risks and benefits of the procedure and the sedation options and risks were discussed with the patient. All questions were answered and informed consent was obtained. Patient identification and proposed procedure were verified by the physician in the pre-procedure area. Mental Status Examination: alert and oriented. Airway Examination: normal oropharyngeal airway and neck mobility. Respiratory Examination: clear to auscultation. CV Examination: normal. Prophylactic Antibiotics: The patient does not require prophylactic antibiotics. Prior Anticoagulants: The patient has taken no anticoagulant or antiplatelet agents except for NSAID medication. ASA Grade Assessment: II - A patient with mild systemic disease. After reviewing the risks and benefits, the patient was deemed in satisfactory condition to undergo the procedure. The anesthesia plan was to use monitored anesthesia care (MAC). Immediately prior to administration of medications, the patient was re-assessed for adequacy to receive sedatives. The heart rate, respiratory rate, oxygen saturations, blood pressure, adequacy of pulmonary ventilation, and response to care were monitored throughout the procedure. The physical status of the patient was re-assessed after the procedure. After I obtained informed consent, the scope was passed under direct vision. Throughout the procedure, the patient's blood pressure, pulse, and oxygen saturations were monitored continuously. The pediatric colonoscope was introduced through the anus and advanced to the cecum, identified by appendiceal orifice and ileocecal valve. The colonoscopy was performed without difficulty. The patient tolerated the procedure well. The quality of the bowel preparation was adequate. The ileocecal valve, appendiceal orifice, and rectum were photographed. Scope In: 11:33:24 AM Scope Withdrawal Time 0 hours 6 minutes 6 seconds Scope Out: 11:45:37 AM Total Procedure Duration Time 0 hours 12 minutes 13 seconds Findings: The perianal and digital rectal examinations were normal. There was evidence of a prior end-to-end colo-colonic anastomosis in the recto-sigmoid colon. This was patent and was characterized by healthy appearing mucosa. The anastomosis was traversed. An 8 mm polyp was found in the cecum. The polyp was sessile. The polyp was removed with a hot snare. Resection and retrieval were complete. Verification of patient identification for the specimen was done. Estimated blood loss was minimal. A 5 mm polyp was found in the hepatic flexure. The polyp was sessile. The polyp was removed with a jumbo cold forceps. Resection and retrieval were complete. Verification of patient identification for the specimen was done. Estimated blood loss was minimal. Impression: - Patent end-to-end colo-colonic anastomosis, characterized by healthy appearing mucosa. - One 8 mm polyp in the cecum, removed with a hot snare. Resected and retrieved. - One 5 mm polyp at the hepatic flexure, removed with a jumbo cold forceps. Resected and retrieved. Recommendation: - Repeat colonoscopy in 2 years for surveillance. - Continue present medications. Procedure Code(s): --- Professional --- 90006, Colonoscopy, flexible; with removal of tumor(s), polyp(s), or other lesion(s) by snare technique 03857, 59, Colonoscopy, flexible; with biopsy, single or multiple CPT copyright 2021 [employer]. All rights reserved. The codes documented in this report are preliminary and upon backpackers manager review may be revised to meet current compliance requirements. Oliver Gunderson DO 10/14/2024 11:52:42 AM This report has been signed electronically. Number of Addenda: 0 Note Initiated On: 10/14/2024 11:21 AM
--- NOTE | 2024-10-14 11:53 | OP.CCLET_ITS ---
10/14/2024 Mike Salvador Md Re : Colonoscopy procedure for Ximena Chow Dear [place] This procedure was performed on September. My impressions and recommendations are as follows: Impressions : - Patent end-to-end colo-colonic anastomosis, characterized by healthy appearing mucosa. - One 8 mm polyp in the cecum, removed with a hot snare. Resected and retrieved. - One 5 mm polyp at the hepatic flexure, removed with a jumbo cold forceps. Resected and retrieved. Recommendations : - Repeat colonoscopy in 2 years for surveillance. - Continue present medications. My findings are described in the full procedure note, which is enclosed. If I can be of further assistance, please feel free to contact me at . Sincerely, Oliver Gunderson, 10/14/2024 11:52:42 AM This report has been signed electronically.
--- NOTE | 2024-10-14 11:55 | PCM.POST.ANE ---
Anesthesia: Postop Eval I Current Vital Signs Temperature: 98.1 F Pulse Rate: 74 Blood Pressure: 93/75 Respiratory Rate: 16 Pulse Ox: 100 Oxygen Delivery Method: Room Air Assessment Airway patent: Yes Spontaneous unlabored respirations: Yes Mental status: Awake and Calm nausea: No Vomiting: No Anesthesia Complication: No Fluid Hydration Crystalloid volume administer (ml): 40 Total IV fluid infused: 40 Progress Note Anesthesia document: Postop Eval 1 completed: Yes
--- NOTE | 2024-10-14 14:46 | PCM.POSTANE2 ---
Anesthesia Postop Eval I Sum Postop Eval Completion status Anesthesia document: Postop Eval 1 completed: Yes Anesthesia Postop Eval I Summary Anesthesia Postop Eval I Summary: Anesthesia Postop Eval I: Assessment Summary Airway patent Yes 10/14/24 11:56 [email or web address] Spontaneous unlabored Yes 10/14/24 11:56 [email or web address] respirations Mental status Awake,Calm 10/14/24 11:56 [email or web address] nausea No 10/14/24 11:56 [email or web address] Vomiting No 10/14/24 11:56 [email or web address] Anesthesia Postop Eval I: Fluid Summary Crystalloid volume administer 40 10/14/24 11:56 [email or web address] (ml) Colloids volume administered ( ml) Blood Product volume administered (ml) Total IV fluid infused 40 10/14/24 11:56 [email or web address] Anesthesia Postop Eval I: Summary Notes Anesthesia Complication No 10/14/24 11:56 [email or web address] Anesthesia Complication Comment: Post-operative progress note Anesthesia: Postop Eval II Evaluation Mental status: Awake and Calm Pain Level: 0 nausea: No Vomiting: No Complications Anesthesia Complication: No
== END 2024-10-14 12:46 | disposition home or self-care (01) ==
LOC: EN 09:26 → AC 09:27
PROVIDERS: PCP Family Medicine; Referring Provider Family Medicine; Visit Provider Internal Medicine Gastroenterology
PROC: 0DJD8ZZ Inspection of Lower Intestinal Tract, Via Natural or Artificial Opening Endoscopic (ICD-10-PCS; CPT 45378; principal; 2024-10-14 10:25)
DX: Z12.11 Encounter for screening for malignant neoplasm of colon (principal); C20 Malignant neoplasm of rectum; E04.1 Nontoxic single thyroid nodule; Z92.3 Personal history of irradiation; Z85.038 Personal history of other malignant neoplasm of large intestine; Z98.0 Intestinal bypass and anastomosis status; D12.3 Benign neoplasm of transverse colon; D12.0 Benign neoplasm of cecum
CPT/HCPCS: 45380; 45385; 88305; A4216; J2405

== ENCOUNTER → 2024-11-02 | Outpatient (CLI) | payer SELFPAY ==
--- NOTE | 2024-11-02 11:45 | US_ITS ---
PROCEDURE: THYROID 11/02/2024 REASON FOR EXAM: THYROID NODULE TECHNIQUE: High-frequency thyroid ultrasound, including grayscale and color-flow images. COMPARISON: Nodule seen on recent CT study dated 08/23/2024. FINDINGS: Right thyroid lobe size: 4.6 x 1.8 x 1.7 cm Left thyroid lobe size: 3.7 x 1.2 x 1.2 cm Isthmus: 0.2 cm Background parenchymal echotexture is heterogeneous. Nodules: Lobe: Right, Location: Midpole, Size: 2.7 x 1.4 x 1.4 cm. Hypervascular. Composition: Solid or almost completely solid (+2) Echogenicity: Mixed echogenicity. Margin: Smooth. Shape: Wider than tall. Echogenic Foci: Not present. Lobe: Left, Location: Inferolateral, Size: 0.5 x 0.4 x 0.3 cm. Composition: Mixed cystic and solid. Echogenicity: Hypoechoic. Margin: Well-circumscribed and smooth. Shape: Wider than tall. Echogenic Foci: Not present. Lobe: Left, Location: Inferior isthmus, Size: 1.5 x 1.2 x 0.7 cm. Composition: Mixed cystic and solid. Echogenicity: Primarily hypoechoic. Margin: Well-circumscribed. Shape: Wider than tall. Echogenic Foci: Not present. US/Thyroid IMPRESSION: 1. A right midpole solid nodule, TR 4 category. FNA is recommended for furthe r evaluation. 2. A mixed cystic and solid micronodule in the left thyroid lobe, TR 3 categor y. No FNA warranted. 1 year follow-up recommended. 3. A mixed cystic and solid nodule in the isthmus, TR 3 category. No FNA lópez anted. 1 year follow-up recommended. Reading Location: [facility]
== END | disposition home or self-care (01) ==
LOC: US 11:44
PROVIDERS: PCP Family Medicine; Referring Provider Nurse Practitioner Family; Visit Provider Nurse Practitioner Family
DX: E04.1 Nontoxic single thyroid nodule (principal)
CPT/HCPCS: 76536

== ENCOUNTER → 2024-12-08 | Outpatient (CLI) | payer OTHER, SELFPAY ==
--- NOTE | 2024-12-08 14:00 | ASPIG_PTH ---
PATIENT: VAN REYNOSO LOC: [facility] U#:[id number] AGE/SX: 69/F ROOM: RE12/08/[address]: Dr. Yon Farris MD : 1955 BED: DIS: 12/08/2024 SPEC #: [id number] RECD: 12/08/24 14:00 STATUS: TOÑO ROSS #: [id number] PAOLA: 12/08/24 14:[address]: Yon Farris DEPT: CYTOLOGY RECD BY: Isatu Castaneda ENTERED: 12/08/24 14:42 SP TYPE: ASP OUT OTHR DR: Dr. Mike Salvador MD Tissues: Thyroid gland, NOS Procedures: FNA Specimen Adequacy Special Stain Group II Cytology Other HEADER OPERATION: Fine needle aspiration of right thyroid nodule PRE-OP DIAGNOSIS: Right thyroid nodule TISSUE SUBMITTED: A- Right mid thyroid nodule for cytology DIAGNOSIS CYTOLOGY A. Thyroid, right mid, nodule, FNA: * Atypia of undetermined significance (TBS III) - see Comment. COMMENT The specimen is evaluated at the time of biopsy by Dr. Mina. Immediate Evaluation = 1. Rare follicular cells. 2. Few follicular cells. Per recommendations and a clinician-approved plan (a call was made to the referring doctor about the recommendation), genomic testing (Afirma) has been submitted. Results will be reported as an addendum and faxed to clinician. CYTOLOGY STUDY Slides are reviewed. CYTOLOGY GROSS A. Received is 30 ml of red-cloudy cytolyt with particles and 4 smears labeled with the patient's name and and designated per the requisition as Right mid thyroid nodule. Submitted for cytology preparation. 12/08/2024 [facility]: [id number] ADDENDUM ADDENDUM ADDENDUM ADDENDUM ADDENDUM ADDENDUM ADDENDUM ADDENDUM ADDENDUM ADDENDUM 01/12/2025 15:05 ADDENDUM 01/12/2025 15:05 ADDENDUM 01/12/2025 15:05 ADDENDUM 01/12/2025 15:05 ADDENDUM 01/12/2025 15:05 AFIRMA RESULTS REPORT RESULTS INTERPRETATION: The result of this 2.7 cm [place] III nodule A is Afirma [facility] benign, which suggests a low risk of cancer of approximately 4%. Treatment like a cytologically benign nodule may be appropriate, including clinical correlation. Afrima XA is not performed on [facility] Benign nodules. TERT promoter region analysis is not performed on [facility] Benign nodules. Please see complete report in e-chart or EMR
== END | disposition home or self-care (01) ==
PROVIDERS: PCP Family Medicine; Referring Provider Surgery; Visit Provider Surgery
DX: E04.1 Nontoxic single thyroid nodule (principal)
CPT/HCPCS: 88161; 88172; 88313